=== PATIENT | female | born 1950 | race Caucasian/White ===

== ENCOUNTER 2020-02-25 08:37 | Emergency (ER) | payer MEDICARE, SELFPAY ==
[2020-02-25 08:38] VITALS: BP 162/77; PULSE 107; RESP 18; TEMP 36.5; O2SAT 100; BMI 20.8
--- NOTE | 2020-02-25 08:50 | EKG12_ITS ---
Test Reason : CP Blood Pressure : / mmHG Vent. Rate : 108 BPM Atrial Rate : 108 BPM P-R Int : 170 ms QRS Dur : 074 ms QT Int : 336 ms P-R-T Axes : 068 033 074 degrees QTc Int : 450 ms Sinus tachycardia Otherwise normal ECG Confirmed by SHIKHA CHANDRA, KEM ([id number]), newspaper managing editor [place] [employer] ([id number]) on 02/29/2020 2:33:10 PM Referred By: JEREMIAH Confirmed By:TERRI TRIVEDI MD
--- NOTE | 2020-02-25 08:52 | RAD_ITS ---
STUDY: X-RAY CHEST REASON FOR EXAM: Female, 70 years old. CHEST PAIN RADIATING INTO BACK x2 DAYS -- HX OF HTN TECHNIQUE: Single AP portable view of the chest. COMPARISON: Comparison is made with prior study dated 10/16/2015. FINDINGS: EKG electrodes are seen. Hyperinflation. The lungs are clear. There is no demonstrated pleural abnormality. Normal size heart. Normal mediastinum and lonnie. Normal visualized pulmonary arteries. There is atherosclerotic calcification of the aortic arch with tortuosity. Normal visualized thoracic spine. Normal visualized ribs, clavicles, and shoulders. There is no demonstrated abnormality of the visualized soft tissue structures of the upper abdomen. RAD/Chest 1 View (Portable) IMPRESSION: Hyperinflation. Electronically Signed: Justin Azevedo, at 9:23 EDT , Service support ,
[2020-02-25 08:55] LABS: Absolute Lymphocyte Count 1.38 X10^3/uL (0.83-4.51); Basophil# 0.04 X10^3/uL; Basophil% 0.7 % (0-1); Eosinophils% 1.7 % (0-5); Hematocrit 41.9 % (37-47); Lymphocyte # 1.38 X10^3/ul (4.0); Lymphocyte % 23.5 % (19-41); Mean Corp Hgb Conc 33.4 g/dL (32-36); Mean Corpuscular Hgb 30.6 pg (27.0-32.0); Mean Corpuscular Volume 91.7 fL (81-99); Mean Platelet Vol. 9.3 fl (6.2-12.0); Monocyte# 0.34 X10^3/uL; Monocyte% 5.8 % (0-10); NRBC Flagged by Analyzer 0 % (0-5); Neutrophil # 3.98 X10^3/uL (2.7-7.7); Platelet Count 303 K/mm3 (150-450); RBC Distribution Width CV 12.5 % (11.6-14.6); RBC Distribution Width SD 41.9 fl (35.1-43.9); Red Blood Count 4.57 M/mm3 (4.2-5.4); White Blood Count 5.9 K/mm3 (4.4-11.0)
[2020-02-25 09:07] LABS: International Normalized Ratio 0.9; Prothrombin Time (Protime)PT. 11.7 SECONDS (11.7-14.9)
--- NOTE | 2020-02-25 09:07 | ED.DCSUM_ITS ---
History of Present Illness Chief Complaint: Chest Pain Informant: Patient Onset: Days - 2-3 Timing: Continuous - this AM, had it since woke up about 2 hrs [employer], Intermittent - last 2d, 1-2 min episodes of discomfort Quality: Dull Location: Left Chest - just left of sternum Current Severity: Mild Maximum Severity: Mild Worsened By: Breathing, Coughing Relieved By: Nothing Associated Symptoms: Negative for: Nausea, Vomiting, Diaphoresis, Dyspnea, Cough, Fever, Lightheadedness, Palpitations Narrative: Patient had brief intermittent episodes of discomfort in her chest last couple days, this morning since she woke up it has been constant and radiates straight through to her back. Just left of sternum. No other radiation, no discomfort in her arms, shoulders, neck, jaw. She denies any associated symptoms except for that it seems to be pleuritic. It is not sharp, stabbing. No sense of impending doom. She denies any palpitations, dyspnea. She has had no contact with anyone with COVID-19 that she knows of, she has not been diagnosed with the disease, nor has she had any illness recently to suggest an upper respiratory infection. She denies any recent travel, hospitalization, surgeries. She saw her doctor for routine exam 3 weeks ago and it was unremarkable. She had a routine negative stress test 5 or 6 years ago. She does not have a history of heart problems. Non-smoker. - Past Medical History (1) Hyperlipidemia Status: Chronic (2) HTN (hypertension) Status: Chronic Past Medical History - Allergies and Home Meds Allergies/Adverse Reactions: Allergies Penicillins Allergy (Verified 02/25/20 08:44) Hives Sulfa (Sulfonamide Antibiotics) Allergy (Verified 02/25/20 08:44) Itching Primary Care Physician: Pia Mims MD [Primary Care Provider] - Surgical History: hysterectomy Lives: Spouse/ Significant Other Smoking Status: Former smoker Review of Systems General: Denies: Chills, Fever, Sweats Eyes: Denies: Visual changes - bilaterally, Diplopia ENT: Denies: Rhinorrhea, Sore throat Cardiovascular: Reports: Chest pain. Denies: Palpitations Respiratory: Denies: Dyspnea, Cough, Dyspnea on exertion Gastrointestinal: Denies: Abdominal pain, Nausea, Vomiting, Diarrhea, Melena, Hematochezia Genitourinary: Denies: Dysuria, Hematuria, Frequency Musculoskeletal: Reports: Back pain. Denies: Myalgias, Neck pain, Swelling, Extremity Pain Skin: Denies: Rash, Wounds Neurological: Denies: Headache, Weakness, Numbness Physical Exam Vital Signs/Narrative: Vital Signs Temp Pulse Resp BP Pulse Ox 02/25/20 08:38 97.7 F L 107 H 18 162/77 H 100 Inital Vital Signs reviewed: Yes General: Well nourished, Well developed, No Acute Distress - Well-appearing, conversive, pleasant Head: Normocephalic, Atraumatic Eyes: Perrl, EOMI ENT: Moist mucous membranes, No rhinorrhea Neck: Supple, Nontender, No lymphadenopathy, No JVD Cardiovascular: Regular rate, Regular rhythm, No murmurs, Tachycardia - Mild at times, usually in the 90s, - - 1+ bilateral symmetric dorsalis pedis pulses. 2+ bilateral symmetric radial pulses Respiratory: No distress, CTA bilaterally, Chest nontender Abdomen: Soft, Nontender, Nondistended, Normal bowel sounds. Negative for: Pulsatile mass Back: Nontender, Normal Inspection Extremities: Nontender, No edema. Negative for: Calf Tenderness Skin: Normal color, No rash, No Trauma Neurological: Alert, Oriented x3, Cranial nerves II-XII grossly intact, Normal Strength, Normal Sensation, Normal Gait Psychological: Normal affect, Normal Mood Diagnostic/Tx/Re-eval Impressions Chest X-Ray 02/25/20 08:52 IMPRESSION: Hyperinflation. Electronically Signed: Justin Jolly, at 9:23 EDT , Service support , 02/25/20 08:52 Chest 1 View (Portable) [RAD] Stat Laboratory Results 02/25/20 02/25/20 02/25/20 08:45 08:45 08:45 WBC 5.9 RBC 4.57 Hgb 14.0 Hct 41.9 MCV 91.7 MCH 30.6 MCHC 33.4 RDW Std Deviation 41.9 RDW Coeff of Elli 12.5 Plt Count 303 MPV 9.3 Immature Gran % (Auto) 0.300 Neut % (Auto) 68.0 Lymph % (Auto) 23.5 Grimes % (Auto) 5.8 Eos % (Auto) 1.7 Baso % (Auto) 0.7 Absolute Neuts (auto) 4.0 Absolute Lymphs (auto) 1.38 Nucleated RBC % 0 PT 11.7 INR 0.9 D-Dimer Quant (PE/DVT) Sodium 141 Potassium 3.2 L Chloride 105 Carbon Dioxide 31.0 Anion Gap 5 BUN 14 Creatinine 1.12 H Estim Creat Clear Calc 39.21 Est GFR (MDRD) Af Amer 62 Est GFR (MDRD) Non-Af 51 L BUN/Creatinine Ratio 12.5 Glucose 154 H Calcium 8.8 Troponin I < 0.015 02/25/20 08:45 WBC RBC Hgb Hct MCV MCH MCHC RDW Std Deviation RDW Coeff of Elli Plt Count MPV Immature Gran % (Auto) Neut % (Auto) Lymph % (Auto) Grimes % (Auto) Eos % (Auto) Baso % (Auto) Absolute Neuts (auto) Absolute Lymphs (auto) Nucleated RBC % PT INR D-Dimer Quant (PE/DVT) 0.43 Sodium Potassium Chloride Carbon Dioxide Anion Gap BUN Creatinine Estim Creat Clear Calc Est GFR (MDRD) Af Amer Est GFR (MDRD) Non-Af BUN/Creatinine Ratio Glucose Calcium Troponin I - Rhythm Strip Rhythm Strip: Sinus Tach Rate: 105 Ectopy: PVC(s) - Rare - EKG Initial EKG Interpretation: No Acute Injury Pattern - Normal axis, normal intervals. No AV danielle block., Sinus Tachycardia Prior: Unchanged Treatment: Toradol IV, GI Cocktail JOHN Risk: Age >/= 65 Score: 1 - Medical Decision Making Work-up is negative, along with d-dimer ruling out acute pulmonary embolus in this particular clinical scenario as the patient is low risk and has no signs or symptoms of a DVT. I do not think she needs a delta troponin since she has been having intermittent pain the last several days along with constant pain this morning. The discomfort acts like pleurisy and her vital signs are stable with a pulse ox of 100% on room air at rest. I am comfortable with her being discharged home. While we were waiting for the work-up to return, I tried a GI cocktail, she states it helped maybe a little but she still had the discomfort when she breathes. We talked about NSAID use, I am fine with her using it on occasion but being in her 70s, I would not take it daily if possible. Given appropriate discharge instructions, reasons to return, and advised to follow-up and she is comfortable with that plan. ED Disposition - Plan for ED Patient: Disposition: Home or Assisted Living Diagnosis: Pleurisy Instructions: ED Chest Pain Pleurisy Referrals: Pia Mims MD [Primary Care Provider] - 1 Week if not improving
[2020-02-25 09:17] LABS: Anion Gap 5 (5-15); BUN 14 mg/dL (7-18); BUN/Creat Ratio 12.5 RATIO (10-20); Calcium,Total 8.8 mg/dL (8.5-10.1); Chloride 105 mmol/L (98-107); Creatinine, Serum 1.12 mg/dL (0.55-1.02); EST Glomerular Filtration Rate 51 mL/min (>60); Est Glom Filt Rate - Afr Amer 62 mL/min (>60); Estimated Creatinine Clearance 39.21 ml/min; Glucose 154 mg/dL (74-106); Potassium 3.2 mmol/L (3.5-5.1); Sodium Level 141 mmol/L (136-145)
[2020-02-25 09:29] LABS: D-Dimer Quantitative (DVT/PE) 0.43 FEU/ug/m (0.27-0.49)
[2020-02-25] MEDS: Mag Hydrox/Al Hydrox/Simeth 30 ML UDC PO (09:45)
[2020-02-25 09:47] VITALS: BP 141/96; PULSE 97; RESP 16; O2SAT 100
[2020-02-25 11:10] VITALS: BP 160/74; PULSE 94; RESP 16; O2SAT 99
== END 2020-02-25 11:12 | disposition home or self-care (01) ==
PROVIDERS: Emergency Provider Emergency Medicine; PCP Internal Medicine
DX: R09.1 Pleurisy (principal); I10 Essential (primary) hypertension; E78.5 Hyperlipidemia, unspecified; M54.9 Dorsalgia, unspecified; Z79.899 Other long term (current) drug therapy; Z87.891 Personal history of nicotine dependence
CPT/HCPCS: 71045; 80048; 84484; 85025; 85379; 85610; 93005; 99284; A4216

== ENCOUNTER 2020-07-13 09:05 | Outpatient (RCR) | payer MEDICARE, SELFPAY | END 2020-07-13 23:59 | LOC: IMMUN 09:05 | PROVIDERS: PCP Internal Medicine; Visit Provider Family Medicine | DX: Z23 Encounter for immunization (principal) | CPT/HCPCS: 0011A; 0012A; 91301 ==

== ENCOUNTER → 2024-12-14 | Outpatient (REF) | payer MEDICARE, SELFPAY ==
--- OUTSIDE RECORDS SUMMARY | 2024-12-14 03:42 | XMS RPT_ITS | CCD ---
Author Organization [facility] Care Team Providers Care Brine Well Operator Name Role Phone DR ALYSSA LUGO DO Primary Care Physician [phone] Paulina Ardon MD Primary Care Provider Paulina Ardon MD Primary Care Provider Paulina Ardon MD Primary Care Provider Paulina Ardon MD Primary Care Provider Sanchez CHANNEL ACCOUNT MANAGER.WAFER CUTTER, Sandra Unavailable Caleb CHANNEL ACCOUNT MANAGER.FIELD CROPS HARVEST MACHINE OPERATOR, Christina Unavailable CELIA CHANDRA, DR GAIL Francisco Attending Unavailabl e DR PAULINA ARDON MD Primary Care Unavailable Caleb CHANNEL ACCOUNT MANAGER.FIELD CROPS HARVEST MACHINE OPERATOR, Christina Unavailable Sanchez CHANNEL ACCOUNT MANAGER.WAFER CUTTER, Sandra Unavailable BLADE LYMAN Attending Unavailable TALAMPAS, PAULINA D Primary Care Unavailable BLADE LYMAN Attending Unavailable TALAMPAS, PAULINA D Primary Care Unavailable TALAMPAS, PAULINA D Referring Unavailable TALAMPAS, PAULINA D Primary Care Unavailable TALAMPAS, PAULINA D Attending Unavailable TALAMPAS, PAULINA D Primary Care Unavailable TALAMPAS, PAULINA D Referring Unavailable TALAMPAS, PAULINA D Primary Care Unavailable TALAMPAS, PAULINA D Attending Unavailable TALAMPAS, PAULINA D Primary Care Unavailable TALAMPAS, PAULINA D Referring Unavailable TALAMPAS, PAULINA D Primary Care Unavailable TALAMPAS, PAULINA D Attending Unavailable TALAMPAS, PAULINA D Primary Care Unavailable SANCHEZ, SANDRA Attending Unavailable TALAMPAS, PAULINA D Primary Care Unavailable TALAMPAS, PAULINA D Referring Unavailable TALAMPAS, PAULINA D Primary Care Unavailable YAHAIRA BEAR Attending Unavailable TALAMPAS, PAULINA D Primary Care Unavailable SANDRA SANCHEZ Attending Unavailable PAULINA ARDON Primary Care Unavailable Allergies Allergy Classification Reported Allergen(s) Allergy Type Date of Onset Reaction(s) Facility (1 source) Penicillin; Translations: [penicillins] Drug Allergy Eruption of skin (disorder) [facility] Work Phone: (20 sources) Losartan; Translations: [LOSARTAN] Drug Allergy 08-08-19 22 Intolerance [facility] Work Phone: (7 sources) Penicillins; Translations: [PENICILLINS] Drug Intolerance 03-26-20 05 [facility] Work Phone: (20 sources) Sulfamethoxazole / Trimethoprim; Translations: [SULFAMETHOXAZOLE-T RIMETHOPRIM] Drug Allergy 11-16-19 06 Rash [facility] (20 sources) Penicillins Drug Intolerance 03-26-20 05 [facility] Work Phone: (6 sources) Penicillins Drug Intolerance 03-26-20 05 [facility] Medications Current Medications Medication Drug Class(es) Dates Sig (Normalized) Sig (Original) acetaminophen 325 mg / HYDROcodone bitartrate 5 mg oral tablet (2 sources) Opioid Agonist Start: 09-19-2024 End: 09-26-2024 take 1 tablet by mouth twice daily as needed for pain HYDROcodone-acetam inophen (NORCO) 5-325 mg per tablet Indications: Closed wedge compression fracture of T9 vertebra, sequela Take 1 tablet by mouth two times a day as needed for pain for up to 7 days. 14 tablet 09/19/2024 09/26/2024 Active Start: 08-17-2024 End: 08-24-2024 take 1-2 tablets by mouth every six hours as needed for pain HYDROcodone-acetaminophen (NORCO) 5-325 mg per tablet Indications: Closed wedge compression fracture of T9 vertebra, initial encounter ([facility]) Take 1-2 tablets by mouth every 6 hours as needed for pain for up to 7 days. 50 tablet 08/17/2024 08/24/2024 Active alendronic acid 70 mg oral tablet (11 sources) Bisphosphonate Start: 08-17-2024 take 1 tablet by mouth every week in the morning alendronate (FOSAMAX) 70 mg tablet Indications: Age-related osteoporosis without current pathological fracture Take 1 tablet by mouth one time a week. in the AM with glass of water on empty stomach. Do not take anything else by mouth or lie down for 30 min 12 tablet 3 08/17/2024 Active Start: 09-07-2022 End: 03-01-2023 take 1 tablet by mouth every week in the morning alendronate (FOSAMAX) 70 mg tablet Indications: Age-related osteoporosis without current pathological fracture Take 1 tablet by mouth one time a week. In AM with cup of water on empty stomach. Nothing else by mouth and stay upright for 30 min. 12 tablet 3 09/07/2022 03/01/2023 Discontinued Comment on above: Take 1 tablet by darrius th one time a week. In AM with cup of water on empty stomach. Nothing else by mouth and stay upright for 30 min. amLODIPine 10 mg oral tablet (20 sources) Dihydropyridine Calcium Channel Merlyn Start: 06-10-19 End: 08-18-19 take 1 tablet by mouth once daily amLODIPine (NORVASC) 10 mg tablet Indications: Essential hypertension with goal blood pressure less than 140/90 Take 1 tablet by mouth once daily. 90 tablet 3 08/17/2024 Active Start: 03-16-2021 End: 2023 take 1 tablet by mouth once daily amLODIPine (NORVASC) 10 mg tablet Indications: Essential hypertension with goal blood pressure less than 140/90 Take 1 tablet by mouth once daily. 90 tablet 3 2023 Active Comment on above: Take 1 tablet by darrius th once daily. atorvastatin 10 mg oral tablet (20 sources) HMG-CoA Reductase Inhibitor Start: End: take 1 tablet by mouth once daily atorvastatin (LIPITOR) 10 mg tablet Indications: Hyperlipidemia, unspecified hyperlipidemia type Take 1 tablet by mouth once daily. 90 tablet 3 08/17/2024 Active Start: 2023 take 1 tablet by darrius th once daily atorvastatin (LIPITOR) 10 mg tablet Indications: Hyperlipidemia, unspecified hyperlipidemia type Take 1 tablet by mouth once daily. 90 tablet 3 2023 Active Start: 03-16-2021 End: 2023 take 1 tablet by mouth once daily atorvastatin (LIPITOR) 20 mg tablet Indications: Hyperlipidemia, unspecified hyperlipidemia type Take 1 tablet by mouth once daily. 90 tablet 3 02/06/2022 2023 Discontinued Comment on above: Take 1 tablet by darrius th once daily. cholecalciferol, vitamin D3, (VITAMIN D3 ORAL) (20 sources) cholecalciferol, vitamin D3, (VITAMIN D3 ORAL) Take 1,000 Int'l Units by mouth. Nature Made Active cholecalciferol, vitamin D3, (VITAMIN D3 ORAL) Take 1,000 Int'l Units by mouth. Nature Made 0 Active Comment on above: Take 1,000 Int'l Uni ts by mouth. Nature Made 24 hr metoprolol succinate 25 mg extended release oral tablet (20 sources) beta-Adrenergic Merlyn Start: 06-10-2023 End: 08-17-2024 take 1 tablet by mouth once daily metoprolol succinate ER (TOPROL XL) 25 mg 24 hr tablet Indications: Palpitations , HTN, goal below 140/90 Take 1 tablet by mouth once daily. 90 tablet 3 08/17/2024 Active Start: 08-07-2021 End: 2023 take 1 tablet by mouth once daily metoprolol succinate ER (TOPROL XL) 25 mg 24 hr tablet Indications: Palpitations , HTN, goal below 140/90 Take 1 tablet by mouth once daily. 90 tablet 3 2023 Active Comment on above: Take 1 tablet by darrius th once daily. salmon calcitonin 200 unt/actuat nasal spray (7 sources) Calcitonin Start: 09-19-2024 calcitonin,salmon, (MIACALCIN) 200 unit/actuation nasal spray Indications: Closed wedge compression fracture of T9 vertebra, sequela Use 1 spray in the nose once daily. 11.1 mL 2 09/19/2024 Active Start: 08-17-2024 calcitonin,sung mon, (MIACALCIN) 200 unit/actuation nasal spray Indications: Closed wedge compression fracture of T9 vertebra, initial encounter ([facility]) Use 1 Wisner in the nose once daily. 3.7 mL 08/17/2024 Active Completed/Discontinued Medications Medication Drug Class(es) Dates Sig (Normalized) Sig (Original) amitriptyline hydrochloride 10 mg oral tablet (20 sources) Tricyclic Antidepressant Start: 07-26-2023 End: 02-17-2024 take 0.5 tablet by mouth once daily at bedtime, then take 0.5 tablet by mouth every other day amitriptyline (ELAVIL) 10 mg tablet Indications: Cognitive impairment , Memory difficulties , Adverse effect of anticholinergic , Migraine without aura and without status migrainosus, not intractable Take 0.5 tablets by mouth daily at bedtime for 14 days, THEN 0.5 tablets every other day for 14 days. 11 tablet 07/26/2023 02/17/2024 Discontinued Start: 03-16-2021 End: 2024 take 1 tablet by mouth once daily at bedtime amitriptyline (ELAVIL) 10 mg tablet Indications: Migraine without aura and without status migrainosus, not intractable Take 1 tablet by mouth daily at bedtime. 90 tablet 3 06/10/2023 07/26/2023 Discontinued Comment on above: Take 1 tablet by darrius th daily at bedtime. Take 0.5 tablets by mouth daily at bedtime for 14 days, THEN 0.5 tablets every other day for 14 days. apremilast 30 mg oral tablet (11 sources) Start: 05-18-20 End: 08-01-19 23 take 1 tablet by mouth twice daily apremilast (OTEZLA) 30 mg tablet Take 1 tablet by mouth twice daily. 30 tablet 5 05/18/2021 07/31/2022 Discontinued Comment on above: Take 1 tablet by darrius th twice daily. fluticasone propionate 0.05 mg/actuat metered dose nasal spray (16 sources) Corticosteroid Start: 06-04-19 End: 12-01-19 25 take 1 spray(s) nasal route once daily fluticasone (FLONASE) 50 mcg/actuation nasal spray Indications: Acute non-recurrent maxillary sinusitis SPRAY 1 SPRAY INTO EACH NOSTRIL EVERY DAY 24 mL 1 07/29/2023 11/30/2024 Discontinued Comment on above: Use 1 Wisner in each nostril once daily. SPRAY 1 SPRAY INTO E ACH NOSTRIL EVERY DAY losartan potassium 50 mg oral tablet (1 source) Angiotensin 2 Receptor Merlyn Start: 05-18-20 End: 08-22-19 22 take 1 tablet by mouth once daily losartan (COZAAR) 50 mg tablet Take 1 tablet by mouth once daily. 30 tablet 5 05/18/2021 08/21/2021 Discontinued Comment on above: Take 1 tablet by darrius once daily. perflutren lipid microspheres 1.3 mL in NaCl (PF) 0.9% 10 mL injection (DEFINITY) (15 sources) Start: 08-22-19 End: 11-21-19 perflutren lipid microspheres 1.3 mL in NaCl (PF) 0.9% 10 mL injection (DEFINITY) 125 ml sodium chloride 9 mg/ml prefilled syringe (15 sources) Start: 08-22-19 End: 11-21-19 sodium chloride 0.9 % (flush) 10 mL (BD POSIFLUSH) tiZANidine 4 mg oral tablet (5 sources) Central alpha-2 Adrenergic Agonist Start: 09-20-19 End: 12-01-19 take 2-4 mg by mouth every eight hours as needed tiZANidine (ZANAFLEX) 4 mg tablet Take 0.5-1 tablets by mouth three times a day as needed. 30 tablet 09/19/2024 11/30/2024 Discontinued Start: 08-05-2024 take 2-4 mg by mouth every eight hours as needed tiZANidine (ZANAFLEX) 4 mg tablet Take 0.5-1 tablets by mouth three times a day as needed. 30 tablet 08/05/2024 Active VALERIAN ORAL (10 sources) End: 07-31-2022 VALERIAN ORAL Take by mouth. 0 07/31/2022 Discontinued VALERIAN ORAL Ta ke by mouth. 0 Active Comment on above: Take by mouth. Problems Active Problems Problem Classification Problem Date Documented Date Episodic/Chronic Adjustment disorders (2 sources) Adjustment disorder with anxious mood; Translations: [Adjustment disorder with anxiety] Onset: 5 12-02-2024 Chronic Cardiac dysrhythmias (6 sources) Palpitations; Translations: [Palpitations] Episodic Chronic kidney disease (18 sources) Chronic kidney disease stage 3A ; Translations: [Chronic kidney disease, stage 3a (HCC)] Onset: 9 Resolved: 0 2023 Chronic Congestive heart failure; nonhypertensive (20 sources) Chronic diastolic heart failure; Translations: [Chronic diastolic (congestive) heart failure] Onset: 3 Chronic Delirium, dementia, and amnestic and other cognitive disorders (9 sources) Dementia; Translations: [Unspecified dementia without behavioral disturbance] Onset: 5 12-02-2024 Chronic Disorders of lipid metabolism (20 sources) Hyperlipidemia; Translations: [Hyperlipidemia, unspecified] Onset: 8 07-18-2021 Chronic E Codes: Adverse effects of medical drugs (1 source) Anticholinergic adverse reaction; Translations: [Adverse effect of other parasympatholytics [anticholinergics and antimuscarinics] and spasmolytics, initial encounter] 07-26-2023 Episodic Essential hypertension (20 sources) Hypertensive disorder; Translations: [Essential (primary) hypertension] Onset: 5 07-18-2021 Chronic Headache; including migraine (20 sources) Migraine; Translations: [Migraine without aura] Onset: 5 07-18-2021 Chronic Immunizations and screening for infectious disease (8 sources) Patient encounter status; Translations: [Encounter for immunization] Onset: 5 Episodic Nonspecific chest pain (2 sources) Chest pain; Translations: [Chest pain, unspecified] Episodic Osteoporosis (4 sources) Senile osteoporosis; Translations: [Age-related osteoporosis without current pathological fracture] Onset: Chronic Other circulatory disease (20 sources) Raynaud's disease; Translations: [Raynaud's syndrome without gangrene] Onset: 5 05-10-2005 Chronic Other fractures (1 source) Closed fracture thoracic vertebra, wedge; Translations: [Wedge compression fracture of T9-T10 vertebra, initial encounter for closed fracture] 08-17-2024 Episodic Other fractures (1 source) Wedge compression fracture of T9-T10 vertebra, sequela; Translations: [Closed wedge compression fracture of T9 vertebra, sequela] Onset: 5 Episodic Other hereditary and degenerative nervous system conditions (15 sources) Mild cognitive impairment, so stated; Translations: [Mild cognitive impairment, so stated] Onset: 4 02-26-2024 Chronic Other hereditary and degenerative nervous system conditions (13 sources) Degenerative brain disorder; Translations: [Degenerative disease of nervous system, unspecified] Onset: 4 02-26-2024 Chronic Other hereditary and degenerative nervous system conditions (1 source) Degenerative disease of nervous system, unspecified; Translations: [Neurodegenerative cognitive impairment] Onset: Chronic Other inflammatory condition of skin (1 source) 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 Other nervous system disorders (3 sources) Impaired cognition; Translations: [Other symptoms and signs involving cognitive functions and awareness] 07-26-2023 Episodic Other non-traumatic joint disorders (1 source) Swollen ankle region; Translations: [Effusion, unspecified ankle] 02-17-2024 Episodic Other nutritional; endocrine; and metabolic disorders (1 source) Hypercalcemia; Translations: [Hypercalcemia] Chronic Other nutritional; endocrine; and metabolic disorders (1 source) Weight loss 07-18-2021 Episodic Other nutritional; endocrine; and metabolic disorders (3 sources) Underweight; Translations: [Underweight] Onset: 5 12-02-2024 Episodic Other nutritional; endocrine; and metabolic disorders (1 source) Underweight; Translations: [Underweight (BMI < 18.5)] Onset: 5 Episodic Other nutritional; endocrine; and metabolic disorders (1 source) Body mass index (BMI) 19.9 or less, adult; Translations: [Underweight (BMI < 18.5)] Onset: Episodic Other screening for suspected conditions (not mental disorders or infectious disease) (3 sources) Cardiovascular stress test abnormal; Translations: [Abnormal result of other cardiovascular function study] Episodic Other upper respiratory infections (1 source) Acute maxillary sinusitis; Translations: [Acute maxillary sinusitis, unspecified] 07-26-2023 Episodic Pathological fracture (1 source) Age-related osteoporosis with current pathological fracture, unspecified site, sequela; Translations: [Age-related osteoporosis with current pathological fracture, sequela] Onset: 5 Episodic Residual codes; unclassified (9 sources) Memory impairment; Translations: [Other amnesia] 07-18-2021 Episodic Residual codes; unclassified (5 sources) Postmenopausal state; Translations: [Asymptomatic menopausal state] Episodic Residual codes; unclassified (1 source) Asymptomatic menopausal state; Translations: [Asymptomatic postmenopausal state] Onset: 5 Episodic Unclassified (1 source) Acute left-sided low back pain without sciatica; Translations: [Acute left-sided low back pain without sciatica] Onset: Past or Other Problems Problem Classification Problem Date Documented Da te Episodic/Chronic Fluid and electrolyte disorders (17 sources) Hypokalemia; Translations: [Hypokalemia] Onset: 02-27-2010 Resolved: 04-01-2015 04-01-2015 Episodic Other aftercare (1 source) Other correction (current) drug therapy; Translations: [Encounter for long-term current use of medication] Onset: 02-18-2024 Episodic Other fractures (1 source) Wedge compression fracture of T9-T10 vertebra, initial encounter for closed fracture; Translations: [Closed wedge compression fracture of T9 vertebra, initial encounter ([facility])] Onset: 08-22-2024 Episodic Other gastrointestinal disorders (20 sources) Constipation; Translations: [Constipation, unspecified] Onset: 04-01-2015 04-01-2015 Episodic Other gastrointestinal disorders (17 sources) Pelvic mass; Translations: [Intra-abdominal and pelvic swelling, mass and lump, unspecified site] Onset: 06-01-2009 Resolved: 04-01-2015 04-01-2015 Episodic Spondylosis; intervertebral disc disorders; other back problems (20 sources) Neck pain; Translations: [Cervicalgia] Onset: 09-09-2008 Resolved: 04-01-2015 04-01-2015 Episodic Results Test Name Value Interpretation Reference Range Facility [facility] 12-02-[address] [facility] Office Visit ([facility]E [facility]) BEKAH SUN ([id number]) 1950 F Date Time Provider Department 12/02/24 12:40 PM BLADE LYMANERIHWCarrie During your visit today, we recorded the following information about you: Pulse Blood pressure Weight Height 79/minute 161/72 45.4 kg 1.626 m Blade Lyman DO 12/02/2024 1:48 PM Signed Blade Lyman DO [facility] [address] [place] [address] [address] [place] [address] Visit Date: December 01, 2024 Name: Ms.Kary Nikki Sun Date of : 1950 MRN/E #: [id number] Chief Complaint: Patient presents with: Follow Up: Repeat Cog Assessmt Subjective Ms. Bekah Sun is a 74 year old lady PMHX of migraine, CHF, HLD, HTN, minor neurocognitive disorder here for follow up visit. She is here with her step daughter/Agnes Cunningham. HPI Initial geriatric assessment on 07/26/2023, overall cognitive test performance was in the 1st percentile when compared to individuals of a similar age and gender, suggesting presence of cognitive impairment. GDS and SUGEY suggesting minimal mood disturbance. Given testing results, history, most consistent with minor neurocognitive disorder, patient with preserved ADLs, currently dose not appear to have clinical dementia, however, cannot rule out poor performance due to medication side effects from Amitriptyline given its high anti-cholinergic burden, recommended to trail wean amitriptyline Last OV 02/26/2024, repeat cognitive testing today overall cognitive test performance was in the 12th percentile improved from previous testing, previously at 1st percentile, standardized score 65/200->82/200, patient with improvement in essentially all domains tested except delayed recognition. Recommended patient to avoid anti-cholinergic medications, patient's improved cognition likely related to the decreased anti-cholinergic burden since patient has been office amitriptyline. MRI showed volume loss in hippocampus Hippocampal volumes at the 1st percentile when compared to age matched normal controls by quantitative analysis, which likely contributing to memory loss. Patient remained independent on her ADLs, however, patient dose carry risk developing dementia, recommended to keep close follow up, discussed with patient and family, currently no preventive medications for dementia, Suggested [place] lifestyle principles Patient's step daughter called office on 12/01/2024 requesting letter to state patient unable to make financial decisions, per step daughter, patient's spouse is currently in a facility secondary to vascular dementia, family is planning to move patient to memory care facility Today, patient is here her step daughter, patient has no acute concerns; per step daughter, is currently in hospital due to delirium, unclear etiology, family is planning to move patient and to assisted living. Family is currently helping patient while is hospitalization. Patient appears to be confused today, unable to recall what has happened to her nor location of her Marisa recently involved with patient's care since has been hospitalized, Marisa did notice patient has left over medications at home. Per Marisa, patient and her has not been sharing too much regarding their medical care in the past. amlodipine besylate Adherence From 06/02/2024 to 11/28/2024 Proportion of Days Covered 50% of total days covered (90/180 days) High Confidence Fill data for this medication is likely complete. Other factors may still affect the accuracy of the score. About this Score Dispenses Dispensed Days Supply Quantity Provider Pharmacy AMLODIPINE BESYLATE 10 MG TAB 08/17/2024 90 90 each Sandra Sanchez APRN.WAFER CUTTER e- [id number] ... AMLODIPINE BESYLATE 10 MG TAB 02/29/2024 90 90 each Sandra Sanchez APRN.WAFER CUTTER e- [id number] ... How do dispenses affect the score? Outpatient Orders The patient is taking this medication long-term. Start Date End Date Dispense Refills Pharmacy amLODIPine (NORVASC) 10 mg tablet 08/17/2024 -- 90 tablet 3/3 e- [id number] - [place]... Take 1 tablet by mouth once daily. amLODIPine (NORVASC) 10 mg tablet 02/17/2024 08/17/2024 90 tablet 3/3 e- [id number] - [place]... Take 1 tablet by mouth once daily. amLODIPine (NORVASC) 10 mg tablet 06/10/2023 02/17/2024 90 tablet 3/3 e- [id number] [place]... Take 1 tablet by mouth once daily. How do orders affect the score? Admissions in Period No admissions during adherence period. How do admissions affect the score? atorvastatin calcium Adherence From 06/02/2024 to 11/28/2024 Proportion of Days Covered 50% of total days covered (90/180 days) High Confidence Fill data for this medication is likely complete. Other factors may still affect the accuracy of the (more content not included)... [facility] 12-01-2024 ESTELITAN Telephone ([id number] ) BEKAH SUN ([id number]) 1950 F Date Time Provider Department 12/01/24 BLADE LYMAN [id number] During your visit today, we recorded the following information about you: Marie Prather LPN 12/01/2024 10:21 AM Signed Patient's stepdaughter, Mayra, is requesting a letter stating patient is unable to make financial decisions due to her cognitive impairment. [facility] LiquidPlanner just needs a letter on physician's letterhead. BLAYNE Nichole Fangfei, DO 12/01/2024 10:29 AM Signed Please help to clarify with who is legally next of kin, patient's last visit was on 02/26/2024, patient with cognitive impairment with preserved executive function. During evaluation on 02/26/2024, patient dose not have clinical dementia, patient's was with her during visit on 02/26/2024, has been managing their finances without any issues. Based on evaluation on 02/26/2024, I cannot provide such letter, if family is requesting such letter, patient needs to be re-evaluated, thank you DO Crescencio Robin Adrienne, LPN 12/01/2024 10:37 AM Signed Patient's daughter notified regarding message below. Appointment made for 12/02. [facility] patient's spouse is currently in a facility with sudden onset of vascular dementia. Marie Prather LPN Allergies As of Date: 12/01/2024 Noted Allergy Reaction PENICILLINS 03/26/2005 4 - Hives BACTRIM DS (SULFAMETHOXAZOLE-TRIM*11/15 2 - Rash LOSARTAN 08/07/2021 5 - Intolerance Comments: headache, did not feel well Date Reviewed: 11/30/2024 Reviewed by: Sandra Sanchez APRN.WAFER CUTTER - Fully Assessed Prescriptions as of 12/01/2024 - calcitonin,salmon, (MIACALCIN) 200 unit/actuation nasal spray Use 1 spray in the nose once daily. - alendronate (FOSAMAX) 70 mg tablet Take 1 tablet by mouth one time a week. in the AM with glass of water on empty stomach. Do not take anything else by mouth or lie down for 30 min - amLODIPine (NORVASC) 10 mg tablet Take 1 tablet by mouth once daily. - atorvastatin (LIPITOR) 10 mg tablet Take 1 tablet by mouth once daily. - metoprolol succinate ER (TOPROL XL) 25 mg 24 hr tablet Take 1 tablet by mouth once daily. - cholecalciferol, vitamin D3, (VITAMIN D3 ORAL) Take 1,000 Int'l Units by mouth. Nature Made Problem List As Of Date 12/01/2024 Noted Resolved Primary hypertension [I10] 05/10/2005 Migraine without aura [G43.009] 05/10/2005 RAYNAUD'S SYNDROME [I73.00] 05/10/2005 Hyperlipidemia [E78.5] 03/26/2008 Cervicalgia [M54.2] 09/09/2008 04/01/2015 Pelvic mass [R19.00] 06/01/2009 04/01/2015 Hypokalemia [E87.6] 02/27/2010 04/01/2015 Constipation [K59.00] 04/01/2015 CKD (chronic kidney disease) stage 3, GFR 30-59*06/05/2018 02/03/2020 Chronic diastolic CHF (congestive heart failure*2023 Mild cognitive impairment with memory loss [G31*02/26/2024 Neurodegenerative cognitive impairment (HCC) [G*02/26/2024 Encounter Status:Closed by BLADE LYMAN on 12/01/24 [facility] CNPN Telephone (INTMWS) BEKAH SUN ([id number]) 1950 F Date Time Provider Department 12/01/24 PAULINA ARDON INTMWS During your visit today, we recorded the following information about you: Ciara, Katrina Vigil 12/01/2024 10:25 AM Signed Patient's step daughter Marisa calling in stating they are currently in the process of placing patient in a memory care facility. She is having trouble getting access to patient's finances through [facility]. Marisa is asking if Dr. Ardon would be willing to write a letter stating patient is not able to make financial decisions due to cognitive decline. She states it needs to be on a letter head. Please review and advise Marisa at [phone]. Katrina Urbina December 01, 2024 10:25 AM Autumn Mcginnis 12/01/2024 4:46 PM Signed Daughter called back, stating its urgent. Said father is having decline as well. Cuca Perla MA 12/02/2024 8:23 AM Signed Please see message below requesting letter had appointment 11/30 in office KAITY Yap Lori 12/02/2024 3:22 PM Signed Step daughter called to check the status of this situation as it is urgent Marisa is requesting a call back at [phone] [facility] Please advise Iveth East, AMINATA 12/02/2024 4:44 PM Signed Please see 11/30 appt where pt saw Sandra Sanchez and she documented pt was Alert and oriented x 3 with mild cognitive impairment and documentation that pt's significant other was at the appt. Also, please see phone encounter 12/[address] Lyman where she refused to write the letter for the daughter. Appears Dr. Lyman saw pt today with no and step daughter with her. Pt was confused today. Need for concern-discussed with management and will discuss with Sandra Sanchez. Paulina Ardon MD 12/02/2024 7:18 PM Addendum Noted that patient with increased confusion and need to be admitted to memory care along with her . Reviewed Dr. Lyman's progress note. Also Sandra Nation's note. Patient with impaiired cognition and not have the capacity to make decisions at this time. Letter written so that daughter will be able to access patient's finances so that admission to memory care can go through on Saturday as planned. Iveth East RN 12/02/2024 7:[address] Lyman's office visit note and saw she wrote a letter today. Called to confirm with step daughter Marisa on why she needs a letter from PCP as well. Marisa states that [facility] [employer] legal department requires 2 doctors to document that pt has had a cognitive decline and is unable to make financial decisions at this time. Marisa states that her dad had a sudden onset of dementia 3 weeks ago and is in [facility] Transitional Care Unit. Both pt and her are set up to go to the Memory Care Unit at [facility] in [place] this Saturday so that is the urgency of needing to get to the pt's finances. Marisa also states she brought pt to her appt Saturday with Sandra Sanchez but did not know at that visit that she was going to need these letters. She brought pt in to complete the paperwork [facility] requires for placement at their facility. Discussed all of the above with Dr. Ardon who is going to type up letter. Marisa requests to pick it up tomorrow in medical records. Iveth East RN 12/02/2024 7:37 PM Signed Letter done, printed AND signed by Dr. 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 Marisa aware. Allergies As of Date: 12/01/2024 Noted Allergy Reaction PENICILLINS 03/26/2005 4 - Hives BACTRIM DS (SULFAMETHOXAZOLE-TRIM*11/15 2 - Rash LOSARTAN 08/07/2021 5 - Intolerance Comments: headache, did not feel well Date Reviewed: 11/30/2024 Reviewed by: Sandra Sanchez, PIYUSH.WAFER CUTTER - Fully Assessed Reason for Visit: Letter [264] Prescriptions as of 12/04/2024 - calcitonin,salmon, (MIACALCIN) 200 unit/actuation nasal spray Use 1 spray in the nose once daily. - alendronate (FOSAMAX) 70 mg tablet Take 1 tablet by mouth one time a week. in the AM with glass of water on empty stomach. Do not take anything else by mouth or lie down for 30 min - amLODIPine (NORVASC) 10 mg tablet Take 1 tablet by mouth once daily. - atorvastatin (LIPITOR) 10 mg tablet Take 1 tablet by mouth once daily. - metoprolol succinate ER (TOPROL XL) 25 mg 24 hr tablet Take 1 tablet by mouth once daily. - cholecalciferol, vitamin D3, (VITAMIN D3 ORAL) Take 1,000 Int'l Units by mouth. Nature Made Problem List As Of Date 12/01/2024 Noted Resolved Primary hypertension [I10] 05/10/2005 Migraine without aura [G43.009] 05/10/2005 RAYNAUD'S SYNDROME [I73.00] 05/10/2005 Hyperlipidemia [E78.5] 03/26/2008 Cervicalgia [M54.2] 09/09/2008 04/01/2015 Pelvic mass [R19.00] 06/01/2009 04/01/2015 Hypokalemia [E87.6] 02/27/2010 04/01/2015 Constipation [K59.00] 04/01/2015 CKD (chronic kidney disease) stage 3, GFR 30-59*06/05/2018 02/03/2020 Chronic diastolic CHF ( (more content not included)... Normal [facility] CNOVon 11-30-2024 CNOV Office Visit (INTMWS ) SAWBEKAH PYLE ([id number]) 1950 F Date Time Provider Department 11/30/24 11:40 AM SANDRA SANCHEZ INTMWS During your visit today, we recorded the following information about you: Pulse Respiration Blood pressure Weight 70/minute 16/minute 129/70 45 kg Sandra Sanchez APRN.WAFER CUTTER 11/30/2024 12:43 PM Signed Subjective Patient presents with: Memory Problems Bekah Sun is a 74 year old female. She presents for a physical exam prior to assisted living admission. She notes she is in her usual state of good health. She presents with her significant other that helps with HPI. Notes some difficulty with managing medications, some decrease in memory is noted. She was seen for mild cognitive impairment and geriatrics, last visit was February 26, 2024. Getting assistance with medication management, otherwise feels she is in good health. HTN: Without report ofheadache, chest pain, palpitations, dyspnea, peripheral edema, orthopnea, fatigue, and PND.Last 3 Encounter BP Readings: Date: BP: 11/30/2024 129/70 09/19/2024 138/78 08/17/2024 138/62 Hyperlipidemia. Ms. Sun reports doing well on current therapy. Her most recent lipid panels are: Cholesterol, Total (mg/dL) Date Value 02/18/2024 219 08/08/2022 233 08/25/2020 226 07/21/2019 197 Total Cholesterol, Nonfasting (mg/dL) Date Value 03/16/2021 233 HDL Cholesterol (mg/dL) Date Value 02/18/2024 110 08/08/2022 90 08/25/2020 111 07/21/2019 99 HDL Cholesterol, Nonfasting (mg/dL) Date Value 03/16/2021 118 LDL Cholesterol, Calculated (mg/dL) Date Value 02/18/2024 93 08/08/2022 127 08/25/2020 101 07/21/2019 86 LDL Cholesterol Calculated, Nonfasting (mg/dL) Date Value 03/16/2021 101 Triglyceride (mg/dL) Date Value 02/18/2024 78 08/08/2022 82 08/25/2020 69 07/21/2019 61 Triglycerides, Nonfasting (mg/dL) Date Value 03/16/2021 70 PAST MEDICAL HISTORY Diagnosis Date COMMON MIGRAINE W/O MENTN INTRACT 05/10/2005 Diverticulosis of colon (without mention of hemorrhage) HYPERTENSION NOS 05/10/2005 Kidney stone Psoriasis Raynaud's syndrome 05/10/2005 PAST SURGICAL HISTORY Procedure Laterality Date COLONOSCOPY FLX DX W/COLLJ SPEC WHEN PFRMD 08/15/2009 Colonoscopy COLONOSCOPY FLX DX W/COLLJ SPEC WHEN PFRMD 10/28/2019 Colonoscopy ESOPHAGOGASTRODUODENOSCOPY TRANSORAL DIAGNOSTIC 01/08/2012 inpt f f [facility] EGD PAST SURGICAL HISTORY OF 06/10/2009 Single Port resection of ovarian remanent-LSO TOTAL ABDOMINAL HYSTERECT W/WO RMVL TUBE OVARY HUANG-BSO Social History Tobacco Use Smoking status: Never Smokeless tobacco: Never Substance Use Topics Alcohol use: Yes Comment: rare Drug use: No Allergies: Penicillins Hives Bactrim Ds [Sulfame* Rash Losartan Intolerance Comment:headache, did not feel well Current Outpatient Medications Medication Sig calcitonin,salmon, (MIACALCIN) 200 unit/actuation nasal spray Use 1 spray in the nose once daily. alendronate (FOSAMAX) 70 mg tablet Take 1 tablet by mouth one time a week. in the AM with glass of water on empty stomach. Do not take anything else by mouth or lie down for 30 min amLODIPine (NORVASC) 10 mg tablet Take 1 tablet by mouth once daily. atorvastatin (LIPITOR) 10 mg tablet Take 1 tablet by mouth once daily. metoprolol succinate ER (TOPROL XL) 25 mg 24 hr tablet Take 1 tablet by mouth once daily. cholecalciferol, vitamin D3, (VITAMIN D3 ORAL) Take 1,000 Int'l Units by mouth. Nature Made (Patient not taking: Reported on 11/30/2024) No current facility-administered medications for this visit. Review of Systems Objective BP 129/70 Pulse 70 Resp 16 Wt 45 kg (99 lb 3.3 oz) BMI 17.03 kg/m? Estimated body mass index is 17.03 kg/m? as calculated from the following: Height as of 08/05/24: 162.6 cm (5' 4). Weight as of this encounter: 45 kg (99 lb 3.3 oz). Physical Exam Constitutional: Appearance: Normal appearance. HENT: Head: Normocephalic. Eyes: Conjunctiva/sclera: Conjunctivae normal. Neck: Thyroid: No thyroid mass or thyromegaly. Vascular: Normal carotid pulses. No carotid bruit or JVD. Cardiovascular: Rate and Rhythm: Normal rate and regular rhythm. Pulses: Carotid pulses are 2+ on the right side and 2+ on the left side. Radial pulses are 2+ on the right side and 2+ on the left side. Heart sounds: Normal heart sounds. Pulmonary: Effort: Pulmonary effort is normal. Breath sounds: Normal breath sounds. Abdominal: General: Bowel sounds are normal. Palpations: Abdomen is soft. Musculoskeletal: General: Tenderness (Mild in mid-back) present. Right lower leg: No edema. Left lower leg: No edema. Skin: General: Skin is warm and dry. Neurological: General: No focal deficit present. Mental Status: She is alert and oriented to person, place, and time. Psychiatric: Mood and Affect: Mood norm (more content not included)... [facility] ([id number]) 1950 F Date Time Provider Department 11/26/24 PAULINA ARDON INTMWS During your visit today, we recorded the following information about you: Batsheva De La Torre 11/26/2024 10:54 AM Addendum Patient's daughter, Marisa (1st alt HCPOA after spouse), presented at the supervisor front wanting to make sure patient's advanced directives were on file, which they are. Marisa also states that she has concerns re: both patient and patient's spouse (who is not a patient of this office). Both patient and spouse have had a downward spiral in the last 2 weeks and the daughter is trying to help them get placed in a facility together. Marisa is wanting to discuss patient's diagnoses or obtain documentation to help get the patients placed in the best facility. She is looking for medical evidence to better help facilitate the best placement. Please advise. Anai Do LPN 11/30/2024 3:50 PM Signed Patient seen by Sandra RAMOS today and [facility] assisted living forms were filled out and signed and given to patient in the office today. Allergies As of Date: 11/26/2024 Noted Allergy Reaction PENICILLINS 03/26/2005 4 - Hives BACTRIM DS (SULFAMETHOXAZOLE-TRIM*11/15 2 - Rash LOSARTAN 08/07/2021 5 - Intolerance Comments: headache, did not feel well Date Reviewed: 09/19/2024 Reviewed by: Tigre Gaona MA - Fully Assessed Reason for Visit: Patient Question [1477] Prescriptions as of 11/30/2024 - calcitonin,salmon, (MIACALCIN) 200 unit/actuation nasal spray Use 1 spray in the nose once daily. - alendronate (FOSAMAX) 70 mg tablet Take 1 tablet by mouth one time a week. in the AM with glass of water on empty stomach. Do not take anything else by mouth or lie down for 30 min - amLODIPine (NORVASC) 10 mg tablet Take 1 tablet by mouth once daily. - atorvastatin (LIPITOR) 10 mg tablet Take 1 tablet by mouth once daily. - metoprolol succinate ER (TOPROL XL) 25 mg 24 hr tablet Take 1 tablet by mouth once daily. - cholecalciferol, vitamin D3, (VITAMIN D3 ORAL) Take 1,000 Int'l Units by mouth. Nature Made Problem List As Of Date 11/26/2024 Noted Resolved Primary hypertension [I10] 05/10/2005 Migraine without aura [G43.009] 05/10/2005 RAYNAUD'S SYNDROME [I73.00] 05/10/2005 Hyperlipidemia [E78.5] 03/26/2008 Cervicalgia [M54.2] 09/09/2008 04/01/2015 Pelvic mass [R19.00] 06/01/2009 04/01/2015 Hypokalemia [E87.6] 02/27/2010 04/01/2015 Constipation [K59.00] 04/01/2015 CKD (chronic kidney disease) stage 3, GFR 30-59*06/05/2018 02/03/2020 Chronic diastolic CHF (congestive heart failure*2023 Mild cognitive impairment with memory loss [G31*02/26/2024 Neurodegenerative cognitive impairment (HCC) [G*02/26/2024 Encounter Status:Closed by ANAI SALCEDO on 11/30/24 Normal [facility] BD DXA - AXIAL SKELETONon BD DXA - AXIAL SKELETON * * *Final Report* * * DATE OF EXAM: Sep 25 2024 10:11AM [facility] 0804 - BD DXA - AXIAL SKELETON / PROCEDURE REASON: Asymptomatic postmenopausal state * * * * Physician Interpretation * * * * EXAMINATION: DXA BONE DENSITOMETRY BD DXA - AXIAL SKELETON, BD DXA TRABECLR BONE SCORE (TBS) PATIENT DEMOGRAPHICS: Age: 74 years, Gender: Female SCANNER INFORMATION: DXA Model: [employer] - [place] C [id number] Date Scanned: 09/25/2024 10:11 AM CLINICAL HISTORY: DIAGNOSTIC Asymptomatic postmenopausal state . RISK FACTORS FOR OSTEOPOROSIS AND ASSOCIATED FRACTURES REPORTED BY THIS PATIENT: Please refer to Bone Health Questionnaire in the EMR CURRENT THERAPY: Please refer to Bone Health Questionnaire in the EMR TECHNICAL LIMITATIONS: None RESULTS: Lumbar spine (L1, L2, L3, L4): 0.837 g/cm2, T-score -1.9, Z-score 0.6 Lumbar spine: 2022: 0.869 g/cm2 Statistically significant decrease Right Femoral Neck: 0.431 g/cm2, T-score -3.8, Z-score -1.6 Right Femoral Neck: 2022: 0.478 g/cm2 Statistically significant decrease Right Total Hip: 0.674 g/cm2, T-score -2.2, Z-score -0.3 Right Total Hip: 2022: 0.692 g/cm2 No statistically significant change Left Femoral Neck: 0.495 g/cm2, T-score -3.2, Z-score -1.0 Left Femoral Neck: 2022: 0.535 g/cm2 Statistically significant decrease Left Total Hip: 0.693 g/cm2, T-score -2.0, Z-score -0.2 Left Total Hip: 2022: 0.741 g/cm2 Statistically significant decrease CHANGE IS STATISTICALLY SIGNIFICANT IN THE SPINE OR HIP IF GREATER THAN OR EQUAL TO 0.04 g/cm2 VERTEBRAL FRACTURE ASSESSMENT Not performed. TRABECULAR BONE ASSESSMENT TBS score: 1.393 Bone micro-architecture: Normal (> 1.310) IMPRESSION: THE LOWEST T-SCORE IS -3.8 IN THE RIGHT HIP 1) DIAGNOSIS (based on BMD alone): OSTEOPOROSIS Caution: Medical conditions other than osteoporosis may cause low bone density, such as osteomalacia or renal osteodystrophy. Clinical correlation is necessary. 2) FRACTURE RISK (Based on TBS adjusted FRAX): 10-year absolute fracture risk: - major osteoporotic fracture = 22 % - hip fracture = 12 % - A diagnosis of Osteoporosis, a 10 year probability of hip fracture greater than or equal to 3% or a 10 year probability of any major osteoporosis-related fracture greater than or equal to 20% should be considered for treatment. - DXA scanner generated FRAX calculations may slightly differ from online FRAX calculations due to differences in software versions. - All recommendations and calculations are to be considered as guidelines and should not replace sound clinical judgement - Caution: Fracture risk may be increased independent of BMD in patients with corticosteroid use, age greater than 65 years, or a history of prior fragility fracture. RECOMMENDATIONS: Follow-up in 2 years or as clinically indicated. Patients that are taking corticosteroids, are transplant recipients or have hyperparathyroidism should have annual follow-up. Follow-up scans should always be done on the same machine for accurate comparison. FOR MORE INFORMATION ABOUT DIAGNOSIS AND TREATMENT: [facility] Center for Osteoporosis and Metabolic Bone Disease:? www.ccf.org/arthritis/osteo National Osteoporosis Foundation:? www.nof.org International Society of Clinical Densitometry www.iscd.org 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 Gate: LILIANA Transcribe Date/Time: Sep 29 2024 9:24A Dictated by : ALEJANDRO SINGLETARY MD This examination was interpreted and the report reviewed and electronically signed by: ALEJANDRO SINGLETARY MD on Sep 29 2024 9:27AM EST [id number] -3.8 Normal [facility] BD DXA TRABECLR BONE SCORE ( TBS)on 09-25-2024 BD DXA TRABECLR BONE SCORE (TBS) * * *Final Report* * * DATE OF EXAM: Sep 25 2024 10:11AM [facility] 0801 - BD DXA TRABECLR BONE SCORE (TBS) / PROCEDURE REASON: Asymptomatic postmenopausal state * * * * Physician Interpretation * * * * EXAMINATION: DXA BONE DENSITOMETRY BD DXA - AXIAL SKELETON, BD DXA TRABECLR BONE SCORE (TBS) PATIENT DEMOGRAPHICS: Age: 74 years, Gender: Female SCANNER INFORMATION: DXA Model: [employer] - [employer] C [id number] Date Scanned: 09/25/2024 10:11 AM CLINICAL HISTORY: DIAGNOSTIC Asymptomatic postmenopausal state . RISK FACTORS FOR OSTEOPOROSIS AND ASSOCIATED FRACTURES REPORTED BY THIS PATIENT: Please refer to Bone Health Questionnaire in the EMR CURRENT THERAPY: Please refer to Bone Health Questionnaire in the EMR TECHNICAL LIMITATIONS: None RESULTS: Lumbar spine (L1, L2, L3, L4): 0.837 g/cm2, T-score -1.9, Z-score 0.6 Lumbar spine: 2022: 0.869 g/cm2 Statistically significant decrease Right Femoral Neck: 0.431 g/cm2, T-score -3.8, Z-score -1.6 Right Femoral Neck: 2022: 0.478 g/cm2 Statistically significant decrease Right Total Hip: 0.674 g/cm2, T-score -2.2, Z-score -0.3 Right Total Hip: 2022: 0.692 g/cm2 No statistically significant change Left Femoral Neck: 0.495 g/cm2, T-score -3.2, Z-score -1.0 Left Femoral Neck: 2022: 0.535 g/cm2 Statistically significant decrease Left Total Hip: 0.693 g/cm2, T-score -2.0, Z-score -0.2 Left Total Hip: 2022: 0.741 g/cm2 Statistically significant decrease CHANGE IS STATISTICALLY SIGNIFICANT IN THE SPINE OR HIP IF GREATER THAN OR EQUAL TO 0.04 g/cm2 VERTEBRAL FRACTURE ASSESSMENT Not performed. TRABECULAR BONE ASSESSMENT TBS score: 1.393 Bone micro-architecture: Normal (> 1.310) IMPRESSION: THE LOWEST T-SCORE IS -3.8 IN THE RIGHT HIP 1) DIAGNOSIS (based on BMD alone): OSTEOPOROSIS Caution: Medical conditions other than osteoporosis may cause low bone density, such as osteomalacia or renal osteodystrophy. Clinical correlation is necessary. 2) FRACTURE RISK (Based on TBS adjusted FRAX): 10-year absolute fracture risk: - major osteoporotic fracture = 22 % - hip fracture = 12 % - A diagnosis of Osteoporosis, a 10 year probability of hip fracture greater than or equal to 3% or a 10 year probability of any major osteoporosis-related fracture greater than or equal to 20% should be considered for treatment. - DXA scanner generated FRAX calculations may slightly differ from online FRAX calculations due to differences in software versions. - All recommendations and calculations are to be considered as guidelines and should not replace sound clinical judgement - Caution: Fracture risk may be increased independent of BMD in patients with corticosteroid use, age greater than 65 years, or a history of prior fragility fracture. RECOMMENDATIONS: Follow-up in 2 years or as clinically indicated. Patients that are taking corticosteroids, are transplant recipients or have hyperparathyroidism should have annual follow-up. Follow-up scans should always be done on the same machine for accurate comparison. FOR MORE INFORMATION ABOUT DIAGNOSIS AND TREATMENT: [facility] Center for Osteoporosis and Metabolic Bone Disease:? www.ccf.org/arthritis/osteo National Osteoporosis Foundation:? www.nof.org International Society of Clinical Densitometry www.iscd.org 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 Gate: LILIANA Transcribe Date/Time: Sep 29 2024 9:24A Dictated by : ALEJANDRO SINGLETARY MD This examination was interpreted and the report reviewed and electronically signed by: ALEJANDRO SINGLETARY MD on Sep 29 2024 9:27AM EST [id number] -3.8 Normal [facility] CNOVon 09-19-2024 CNOV Office Visit (INTMWS ) BEKAH SUN ([id number]) 1950 F Date Time Provider Department 09/19/24 9:40 AM PAULINA ARDON INTMWS During your visit today, we recorded the following information about you: Pulse Respiration Blood pressure Weight 81/minute 16/minute 138/78 46.2 kg Paulina Ardon MD 10/12/2024 1:59 AM Addendum This note was created using Zyrrariter. Subjective Bekah Sun is a 74 year old female. Patient presents with: Follow Up For: Continued back pain Bekah is a 74-year-old female with a history of compression fractures, presenting with recurrent back pain. Bekah reports recurrent back pain secondary to compression fractures, with episodes occurring every 3-4 days. The pain is described as severe and intermittent, previously being persistent and daily. Bekah has been using hydrocodone for pain management, taking one pill per episode, which provides relief. She denies needing more than one pill per day. She has also been using tizanidine for muscle spasms, which she reports as somewhat effective. Bekah has been using a nasal spray, which she believes may have helped reduce the frequency of pain episodes. She has also been taking Fosamax (alendronate) but ran out of the medication recently. Bekah reports that certain activities, such as bending under the bed, exacerbate the pain. She denies any current pain at the time of the visit. She has a family history of hypertension, inherited from her father. PAST MEDICAL HISTORY Diagnosis Date COMMON MIGRAINE W/O MENTN INTRACT 05/10/2005 Diverticulosis of colon (without mention of hemorrhage) HYPERTENSION NOS 05/10/2005 Kidney stone Psoriasis Raynaud's syndrome 05/10/2005 Current Outpatient Medications Medication Sig alendronate (FOSAMAX) 70 mg tablet Take 1 tablet by mouth one time a week. in the AM with glass of water on empty stomach. Do not take anything else by mouth or lie down for 30 min amLODIPine (NORVASC) 10 mg tablet Take 1 tablet by mouth once daily. atorvastatin (LIPITOR) 10 mg tablet Take 1 tablet by mouth once daily. metoprolol succinate ER (TOPROL XL) 25 mg 24 hr tablet Take 1 tablet by mouth once daily. fluticasone (FLONASE) 50 mcg/actuation nasal spray SPRAY 1 SPRAY INTO EACH NOSTRIL EVERY DAY cholecalciferol, vitamin D3, (VITAMIN D3 ORAL) Take 1,000 Int'l Units by mouth. Nature Made calcitonin,salmon, (MIACALCIN) 200 unit/actuation nasal spray Use 1 spray in the nose once daily. HYDROcodone-acetaminophen (NORCO) 5-325 mg per tablet Take 1 tablet by mouth two times a day as needed for pain for up to 7 days. tiZANidine (ZANAFLEX) 4 mg tablet Take 0.5-1 tablets by mouth three times a day as needed. No current facility-administered medications for this visit. Review of Systems Objective BP 138/78 Pulse 81 Resp 16 Wt 46.2 kg (101 lb 13.6 oz) BMI 17.48 kg/m? Last 5 Encounter Wt Readings: Date: Wt: 09/19/2024 46.2 kg (101 lb 13.6 oz) 08/17/2024 46.9 kg (103 lb 6.3 oz) 08/05/2024 48.8 kg (107 lb 9.4 oz) 02/26/2024 47.6 kg (105 lb) 02/17/2024 46.5 kg (102 lb 8.2 oz) No waist measurement recorded Estimated body mass index is 17.48 kg/m? as calculated from the following: Height as of 08/05/24: 162.6 cm (5' 4). Weight as of this encounter: 46.2 kg (101 lb 13.6 oz). Last 5 Encounter BP Readings: Date: BP: 09/19/2024 152/77 08/17/2024 138/62 08/05/2024 132/78 02/26/2024 159/80 02/17/2024 150/70 09/19/24 0952 09/19/24 1041 BP: 152/77 138/78 Pulse: 81 Resp: 16 Weight: 46.2 kg (101 lb 13.6 oz) Physical Exam Constitutional: Appearance: Normal appearance. HENT: Head: Normocephalic. Eyes: Conjunctiva/sclera: Conjunctivae normal. Cardiovascular: Rate and Rhythm: Normal rate and regular rhythm. Heart sounds: Normal heart sounds. Pulmonary: Effort: Pulmonary effort is normal. Breath sounds: Normal breath sounds. Musculoskeletal: General: Tenderness (Mild in mid-back) present. Right lower leg: No edema. Left lower leg: No edema. Skin: General: Skin is warm and dry. Neurological: General: No focal deficit present. Mental Status: She is alert and oriented to person, place, and time. Psychiatric: Mood and Affect: Mood normal. Behavior: Behavior normal. Thought Content: Thought content normal. Judgment: Judgment normal. Assessment and Plan # Primary hypertension (I10) - Blood pressure readings stable, with recent measurement at 138/78 mmHg. - Continue current management. # Age-related osteoporosis with current pathological fracture, sequela (M80.00XS) # Closed wedge compression fracture of T9 vertebra, sequela (S22.070S) - Pain episodes less frequent, occurring every 3-4 days; previously daily. - Refilled hydrocodone, prescribed 1-2 tablets twice daily as needed for severe pain, 14 tablets total. - Refilled tizanidine, prescribed 1 table (more content not included)... Normal [facility] 25(OH)D3 Marilu-Linette 2024 25-hydroxyvitamin D3 [Mass/Vol] 56.0 ng/mL Normal 31.0-80.0 [facility] Comment on above: Order Comment: Speci men Type: BLOOD SPECIMENOrdering Facility: [facility] Address: [address] [id number] Result Comment: Clas sification of 25 OH Vitamin D status: Deficiency/Insufficiency: < or = 30 ng/ml. Sufficiency/Optimal Levels: 31-80 ng/mL Toxicity: > 100 ng/mL. Test performed by chemiluminescent immunoassay. Performed By: #### 1 989-3 ####[facility] LABCLIA [id number] [address] [address] [place] Basic metabolic 2000 panelon 08-22-2024 Anion gap [Moles/Vol] 13 mmol/L Normal 8-15 [facility] Comment on above: Order Comment: Speci men Type: BLOOD SPECIMENOrdering Facility: [facility] Address: [address] [place] [address] Performed By: #### 3 024-7, 30394-4, 2730-8, 6-3 ####[facility] LABCLIA [id number] [place] [id number] [place] Calcium [Mass/Vol] 9.5 mg/dL Normal 8.5-10.2 [facility] Comment on above: Order Comment: Speci men Type: BLOOD SPECIMENOrdering Facility: [facility] Address: [address] [place] [address] Performed By: #### 3 024-7, 48601-8, 2730-8, 6-3 ####[facility] LABCLIA [id number] [place] [id number] [place] Chloride [Moles/Vol] 94 mmol/L Low 98-107 [facility] Comment on above: Order Comment: Speci men Type: BLOOD SPECIMENOrdering Facility: [facility] Address: [address] [place], [place] [address] Performed By: #### 3 024-7, 63051-0, 2730-8, 3016-3 ####[facility] LABCLIA [id number] [address] [place] [address] [place] CO2 [Moles/Vol] 29 mmol/L Normal 22-30 [facility] Comment on above: Order Comment: Speci men Type: BLOOD SPECIMENOrdering Facility: [facility] Address: [address] [place] [address] Performed By: #### 3 024-7, 88205-9, 2730-8, 3015-3 ####[facility] LABCLIA [id number] [place] [id number] [place] Creatinine [Mass/Vol] 0.96 mg/dL Normal 0.58-0.96 [facility] Comment on above: Order Comment: Speci men Type: BLOOD SPECIMENOrdering Facility: [facility] Address: [address] [place] [address] Performed By: #### 3 024-7, 30578-8, 8, 3 ####[facility] LABCLIA [id number] [place] [address] [place] Creatinine and Glomerular filtration rate.predicted panel (S/P/Bld) 61 mL/min/1.73m??? Normal >=60 [facility] Comment on above: Order Comment: Rolando men Type: BLOOD SPECIMENOrdering Facility: [facility] Address: [address] [place] [address] Result Comment: Sabiha mated Glomerular Filtration Rate (eGFR) is calculated using the 2020 CKD-EPI creatinine equation. This equation utilizes serum creatinine, sex, and age as parameters. The creatinine assay has traceable calibration to isotope dilution-mass spectrometry. Refer to KDIGO guidelines for clinical interpretation. In patients with unstable renal function, e.g. those with acute kidney injury, the eGFR may not accurately reflect actual GFR. Performed By: #### 3 024-7, 10820-5, 2730-8, 3 ####[facility] LABCLIA [id number] [address] [address] [place] Glucose [Mass/Vol] 146 mg/dL High 74-99 [facility] Comment on above: Order Comment: Speci men Type: BLOOD SPECIMENOrdering Facility: [facility] Address: [address] [id number] Result Comment: The [place] [employer] (ADA) provides guidance for cutoff values for fasting glucose and random glucose. The ADA defines fasting as no caloric intake for at least 8 hours. Fasting plasma glucose results between 100 to 125 mg/dL indicate increased risk for diabetes (prediabetes). Fasting plasma glucose results greater than or equal to 126 mg/dL meet the criteria for diagnosis of diabetes. In the absence of unequivocal hyperglycemia, results should be confirmed by repeat testing. In a patient with classic symptoms of hyperglycemia or hyperglycemic crisis, random plasma glucose results greater than or equal to 200 mg/dL meet the criteria for diagnosis of diabetes. Reference: Standards of Medical Care in Diabetes 2016, [place] [employer]. Diabetes Care. 2016.39(Suppl 1). Performed By: #### 3 024-7, 12646-2, 2730-8, 6-3 ####[facility] LABCLIA [id number] [place] [address] [place] Potassium [Moles/Vol] 4.0 mmol/L Normal 3.7-5.1 [facility] Comment on above: Order Comment: Speci men Type: BLOOD SPECIMENOrdering Facility: [facility] Address: [address] [place] [address] Performed By: #### 3 024-7, 64654-0, 2730-8, 6-3 ####[facility] LABCLIA [id number] [place] [id number] [place] Sodium [Moles/Vol] 136 mmol/L Normal 136-144 [facility] Comment on above: Order Comment: Speci men Type: BLOOD SPECIMENOrdering Facility: [facility] Address: [address] [place], [place] [id number] Performed By: #### 3 024-7, 44429-4, 2730-8, 6-3 ####[facility] LABCLIA [id number] [address] [address] [place] Urea nitrogen [Mass/Vol] 9 mg/dL Normal 7-21 [facility] Comment on above: Order Comment: Speci men Type: BLOOD SPECIMENOrdering Facility: [facility] Address: [address] [place] [address] Performed By: #### 3 024-7, 20568-3, 2730-12, 3 ####[facility] LABCLIA [id number] [place] [address] [place] PTH-Intact SerPl-ncon - Parathyrin.intact [Mass/Vol] 37 pg/mL Normal 15-65 [facility] Comment on above: Order Comment: Speci men Type: BLOOD SPECIMENOrdering Facility: [facility] Address: [address] [place] [address] Performed By: #### 3 024-7, 24763-0, 2730-12, 3 ####[facility] LABCLIA [id number] [place] [address] [place] T4 Free SerPl-mCncon 025 Free T4 [Mass/Vol] 1.6 ng/dL Normal 0.9-1.7 [facility] Comment on above: Order Comment: Speci men Type: BLOOD SPECIMENOrdering Facility: [facility] Address: [address] [place] [address] Performed By: #### 3 024-7, 07178-4, 2730-12, 3 ####[facility] LABCLIA [id number] [place] [address] [place] TSH SerPl-aCncon 08-22-2024 TSH Qn 1.930 m[IU]/L Normal 0.270-4.200 [facility] Comment on above: Order Comment: Speci men Type: BLOOD SPECIMENOrdering Facility: [facility] Address: [address] [place] [address] Performed By: #### 3 024-7, 17982-8, 2730-12, 3015-3 ####[facility] LABCLIA [id number] RONALDShawanda COX [id number] [place] [address] [place] CNOVon 08-17-2024 CNOV Office Visit (INTMWS ) BEKAH SUN ([id number]) 1950 F Date Time Provider Department 08/17/24 11:00 AM PAULINA ARDON INTMWS During your visit today, we recorded the following information about you: Pulse Respiration Blood pressure Weight 77/minute 16/minute 138/62 46.9 kg Paulina Ardon MD 08/17/2024 1:03 PM Addendum Subjective ?Quick Links Last Note in Specialty Snapshot Edit RFV/CC Patient ID: Bekah is a 74 year old female who presents for No chief complaint on file.. Bekah is a 74-year-old female with a history of osteoporosis, presenting for follow-up after a recent T9 compression fracture.Bekah was recently seen in the emergency department on the due to severe back pain that caused dizziness. A CT scan revealed a T9 compression fracture. She reports that the pain has been severe enough to prevent her from sleeping on her back, necessitating sleep in a lounge chair. The pain is localized to the lower rib cage area in the back and does not radiate to the front. She has tried ibuprofen and lidocaine patches without significant relief. She was prescribed a muscle relaxant, which has not been effective in managing the pain. She denies dyspnea.Bekah has a history of osteoporosis with a T-score of -3.3. She was previously considered for Fosamax in 2022 but does not recall taking it. She is currently taking a multivitamin and vitamin D3. She has a history of tolerating Vicodin and Percocet well, which were prescribed in 2009 for pain management following a laparoscopic ovary removal and a severe UTI. She denies any issues with constipation or dizziness from these medications. ?Quick Review Review Full History Edit History Full Problem List Meds - tiZANidine (ZANAFLEX) 4 mg tablet metoprolol succinate ER (TOPROL XL) 25 mg 24 hr tablet atorvastatin (LIPITOR) 10 mg tablet amLODIPine (NORVASC) 10 mg tablet fluticasone (FLONASE) 50 mcg/actuation nasal spray cholecalciferol, vitamin D3, (VITAMIN D3 ORAL) --- PMH - COMMON MIGRAINE W/O MENTN INTRACT Diverticulosis of colon (without mention of hemorrhage) HYPERTENSION NOS Kidney stone Psoriasis Raynaud's syndrome : Objective ?Quick Links Add Vitals Labs Imaging Results Review ?? Avoid pulling in long tables of results. Comment on relevant results to support your medical decision making. BP 138/62 (BP Site: Left Arm, BP Position: Sitting) Pulse 77 Resp 16 Wt 46.9 kg (103 lb 6.3 oz) SpO2 100% BMI 17.75 kg/m? 08/17/24 1055 08/17/24 1222 BP: 162/75 138/62 BP Site: Left Arm BP Position: Sitting Pulse: 77 Resp: 16 SpO2: 100% Weight: 46.9 kg (103 lb 6.3 oz) Physical Exam Constitutional: Appearance: Normal appearance. HENT: Head: Normocephalic. Eyes: Conjunctiva/sclera: Conjunctivae normal. Cardiovascular: Rate and Rhythm: Normal rate and regular rhythm. Heart sounds: Normal heart sounds. Pulmonary: Effort: Pulmonary effort is normal. Breath sounds: Normal breath sounds. Musculoskeletal: Arms: Skin: General: Skin is warm and dry. Neurological: General: No focal deficit present. Mental Status: She is alert and oriented to person, place, and time. Psychiatric: Mood and Affect: Mood normal. Behavior: Behavior normal. Thought Content: Thought content normal. Judgment: Judgment normal. Assessment AND Plan Closed wedge compression fracture of T9 vertebra, initial encounter ([facility]) Orders: HYDROcodone-acetaminophen (NORCO) 5-325 mg per tablet; Take 1-2 tablets by mouth every 6 hours as needed for pain for up to 7 days. calcitonin,salmon, (MIACALCIN) 200 unit/actuation nasal spray; Use 1 Wisner in the nose once daily. BASIC METABOLIC PANEL; Future VITAMIN D 25 HYDROXY; Future PTH INTACT; Future THYROID STIMULATING HORMONE; Future T4 FREE/FREE THYROXINE; Future # Closed wedge compression fracture of T9 vertebra, initial encounter ([facility]) (S22.780Q) - Recent CT scan confirmed a T9 compression fracture. - Severe pain managed with Vicodin 1-2 tablets every 6 hours as needed; prescription for 50 tablets provided. - Initiated Miacalcin nasal spray, one spray in alternating nostrils every other day for analgesic effect. - Educated patient on the nature of compression fractures and potential nerve impingement causing severe pain. - Discussed potential referral to pain management for consideration of kyphoplasty if pain persists beyond 6 weeks. - Advised to avoid heavy lifting and sudden movements to prevent further injury. - Follow-up in 1 week to assess pain control and discuss further management if necessary. # Age-related osteoporosis without current pathological fracture (M81.0) - Previous T-score of -3.3 indicating severe osteoporosis. - Restarted Fosamax 70 mg orally once weekly; instructed to take on an empty stomach with a full glass of water and remain upright fo (more content not included)... Normal [facility] .Auto Diffon 08-11-2024 Basophil, Absolute 0.1 10 3/mcL Normal 0.0-0.2 [facility] Comment on above: Performed By: #### M DW, GFR, ANEU, CBC, ADIFF, CMP #### [address] [address] Basophils/100 WBC (Bld) 0.8 % Normal 0.0-2.5 [facility] Comment on above: Performed By: #### M DW, GFR, ANEU, CBC, ADIFF, CMP #### [address] [address] Eosinophil, Absolute 0.1 10 3/mcL Normal 0.0-0.7 [facility] Comment on above: Performed By: #### M DW, GFR, ANEU, CBC, ADIFF, CMP #### [address] [address] Eosinophils/100 WBC (Bld) 0.8 % Normal 0.0-7.0 [facility] Comment on above: Performed By: #### M DW, GFR, ANEU, CBC, ADIFF, CMP #### [address] [address] Lymphocyte, Absolute 1.2 10 3/mcL Normal 0.9-4.3 [facility] Comment on above: Performed By: #### M DW, GFR, ANEU, CBC, ADIFF, CMP #### [address] [address] Lymphocytes/100 WBC (Bld) 15.5 % Low 20.0-40.0 [facility] Comment on above: Performed By: #### M DW, GFR, ANEU, CBC, ADIFF, CMP #### [address] [address] Monocyte, Absolute 0.6 10 3/mcL Normal 0.1-1.4 [facility] Comment on above: Performed By: #### M DW, GFR, ANEU, CBC, ADIFF, CMP #### [address] [address] Monocytes/100 WBC (Bld) 7.9 % Normal 2.0-13.0 [facility] Comment on above: Performed By: #### M DW, GFR, ANEU, CBC, ADIFF, CMP #### [address] [address] Neutrophils/100 WBC (Bld) 75.0 % Normal 50.0-75.0 [facility] Comment on above: Performed By: #### M DW, GFR, ANEU, CBC, ADIFF, CMP #### [address] [address] .GFRon 08-11-2024 Estimated Glomerular Filtration Rate 33 ml/min/1.73sqm Normal [facility] Comment on above: Result Comment: Stages of Chronic Kidney Disease (CKD) Stage Description eGFR(ml/min/1.73 sq.m.) CKD 1 Normal kidney function or >=90 normal kindney function with possible kidney damage (ex. Proteinuria) CKD 2 Kidney damage with mild loss 60-89 of kidney function CKD 3a Mild to moderate loss of kidney 45-59 function CKD 3b Moderate to severe loss of 30-44 of kindey function CKD 4 Severe loss of kidney function 15-29 CKD 5 Kidney failure <15 Note: (go live 2024) the eGFR calculation was updated to the 2020 CKD-EPI creatinine equation without a race factor to calculate the eGFR results. Performed By: #### M DW, GFR, ANEU, CBC, ADIFF, CMP #### [place] [address] .MDWon 08-11-2024 Monocyte Distribution Width 16.94 Normal 0.00-20.00 [facility] Comment on above: Result Comment: For ED adult patients suspected of sepsis, MDW<=20.0 does not rule out sepsis or risk of sepsis Performed By: #### M DW, GFR, ANEU, CBC, ADIFF, CMP #### [place] [address] .NEUABSon 08-11-2024 Neutrophil, Absolute 5.8 10 3/mcL Normal 2.3-8.1 [facility] Comment on above: Performed By: #### M DW, GFR, ANEU, CBC, ADIFF, CMP #### [place] [address] CBCon 08-11-2024 Erythrocyte distribution width (RBC) [Ratio] 13.2 % Normal 11.5-15.5 [facility] Comment on above: Performed By: #### M DW, GFR, ANEU, CBC, ADIFF, CMP #### [address] [place] [address] Hematocrit (Bld) [Volume fraction] 37.6 % Normal 34.0-46.0 [facility] Comment on above: Performed By: #### M DW, GFR, ANEU, CBC, ADIFF, CMP #### [place] [address] Hgb 13.3 G/dL Normal 12.0-16.0 [facility] Comment on above: Performed By: #### M DW, GFR, ANEU, CBC, ADIFF, CMP #### [place] [address] MCH (RBC) [Entitic mass] 31.1 pg Normal 27.0-33.0 [facility] Comment on above: Performed By: #### M DW, GFR, ANEU, CBC, ADIFF, CMP #### [address] [address] MCHC 35.5 G/dL Normal 32.0-36.0 [facility] Comment on above: Performed By: #### M DW, GFR, ANEU, CBC, ADIFF, CMP #### [address] [address] MCV (RBC) [Entitic vol] 87.7 fL Normal 80.0-99.0 [facility] Comment on above: Performed By: #### M DW, GFR, ANEU, CBC, ADIFF, CMP #### [place] [id number] Platelet 360 10 3/mcL Normal 150-450 [facility] Comment on above: Performed By: #### M DW, GFR, ANEU, CBC, ADIFF, CMP #### [place] [address] Platelet mean volume (Bld) [Entitic vol] 7.1 fL Normal 6.6-10.5 [facility] Comment on above: Performed By: #### M DW, GFR, ANEU, CBC, ADIFF, CMP #### [address] [address] RBC 4.28 10 6/mcL Normal 4.10-5.30 [facility] Comment on above: Performed By: #### M DW, GFR, ANEU, CBC, ADIFF, CMP #### [address] [address] WBC 7.7 10 3/mcL Normal 4.5-10.8 [facility] Comment on above: Performed By: #### M DW, GFR, ANEU, CBC, ADIFF, CMP #### [place] [id number] CMPon 08-11-2024 Albumin Level 3.5 G/dL Normal 3.4-4.8 [facility] Comment on above: Performed By: #### M DW, GFR, ANEU, CBC, ADIFF, CMP #### [place] [address] Albumin/Globulin [Mass ratio] 1.0 {ratio} Low 1.1-2.5 [facility] Comment on above: Performed By: #### M DW, GFR, ANEU, CBC, ADIFF, CMP #### [place] [address] ALP [Catalytic activity/Vol] 88 U/L Normal 40-135 [facility] Comment on above: Performed By: #### M DW, GFR, ANEU, CBC, ADIFF, CMP #### [place] [address] ALT [Catalytic activity/Vol] 26 U/L Normal 14-59 [facility] Comment on above: Performed By: #### M DW, GFR, ANEU, CBC, ADIFF, CMP #### [place] [address] AST [Catalytic activity/Vol] 19 U/L Normal 10-40 [facility] Comment on above: Performed By: #### M DW, GFR, ANEU, CBC, ADIFF, CMP #### [place] [address] Bili Total 0.5 mg/dL Normal 0.2-1.0 [facility] Comment on above: Result Comment: Use of this assay is not recommended for patients undergoing treatment with eltrombopag due to the potential for falsely elevated results. Performed By: #### M DW, GFR, ANEU, CBC, ADIFF, CMP #### [place] [address] BUN/Creatinine Ratio 14 ratio Normal 7-27 [facility] Comment on above: Performed By: #### M DW, GFR, ANEU, CBC, ADIFF, CMP #### [place] [address] Calcium [Mass/Vol] 9.0 mg/dL Normal 8.4-10.2 [facility] Comment on above: Performed By: #### M DW, GFR, ANEU, CBC, ADIFF, CMP #### [address] [address] Chloride [Moles/Vol] 93 mmol/L Low 98-107 [facility] Comment on above: Performed By: #### M DW, GFR, ANEU, CBC, ADIFF, CMP #### [address] [address] CO2 [Moles/Vol] 26 mmol/L Normal 23-31 [facility] Comment on above: Performed By: #### M DW, GFR, ANEU, CBC, ADIFF, CMP #### [place] [address] Creatinine [Mass/Vol] 1.60 mg/dL High 0.55-1.02 [facility] Comment on above: Result Comment: Test ing performed on Rubikloud Dimension EXL analyzer using a modified kinetic Neetu technique. Performed By: #### M DW, GFR, ANEU, CBC, ADIFF, CMP #### [place] [address] Electrolyte Balance 13.0 mEq/L Normal 4.0-15.0 [facility] Comment on above: Performed By: #### M DW, GFR, ANEU, CBC, ADIFF, CMP #### [place] [address] Globulin 3.5 G/dL Normal 1.5-3.8 [facility] Comment on above: Performed By: #### M DW, GFR, ANEU, CBC, ADIFF, CMP #### [place] [address] Glucose [Mass/Vol] 104 mg/dL Normal 83-110 [facility] Comment on above: Performed By: #### M DW, GFR, ANEU, CBC, ADIFF, CMP #### [place] [address] Potassium [Moles/Vol] 3.4 mmol/L Low 3.5-5.1 [facility] Comment on above: Performed By: #### M DW, GFR, ANEU, CBC, ADIFF, CMP #### [place] [address] [place], [place] [address] Sodium [Moles/Vol] 132 mmol/L Low 136-145 [facility] Comment on above: Performed By: #### M DW, GFR, ANEU, CBC, ADIFF, CMP #### [address] [place] [address] [place], [place] [address] Total Protein 7.0 G/dL Normal 6.4-8.2 [facility] Comment on above: Performed By: #### M DW, GFR, ANEU, CBC, ADIFF, CMP #### [place] [address] [place], [place] [address] Urea nitrogen [Mass/Vol] 22 mg/dL High 12-11 [facility] Comment on above: Performed By: #### M DW, GFR, ANEU, CBC, ADIFF, CMP #### [place] [address] [place], [place] [address] CT ABDOMEN/PELVIS W/O CONTRA STon 08-11-2024 CT ABDOMEN/PELVIS W/O CONTRAST ORIGINAL EXAMINATION: CT OF THE ABDOMEN AND PELVIS WITHOUT CONTRAST 08/11/2024 3:36 pm TECHNIQUE: CT of the abdomen and pelvis was performed without the administration of intravenous contrast. Multiplanar reformatted images are provided for review. Automated exposure control, iterative reconstruction, and/or weight based adjustment of the mA/kV was utilized to reduce the radiation dose to as low as reasonably achievable. COMPARISON: None. HISTORY: ORDERING SYSTEM PROVIDED HISTORY: Reason for Exam: Left flank pain FINDINGS: Lower Chest: Normal heart size. No focal consolidation or pleural effusion. Organs: The liver contains a couple of small simple benign cyst. And biliary tract appears normal. The spleen appears normal. The pancreas appears normal. The adrenal glands appear normal. Nonobstructive right renal stone in the interpolar region measuring 2 mm. No left-sided stones observed. No urinary tract dilatation. Phleboliths. GI/Bowel: Moderate stool burden especially in the left colon. There is diverticulosis without diverticulitis. There is no evidence of obstruction. The appendix is normal. Pelvis: The patient is status post hysterectomy. Otherwise the pelvic organs appear normal. Peritoneum/Retroperitoneum: There is no intraperitoneal free air or ascites. Atherosclerosis of the aorta and major branches without aneurysm is noted. No lymphadenopathy is identified. Bones/Soft Tissues: Mild age-indeterminate compression deformity of T12 vertebral body degenerative changes are noted in the spine. There are a few calcifications in the left breast tissue. Correlate with mammogram if available. IMPRESSION: 1. Nonobstructive right renal stone measuring 2 mm. 2. Diverticulosis without evidence of diverticulitis. 3. Mild age-indeterminate compression deformity of T12 vertebral body. 4. Moderate stool burden especially in the left colon. 5. There are a few calcifications in the left breast tissue. Correlate with mammogram if available. Interpreted by: Hawk Watson Preliminary Report By: Hawk Watson Electronically signed By Hawk Watson Dictated Date: 08/11/2024 4:22:18 PM Prelim Date: 08/11/2024 4:35:56 PM Sign Date: 08/11/2024 4:35:56 PM Ordering Provider: DALE MINOR [facility] UAon 08-11-2024 Color (U) Yellow Normal [facility] Comment on above: Performed By: #### U A #### [place] [address] Glucose (U) [Mass/Vol] Negative Normal Negative [facility] Comment on above: Performed By: #### U A #### [place] [address] Ketones Ql (U) Negative Normal Negative [facility] Comment on above: Performed By: #### U A #### [address] [address] UA Appear Clear Normal Clear [facility] Comment on above: Performed By: #### U A #### [address] [address] UA Blood Trace Abnormal Negative [facility] Comment on above: Performed By: #### U A #### [address] [address] UA Leuk Est Negative Normal Negative [facility] Comment on above: Performed By: #### U A #### [address] [address] UA Nitrite Negative Normal Negative [facility] Comment on above: Performed By: #### U A #### [address] [address] UA pH 5.5 Normal 5.0 - 8.0 [facility] Comment on above: Performed By: #### U A #### [address] [address] UA Protein Negative Normal Negative [facility] [facility] Comment on above: Performed By: #### U A #### [place] [address] UA Spec Grav 1.010 Abnormal 1.015-1.025 [facility] Comment on above: Performed By: #### U A #### [place] [address] UA Specimen Type Clean Catch Normal [facility] Comment on above: Performed By: #### U A #### [place] [address] UA Urobilinogen 0.2 E.U./dL Normal 0.2-1.0 [facility] Comment on above: Performed By: #### U A #### [place] [address] Urobilinogen (U) [Mass/Vol] Negative Normal Negative [facility] Comment on above: Performed By: #### U A #### [address] [address] CNOVon 08-05-2024 CNOV Office Visit (INTMWS ) BEKAH SUN ([id number]) 1950 F Date Time Provider Department 08/05/24 2:40 PM PAULINA ARDON INTMWS During your visit today, we recorded the following information about you: Temperature Pulse Respiration Blood pressure 97.2 degrees 74/minute 12/minute 132/78 Weight Height 48.8 kg 1.626 m Paulina Ardon MD 08/05/2024 3:41 PM Signed This note was created using Zyrrariter. Subjective Bekah Sun is a 74 year old female. Patient presents with: Same Day Appointment: lower back pain SUBJECTIVE: Bekah Sun is a 74 year old year old lady here today for same day follow up appointment for review of medical conditions. Bekah Sun is a 74-year-old female presenting with acute onset of lower back pain. Bekah reports a 1-week history of lower back pain, rated as 9/10 at its worst, primarily occurring at night while in bed. The pain is localized to the lower back, predominantly on the left side, and does not radiate down the legs. The pain is intermittent, with episodes lasting for a day or two before subsiding and then recurring. The most recent episode occurred either last night or the night before. The pain is exacerbated when attempting to get out of bed and is relieved when upright and walking. Bekah sleeps on her back but often shifts to her side during the night. She has been taking 2-3 tablets of 200 mg ibuprofen as needed for pain relief, which she tolerates well. She has also tried using a Salonpas patch without significant relief. She denies any recent trauma, heavy lifting, or prolonged activities that could have triggered the pain. She has not undergone any physical therapy or used muscle relaxants recently. She denies any numbness, tingling, or weakness in the lower extremities, as well as any bowel or bladder dysfunction. PAST MEDICAL HISTORY Diagnosis Date COMMON MIGRAINE W/O MENTN INTRACT 05/10/2005 Diverticulosis of colon (without mention of hemorrhage) HYPERTENSION NOS 05/10/2005 Kidney stone Psoriasis Raynaud's syndrome 05/10/2005 Current Outpatient Medications Medication Sig metoprolol succinate ER (TOPROL XL) 25 mg 24 hr tablet Take 1 tablet by mouth once daily. atorvastatin (LIPITOR) 10 mg tablet Take 1 tablet by mouth once daily. amLODIPine (NORVASC) 10 mg tablet Take 1 tablet by mouth once daily. fluticasone (FLONASE) 50 mcg/actuation nasal spray SPRAY 1 SPRAY INTO EACH NOSTRIL EVERY DAY cholecalciferol, vitamin D3, (VITAMIN D3 ORAL) Take 1,000 Int'l Units by mouth. Nature Made No current facility-administered medications for this visit. Review of Systems Objective BP 138/64 (BP Site: Right Arm, BP Position: Sitting, BP Cuff Size: Regular Adult) Pulse 74 Temp 36.2 ?C (97.2 ?F) (Temporal) Resp 12 Ht 162.6 cm (5' 4) Wt 48.8 kg (107 lb 9.4 oz) SpO2 98% BMI 18.47 kg/m? Last 5 Encounter Wt Readings: Date: Wt: 08/05/2024 48.8 kg (107 lb 9.4 oz) 02/26/2024 47.6 kg (105 lb) 02/17/2024 46.5 kg (102 lb 8.2 oz) 01/20/2024 46.5 kg (102 lb 9.6 oz) 08/12/2023 49.4 kg (108 lb 12.8 oz) No waist measurement recorded Estimated body mass index is 18.47 kg/m? as calculated from the following: Height as of this encounter: 162.6 cm (5' 4). Weight as of this encounter: 48.8 kg (107 lb 9.4 oz). Last 5 Encounter BP Readings: Date: BP: 08/05/2024 138/64 02/26/2024 159/80 02/17/2024 150/70 01/20/2024 138/60 08/12/2023 138/78 08/05/24 1436 08/05/24 1532 BP: 138/64 132/78 BP Site: Right Arm BP Position: Sitting BP Cuff Size: Regular Adult Pulse: 74 Resp: 12 Temp: 36.2 ?C (97.2 ?F) TempSrc: Temporal SpO2: 98% Weight: 48.8 kg (107 lb 9.4 oz) Height: 162.6 cm (5' 4) Physical Exam Musculoskeletal: Thoracic back: No swelling, spasms or tenderness. Lumbar back: No spasms, tenderness or bony tenderness. Normal range of motion. Negative right straight leg raise test and negative left straight leg raise test. Assessment and Plan # Acute left-sided low back pain without sciatica (M54.50) # Muscle spasm of back (M62.830) - Pain localized to the lower back, predominantly on the left side, with episodes occurring primarily at night while in bed. No radiation of pain down the legs. - Physical examination reveals no tenderness, swelling, or spasm in the upper or lower spine. - Ordered lumbar spine X-ray to evaluate for disc issues or arthritis. - Advised use of ibuprofen 200 mg, 2-3 pills per dose, up to a maximum of 4 pills at a time and 12 pills per day. Recommended taking a dose before bedtime for the next 2-3 nights to prevent nocturnal pain episodes. - Prescribed tizanidine 2-4 mg, up to three times daily as needed for muscle spasms. Dispensed 30 tablets. - Educated on the use of heat and cold therapy to manage muscle tightness and inflammation. - Advised on ergonomic sleeping positio (more content not included)... Normal [facility] XR LUMBAR 3V AP/LAT/L5-S1on 08-05-2024 XR LUMBAR 3V AP/LAT/L5-S1 * * *Final Report* * * DATE OF EXAM: Aug 05 2024 4:05PM WOX [id number] - XR LUMBAR 3V AP/LAT/L5-S1 / PROCEDURE REASON: Acute left-sided low back pain without sciatica * * * * Physician Interpretation * * * * EXAMINATION / TECHNIQUE: XR LUMBAR 3V AP/LAT/L5-S1 HISTORY: back pain on left lower lumbar for a short time no inj Acute left-sided low back pain without sciatica COMPARISON: None RESULT: Counting reference: Lumbosacral junction. For the purposes of this report, L4-5 is considered the level of the iliac crest and assume there are 5 lumbar-type vertebrae. Anatomic variant: None. There is rightward curvature of the lumbar spine. Lumbar vertebral body heights and sagittal alignment are maintained. There is a mild T12 superior endplate compression fracture, age-indeterminate. Multilevel degenerative disc disease is severe at L4-L5. Mild lower lumbar facet hypertrophy. IMPRESSION: Age-indeterminate T12 superior endplate compression fracture. Lumbar degenerative changes as described. 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 Gate: PSCSuzie Transcribe Date/Time: Aug 09 2024 7:02P Dictated by : ANABEL SHANNON MD This examination was interpreted and the report reviewed and electronically signed by: ANABEL SHANNON MD on Aug 09 2024 7:03PM EST [id number] Normal [facility] CNOVon 02-26-2024 CNOV Office Visit (AGGERI HWW) BEKAH SUN ([id number]) 1950 F Date Time Provider Department 02/26/24 3:00 PM BLADE LYMAN AGGERIHWW During your visit today, we recorded the following information about you: Pulse Blood pressure Weight Height 80/minute 159/80 47.6 kg 1.626 m Blade Lyman DO 02/26/2024 3:56 PM Signed Blade Lyman DO [facility] [address] [place] [address]. [place] [address] Visit Date: February 27, 2024 Name: Ms.Kary Nikki Sun Date of : 1950 MRN/E #: [id number] Chief Complaint: Patient presents with: Follow Up: Repeat testing Subjective Ms. Bekah Sun is a 73 year old lady PMHX of migraine, CHF, HLD, HTN, mild cognitive impairment, here for follow up visit. She is here with her . HPI Initial geriatric assessment on 07/26/2023, overall cognitive test performance was in the 1st percentile when compared to individuals of a similar age and gender, suggesting likely presence of cognitive impairment. GDS and SUGEY suggesting minimal mood disturbance. Given testing results, history, most suspicious for mild cognitive impairment, patient with preserved ADLs, currently dose not appear to have clinical dementia, however, cannot rule out poor performance due to medication side effects from Amitriptyline given its high anti-cholinergic burden Today, patient has no acute concerns, stated no memory nor functional decline, still very active with social activities[place] Patient has been off amitriptyline, denies any issues since off the medication Functional Evaluation: B-ADLs: (I=independent,A=assistance, D=dependent) ?Bathing: I, Dressing: I, Toileting: I, Transferring:I, Continence: I, Feeding: I, (Leal Index): 6 I-ADLs: Ability to use phone: I, Shopping: I, Cooking: I, Housekeeping: I, Laundry: I, Transportation:I, Medications: I, Handle Finances: I, stated mostly doing it. (Girma scale): 8 07/26/2023 Functional Evaluation: B-ADLs: (I=independent,A=assistance, D=dependent) ?Bathing: I, Dressing: I, Toileting: I, Transferring:I, Continence: I, Feeding: I, (Leal Index): 6 I-ADLs: Ability to use phone: I, Shopping: I, Cooking: I, Housekeeping: I, Laundry: I, Transportation:I, can arrange, Medications: I, Handle Finances: I. Stated is doing most of the finances, but patient stated she can still do it (Girma scale): 8 Mood Evaluation and Screening GDS: Geriatric Depression Scale GDS Total Score GDS Score Assessment 02/26/2024 0 07/26/2023 2 0-5 points is normal Normal Mild Moderate Severe 0-4 5-8 9-11 12+ SUGEY-7: 07/26/2023 02/26/2024 SUGEY - 7 SCORES Score 3 2 (0-4) minimal anxiety, (5-9) mild anxiety, (10-14) moderate anxiety, (15-21) severe anxiety Cognitive Test evaluation: Cognitive Testing Evaluation Introduction: Bekah Sun 1950 Female This 74 year old Female was administered a battery of neurocognitive testing on 02/26/2024. Tests Administered: Trails A, Trails B, Digit Symbol Substitution, Stroop, Immediate Recognition, Delayed Recognition The combined test administration time was 10 minutes 07/26/2023 The combined test administration time was 10 minutes Test Results: Cognitive testing was provided via a battery of cognitive assessments. The pattern of test scores indicate that results are valid. A Clinical Report with further description of scores and results is also available. Overall: Patient tested in the 12th* percentile (standard score of 82*). 07/26/2023 Overall: Patient tested in the 1st* percentile (standard score of 65*). Trails A: Patient tested in the 39th percentile (scaled standard score of 96). 07/26/2023 Trails A: Patient tested in the 13th percentile (scaled standard score of 83). Trails B: Patient tested in the --* percentile (scaled standard score of null, 11 out of 24 tasks are completed.) 07/26/2023 Trails B: Patient tested in the --* percentile (scaled standard score of null, 9 out of 24 tasks are completed). Digit Symbol Substitution: Patient tested in the 85th percentile (scaled standard score of 116). 07/26/2023 Digit Symbol Substitution: Patient tested in the 15th percentile (scaled standard score of 84). Stroop: Patient tested in the 75th percentile (scaled standard score of 110). 07/26/2023 Stroop: Patient tested in the 37th percentile (scaled standard score of 95). Immediate Recognition: Patient tested in the 1st percentile (scaled standard score of 66). 07/26/2023 Immediate Recognition: Patient tested in the 1st percentile (scaled standard score of 22). Delayed Recognition: Patient tested in the 1st percentile (scaled standard score of 37). 07/26/2023 Delayed Recognition: Patient tested in the 1st percentile (scaled standard score of 49). * These assessments were not (more content not included)... [facility] MAXIMILIANO Tele[facility] (AGGERIHWW ) BEKAH SUN ([id number]) 1950 F Date Time Provider Department 02/26/24 BLADE LYMAN AGGERIHWW During your visit today, we recorded the following information about you: NagyRadhaBenito 02/26/2024 3:51 PM Signed Confirmation number: [id number] Allergies As of Date: 02/26/2024 Noted Allergy Reaction PENICILLINS 03/26/2005 4 - Hives BACTRIM DS (SULFAMETHOXAZOLE-TRIM*11/15 2 - Rash LOSARTAN 08/07/2021 5 - Intolerance Comments: headache, did not feel well Date Reviewed: 02/26/2024 Reviewed by: Criss Blackmon MA - Fully Assessed Reason for Visit: Internal Referrals/resources [908] Cmt: Speech therapy Prescriptions as of 02/26/2024 - metoprolol succinate ER (TOPROL XL) 25 mg 24 hr tablet Take 1 tablet by mouth once daily. - atorvastatin (LIPITOR) 10 mg tablet Take 1 tablet by mouth once daily. - amLODIPine (NORVASC) 10 mg tablet Take 1 tablet by mouth once daily. - fluticasone (FLONASE) 50 mcg/actuation nasal spray SPRAY 1 SPRAY INTO EACH NOSTRIL EVERY DAY - cholecalciferol, vitamin D3, (VITAMIN D3 ORAL) Take 1,000 Int'l Units by mouth. 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 CBC panel Auto (Bld)on 02-17 Erythrocyte distribution width (RBC) [Ratio] 12.7 % Normal 11.5-15.0 [facility] Comment on above: Order Comment: Speci men Type: BLOOD SPECIMENOrdering Facility: [facility] Address: [address] [place] [address] [place] [id number] Performed By: #### 5 8410-2 ####[facility] LABIA [id number] [place] [address] [place] Hematocrit (Bld) [Volume fraction] 41.8 % Normal 36.0-46.0 [facility] Comment on above: Order Comment: Speci men Type: BLOOD SPECIMENOrdering Facility: [facility] Address: [address] [place] [address] Performed By: #### 5 8410-2 ####[facility] LABIA [id number] [place] [address] [place] Hemoglobin (Bld) [Mass/Vol] 13.8 g/dL Normal 11.5-15.5 [facility] Comment on above: Order Comment: Speci men Type: BLOOD SPECIMENOrdering Facility: [facility] Address: [address] [place] [address] Performed By: #### 5 8410-2 ####[facility] LABIA [id number] [place] [address] [place] MCH (RBC) [Entitic mass] 30.9 pg Normal 26.0-34.0 [facility] Comment on above: Order Comment: Speci men Type: BLOOD SPECIMENOrdering Facility: [facility] Address: [address] [place] [address] Performed By: #### 5 8410-2 ####[facility] LABIA [id number] [place] [address] [place] MCHC (RBC) [Mass/Vol] 33.0 g/dL Normal 30.5-36.0 [facility] Comment on above: Order Comment: Speci men Type: BLOOD SPECIMENOrdering Facility: [facility] Address: [address] [place] [address] Performed By: #### 5 8410-2 ####[facility] [id number] [place] [address] [place] MCV (RBC) [Entitic vol] 93.7 fL Normal 80.0-100.0 [facility] Comment on above: Order Comment: Speci men Type: BLOOD SPECIMENOrdering Facility: [facility] Address: [address] [place] [address] Performed By: #### 5 8410-2 ####[facility] LABCLIA [id number] [place] [address] [place] Nucleated RBC (Bld) [#/Vol] 10*3/uL Normal <0.01 [facility] Comment on above: Order Comment: Speci men Type: BLOOD SPECIMENOrdering Facility: [facility] Address: [address] [place] [address] Performed By: #### 5 8410-2 ####[facility] LABCLIA [id number] [place] [address] [place] Platelet mean volume (Bld) [Entitic vol] 11.2 fL Normal 9.0-12.7 [facility] Comment on above: Order Comment: Speci men Type: BLOOD SPECIMENOrdering Facility: [facility] Address: [address] [place] [address] Performed By: #### 5 8410-2 ####[facility] LABCLIA [id number] [place] [address] [place] Platelets (Bld) [#/Vol] 343 10*3/uL Normal 150-400 [facility] Comment on above: Order Comment: Speci men Type: BLOOD SPECIMENOrdering Facility: [facility] Address: [address] [place] [address] Performed By: #### 5 8410-2 ####[facility] LABCLIA [id number] [place] [address] [place] RBC (Bld) [#/Vol] 4.46 10*6/uL Normal 3.90-5.20 [facility] Comment on above: Order Comment: Speci men Type: BLOOD SPECIMENOrdering Facility: [facility] Address: [address] [place] [address] Performed By: #### 5 8410-2 ####[facility] LABCLIA [id number] [place] [address] [place] WBC (Bld) [#/Vol] 6.86 10*3/uL Normal 3.70-11.00 [facility] Comment on above: Order Comment: Speci men Type: BLOOD SPECIMENOrdering Facility: [facility] Address: [address] [place] [address] Performed By: #### 5 8410-2 ####[facility] LABIA [id number] [place] [address] [place] Comprehensive metabolic 2000 panelon 02-18-2024 Albumin [Mass/Vol] 4.3 g/dL Normal 3.9-4.9 [facility] Comment on above: Order Comment: Speci men Type: BLOOD SPECIMENOrdering Facility: [facility] Address: [address] [place] [address] Performed By: #### 2 4323-8, 44443-9 ####[facility] LABIA [id number] [place] [address] [place] ALP [Catalytic activity/Vol] 74 U/L Normal 34-123 [facility] Comment on above: Order Comment: Speci men Type: BLOOD SPECIMENOrdering Facility: [facility] Address: [address] [place] [address] Performed By: #### 2 4323-8, 08216-3 ####[facility] LABIA [id number] [place] [address] [place] ALT [Catalytic activity/Vol] 15 U/L Normal 7-38 [facility] Comment on above: Order Comment: Speci men Type: BLOOD SPECIMENOrdering Facility: [facility] Address: [address] [place] [address] Performed By: #### 2 4323-8, 02401-7 ####[facility] LABCLIA [id number] [place] [address] [place] Anion gap [Moles/Vol] 12 mmol/L Normal 8-15 [facility] Comment on above: Order Comment: Speci men Type: BLOOD SPECIMENOrdering Facility: [facility] Address: [address] [place] [address] Performed By: #### 2 4323-8, 40099-4 ####[facility] LABCLIA [id number] [place] [address] [place] AST [Catalytic activity/Vol] 29 U/L Normal 13-35 [facility] Comment on above: Order Comment: Speci men Type: BLOOD SPECIMENOrdering Facility: [facility] Address: [address] [place] [address] Performed By: #### 2 4323-8, 33197-4 ####[facility] LABCLIA [id number] [place] [address] [place] Bilirubin [Mass/Vol] 0.6 mg/dL Normal 0.2-1.3 [facility] Comment on above: Order Comment: Speci men Type: BLOOD SPECIMENOrdering Facility: [facility] Address: [address] [place] [address] Performed By: #### 2 4323-8, 51271-9 ####[facility] LABCLIA [id number] [place] [address] [place] Calcium [Mass/Vol] 9.1 mg/dL Normal 8.5-10.2 [facility] Comment on above: Order Comment: Speci men Type: BLOOD SPECIMENOrdering Facility: [facility] Address: [address] [place] [address] Performed By: #### 2 4323-8, 07061-4 ####[facility] LABCLIA [id number] [place] [address] [place] Chloride [Moles/Vol] 101 mmol/L Normal 98-107 [facility] Comment on above: Order Comment: Speci men Type: BLOOD SPECIMENOrdering Facility: [facility] Address: [address] [place] [address] Performed By: #### 2 4323-8, 45609-0 ####[facility] LABCLIA [id number] [place] [address] [place] CO2 [Moles/Vol] 28 mmol/L Normal 22-30 [facility] Comment on above: Order Comment: Speci men Type: BLOOD SPECIMENOrdering Facility: [facility] Address: [address] [place] [address] Performed By: #### 2 4323-8, 51596-3 ####[facility]IA [id number] [place] [address] [place] Creatinine [Mass/Vol] 1.03 mg/dL High 0.58-0.96 [facility] Comment on above: Order Comment: Speci men Type: BLOOD SPECIMENOrdering Facility: [facility] Address: [address] [place] [address] Performed By: #### 2 4323-8, 50471-1 ####[facility] LABIA [id number] [place] [address] [place] Creatinine and Glomerular filtration rate.predicted panel (S/P/Bld) 56 mL/min/1.73m??? Low >=60 [facility] Comment on above: Order Comment: Speci men Type: BLOOD SPECIMENOrdering Facility: [facility] Address: [address] [place] [address] Result Comment: Sabiha mated Glomerular Filtration Rate (eGFR) is calculated using the 2020 CKD-EPI creatinine equation. This equation utilizes serum creatinine, sex, and age as parameters. The creatinine assay has traceable calibration to isotope dilution-mass spectrometry. Refer to KDIGO guidelines for clinical interpretation. In patients with unstable renal function, e.g. those with acute kidney injury, the eGFR may not accurately reflect actual GFR. Performed By: #### 2 4323-8, 96731-0 ####[facility] LABCLIA [id number] [place] [address] [place] Glucose [Mass/Vol] 118 mg/dL High 74-99 [facility] Comment on above: Order Comment: Speci men Type: BLOOD SPECIMENOrdering Facility: [facility] Address: [address] [place] [address] Result Comment: The [place] [employer] (ADA) provides guidance for cutoff values for fasting glucose and random glucose. The ADA defines fasting as no caloric intake for at least 8 hours. Fasting plasma glucose results between 100 to 125 mg/dL indicate increased risk for diabetes (prediabetes). Fasting plasma glucose results greater than or equal to 126 mg/dL meet the criteria for diagnosis of diabetes. In the absence of unequivocal hyperglycemia, results should be confirmed by repeat testing. In a patient with classic symptoms of hyperglycemia or hyperglycemic crisis, random plasma glucose results greater than or equal to 200 mg/dL meet the criteria for diagnosis of diabetes. Reference: Standards of Medical Care in Diabetes 2016, [place] [employer]. Diabetes Care. 2016.39(Suppl 1). Performed By: #### 2 4323-8, 16800-7 ####[facility] LABIA [id number] [place] [address] [place] Potassium [Moles/Vol] 3.7 mmol/L Normal 3.7-5.1 [facility] Comment on above: Order Comment: Speci men Type: BLOOD SPECIMENOrdering Facility: [facility] Address: [address] [place] [address] Performed By: #### 2 4323-8, 73197-6 ####[facility] LABIA [id number] [place] [address] [place] Protein [Mass/Vol] 7.0 g/dL Normal 6.3-8.0 [facility] Comment on above: Order Comment: Speci men Type: BLOOD SPECIMENOrdering Facility: [facility] Address: [address] [place] [address] Performed By: #### 2 4323-8, 83142-9 ####[facility] LABCLIA [id number] [place] [address] [place] Sodium [Moles/Vol] 141 mmol/L Normal 136-144 [facility] Comment on above: Order Comment: Speci men Type: BLOOD SPECIMENOrdering Facility: [facility] Address: [address] [place] [address] Performed By: #### 2 4323-8, 60105-1 ####[facility] LABCLIA [id number] [place] [address] [place] Urea nitrogen [Mass/Vol] 12 mg/dL Normal 7-21 [facility] Comment on above: Order Comment: Speci men Type: BLOOD SPECIMENOrdering Facility: [facility] Address: [address] [place] [address] Performed By: #### 2 4323-8, 50731-2 ####[facility] LABIA [id number] [place] [address] [place] Lipid 1996 panelon 4 Cholesterol [Mass/Vol] 219 mg/dL High <200 [facility] Comment on above: Order Comment: Speci men Type: BLOOD SPECIMENOrdering Facility: [facility] Address: [address] [place] [address] Result Comment: <200 mg/dL, Desirable 200-239 mg/dL, Borderline high >239 mg/dL, High Performed By: #### 2 4323-8, 48267-8 ####[facility] LABIA [id number] [place] [address] [place] Cholesterol in HDL [Mass/Vol] 110 mg/dL Normal >39 [facility] Comment on above: Order Comment: Speci men Type: BLOOD SPECIMENOrdering Facility: [facility] Address: [address] [place] [address] Result Comment: 40-5 9 mg/dL, Acceptable >59 mg/dL, High: Negative risk factor for coronary heart disease <40 mg/dL, Low: Positive risk factor for coronary heart disease Performed By: #### 2 4323-8, 86769-1 ####[facility] LABCLIA [id number] [address] [place] Cholesterol in LDL [Mass/Vol] 93 mg/dL Normal <100 [facility] Comment on above: Order Comment: Speci men Type: BLOOD SPECIMENOrdering Facility: [facility] Address: [address] [place] [address] Result Comment: <100 mg/dL, Optimal 100-129 mg/dL, Near optimal/above optimal 130-159 mg/dL, Borderline high 160-189 mg/dL, High >189 mg/dL, Very high Secondary prevention optimal LDL Cholesterol levels are recommended to be < 70 mg/dL Performed By: #### 2 4323-8, 89348-6 ####[facility] LABCLIA [id number] [address] [place] [facility] Cholesterol in LDL/Cholesterol in HDL [Mass ratio] 0.85 {ratio} Normal <2.54 [facility] Comment on above: Order Comment: Speci men Type: BLOOD SPECIMENOrdering Facility: [facility] Address: [address] [place] [address] Result Comment: Refe rence: 1. National Cholesterol Education Program ATP III Guideline At-A-Glance Quick Desk Reference: National Heart, Lung, and Blood [place]. National Institutes of Health. 2001: NIH Publication No. 01-3305. 2. An International Atherosclerosis Society position paper: global recommendations for the management of dyslipidemia: executive summary, Atherosclerosis. 2014: 232(2):410-413. Performed By: #### 2 4323-8, 02841-8 ####[facility] LABCLIA [id number] [address] [place] Cholesterol in VLDL [Mass/Vol] 16 mg/dL Normal <30 [facility] Comment on above: Order Comment: Speci men Type: BLOOD SPECIMENOrdering Facility: [facility] Address: [address] [place] [address] Performed By: #### 2 4323-8, 59318-8 ####[facility] LABCLIA [id number] [place] [address] [place] Cholesterol non HDL [Mass/Vol] 109 mg/dL Normal <130 [facility] Comment on above: Order Comment: Speci men Type: BLOOD SPECIMENOrdering Facility: [facility] Address: [address] [place] [address] Result Comment: <130 mg/dL, Optimal 130-159 mg/dL, Near optimal/above optimal 160-189 mg/dL, Borderline high 190-219 mg/dL, High >219 mg/dL, Very high Secondary prevention optimal non HDL Cholesterol levels are recommended to be <100 mg/dL Performed By: #### 2 4323-8, 28306-2 ####[facility] LABCLIA [id number] [place] [address] [place] Cholesterol.total/C holesterol in HDL [Mass ratio] 1.99 {ratio} Normal <5.10 [facility] Comment on above: Order Comment: Speci men Type: BLOOD SPECIMENOrdering Facility: [facility] Address: [address] [place] [address] Performed By: #### 2 4323-8, 21627-3 ####[facility] LABCLIA [id number] [place] [address] [place] FASTING TIME 15 hrs Normal [facility] Comment on above: Order Comment: Speci men Type: BLOOD SPECIMENOrdering Facility: [facility] Address: [address] [place] [address] Performed By: #### 2 4323-8, 75625-4 ####[facility] LABCLIA [id number] [place] [address] [place] Triglyceride [Mass/Vol] 78 mg/dL Normal <150 [facility] Comment on above: Order Comment: Speci men Type: BLOOD SPECIMENOrdering Facility: [facility] Address: [address] [place] [place] [id number] Result Comment: <150 mg/dL, Normal 150-199 mg/dL, Borderline high 200-499 mg/dL, High >499 mg/dL, Very high Performed By: #### 2 4323-8, 32930-2 ####[facility] LABCLIA [id number] [address] [id number] [id number] [facility] CNOVon 02-17-2024 CNOV Office Visit (INTMWS ) CHRISTOPHERBEKAH ([id number]) 1950 F Date Time Provider Department 02/17/24 11:00 AM SANDRA SANCHEZ INTMWS During your visit today, we recorded the following information about you: Pulse Respiration Blood pressure Weight 84/minute 16/minute 150/70 46.5 kg Sandra Sanchez APRN.WAFER CUTTER 02/17/2024 11:30 AM Signed SUBJECTIVE: Depression Screening Never done Anxiety Screening Never done BP Controlled (<130/80) due on 03/16/2022 [facility] Bekah Nikki Sun is a 74 year old female. PMH is significant for ACTIVE PROBLEM LIST Primary Hypertension Migraine Without Aura Raynaud's Syndrome Hyperlipidemia Constipation Chronic Diastolic Chf (Congestive Heart Failure) (Hcc) Presents for routine follow-up visit today. She was seen by cardiology January 20, 2024 for chronic diastolic heart failure hypertension and hyperlipidemia. By Dr. Bear. Noted good control. She was seen in geriatrics program. Tapered down off of amitriptyline. Recommended lab work to include B12 and thyroid function tests. Endorsed routine exercise Mediterranean diet increase socialization sense of purpose and cognitive stimulation. She underwent MRI brain October 01, 2023 showed no acute intracranial process or intracranial mass. Mild generalized volume loss. Hippocampal volume at 1st percentile when compared to age-matched normal controls by quantitative analysis. Mild white matter disease which is nonspecific but likely reflective of chronic microvascular ischemia. No evidence of parenchymal microhemorrhages by MRI Presents with her . She has noted decreased memory, increased since seen last year. 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 Now notes short-term memory difficulties. Able to complete ADLs and IADLs. Discussed at last visit, deferred further evaluation / appts. at this time. HTN: Thought may have missed a dose of medication at her last visit, returns today for recheck of blood pressure. Without report of headache, chest pain, palpitations, dyspnea, peripheral edema, orthopnea, fatigue, PND. Last 14 Encounter BP Readings: Date: BP: 02/17/2024 150/70 01/20/2024 138/60 08/12/2023 138/78 07/26/2023 144/78 06/04/2023 140/80 05/13/2023 169/76 03/01/2023 130/69[bp average[ 2023 155/70[average bp[ 09/07/2022 124/68 07/31/2022 124/72 12/14/2021 138/75[average[ 12/11/2021 140/78 08/21/2021 190/72[average[ 08/07/2021 163/68[average[ Hyperlipidemia. Ms. Sun reports doing well on current therapy. Her most recent lipid panels are: Cholesterol, Total (mg/dL) Date Value 08/08/2022 233 08/25/2020 226 07/21/2019 197 Total Cholesterol, Nonfasting (mg/dL) Date Value 03/16/2021 233 HDL Cholesterol (mg/dL) Date Value 08/08/2022 90 08/25/2020 111 07/21/2019 99 HDL Cholesterol, Nonfasting (mg/dL) Date Value 03/16/2021 118 LDL Cholesterol (mg/dL) Date Value 08/08/2022 127 08/25/2020 101 07/21/2019 86 LDL Cholesterol, Nonfasting (mg/dL) Date Value 03/16/2021 101 Triglyceride (mg/dL) Date Value 08/08/2022 82 08/25/2020 69 07/21/2019 61 Triglycerides, Nonfasting (mg/dL) Date Value 03/16/2021 70 Review of Systems Constitutional: Negative. Respiratory: Negative. Cardiovascular: Negative. Endocrine: Negative. Objective BP 150/70 Pulse 84 Resp 16 Wt 46.5 kg (102 lb 8.2 oz) BMI 17.60 kg/m? Physical Exam Vitals and nursing note reviewed. Constitutional: Appearance: Normal appearance. HENT: Head: Normocephalic and atraumatic. Eyes: Conjunctiva/sclera: Conjunctivae normal. Neck: Thyroid: No thyroid mass, thyromegaly or thyroid tenderness. Vascular: Normal carotid pulses. No carotid bruit or JVD. Cardiovascular: Rate and Rhythm: Normal rate and regular rhythm. Pulses: Normal pulses. Heart sounds: Normal heart sounds. Pulmonary: Effort: Pulmonary effort is normal. Breath sounds: Normal breath sounds. Abdominal: General: Bowel sounds are normal. Palpations: Abdomen is soft. Musculoskeletal: Right lower leg: Edema (scant pedal) present. Left lower leg: Edema (scant pedal) present. Skin: General: Skin is warm and dry. Neurological: General: No focal deficit present. Mental Status: She is alert and oriented to person, place, and time. ALLERGIES Allergen Reactions Penicillins Hives Bactrim Ds [Sulfame* Rash Losartan Intolerance headache, did not feel well MEDICATIONS fluticasone (FLONASE) 50 mcg/actuation nasal spray SPRAY 1 SPRAY INTO EACH NOSTRIL EVERY DAY atorvastatin (LIPITOR) 10 mg tablet Take 1 tablet by mouth once daily. amLODIPine (NORVASC) 10 mg tablet Take 1 tablet by mouth once daily. metoprolol succinate ER (TOPROL XL) 25 mg 24 hr tablet Take 1 tablet by mouth once daily. cholecalciferol, vitamin D3, (VITAMIN D3 ORAL) Take 1,000 Int'l Units by mouth. Nature Made amitriptyline (more content not included)... Normal [facility] CNOVon 01-20-2024 CNOV Office Visit (CAWSTR ) BEKAH SUN ([id number]) 1950 F Date Time Provider Department 01/20/24 11:40 AM YAHAIRA BEAR During your visit today, we recorded the following information about you: Pulse Blood pressure Weight 89/minute 138/60 46.5 kg Yahaira Bear MD 01/20/2024 12:10 PM Signed [facility] Cardiology ([facility]) [address] [facility] [facility] [id number] OUTPATIENT VISIT DATE 01/20/2024 PRIMARY CARE PHYSICIAN: Paulina Ardon [address] [place] [address] HISTORY OF PRESENT ILLNESS: Ms. Sun is a 73 year old man with a history of hypertension dyslipidemia who presents for routine follow-up. Patient continues to do well from a functional standpoint. She has been checking her blood pressure at home but has not been keeping a record of her results. She has not had symptoms concerning for congestive heart failure including PND, orthopnea, or lower extremity edema. She has not had symptoms of palpitations, lightheadedness, dizziness, or syncope. PAST MEDICAL HISTORY 05/10/2005: COMMON MIGRAINE W/O MENTN INTRACT No date: Diverticulosis of colon (without mention of hemorrhage) 05/10/2005: HYPERTENSION NOS No date: Kidney stone No date: Psoriasis 05/10/2005: Raynaud's syndrome PAST SURGICAL HISTORY 08/15/2009: COLONOSCOPY FLX DX W/COLLJ SPEC WHEN PFRMD Comment: Colonoscopy 10/28/2019: COLONOSCOPY FLX DX W/COLLJ SPEC WHEN PFRMD Comment: Colonoscopy 01/08/2012 inpt wch: ESOPHAGOGASTRODUODENOSCOPY TRANSORAL DIAGNOSTIC Comment: EGD 06/10/2009: PAST SURGICAL HISTORY OF Comment: Single Port resection of ovarian remanent-LSO No date: TOTAL ABDOMINAL HYSTERECT W/WO RMVL TUBE OVARY Comment: UHANG-BSO SOCIAL HISTORY Social History Tobacco Use Smoking status: Never Smokeless tobacco: Never Substance Use Topics Alcohol use: Yes Comment: rare Drug use: No FAMILY HISTORY Problem Relation Age of Onset Hypertension Father Stroke Father Arthritis Mother Cancer Paternal Aunt unknown site ALLERGIES: ALLERGIES Allergen Reactions Penicillins Hives Bactrim Ds [Sulfame* Rash Losartan Intolerance headache, did not feel well MEDICATIONS: fluticasone (FLONASE) 50 mcg/actuation nasal spray SPRAY 1 SPRAY INTO EACH NOSTRIL EVERY DAY atorvastatin (LIPITOR) 10 mg tablet Take 1 tablet by mouth once daily. amLODIPine (NORVASC) 10 mg tablet Take 1 tablet by mouth once daily. metoprolol succinate ER (TOPROL XL) 25 mg 24 hr tablet Take 1 tablet by mouth once daily. cholecalciferol, vitamin D3, (VITAMIN D3 ORAL) Take 1,000 Int'l Units by mouth. Nature Made amitriptyline (ELAVIL) 10 mg tablet Take 0.5 tablets by mouth daily at bedtime for 14 days, THEN 0.5 tablets every other day for 14 days. REVIEW OF SYSTEMS: Review of Systems Constitutional: Negative for chills, fever, malaise/fatigue and weight loss. HENT: Negative for hearing loss and sore throat. Eyes: Negative for blurred vision and double vision. Respiratory: Negative. Cardiovascular: Negative. Genitourinary: Negative for dysuria, frequency, hematuria and urgency. Musculoskeletal: Negative. Skin: Negative. Neurological: Negative for dizziness, seizures, loss of consciousness, weakness and headaches. Endo/Heme/Allergies: Negative for environmental allergies. Does not bruise/bleed easily. Psychiatric/Behavioral: Negative for depression. PHYSICAL EXAMINATION: BP 138/60 Pulse 89 Wt 102 lb 9.6 oz (46.5kg) SpO2 96% General: Pleasant lady sitting appears comfortable no apparent distress. Alert and oriented x 3 HEENT: Carotid upstrokes are brisk without bruits no JVD appreciated. Pulmonary: Lungs are clear no rales, wheezes, rhonchi Cardiovascular: Normal S1, S2 with regular rate and rhythm. No murmurs, rubs, or gallops Extremities: Warm, well-perfused, no lower extremity edema. 2+ distal pulses CARDIOVASCULAR MEDICINE TESTING: Stress Echocardiogram 10/16/2021 - The exercise stress echo was negative for ischemia at 98 % of MPHR (4.8 METS). No regional wall motion abnormality seen at heart rate achieved. - The left ventricle is normal in size. There is mild upper septal asymmetric left ventricular hypertrophy. Left ventricular systolic function is normal. EF = 66 ? 5% (2D biplane) Grade I left ventricular diastolic dysfunction. - The right ventricle is normal in size. Right ventricular systolic function is normal. - The patient has not had a prior CC echocardiographic exam for comparison. Stress ECG Conclusion: Conclusion: Normal with exception due to low heart rate recovery and abnormal Diaz treadmill score Zio Monitor 12/11-12/25/2021: Patient had a min HR of 34 bpm, max HR of 150 bpm, and avg HR of 74 bpm. Predominant underlying rhythm was S (more content not included)... Normal [facility] CBC W Auto Differential pane l (Bld)on 2023 Basophils (Bld) [#/Vol] 0.07 10*3/uL <0.11 k/uL [facility] Basophils/100 WBC (Bld) 1.0 % [facility] Differential cell count method Nom (Bld) Auto [facility] Eosinophils (Bld) [#/Vol] 0.06 10*3/uL <0.46 k/uL [facility] Eosinophils/100 WBC (Bld) 0.9 % [facility] Erythrocyte distribution width (RBC) [Ratio] 12.5 % 11.5 - 15.0 % [facility] Hematocrit (Bld) [Volume fraction] 40.1 % 36.0 - 46.0 % [facility] Hemoglobin (Bld) [Mass/Vol] 13.3 g/dL 11.5 - 15.5 g/dL [facility] Immature granulocytes (Bld) [#/Vol] <0.10 k/uL [facility] Immature granulocytes/100 WBC (Bld) 0.3 % [facility] Lymphocytes (Bld) [#/Vol] 1.53 10*3/uL 1.00 - 4.00 k/uL [facility] Lymphocytes/100 WBC (Bld) 22.9 % [facility] MCH (RBC) [Entitic mass] 31.2 pg 26.0 - 34.0 pg [facility] MCHC (RBC) [Mass/Vol] 33.2 g/dL 30.5 - 36.0 g/dL [facility] MCV (RBC) [Entitic vol] 94.1 fL 80.0 - 100.0 fL [facility] Monocytes (Bld) [#/Vol] 0.54 10*3/uL <0.87 k/uL [facility] Monocytes/100 WBC (Bld) 8.1 % [facility] Neutrophils (Bld) [#/Vol] 4.47 10*3/uL 1.45 - 7.50 k/uL [facility] Neutrophils/100 WBC (Bld) 66.8 % [facility] Nucleated RBC (Bld) [#/Vol] <0.01 k/uL [facility] Nucleated RBC/100 WBC (Bld) [Ratio] 0.0 /100 WBC [facility] Platelet mean volume (Bld) [Entitic vol] 10.3 fL 9.0 - 12.7 fL [facility] Platelets (Bld) [#/Vol] 346 10*3/uL 150 - 400 k/uL [facility] RBC (Bld) [#/Vol] 4.26 10*6/uL 3.90 - 5.2 0 m/uL [facility] WBC (Bld) [#/Vol] 6.69 10*3/uL 3.70 - 11.00 k/uL [facility] No Panel Informationon 08-17 LOWEST T-SCORE -3.3 [facility] VITAMIN B6/PYRIDOXINon 08-11 Pyridoxine [Mass/Vol] 94.3 nmol/L 20.0 - 125.0 nmol/L [facility] Comprehensive metabolic 2000 panelon 08-09-2022 Albumin [Mass/Vol] 4.5 g/dL 3.9 - 4.9 g/dL [facility] ALP [Catalytic activity/Vol] 81 U/L 34 - 123 U/L [facility] ALT [Catalytic activity/Vol] 17 U/L 7 - 38 U/L [facility] Anion gap [Moles/Vol] 10 mmol/L 9 - 18 mmol/L [facility] AST [Catalytic activity/Vol] 28 U/L 13 - 35 U/L [facility] Bilirubin [Mass/Vol] 0.6 mg/dL 0.2 - 1.3 mg/dL [facility] Calcium [Mass/Vol] 9.8 mg/dL 8.5 - 10. 2 mg/dL [facility] Chloride [Moles/Vol] 99 mmol/L 97 - 105 mmol/L [facility] CO2 [Moles/Vol] 29 mmol/L 22 - 30 mmol/L [facility] Creatinine [Mass/Vol] 1.11 mg/dL High 0.58 - 0.96 mg/dL [facility] Estimated Glomerular Filtration Rate 52 mL/min/1.73m Low >=60 mL/min/1.73 m [facility] Glucose [Mass/Vol] 95 mg/dL 74 - 99 mg/dL [facility] Potassium [Moles/Vol] 4.6 mmol/L 3.7 - 5.1 mmol/L [facility] Protein [Mass/Vol] 6.8 g/dL 6.3 - 8.0 g/dL [facility] Sodium [Moles/Vol] 138 mmol/L 136 - 144 mmol/L [facility] Urea nitrogen [Mass/Vol] 15 mg/dL 7 - 21 mg/dL [facility] FOLATE SERUMon 08-09-2022 Folate [Mass/Vol] >4.7 ng/mL [facility] Lipid 1996 panelon 3 Cholesterol [Mass/Vol] 233 mg/dL High <200 mg/dL [facility] Cholesterol in HDL [Mass/Vol] 90 mg/dL >39 mg/dL [facility] Cholesterol in LDL [Mass/Vol] 127 mg/dL High <100 mg/dL [facility] Cholesterol in LDL/Cholesterol in HDL [Mass ratio] 1.41 {ratio} <2.54 [facility] Cholesterol in VLDL [Mass/Vol] 16 mg/dL <30 mg/dL [facility] Cholesterol non HDL [Mass/Vol] 143 mg/dL High <130 mg/dL [facility] Cholesterol.total/C holesterol in HDL [Mass ratio] 2.59 {ratio} <5.10 [facility] Fasting Time 15 hrs [facility] Triglyceride [Mass/Vol] 82 mg/dL <150 mg/dL [facility] T3 FREE Don 08-09-2022 Free T3 [Mass/Vol] 3.0 pg/mL 2.3 - 4.1 pg/mL [facility] T4 FREE/FREE THYROXon 2022 Free T4 [Mass/Vol] 1.3 ng/dL 0.9 - 1.7 ng/dL [facility] TSH Don 08-09-2022 TSH Qn 2.990 m[IU]/L 0.270 - 4.200 mIU/L [facility] VITAMIN B12 BLOODon 08-10-19 23 Cobalamin (Vitamin B12) [Mass/Vol] 455 pg/mL 232 - 1,245 pg/mL [facility] CBC panel Auto (Bld)on 08-08 Erythrocyte distribution width (RBC) [Ratio] 12.4 % 11.5 - 15.0 % [facility] Hematocrit (Bld) [Volume fraction] 41.1 % 36.0 - 46.0 % [facility] Hemoglobin (Bld) [Mass/Vol] 13.6 g/dL 11.5 - 15.5 g/dL [facility] MCH (RBC) [Entitic mass] 31.3 pg 26.0 - 34.0 pg [facility] MCHC (RBC) [Mass/Vol] 33.1 g/dL 30.5 - 36.0 g/dL [facility] MCV (RBC) [Entitic vol] 94.7 fL 80.0 - 100.0 fL [facility] Nucleated RBC (Bld) [#/Vol] <0.01 k/uL [facility] Platelet mean volume (Bld) [Entitic vol] 10.4 fL 9.0 - 12.7 fL [facility] Platelets (Bld) [#/Vol] 323 10*3/uL 150 - 400 k/uL [facility] RBC (Bld) [#/Vol] 4.34 10*6/uL 3.90 - 5.2 0 m/uL [facility] WBC (Bld) [#/Vol] 5.20 10*3/uL 3.70 - 11.00 k/uL [facility] VITAMIN D 25 HYDROXYon 08-08 25-hydroxyvitamin D3 [Mass/Vol] 60.3 ng/mL 31.0 - 80.0 ng/mL [facility] LORI SCREENINGon 07-16-2022 [facility] .Auto Diffon 07-20-2021 Basophil, Absolute 0.10 10 3/mcL Normal 0.00-0.19 [facility] ([place]) Comment on above: Performed By: #### C BC, ADIFF, ANEU, CMP, LIPID, GFR #### Sathya [address] [address] Basophils/100 WBC (Bld) 0.9 % Normal 0.0-2.5 [facility] ([place]) Comment on above: Performed By: #### C BC, ADIFF, ANEU, CMP, LIPID, GFR #### [address] [address] Eosinophil, Absolute 0.10 10 3/mcL Normal 0.00-0.40 [facility] ([place]) Comment on above: Performed By: #### C BC, ADIFF, ANEU, CMP, LIPID, GFR #### [address] [address] Eosinophils/100 WBC (Bld) 2.2 % Normal 0.0-7.0 [facility] ([place]) Comment on above: Performed By: #### C BC, ADIFF, ANEU, CMP, LIPID, GFR #### [address] [address] Lymphocyte, Absolute 1.80 10 3/mcL Normal 0.77-3.85 [facility] ([place]) Comment on above: Performed By: #### C BC, ADIFF, ANEU, CMP, LIPID, GFR #### [address] [address] Lymphocytes/100 WBC (Bld) 29.9 % Normal 10.0-50.0 [facility] ([place]) Comment on above: Performed By: #### C BC, ADIFF, ANEU, CMP, LIPID, GFR #### [address] [address] Monocyte, Absolute 0.50 10 3/mcL Normal 0.15-1.00 [facility] ([place]) Comment on above: Performed By: #### C BC, ADIFF, ANEU, CMP, LIPID, GFR #### [address] [address] Monocytes/100 WBC (Bld) 8.3 % Normal 1.7-13.0 [facility] ([place]) Comment on above: Performed By: #### C BC, ADIFF, ANEU, CMP, LIPID, GFR #### [address] [address] Neutrophils/100 WBC (Bld) 58.7 % Normal 37.0-80.0 [facility] ([place]) Comment on above: Performed By: #### C BC, ADIFF, ANEU, CMP, LIPID, GFR #### [address] [address] .GFRon 07-20-2021 GFR Non- 51 ml/min/1.73sqm Normal [facility] ([place]) Comment on above: Result Comment: GFR Population mean for , Non- Americans Ages 20-29 = 116 mL/min/1.73 sq.m. Ages 30-39 = 107 mL/min/1.73 sq.m. Ages 40-49 = 99 mL/min/1.73 sq.m. Ages 50-59 = 93 mL/min/1.73 sq.m. Ages 60-69 = 85 mL/min/1.73 sq.m. Ages 70+ = 75 mL/min/1.73 sq.m. Chronic Kidney Disease: Less than 60 mL/min/1.73 square meters End Stage Renal Disease: Less than 15 mL/min/1.73 square meters Performed By: #### C BC, ADIFF, ANEU, CMP, LIPID, GFR #### [address] [address] GFR 62 ml/min/1.73sqm Normal [facility] ([place]) Comment on above: Result Comment: GFR Population mean for , Non- Americans Ages 20-29 = 116 mL/min/1.73 sq.m. Ages 30-39 = 107 mL/min/1.73 sq.m. Ages 40-49 = 99 mL/min/1.73 sq.m. Ages 50-59 = 93 mL/min/1.73 sq.m. Ages 60-69 = 85 mL/min/1.73 sq.m. Ages 70+ = 75 mL/min/1.73 sq.m. Chronic Kidney Disease: Less than 60 mL/min/1.73 square meters End Stage Renal Disease: Less than 15 mL/min/1.73 square meters Performed By: #### C BC, ADIFF, ANEU, CMP, LIPID, GFR #### [place] [address] [place], [place] [address] .NEUABSon 07-20-2021 Neutrophil, Absolute 3.40 10 3/mcL Normal 2.85-6.16 [facility] ([place]) Comment on above: Performed By: #### C BC, ADIFF, ANEU, CMP, LIPID, GFR #### [place] [id number] CBCon 07-20-2021 Erythrocyte distribution width (RBC) [Ratio] 13.1 % Normal 11.5-14.5 [facility] ([place]) Comment on above: Performed By: #### C BC, ADIFF, ANEU, CMP, LIPID, GFR #### [place] [address] Hematocrit (Bld) [Volume fraction] 40.5 % Normal 37.0-47.0 [facility] ([place]) Comment on above: Performed By: #### C BC, ADIFF, ANEU, CMP, LIPID, GFR #### [place] [id number] Hgb 13.7 G/dL Normal 12.0-16.0 [facility] ([place]) Comment on above: Performed By: #### C BC, ADIFF, ANEU, CMP, LIPID, GFR #### [place] [id number] MCH (RBC) [Entitic mass] 31.1 pg Normal 27.0-31.2 [facility] ([place]) Comment on above: Performed By: #### C BC, ADIFF, ANEU, CMP, LIPID, GFR #### [place] [address] MCHC 33.9 G/dL Normal 33.0-37.0 [facility] ([place]) Comment on above: Performed By: #### C BC, ADIFF, ANEU, CMP, LIPID, GFR #### [place] [address] MCV (RBC) [Entitic vol] 91.6 fL Normal 80.0-94.0 [facility] ([place]) Comment on above: Performed By: #### C BC, ADIFF, ANEU, CMP, LIPID, GFR #### [place] [id number] Platelet 314 10 3/mcL Normal 130-400 [facility] ([place]) Comment on above: Performed By: #### C BC, ADIFF, ANEU, CMP, LIPID, GFR #### [address] [address] Platelet mean volume (Bld) [Entitic vol] 8.1 fL Normal 7.4-10.4 [facility] ([place]) Comment on above: Performed By: #### C BC, ADIFF, ANEU, CMP, LIPID, GFR #### [address] [address] RBC 4.42 10 6/mcL Normal 4.20-5.40 [facility] ([place]) Comment on above: Performed By: #### C BC, ADIFF, ANEU, CMP, LIPID, GFR #### [address] [address] WBC 5.90 10 3/mcL Normal 4.60-10.80 [facility] ([place]) Comment on above: Performed By: #### C BC, ADIFF, ANEU, CMP, LIPID, GFR #### [address] [address] CMPon 07-20-2021 Albumin Level 4.0 G/dL Normal 3.4-4.8 [facility] ([place]) Comment on above: Performed By: #### C BC, ADIFF, ANEU, CMP, LIPID, GFR #### [address] [address] Albumin/Globulin [Mass ratio] 1.2 {ratio} Normal 1.1-2.5 [facility] ([place]) Comment on above: Performed By: #### C BC, ADIFF, ANEU, CMP, LIPID, GFR #### [address] [address] ALP [Catalytic activity/Vol] 85 U/L Normal 40-135 [facility] ([place]) Comment on above: Performed By: #### C BC, ADIFF, ANEU, CMP, LIPID, GFR #### [address] [address] ALT [Catalytic activity/Vol] 25 U/L Normal 14-59 [facility] ([place]) Comment on above: Performed By: #### C BC, ADIFF, ANEU, CMP, LIPID, GFR #### [address] [address] AST [Catalytic activity/Vol] 22 U/L Normal 10-40 [facility] ([place]) Comment on above: Performed By: #### C BC, ADIFF, ANEU, CMP, LIPID, GFR #### [address] [address] Bili Total 0.6 mg/dL Normal 0.2-1.0 [facility] ([place]) Comment on above: Result Comment: Use of this assay is not recommended for patients undergoing treatment with eltrombopag due to the potential for falsely elevated results. Performed By: #### C BC, ADIFF, ANEU, CMP, LIPID, GFR #### [address] [address] BUN/Creatinine Ratio 14 ratio Normal 7-27 [facility]) Comment on above: Performed By: #### C BC, ADIFF, ANEU, CMP, LIPID, GFR #### [address] [address] Calcium [Mass/Vol] 8.8 mg/dL Normal 8.4-10.2 [facility]) Comment on above: Performed By: #### C BC, ADIFF, ANEU, CMP, LIPID, GFR #### [address] [address] Chloride [Moles/Vol] 102 mmol/L Normal 98-107 [facility] ([place]) Comment on above: Performed By: #### C BC, ADIFF, ANEU, CMP, LIPID, GFR #### [address] [address] CO2 [Moles/Vol] 31 mmol/L Normal 23-31 [facility] ([place]) Comment on above: Performed By: #### C BC, ADIFF, ANEU, CMP, LIPID, GFR #### [address] [address] Creatinine [Mass/Vol] 1.05 mg/dL High 0.55-1.02 [facility] ([place]) Comment on above: Performed By: #### C BC, ADIFF, ANEU, CMP, LIPID, GFR #### [address] [address] Electrolyte Balance 10.0 mEq/L Normal 4.0-15.0 [facility] ([place]) Comment on above: Performed By: #### C BC, ADIFF, ANEU, CMP, LIPID, GFR #### [address] [address] Globulin 3.2 G/dL Normal [facility] ([place]) Comment on above: Performed By: #### C BC, ADIFF, ANEU, CMP, LIPID, GFR #### [address] [address] Glucose [Mass/Vol] 102 mg/dL Normal 83-110 [facility] ([place]) Comment on above: Performed By: #### C BC, ADIFF, ANEU, CMP, LIPID, GFR #### [address] [address] Potassium [Moles/Vol] 3.9 mmol/L Normal 3.5-5.1 [facility] ([place]) Comment on above: Performed By: #### C BC, ADIFF, ANEU, CMP, LIPID, GFR #### [address] [address] Sodium [Moles/Vol] 143 mmol/L Normal 136-145 [facility] ([place]) Comment on above: Performed By: #### C BC, ADIFF, ANEU, CMP, LIPID, GFR #### [address] [address] Total Protein 7.2 G/dL Normal 6.4-8.2 [facility] ([place]) Comment on above: Performed By: #### C BC, ADIFF, ANEU, CMP, LIPID, GFR #### [address] [address] Urea nitrogen [Mass/Vol] 15 mg/dL Normal 7-18 [facility] ([place]) Comment on above: Performed By: #### C BC, ADIFF, ANEU, CMP, LIPID, GFR #### [place] [address] [place] [address] LABORATORYOrdered By: Arthur Fulton on 07-20-2021 Albumin BCP dye [Mass/Vol] 4.0 G/dL Invalid Interpretation Code 3.4 - 4.8 G/dL AO ADM SS Albumin/Globulin [Mass ratio] 1.2 {ratio} Invalid Interpretation Code 1.1 - 2.5 ratio AO ADM SS ALP [Catalytic activity/Vol] 85 U/L Invalid Interpretation Code 40 - 135 U/L AO ADM SS ALT With P-5'-P [Catalytic activity/Vol] 25 U/L Invalid Interpretation Code 14 - 59 U/L AO ADM SS AST With P-5'-P [Catalytic activity/Vol] 22 U/L Invalid Interpretation Code 10 - 40 U/L AO ADM SS Bilirubin [Mass/Vol] 0.6 mg/dL Invalid Interpretation Code 0.2 - 1.0 mg/dL AO ADM SS Calcium [Mass/Vol] 8.8 mg/dL Invalid Interpretation Code 8.4 - 10.2 mg/dL AO ADM SS Chloride [Moles/Vol] 102 mmol/L Invalid Interpretation Code 98 - 107 mmol/L AO ADM SS Cholesterol [Mass/Vol] 218 mg/dL Invalid Interpretation Code 0 - 200 mg/dL AO ADM SS Cholesterol in HDL [Mass/Vol] 119 mg/dL Invalid Interpretation Code 40 - 60 mg/dL AO ADM SS Cholesterol in LDL [Mass/Vol] 86 mg/dL Invalid Interpretation Code 0 - 130 mg/dL AO ADM SS CO2 [Moles/Vol] 31 mmol/L Invalid Interpretation Code 23 - 31 mmol/L AO ADM SS Creatinine [Mass/Vol] 1.05 mg/dL Invalid Interpretation Code 0.55 - 1.02 mg/dL AO ADM SS Electrolyte Balance 10.0 mEq/L Invalid Interpretation Code 4.0 - 15.0 mEq/L AO ADM SS Globulin 3.2 G/dL Invalid Interpretation Code AO ADM SS Glucose [Mass/Vol] 102 mg/dL Invalid Interpretation Code 83 - 110 mg/dL AO ADM SS Potassium [Moles/Vol] 3.9 mmol/L Invalid Interpretation Code 3.5 - 5.1 mmol/L AO ADM SS Protein [Mass/Vol] 7.2 G/dL Invalid Interpretation Code 6.4 - 8.2 G/dL AO ADM SS Sodium [Moles/Vol] 143 mmol/L Invalid Interpretation Code 136 - 145 mmol/L AO ADM SS Triglyceride [Mass/Vol] 65 mg/dL Invalid Interpretation Code 0 - 150 mg/dL AO ADM SS Urea nitrogen [Mass/Vol] 15 mg/dL Invalid Interpretation Code 7 - 18 mg/dL AO ADM SS Urea nitrogen/Creatinine [Mass ratio] 14 ratio Invalid Interpretation Code 7 - 27 ratio AO ADM SS LABORATORYOrdered By: Karla Domingo on 07-20-2021 Basophil, Absolute 0.10 103/mcL Invalid Interpretation Code 0.00 - 0.19 10^3/mcL AO Auto Heme SS Basophils/100 WBC (Bld) 0.9 % Invalid Interpretation Code 0.0 - 2.5 % AO Auto Heme SS Eosinophil, Absolute 0.10 103/mcL Invalid Interpretation Code 0.00 - 0.40 10^3/mcL AO Auto Heme SS Eosinophils/100 WBC (Bld) 2.2 % Invalid Interpretation Code 0.0 - 7.0 % AO Auto Heme SS Erythrocyte distribution width (RBC) [Ratio] 13.1 % Invalid Interpretation Code 11.5 - 14.5 % AO Auto Heme SS Hematocrit (Bld) [Volume fraction] 40.5 % Invalid Interpretation Code 37.0 - 47.0 % AO Auto Heme SS Hemoglobin (Bld) [Mass/Vol] 13.7 G/dL Invalid Interpretation Code 12.0 - 16.0 G/dL AO Auto Heme SS Lymphocyte, Absolute 1.80 103/mcL Invalid Interpretation Code 0.77 - 3.85 10^3/mcL AO Auto Heme SS Lymphocytes/100 WBC (Bld) 29.9 % Invalid Interpretation Code 10.0 - 50.0 % AO Auto Heme SS MCH (RBC) [Entitic mass] 31.1 pg Invalid Interpretation Code 27.0 - 31.2 pg AO Auto Heme SS MCHC (RBC) [Mass/Vol] 33.9 G/dL Invalid Interpretation Code 33.0 - 37.0 G/dL AO Auto Heme SS MCV (RBC) [Entitic vol] 91.6 fL Invalid Interpretation Code 80.0 - 94.0 fL AO Auto Heme SS Monocyte, Absolute 0.50 103/mcL Invalid Interpretation Code 0.15 - 1.00 10^3/mcL AO Auto Heme SS Monocytes/100 WBC (Bld) 8.3 % Invalid Interpretation Code 1.7 - 13.0 % AO Auto Heme SS Neutrophil, Absolute 3.40 103/mcL Invalid Interpretation Code 2.85 - 6.16 10^3/mcL AO Auto Heme SS Neutrophils/100 WBC (Bld) 58.7 % Invalid Interpretation Code 37.0 - 80.0 % AO Auto Heme SS Platelet mean volume (Bld) [Entitic vol] 8.1 fL Invalid Interpretation Code 7.4 - 10.4 fL AO Auto Heme SS Platelets (Bld) [#/Vol] 314 103/mcL Invalid Interpretation Code 130 - 400 10^3/mcL AO Auto Heme SS RBC (Bld) [#/Vol] 4.42 106/mcL Invalid Interpretation Code 4.20 - 5.40 10^6/mcL AO Auto Heme SS WBC (Bld) [#/Vol] 5.90 103/mcL Invalid Interpretation Code 4.60 - 10.80 10^3/mcL AO Auto Heme SS LABORATORYOrdered By: SYSTEM SYSTEM on 07-20-2021 GFR 62 ml/min/1.73sqm Invalid Interpretation Code AO Chemistry S GFR Non- 51 ml/min/1.73sqm Invalid Interpretation Code AO Chemistry S LIPIDon 07-20-2021 Cholesterol [Mass/Vol] 218 mg/dL High 0-200 [facility] ([place]) Comment on above: Result Comment: Chol esterol Reference Interval: Less than 200 Desirable 200-239 Borderline high risk 240 and above High risk Performed By: #### C BC, ADIFF, ANEU, CMP, LIPID, GFR #### [place] [address] [place], [place] [address] Cholesterol in HDL [Mass/Vol] 119 mg/dL High 40-60 [facility] ([place]) Comment on above: Performed By: #### C BC, ADIFF, ANEU, CMP, LIPID, GFR #### [place] [address] [place], [place] [address] Cholesterol in LDL [Mass/Vol] 86 mg/dL Normal 0-130 [facility] ([place]) Comment on above: Performed By: #### C BC, ADIFF, ANEU, CMP, LIPID, GFR #### [place] [address] [place], [place] [address] Triglyceride [Mass/Vol] 65 mg/dL Normal 0-150 [facility] ([place]) Comment on above: Result Comment: Trig lyceride Reference Interval: Less than 150 Normal 150-199 Borderline high risk 200-499 High risk 500 or higher Very high risk Performed By: #### C BC, ADIFF, ANEU, CMP, LIPID, GFR #### [place] [address] [place], [place] [address] Vital Signs Date Time Vital Sign Value Performing Clinician Facility 12-02-2024 13:29-0400 Diastolic blood pressure 72 mm[Hg] FaneduFireei Bianka DO Work Phone: [facility] 12-02-2024 13:29-0400 Systolic blood pressure 161 mm[Hg] Fangfei Bianka DO Work Phone: [facility] 12-02-2024 12:44-0400 Heart rate 79 /min [employer] DO Work Phone: [facility] 12-02-2024 12:43-0400 Body height 162.6 cm Fangfei Bianka DO Work Phone: [facility] 12-02-2024 12:43-0400 Body mass index (BMI) [Ratio] 17.16 kg/m2 Fangfei Bianka DO Work Phone: [facility] 12-02-2024 12:43-0400 Body weight 45.36 kg Fanedu[employer]ei Bianka DO Work Phone: [facility] 12-02-2024 12:43-0400 SaO2% (BldA) [Mass fraction] 97 % [employer] DO Work Phone: [facility] Comment on above: room air 11-30-2024 11:45-0400 Diastolic blood pressure 70 mm[Hg] Sandra Sanchez CHANNEL ACCOUNT MANAGER.WAFER CUTTER Work Phone: [facility] 11-30-2024 11:45-0400 Heart rate 70 /min Sandra Sanchez CHANNEL ACCOUNT MANAGER.WAFER CUTTER Work Phone: [facility] 11-30-2024 11:45-0400 Systolic blood pressure 129 mm[Hg] Sandra Sanchez CHANNEL ACCOUNT MANAGER.WAFER CUTTER Work Phone: [facility] 11-30-2024 11:44-0400 Body mass index (BMI) [Ratio] 17.03 kg/m2 Sandra Nations CHANNEL ACCOUNT MANAGER.WAFER CUTTER Work Phone: [facility] 11-30-2024 11:44-0400 Body weight 45 kg Sandra Sanchez CHANNEL ACCOUNT MANAGER.WAFER CUTTER Work Phone: [facility] 11-30-2024 11:44-0400 Respiratory rate 16 /min Sandra Sanchez CHANNEL ACCOUNT MANAGER.WAFER CUTTER Work Phone: [facility] 08-17-2024 12:22-0400 Diastolic blood pressure 62 mm[Hg] Paulina Ardon MD Work Phone: [facility] 08-17-2024 12:22-0400 Systolic blood pressure 138 mm[Hg] Paulina Ardon MD Work Phone: [facility] 08-17-2024 10:55-0400 Body mass index (BMI) [Ratio] 17.75 kg/m2 Paulina Ardon MD Work Phone: [facility] 08-17-2024 10:55-0400 Body weight 46.9 kg Paulina Ardon MD Work Phone: [facility] 08-17-2024 10:55-0400 Heart rate 77 /min Paulina Ardon MD Work Phone: [facility] 08-17-2024 10:55-0400 Respiratory rate 16 /min Paulina Ardon MD Work Phone: [facility] 08-17-2024 10:55-0400 SaO2% (BldA) [Mass fraction] 100 % Paulina Ardon MD Work Phone: [facility] 08-05-2024 15:32-0400 Diastolic blood pressure 78 mm[Hg] Paulina Ardon MD Work Phone: [facility] 08-05-2024 15:32-0400 Systolic blood pressure 132 mm[Hg] Paulina Ardon MD Work Phone: [facility] 08-05-2024 14:36-0400 Body height 162.6 cm Paulina Ardon MD Work Phone: [facility] 08-05-2024 14:36-0400 Body mass index (BMI) [Ratio] 18.47 kg/m2 Paulina Ardon MD Work Phone: [facility] 08-05-2024 14:36-0400 Body temperature 97.2 [degF] Paulina Ardon MD Work Phone: [facility] 08-05-2024 14:36-0400 Body weight 48.8 kg Paulina Ardon MD Work Phone: [facility] 08-05-2024 14:36-0400 Heart rate 74 /min Paulina Ardon MD Work Phone: [facility] 08-05-2024 14:36-0400 Respiratory rate 12 /min Paulina Ardon MD Work Phone: [facility] 08-05-2024 14:36-0400 SaO2% (BldA) [Mass fraction] 98 % Paulina Ardon MD Work Phone: [facility] 02-26-2024 15:18-0400 Body height 162.6 cm Fangfei Bianka DO Work Phone: [facility] 02-26-2024 15:18-0400 Body mass index (BMI) [Ratio] 18.02 kg/m2 Fangfei Bianka DO Work Phone: [facility] 02-26-2024 15:18-0400 Body weight 47.63 kg Fangfei Bianka DO Work Phone: [facility] 02-26-2024 15:18-0400 Diastolic blood pressure 80 mm[Hg] Fangfei Bianka DO Work Phone: [facility] 02-26-2024 15:18-0400 Heart rate 80 /min Fangfei Bianka DO Work Phone: [facility] 02-26-2024 15:18-0400 SaO2% (BldA) [Mass fraction] 98 % Blade Lyman DO Work Phone: [facility] 02-26-2024 15:18-0400 Systolic blood pressure 159 mm[Hg] Blade Lyman DO Work Phone: [facility] 02-17-2024 10:35-0400 Diastolic blood pressure 70 mm[Hg] Sandra Sanchez CHANNEL ACCOUNT MANAGER.WAFER CUTTER Work Phone: [facility] 02-17-2024 10:35-0400 Heart rate 84 /min Sandra Sanchez CHANNEL ACCOUNT MANAGER.WAFER CUTTER Work Phone: [facility] 02-17-2024 10:35-0400 Systolic blood pressure 150 mm[Hg] Sandra Sanchez CHANNEL ACCOUNT MANAGER.WAFER CUTTER Work Phone: [facility] 02-17-2024 10:33-0400 Body mass index (BMI) [Ratio] 17.6 kg/m2 Sandra Sanchez CHANNEL ACCOUNT MANAGER.WAFER CUTTER Work Phone: [facility] 02-17-2024 10:33-0400 Body weight 46.5 kg Sandra Sanchez CHANNEL ACCOUNT MANAGER.WAFER CUTTER Work Phone: [facility] 02-17-2024 10:33-0400 Respiratory rate 16 /min Sandra Sanchez CHANNEL ACCOUNT MANAGER.WAFER CUTTER Work Phone: [facility] 01-20-2024 11:45-0400 Diastolic blood pressure 60 mm[Hg] Yahaira Bear MD Work Phone: [facility] 01-20-2024 11:45-0400 Systolic blood pressure 138 mm[Hg] Yahaira Bear MD Work Phone: [facility] 01-20-2024 11:33-0400 Body mass index (BMI) [Ratio] 17.61 kg/m2 Yahaira Bear MD Work Phone: [facility] 01-20-2024 11:33-0400 Body weight 46.54 kg Yahaira Bear MD Work Phone: [facility] 01-20-2024 11:33-0400 Heart rate 89 /min Yahaira Bear MD Work Phone: [facility] 01-20-2024 11:33-0400 SaO2% (BldA) [Mass fraction] 96 % Yahaira Bear MD Work Phone: [facility] 08-12-2023 11:09-0400 Diastolic blood pressure 78 mm[Hg] Paulina Ardon MD Work Phone: [facility] 08-12-2023 11:09-0400 Systolic blood pressure 138 mm[Hg] Paulina Ardon MD Work Phone: [facility] 08-12-2023 10:28-0400 Body height 162.6 cm Paulina Ardon MD Work Phone: [facility] 08-12-2023 10:28-0400 Body mass index (BMI) [Ratio] 18.68 kg/m2 Paulina Ardon MD Work Phone: [facility] 08-12-2023 10:28-0400 Body weight 49.35 kg Paulina Ardon MD Work Phone: [facility] 08-12-2023 10:28-0400 Heart rate 84 /min Paulina Ardon MD Work Phone: [facility] 08-12-2023 10:28-0400 Respiratory rate 16 /min Paulina Ardon MD Work Phone: [facility] 07-26-2023 12:53-0500 Body height 158.8 cm Fangfei Bianka DO Work Phone: [facility] 07-26-2023 12:53-0500 Body weight 48.99 kg Fangfei Bianka DO Work Phone: [facility] 07-26-2023 12:53-0500 Diastolic blood pressure 78 mm[Hg] Fangfei Bianka DO Work Phone: [facility] 07-26-2023 12:53-0500 Heart rate 86 /min Fangfei Bianka DO Work Phone: [facility] 07-26-2023 12:53-0500 SaO2% (BldA) [Mass fraction] 100 % Blade Lyman DO Work Phone: [facility] 07-26-2023 12:53-0500 Systolic blood pressure 144 mm[Hg] Blade Lyman DO Work Phone: [facility] 03-01-2023 11:07-0400 Diastolic blood pressure 69 mm[Hg] Sandra Sanchez CHANNEL ACCOUNT MANAGER.WAFER CUTTER Work Phone: [facility] 03-01-2023 11:07-0400 Heart rate 66 /min Sandra Sanchez CHANNEL ACCOUNT MANAGER.WAFER CUTTER Work Phone: [facility] 03-01-2023 11:07-0400 Systolic blood pressure 130 mm[Hg] Sandra Sanchez CHANNEL ACCOUNT MANAGER.WAFER CUTTER Work Phone: [facility] 03-01-2023 11:06-0400 Body weight 52.16 kg Sandra Sanchez CHANNEL ACCOUNT MANAGER.WAFER CUTTER Work Phone: [facility] 03-01-2023 11:06-0400 Respiratory rate 16 /min Sandra Sanchez CHANNEL ACCOUNT MANAGER.WAFER CUTTER Work Phone: [facility] 2023 14:06-0400 Diastolic blood pressure 70 mm[Hg] Sandra Sanchez CHANNEL ACCOUNT MANAGER.WAFER CUTTER Work Phone: [facility] 2023 14:06-0400 Heart rate 87 /min Sandra Sanchez CHANNEL ACCOUNT MANAGER.WAFER CUTTER Work Phone: [facility] 2023 14:06-0400 Systolic blood pressure 155 mm[Hg] Sandra Sanchez CHANNEL ACCOUNT MANAGER.WAFER CUTTER Work Phone: [facility] 2023 14:04-0400 Body weight 53.07 kg Sandra Sanchez CHANNEL ACCOUNT MANAGER.WAFER CUTTER Work Phone: [facility] 2023 14:04-0400 Respiratory rate 16 /min Sandra Sanchez CHANNEL ACCOUNT MANAGER.WAFER CUTTER Work Phone: [facility] 09-07-2022 13:36-0400 Body temperature 98.2 [degF] Paulina Talampas MD Work Phone: [facility] 09-07-2022 13:36-0400 Body weight 53.52 kg Paulina Ardon MD Work Phone: [facility] 09-07-2022 13:36-0400 Diastolic blood pressure 68 mm[Hg] Paulina Ardon MD Work Phone: [facility] 09-07-2022 13:36-0400 Heart rate 84 /min Paulina Ardon MD Work Phone: [facility] 09-07-2022 13:36-0400 Respiratory rate 18 /min Paulina Ardon MD Work Phone: [facility] 09-07-2022 13:36-0400 SaO2% (BldA) [Mass fraction] 98 % Paulina Ardon MD Work Phone: [facility] 09-07-2022 13:36-0400 Systolic blood pressure 124 mm[Hg] Paulina Ardon MD Work Phone: [facility] 07-31-2022 16:20-0500 Diastolic blood pressure 72 mm[Hg] Paulina Ardon MD Work Phone: [facility] 07-31-2022 16:20-0500 Systolic blood pressure 124 mm[Hg] Paluina Ardon MD Work Phone: [facility] 07-31-2022 15:50-0500 Body temperature 97.3 [degF] Paulina Ardon MD Work Phone: [facility] 07-31-2022 15:50-0500 Body weight 52.3 kg Paulina Ardon MD Work Phone: [facility] 07-31-2022 15:50-0500 Heart rate 88 /min Paulina Ardon MD Work Phone: [facility] 07-31-2022 15:50-0500 Respiratory rate 18 /min Paulina Ardon MD Work Phone: [facility] 07-31-2022 15:50-0500 SaO2% (BldA) [Mass fraction] 99 % Paulina Ardon MD Work Phone: [facility] 12-14-2021 10:59-0400 Diastolic blood pressure 75 mm[Hg] Sandra Sanchez CHANNEL ACCOUNT MANAGER.WAFER CUTTER Work Phone: [facility] 12-14-2021 10:59-0400 Heart rate 72 /min Sandra Sanchez CHANNEL ACCOUNT MANAGER.WAFER CUTTER Work Phone: [facility] 12-14-2021 10:59-0400 Systolic blood pressure 138 mm[Hg] Sandra Sanchez CHANNEL ACCOUNT MANAGER.WAFER CUTTER Work Phone: [facility] 12-14-2021 10:58-0400 Body weight 51.26 kg Sandra Sanchez CHANNEL ACCOUNT MANAGER.WAFER CUTTER Work Phone: [facility] 12-11-2021 09:48-0400 Body weight 51.98 kg Selam Ayleen CHANNEL ACCOUNT MANAGER.FIELD CROPS HARVEST MACHINE OPERATOR Work Phone: [facility] 12-11-2021 09:48-0400 Diastolic blood pressure 78 mm[Hg] Selam Ayleen CHANNEL ACCOUNT MANAGER.FIELD CROPS HARVEST MACHINE OPERATOR Work Phone: [facility] 12-11-2021 09:48-0400 Heart rate 75 /min Selam Ayleen CHANNEL ACCOUNT MANAGER.FIELD CROPS HARVEST MACHINE OPERATOR Work Phone: [facility] 12-11-2021 09:48-0400 SaO2% (BldA) [Mass fraction] 98 % Selam Ayleen CHANNEL ACCOUNT MANAGER.FIELD CROPS HARVEST MACHINE OPERATOR Work Phone: [facility] 12-11-2021 09:48-0400 Systolic blood pressure 140 mm[Hg] Selam Ayleen CHANNEL ACCOUNT MANAGER.FIELD CROPS HARVEST MACHINE OPERATOR Work Phone: [facility] 08-21-2021 15:14-0400 Diastolic blood pressure 72 mm[Hg] Sandra Sancehz CHANNEL ACCOUNT MANAGER.WAFER CUTTER Work Phone: [facility] 08-21-2021 15:14-0400 Systolic blood pressure 190 mm[Hg] Sandra Sanchez CHANNEL ACCOUNT MANAGER.WAFER CUTTER Work Phone: [facility] 08-21-2021 15:02-0400 Body weight 51.26 kg Sandra Sanchez CHANNEL ACCOUNT MANAGER.WAFER CUTTER Work Phone: [facility] 08-21-2021 15:02-0400 Heart rate 60 /min Sandra Sanchez CHANNEL ACCOUNT MANAGER.WAFER CUTTER Work Phone: [facility] 08-21-2021 15:02-0400 Respiratory rate 16 /min Sandra Sanchez CHANNEL ACCOUNT MANAGER.WAFER CUTTER Work Phone: [facility] Encounters Encounter Date Encounter Type Care Provider Facility Start: 12-02-2024 End: 12-02-2024 Office outpatient visit 40 minutes Blade Lyman DO Work Phone: [facility] Comment on above: 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, psychotic disturbance, mood disturbance, or anxiety (HCC) (Primary Dx); Primary degenerative dementia of Alzheimer type (HCC); Acute cognitive decline; Underweight (BMI < 18.5); Adjustment disorder with anxious mood; Primary hypertension Start: 12-02-2024 End: 12-02-2024 ambulatory BLADE LYMAN Facility:[facility] Start: 12-01-2024 End: 12-02-2024 Telephone encounter Blade Lyman DO Work Phone: [facility] ([place]) Comment on above: Letter Start: 11-30-2024 End: 11-30-2024 Office outpatient visit 25 minutes Sandra Sanchez CHANNEL ACCOUNT MANAGER.WAFER CUTTER Work Phone: [facility] [place] Comment on above: Mild cognitive impai rment with memory loss (Primary Dx); Neurodegenerative cognitive impairment; Primary hypertension; Mixed hyperlipidemia; Chronic diastolic CHF (congestive heart failure) (HCC); Screening-pulmonary TB Start: 11-30-2024 End: 11-30-2024 ambulatory SANDRA SANCHEZ Facility:[facility] Start: 11-26-2024 End: 11-30-2024 Telephone encounter Paulina Ardon MD Work Phone: Internal [facility] [place] Comment on above: Patient Question Start: 09-25-2024 ambulatory PAULINA ARDON Facilit y:[facility] Start: 09-25-2024 End: 09-25-2024 Subsequent hospital visit by physician Bone Density [facility] Work Phone: Radiology Comment on above: Asymptomatic postmen opausal state [Z78.0] Start: 09-19-2024 End: 09-19-2024 ambulatory PAULINA D TALAMPAS Facility:[facility] Start: 08-22-2024 End: 08-22-2024 ambulatory PAULINA D TALAMPAS Facility:[facility] Start: 08-17-2024 End: 08-17-2024 ambulatory PAULINA D TALAMPAS Facility:[facility] Start: 08-17-2024 End: 08-17-2024 Office outpatient visit 25 minutes Paulina Ardon MD Work Phone: [facility] [place] Comment on above: Closed wedge anu audelia fracture of T9 vertebra, initial encounter ([facility]) (Primary Dx); Age-related osteoporosis without current pathological fracture; Asymptomatic postmenopausal state; Memory difficulties; Essential hypertension with goal blood pressure less than 140/90; Hyperlipidemia, unspecified hyperlipidemia type; Palpitations; HTN, goal below 140/90 Start: 08-11-2024 End: 08-11-2024 Emergency department patient visit DR GAIL YANG MD Facility:[facility] Start: 08-05-2024 End: 08-05-2024 ambulatory PAULINA D TALAMPAS Facility:[facility] Start: 08-05-2024 End: 08-05-2024 Subsequent hospital visit by physician Xr [facility] [place] Work Phone: Radiology Comment on above: Acute left-sided low back pain without sciatica [M54.50] Start: 08-05-2024 End: 08-05-2024 Office outpatient visit 15 minutes Paulina Ardon MD Work Phone: Internal Medicine [place] Comment on above: Acute left-sided low back pain without sciatica (Primary Dx); Essential (primary) hypertension; Muscle spasm of back Start: 08-05-2024 End: 08-05-2024 ambulatory PAULINA D TALAMPAS Facility:[facility] Start: 02-26-2024 End: 02-26-2024 ambulatory BLADE LYMAN Facility:[facility] Start: 02-26-2024 End: 02-26-2024 Office outpatient visit 25 minutes Blade Lyman DO Work Phone: [facility] Comment on above: Mild cognitive impai rment with memory loss (Primary Dx); Neurodegenerative cognitive impairment (HCC); Primary hypertension Start: 02-26-2024 End: 02-26-2024 Telephone encounter Blade Lyman DO Work Phone: [facility] Comment on above: Internal Referrals/r esources (Speech therapy ) Start: 02-18-2024 End: 02-18-2024 ambulatory PAULINA ARDON Facility:[facility] Start: 02-17-2024 End: 02-17-2024 ambulatory SANDRA SANCHEZ Facility:[facility] Start: 02-17-2024 End: 02-17-2024 Office outpatient visit 25 minutes Sandra Sanchez CHANNEL ACCOUNT MANAGER.WAFER CUTTER Work Phone: Internal Medicine [place] Comment on above: Essential hypertensi on with goal blood pressure less than 140/90 (Primary Dx); HTN, goal below 140/90; Memory difficulties; Hyperlipidemia, unspecified hyperlipidemia type; Chronic diastolic CHF (congestive heart failure) (HCC); Screening for depression; Encounter for screening examination for other mental health and behavioral disorders; Palpitations; Ankle swelling, unspecified laterality Start: 01-20-2024 End: 01-20-2024 ambulatory YAHAIRA BEAR Facility:[facility] Start: 01-20-2024 End: 01-20-2024 Patient encounter procedure Yahaira Bear MD Work Phone: Cardiology Comment on above: Chronic diastolic CH F (congestive heart failure) (HCC) (Primary Dx); Mixed hyperlipidemia; Primary hypertension Start: 10-16-2023 Telephone encounter Paulina rocha MD Work Phone: [facility] Comment on above: Results Start: 10-02-2023 Telephone encounter Paulina rocha MD Work Phone: [facility]) Comment on above: Results Start: 10-01-2023 End: 10-01-2023 Subsequent hospital visit by physician Mri 2 [facility] (I-Stat/Lg Bore/1.5t) RADIO [facility] Comment on above: Cognitive impairment [R41.89] Start: 08-12-2023 End: 09-23-2023 Office outpatient visit 25 minutes aPulina Ardon MD Work Phone: Internal Medicine [place] Comment on above: Hyperlipidemia, unsp ecified hyperlipidemia type (Primary Dx); HTN, goal below 140/90; Encounter for long-term current use of medication Start: 07-26-2023 Refill Christina EVANSFIELD CROPS HARVEST MACHINE OPERATOR Work Phone: Internal Medicine [place] Comment on above: Med Change Request Start: 07-26-2023 End: 07-26-2023 Office outpatient new 60 minutes Kierstenyanique Bianka ALBERT Work Phone: [facility] Comment on above: Cognitive impairment (Primary Dx); Memory difficulties; Adverse effect of anticholinergic; Migraine without aura and without status migrainosus, not intractable Start: 05-03-2023 Telephone encounter Paulina rocha MD Work Phone: Internal Medicine [place] Comment on above: Consult Start: 03-01-2023 End: 03-01-2023 Office outpatient visit 15 minutes Sandra Sanchez APRN.WAFER CUTTER Work Phone: Internal Medicine [place] Comment on above: Essential hypertensi on with goal blood pressure less than 140/90 (Primary Dx) Start: 2023 End: 2023 Office outpatient visit 25 minutes Snadra Sanchez APRN.WAFER CUTTER Work Phone: Internal Medicine [place] Comment on above: Chronic diastolic CH F (congestive heart failure) (HCC) (Primary Dx); Chronic kidney disease, stage 3a (HCC); Need for influenza vaccination; Hyperlipidemia, unspecified hyperlipidemia type; Memory difficulties; Migraine without aura and without status migrainosus, not intractable; Essential hypertension with goal blood pressure less than 140/90; Age-related osteoporosis without current pathological fracture; Palpitations; HTN, goal below 140/90 Start: 09-08-2022 Telephone encounter Paulina rocha MD Work Phone: Internal Medicine [place] Comment on above: Patient Update Start: 09-07-2022 End: 09-07-2022 Office outpatient visit 15 minutes Paulina Ardon MD Work Phone: Internal Medicine [place] Comment on above: Age-related osteopor osis without current pathological fracture (Primary Dx) Start: 09-06-2022 Telephone encounter Selam Abbasi APRN.FIELD CROPS HARVEST MACHINE OPERATOR Work Phone: Cardiology Comment on above: Appointment Results Start: 08-13-2022 End: 08-13-2022 Subsequent hospital visit by physician Bone Density [facility] Work Phone: Radiology Comment on above: Asymptomatic postmen opausal status [Z78.0] Start: 07-31-2022 End: 07-31-2022 Office outpatient visit 25 minutes Paulina Ardon MD Work Phone: Internal Medicine [place] Comment on above: Essential hypertensi on with goal blood pressure less than 140/90 (Primary Dx); Hyperlipidemia, unspecified hyperlipidemia type; Asymptomatic postmenopausal status; Hypercalcemia; Memory deficit; Encounter for long-term current use of medication Start: 07-16-2022 End: 07-16-2022 Subsequent hospital visit by physician Screen Mammo [facility] M[facility] Comment on above: Encounter for screen ing mammogram for breast cancer [Z12.31] Start: 07-16-2022 Documentation procedure Mammog kavita Coordinator [facility] Start: 07-16-2022 Letter encounter Mammography Coordinator [facility] Department Start: 07-11-2022 ambulatory Paulina briceno MD Work Phone: Internal Medicine [facility] [place] Start: 02-05-2022 Refill Sandra EVANSWAFER CUTTER Work Phone: Internal Medicine [place] Comment on above: Refill Request Start: 12-28-2021 Telephone encounter Selam Abbasi APRN.FIELD CROPS HARVEST MACHINE OPERATOR Work Phone: Cardiology Comment on above: Results Start: 12-14-2021 End: 12-14-2021 Patient encounter procedure Sandra Sanchez APRN.WAFER CUTTER Work Phone: Internal Medicine [place] Comment on above: HTN, goal below 140/ 90 (Primary Dx); Encounter for immunization; Palpitations; Memory problem Start: 12-11-2021 End: 12-11-2021 Patient encounter procedure Selam Abbasi FIELD CROPS HARVEST MACHINE OPERATOR Work Phone: Cardiology Comment on above: Chronic diastolic CH F (congestive heart failure) (HCC) (Primary Dx); Palpitations; HTN, goal below 140/90; Chest pain, unspecified type; Essential hypertension with goal blood pressure less than 140/90; Abnormal stress test Start: 10-20-2021 Telephone encounter Sandra melchor CHANNEL ACCOUNT MANAGER.WAFER CUTTER Work Phone: Internal Medicine [place] Comment on above: Results (stress test ) Start: 08-21-2021 End: 08-21-2021 Patient encounter procedure Sandra Sanchez APRN.WAFER CUTTER Work Phone: Internal Medicine [place] Comment on above: Palpitations (Primar y Dx); HTN, goal below 140/90; Chest pain, unspecified type; Essential hypertension with goal blood pressure less than 140/90 Start: 07-20-2021 End: 07-20-[address] ALYSSA LUGO DO [facility] Procedures Date Procedure Procedure Detail Performing Clinician Start: 02-26-2024 Adult depression scr eening assessment Paulina Ardon MD Work Phone: Start: 02-17-2024 Adult depression scr eening assessment Sandra Sanchez APRN.WAFER CUTTER Work Phone: Start: 2023 INFLUENZA VACCINE, P RSV FREE, AGE 65+ YR, HIGH DOSE, QUADRIVALENT (FLUZONE HIGH-DOSE) Sandra Sanchez APRN.WAFER CUTTER Work Phone: Start: 08-13-2022 Dxa bone density javier dy 1/> sites axial skel Paulina Ardon MD Work Phone: Start: 08-08-2022 Lipid 1996 panel - S radha or Plasma Sandra Sanchez APRN.WAFER CUTTER Work Phone: Start: 07-16-2022 End: 07-16-2022 Mammography Bulk Order Provider Start: 06-05-2021 Mammography Sandra melchor CHANNEL ACCOUNT MANAGER.WAFER CUTTER Work Phone: Start: 03-16-2021 Adult depression scr eening assessment Sandra Sanchez CHANNEL ACCOUNT MANAGER.WAFER CUTTER Work Phone: Start: 10-28-2019 Colonoscopy Sandra melchor CHANNEL ACCOUNT MANAGER.WAFER CUTTER Work Phone: Start: 05-27-1981 H/O: hysterectomy DR LUIS LUGO DO Plan of Treatment Date Care Activity Detail Author Start: 08-25-2031 Urine microalbumin profile [facility] Start: 10-27-2029 Colonoscopy COLONOSCOPY [facility] Start: 10-27-2029 COLORECTAL CANCER SCREENING COLORECTAL CANCER SCREENING [facility] Start: 10-27-2029 Screening for malign ant neoplasm of colon [facility] Start: 08-23-2027 Diabetes Screening [facility] Start: 08-09-2027 Lipid 1996 panel - S radha or Plasma Lipid Screening [facility] Start: 08-09-2027 Lipid panel Lipid Screening [facility] Start: 08-09-2027 LIPID SCREEN LIPID SCREEN [facility] Start: 02-17-2027 Diabetes Screening [facility] Start: 09-25-2026 Screening for osteoporosis Bone Density Screening [facility] Start: 03-16-2026 LIPID SCREEN LIPID SCREEN [facility] Start: 2026 Diabetes Screening [facility] Start: 12-02-2025 Annual PCP Team Bread Room Hand kelvin Disease Visit Annual PCP Team Chronic Disease Visit [facility] Start: 09-19-2025 Annual PCP Team Bread Room Hand kelvin Disease Visit Annual PCP Team Chronic Disease Visit [facility] Start: 08-27-2025 End: 08-27-2025 Patient encounter procedure 08/27/2025 10:40 AM EDT Office Visit Internal Medicine [place] [address] [place] [id number] Paulina Ardon MD [address] [place] [id number] 6 Month F/U Internal Medicine [place] Comment on above: 6 Month F/U Start: 08-17-2025 Annual PCP Team Bread Room Hand kelvin Disease Visit Annual PCP Team Chronic Disease Visit [facility] Start: 08-08-2025 DIABETES SCREEN DIABETES SCREEN [facility] Start: 08-05-2025 Annual PCP Team Bread Room Hand kelvin Disease Visit Annual PCP Team Chronic Disease Visit [facility] Start: 02-26-2025 End: 02-26-2025 Patient encounter procedure 02/26/2025 10:40 AM EDT Office Visit Internal Medicine [place] [address] [place] [address] Paulina Ardon MD [address] [place] [address] 6 Month F/U Internal Medicine [place] Comment on above: 6 Month F/U Start: 02-25-2025 Annual PCP Team Bread Room Hand kelvin Disease Visit Annual PCP Team Chronic Disease Visit [facility] Start: 02-25-2025 Anxiety Screening Anxiety Screening [facility] Start: 02-25-2025 Depression Screening Depression Scre ening [facility] Start: 02-16-2025 Anxiety Screening Anxiety Screening [facility] Start: 02-16-2025 Depression Screening Depression Scre ing [facility] Start: 02-01-2025 End: 02-01-2025 Patient encounter procedure Cardiology Comment on above: 1 year follow up Start: 01-25-2025 Influenza vaccination Influenza Vacc ine (#1) [facility] Start: 12-02-2024 End: 12-02-2024 Patient encounter procedure 12/02/2024 12:40 PM EDT Office Visit [facility] [address] [place], [place] [phone] Blade Lyman DO [address] [place] [address] Repeat cog assessment [facility] Comment on above: Repeat cog assessmen t Start: 11-30-2024 End: 03-01-2025 BLOOD TB SCREEN BLOOD TB SCREEN Lab Routine Screening-pulmonary TB Expected: 11/30/2024, Expires: 03/01/2025 [facility] Work Phone: Comment on above: Expected: 11/30/2024 , Expires: 03/01/2025 Start: 09-25-2024 End: 09-25-2024 Patient encounter procedure 09/25/2024 10:05 AM EDT Appointment Radiology [address] [place] [id number] Asymptomatic postmenopausal state [Z78.0] Radiology Comment on above: Asymptomatic postmen opausal state [Z78.0] Start: 08-17-2024 End: 11-16-2024 25-hydroxyvitamin D3 [Mass/volume] in Serum or Plasma VITAMIN D 25 HYDROXY Lab Routine Closed wedge compression fracture of T9 vertebra, initial encounter (HCC) Age-related osteoporosis without current pathological fracture Expected: 08/17/2024, Expires: 11/16/2024 [facility] Comment on above: Expected: 08/17/2024 , Expires: 11/16/2024 Start: 08-17-2024 End: 11-16-2024 Basic metabolic 2000 panel - Serum or Plasma BASIC METABOLIC PANEL Lab Routine Closed wedge compression fracture of T9 vertebra, initial encounter (HCC) Age-related osteoporosis without current pathological fracture Expected: 08/17/2024, Expires: 11/16/2024 [facility] Comment on above: Expected: 08/17/2024 , Expires: 11/16/2024 Start: 08-17-2024 End: 11-16-2024 Parathyrin.intact [Mass/volume] in Serum or Plasma PTH INTACT Lab Routine Closed wedge compression fracture of T9 vertebra, initial encounter (HCC) Age-related osteoporosis without current pathological fracture Expected: 08/17/2024, Expires: 11/16/2024 [facility] Comment on above: Expected: 08/17/2024 , Expires: 11/16/2024 Start: 08-17-2024 End: 11-16-2024 Thyrotropin [Units/volume] in Serum or Plasma THYROID STIMULATING HORMONE Lab Routine Closed wedge compression fracture of T9 vertebra, initial encounter (HCC) Age-related osteoporosis without current pathological fracture Expected: 08/17/2024, Expires: 11/16/2024 [facility] Comment on above: Expected: 08/17/2024 , Expires: 11/16/2024 Start: 08-17-2024 End: 11-16-2024 Thyroxine (T4) free [Mass/volume] in Serum or Plasma T4 FREE/FREE THYROXINE Lab Routine Closed wedge compression fracture of T9 vertebra, initial encounter ([facility]) Age-related osteoporosis without current pathological fracture Expected: 08/17/2024, Expires: 11/16/2024 [facility] Comment on above: Expected: 08/17/2024 , Expires: 11/16/2024 Start: 08-17-2024 End: 08-17-2024 Patient encounter procedure 08/17/2024 11:00 AM EDT Office Visit Internal Medicine [place] [address] [place] [address] Paulina Ardon MD [address] [place], [place] [phone] 6 mo follow up Internal Medicine [place] Comment on above: 6 mo follow up Start: 08-13-2024 Screening for osteoporosis Bone Density Screening [facility] Start: 08-11-2024 Annual PCP Team Bread Room Hand kelvin Disease Visit Annual PCP Team Chronic Disease Visit [facility] Start: 08-07-2024 DIABETES SCREEN DIABETES SCREEN [facility] Start: 07-29-2024 Covid-19 Vaccine () Covid-19 Vaccine () [facility] Start: 07-25-2024 Annual PCP Team Bread Room Hand kelvin Disease Visit Annual PCP Team Chronic Disease Visit [facility] Start: 05-27-2024 Advance Directive Discussion Advance Directive Discussion [facility] Start: 05-27-2024 Medicare Advantage Annual Wellness Visit Medicare Advantage Annual Wellness Visit [facility] Start: 05-26-2024 Behavioral Health Screening Behavioral Health Screening [facility] Comment on above: Postponed from 05/27 (Declined at this time) Start: 02-26-2024 End: 02-26-2024 Patient encounter procedure 02/26/2024 3:00 PM EDT Office Visit [facility] [address] [facility] [address] [place], [place] [address] Blade Lyman DO [address] [facility] [address] [place], [place] [address] $25 / Return in about 6 months (around 01/26/2024) for Repeat cognitive testing, maricel pt running late and ETA 2:35 [facility] Comment on above: $25 / Return in abou t 6 months (around 01/26/2024) for Repeat cognitive testing, maricel pt running late and ETA 2:35 Start: 02-17-2024 End: 02-17-2024 Patient encounter procedure 02/17/2024 11:00 AM EDT Office Visit Internal Medicine [place] [address] [place] [address] Sandra Sanchez, CHANNEL ACCOUNT MANAGER.WAFER CUTTER [address] [place] [address] 6 mo follow up Internal Medicine [place] Comment on above: 6 mo follow up Start: 02-12-2024 End: 05-13-2024 CBC panel - Blood by Automated count CBC Lab Routine HTN, goal below 140/90 Encounter for long-term current use of medication Expected: 02/12/2024 (Approximate), Expires: 05/13/2024 [facility] Comment on above: Expected: 02/12/2024 (Approximate), Expires: 05/13/2024 Start: 02-12-2024 End: 05-13-2024 Comprehensive metabolic 2000 panel - Serum or Plasma COMP METABOLIC PANEL Lab Routine HTN, goal below 140/90 Encounter for long-term current use of medication Expected: 02/12/2024 (Approximate), Expires: 05/13/2024 [facility] Work Phone: Comment on above: Expected: 02/12/2024 (Approximate), Expires: 05/13/2024 Start: 02-12-2024 End: 05-13-2024 Lipid 1996 panel - Serum or Plasma LIPID PANEL BASIC Lab Routine Hyperlipidemia, unspecified hyperlipidemia type HTN, goal below 140/90 Encounter for long-term current use of medication Expected: 02/12/2024 (Approximate), Expires: 05/13/2024 [facility] Comment on above: Expected: 02/12/2024 (Approximate), Expires: 05/13/2024 Start: 01-29-2024 End: 01-29-2024 Patient encounter procedure 01/29/2024 2:20 PM EDT Office Visit [facility] [address] [place], [place] [phone] Blade Lyman DO [address] [place] [address] Return in about 6 months (around 01/26/2024) for Repeat cognitive testing, maricel. [facility] Comment on above: Return in about 6 mo nths (around 01/26/2024) for Repeat cognitive testing, maricel. Start: 01-26-2024 Influenza vaccination Influenza Vacc ine (#1) [facility] Start: 01-20-2024 End: 01-20-2024 Patient encounter procedure 01/20/2024 11:40 AM EDT Office Visit Cardiology [address] [place] [id number] Yahaira Bear MD [address] [place] [address] 8 month follow up Cardiology Comment on above: 8 month follow up Start: 10-01-2023 End: 10-01-2023 Patient encounter procedure 10/01/2023 10:20 AM EDT Appointment [facility] [address] [place] [address] Cognitive impairment [R41.89] [facility] Comment on above: Cognitive impairment [R41.89] Start: 09-08-2023 ANNUAL PCP TEAM ARRANGING FUNERAL DIRECTOR KELVIN DISEASE VISIT ANNUAL PCP TEAM CHRONIC DISEASE VISIT [facility] Start: 09-08-2023 BP CONTROLLED (<130/80) BP CONTROLLE D (<130/80) [facility] Start: 08-01-2023 ANNUAL PCP TEAM ARRANGING FUNERAL DIRECTOR KELVIN DISEASE VISIT ANNUAL PCP TEAM CHRONIC DISEASE VISIT [facility] Start: 08-01-2023 BP CONTROLLED (<130/80) BP CONTROLLE D (<130/80) [facility] Start: 07-26-2023 End: 10-25-2023 Cobalamin (Vitamin B12) [Mass/volume] in Serum or Plasma VITAMIN B12 BLOOD Lab Routine Cognitive impairment Memory difficulties Expected: 07/26/2023, Expires: 10/25/2023 [facility] Work Phone: Comment on above: Expected: 07/26/2023 , Expires: 10/25/2023 Start: 07-26-2023 End: 10-25-2023 Folate [Mass/volume] in Serum or Plasma FOLATE SERUM Lab Routine Cognitive impairment Memory difficulties Expected: 07/26/2023, Expires: 10/25/2023 [facility] Work Phone: Comment on above: Expected: 07/26/2023 , Expires: 10/25/2023 Start: 07-16-2023 Mammography MAMMOGRAM [facility] Start: 06-23-2023 Covid-19 Vaccine () Covid-19 Vaccine () [facility] Start: 05-27-2023 Advance Directive Discussion Advance Directive Discussion [facility] Start: 05-27-2023 Depression Assessment Depression Ass essment [facility] Start: 2023 End: 04-02-2023 Comprehensive metabolic 2000 panel - Serum or Plasma [facility] Work Phone: Comment on above: Expected: 2023 , Expires: 04/02/2023 Start: 2023 End: 04-02-2023 Thyrotropin [Units/volume] in Serum or Plasma [facility] Work Phone: Comment on above: Expected: 2023 , Expires: 04/02/2023 Start: 08-21-2022 ANNUAL PCP TEAM ARRANGING FUNERAL DIRECTOR KELVIN DISEASE VISIT ANNUAL PCP TEAM CHRONIC DISEASE VISIT [facility] Start: 06-07-2022 COVID-19 VACCINE (5 - Booster for Moderna series) COVID-19 VACCINE (5 - Booster for Moderna series) [facility] Start: 06-05-2022 Mammography MAMMOGRAM [facility] Start: 05-28-2022 Urine microalbumin profile DTAP,TDAP,TD (2 - Td or Tdap) [facility] Comment on above: Postponed from 09/19 (Insurance Coverage) Start: 05-27-2022 ADVANCE DIRECTIVE DISCUSSION ADVANCE DIRECTIVE DISCUSSION [facility] Start: 05-27-2022 DEPRESSION ASSESSMENT DEPRESSION ASS ESSMENT [facility] Start: 05-18-2022 ANNUAL PCP TEAM ARRANGING FUNERAL DIRECTOR KELVIN DISEASE VISIT ANNUAL PCP TEAM CHRONIC DISEASE VISIT [facility] Start: 03-16-2022 Adult depression screening assessment DEPRESSION SCREENING [facility] Start: 03-16-2022 BP CONTROLLED (<130/80) BP CONTROLLE D (<130/80) [facility] Start: 01-25-2022 Influenza vaccination INFLUENZA (#1) [facility] Start: 12-24-2021 COVID-19 VACCINE (5 - Booster for Moderna series) COVID-19 VACCINE (5 - Booster for Moderna series) [facility] Start: 09-19-2021 Urine microalbumin profile DTAP,TDAP,TD (2 - Td or Tdap) [facility] Start: 06-17-2021 COVID-19 VACCINE (4 - Booster for Moderna series) COVID-19 VACCINE (4 - Booster for Moderna series) [facility] Start: 05-27-2021 ADVANCE DIRECTIVE DISCUSSION ADVANCE DIRECTIVE DISCUSSION [facility] Start: 02-16-2019 PNEUMOCOCCAL: 65+ (3 - PPSV23 or PCV20) PNEUMOCOCCAL: 65+ (3 - PPSV23 or PCV20) [facility] Start: 01-30-1993 COLOGUARD (FIT-DNA) COLOGUARD (FIT-D NA) [facility] Start: 01-30-[address] COLONOGRAPHY [facility] Start: 01-30-1993 FECAL OCCULT BLOOD FECAL OCCULT BLOO D [facility] Start: 01-30-1993 Screening for malign ant neoplasm of colon [facility] Start: 01-30-1993 SIGMOIDOSCOPY SIGMOIDOSCOPY [facility] Start: 01-30-1966 Anxiety Screening Anxiety Screening [facility] Start: 01-30-1966 Depression Screening Depression Scre ening [facility] End: 09-16-2025 BD DXA TRABECULAR BONE SCORE (TBS) BD DXA TRABECULAR BONE SCORE (TBS) Radiology Routine Asymptomatic postmenopausal state 1 Occurrences starting 08/17/2024 until 09/16/2025 [facility] Comment on above: 1 Occurrences starti ng 08/17/2024 until 09/16/2025 BD DXA TRABECULAR ELLA NE SCORE (TBS) BD DXA TRABECULAR BONE SCORE (TBS) Radiology Routine Asymptomatic postmenopausal state 09/25/2024 10:11 AM EDT [facility] End: 09-16-2025 DXA Skeletal system.axial Views for bone density DXA-AXIAL SKELETON Radiology Routine Asymptomatic postmenopausal state 1 Occurrences starting 08/17/2024 until 09/16/2025 [facility] Work Phone: Comment on above: 1 Occurrences starti ng 08/17/2024 until 09/16/2025 DXA Skeletal system.axial Views for bone density DXA-AXIAL SKELETON Radiology Routine Asymptomatic postmenopausal state 09/25/2024 10:11 AM EDT [facility] Work Phone: End: 08-10-2023 LORI SCREENING LORI SCREENING Radiology Routine Encounter for screening mammogram for breast cancer 1 Occurrences starting 07/11/2022 until 08/10/2023 [facility] Work Phone: Comment on above: 1 Occurrences starti ng 07/11/2022 until 08/10/2023 End: 08-24-2024 MR Brain WO contrast MRI BRAIN WO IVCON Radiology Routine Cognitive impairment Memory difficulties 1 Occurrences starting 07/26/2023 until 08/24/2024 [facility] Work Phone: Comment on above: 1 Occurrences starti ng 07/26/2023 until 08/24/2024 MR Brain WO contrast MRI BRAIN W O IVCON Radiology Routine Cognitive impairment Memory difficulties 10/01/2023 11:33 AM EDT [facility] Work Phone: End: 08-24-2024 MR Unspecified body region 3D post processing MRI 3D POST PROCESSING Radiology Routine Cognitive impairment Memory difficulties 1 Occurrences starting 07/26/2023 until 08/24/2024 [facility] Work Phone: Comment on above: 1 Occurrences starti ng 07/26/2023 until 08/24/2024 MR Unspecified body region 3D post processing MRI 3D POST PROCESSING Radiology Routine Cognitive impairment Memory difficulties 10/01/2023 11:33 AM [facility] OUTSIDE VENDOR CARDI AC OUTPATIENT EXTENDED RHYTHM RECORDING (WITHOUT TELEMETRY) OUTSIDE VENDOR CARDIAC OUTPATIENT EXTENDED RHYTHM RECORDING (WITHOUT TELEMETRY) Holter Routine Palpitations Ordered: 12/11/2021 [facility] Work Phone: Comment on above: Ordered: 12/11/2021 SARS-CoV-2 (COVID-19 ) RNA [Presence] in Respiratory specimen by ANTHONY with probe detection SELF CHECK COVID Microbiology Routine Palpitations HTN, goal below 140/90 Chest pain, unspecified type Essential hypertension with goal blood pressure less than 140/90 Ordered: 08/21/2021 [facility] Work Phone: Comment on above: Ordered: 08/21/2021 End: 08-21-2022 STRESS ECHO TREADMILL STRESS ECHO TREADMILL Cardiology Routine Palpitations HTN, goal below 140/90 Chest pain, unspecified type Essential hypertension with goal blood pressure less than 140/90 1 Occurrences starting 08/21/2021 until 08/21/2022 [facility] Work Phone: Comment on above: 1 Occurrences starti ng 08/21/2021 until 08/21/2022 End: 09-04-2025 XR Lumbar spine 3 Views XR LUMBAR GENERAL 3V AP/LAT/L5-S1 Radiology Routine Acute left-sided low back pain without sciatica 1 Occurrences starting 08/05/2024 until 09/04/2025 [facility] Work Phone: Comment on above: 1 Occurrences starti ng 08/05/2024 until 09/04/2025 XR Lumbar spine 3 Views XR LUMBA R GENERAL 3V AP/LAT/L5-S1 Radiology Routine Acute left-sided low back pain without sciatica 08/05/2024 4:05 PM EDT [facility] Immunizations Immunization Date Immunization Notes Care Provider Fa erich 01-30-2024 influenza, high dose seasonal, preservative-free Sandra Sanchez APRN.WAFER CUTTER Work Phone: [facility] 01-30-2024 influenza virus vacc ine, unspecified formulation Sandra Sanchez APRN.WAFER CUTTER Work Phone: [facility] 03-22-2023 pneumococcal conjuga te (PCV20) vaccine, 20 valent (PREVNAR 20) Sandra Sanchez CHANNEL ACCOUNT MANAGER.WAFER CUTTER Work Phone: [facility] 02-21-2023 COVID-19 vaccine, ag e 12+ yr, season (MODERNA) Sandra Sanchez CHANNEL ACCOUNT MANAGER.WAFER CUTTER Work Phone: [facility] 02-21-2023 influenza (aIIV4) vaccine, age 65+ yr, quadrivalent, PF (FLUAD QUAD) Sandra Sanchez CHANNEL ACCOUNT MANAGER.WAFER CUTTER Work Phone: [facility] 02-21-2023 influenza virus vacc ine, unspecified formulation Yahaira Bear MD Work Phone: [facility] 02-20-2023 respiratory syncytia l virus (RSV) vaccine, bivalent (ABRYSVO) Sandramadi Sanchez CHANNEL ACCOUNT MANAGER.WAFER CUTTER Work Phone: [facility] 2023 influenza (HD-IIV4) vaccine, age 65+ yr, high dose, quadrivalent, PF (FLUZONE HIGH-DOSE) Sandra Sanchez CHANNEL ACCOUNT MANAGER.WAFER CUTTER Work Phone: [facility] Work Phone: 02-05-2022 COVID-19 vaccine, ag e 12+ yr, bivalent booster (Meddik) Sandra Sanchez CHANNEL ACCOUNT MANAGER.WAFER CUTTER Work Phone: [facility] Work Phone: 01-24-2022 influenza (HD-IIV4) vaccine, age 65+ yr, high dose, quadrivalent, PF (FLUZONE HIGH-DOSE) Paulina Ardon MD Work Phone: [facility] 01-24-2022 influenza, high dose seasonal, preservative-free Sandramadi Sanchez CHANNEL ACCOUNT MANAGER.WAFER CUTTER Work Phone: [facility] Work Phone: 08-24-2021 COVID-19 vaccine, booster dose (MODERNA) Sandra Sanchez CHANNEL ACCOUNT MANAGER.WAFER CUTTER Work Phone: [facility] Work Phone: 08-24-2021 tetanus toxoid, redu ellen diphtheria toxoid, and acellular pertussis vaccine, adsorbed Paulina Ardon MD Work Phone: [facility] 03-17-2021 SARS-CoV-2 (COVID-19 ) mRNA-[address] ALYSSA LUGO DO [facility] 03-01-2021 influenza (aIIV4) vaccine, age 65+ yr, quadrivalent, PF (FLUAD QUAD) Paulina Ardon MD Work Phone: [facility] 03-01-2021 influenza nasal, unspecified formulation Sandramadi Sanchez CHANNEL ACCOUNT MANAGER.WAFER CUTTER Work Phone: [facility] 03-01-2021 influenza virus vacc ine, unspecified formulation DR ALYSSA LUGO DO [facility] 03-01-2021 influenza, high dose seasonal, preservative-free Sandramadi Sanchez CHANNEL ACCOUNT MANAGER.WAFER CUTTER Work Phone: [facility] Work Phone: 08-10-2020 SARS-CoV-2 (COVID-19 ) mRNA-[address] ALYSSA LUGO DO [facility] 07-13-2020 SARS-CoV-2 (COVID-19 ) mRNA-[address] ALYSSA LUGO DO [facility] Comment on above: Result Comment: 2021: [id number] 05-16-[address] ALYSSA LUGO DO [facility] 03-17-[address] ALYSSA LUGO DO [facility] 02-03-2020 influenza virus vacc ine, unspecified formulation DR ALYSSA LUGO DO [facility] 02-03-2020 influenza, high-dose , quadrivalent vaccine (FLUZONE HIGH DOSE QUADRIVALENT) Sandra Sanchez CHANNEL ACCOUNT MANAGER.WAFER CUTTER Work Phone: [facility] 03-04-2019 influenza nasal, unspecified formulation Paulina Ardon MD Work Phone: [facility] 03-04-2019 influenza virus vacc ine, unspecified formulation DR ALYSSA LUGO DO [facility] 03-04-2019 influenza, high dose seasonal, preservative-free Sandra Sanchez CHANNEL ACCOUNT MANAGER.WAFER CUTTER Work Phone: [facility] Work Phone: 02-04-2018 influenza nasal, unspecified formulation Paulina Ardon MD Work Phone: [facility] 02-04-2018 influenza virus vacc ine, unspecified formulation DR ALYSSA LUGO DO [facility] 02-04-2018 influenza, high dose seasonal, preservative-free Sandra Sanchez CHANNEL ACCOUNT MANAGER.WAFER CUTTER Work Phone: [facility] Work Phone: 03-13-2017 influenza nasal, unspecified formulation Paulina Ardon MD Work Phone: [facility] 03-13-2017 influenza virus vacc ine, unspecified formulation DR ALYSSA LUGO DO [facility] 03-13-2017 influenza, high dose seasonal, preservative-free Sandra Sanchez CHANNEL ACCOUNT MANAGER.WAFER CUTTER Work Phone: [facility] 02-14-2016 influenza nasal, unspecified formulation Paulina Ardon MD Work Phone: [facility] 02-14-2016 influenza virus vacc ine, unspecified formulation DR ALYSSA LUGO DO [facility] 02-14-2016 influenza, high dose seasonal, preservative-free Sandra Sanchez CHANNEL ACCOUNT MANAGER.WAFER CUTTER Work Phone: [facility] 10-05-2015 pneumococcal conjuga te vaccine, [address] ALYSSA LUGO DO [facility] 02-28-2015 influenza nasal, unspecified formulation Paulina Ardon MD Work Phone: [facility] 02-28-2015 influenza virus vacc ine, unspecified formulation DR ALYSSA LUGO DO [facility] 02-28-2015 influenza, high dose seasonal, preservative-free Sandra Sanchez CHANNEL ACCOUNT MANAGER.WAFER CUTTER Work Phone: [facility] 02-16-2014 influenza nasal, unspecified formulation Paulina Ardon MD Work Phone: [facility] 02-16-2014 influenza virus vacc ine, unspecified formulation DR ALYSSA LUGO DO [facility] 02-16-2014 influenza, injectabl e, quadrivalent, preservative free Sandra Sanchez CHANNEL ACCOUNT MANAGER.WAFER CUTTER Work Phone: [facility] 02-16-2014 pneumococcal polysaccharide vaccine, [address] ALYSSA LUGO DO [facility] 09-20-2011 tetanus toxoid, redu ellen diphtheria toxoid, and acellular pertussis vaccine, adsorbed Sandra Sanchez CHANNEL ACCOUNT MANAGER.WAFER CUTTER Work Phone: [facility] 03-23-2011 influenza virus vacc ine, unspecified formulation Sandra Sanchez CHANNEL ACCOUNT MANAGER.WAFER CUTTER Work Phone: [facility] Payers Date Payer Category Payer Medicare AETNA MEDICARE A ETNA MEDICARE PPO [id number] 2021-Present [phone] [address] [place] [address] O [id number] 2021 Medicare AETNA MEDICARE A ETNA MEDICARE PPO [id number] 2021-Present [phone] [address] [place] [address] PPO [id number] 2021 Medicare (Managed Care) AETNA [place] D[place]ARE [id number] 2021 Private Health Insurance [id number] 1950 Unknown [id number] Social History Date Type Detail Facility Start: 07-18-2021 Ex-smoker (finding) [facility]igned At [facility] Start: 05-13-2017 End: 07-31-2022 Tobacco smoking status NHIS Never smoked tobacco [facility] Work Phone: Start: 08-07-2021 End: 11-30-2024 Alcohol intake Current drinker of alcohol (finding) [facility] Start: 08-24-2020 History SDOH Alcohol Frequency 4 [facility] Start: 08-24-2020 End: 05-18-2021 History SDOH Alcohol Std Drinks 1 [facility] Start: 08-24-2020 History SDOH Social Connections Phone 3 [facility] Start: 08-24-2020 History SDOH Physical Activity MPS 5 [facility] Start: 08-24-2020 End: 05-18-2021 History SDOH Transport Med 2 [facility] Start: 1950 Sex Assigned At Female [facility] Start: 08-11-2021 End: 12-14-2021 Exposure to SARS-CoV-2 (event) Not sure [facility] Work Phone: Start: 05-13-2017 End: 07-31-2022 Tobacco use and exposure Smokeless tobacco non-user [facility] Start: 08-24-2020 End: 02-17-2024 History of Social function [facility] Start: 08-24-2020 End: 02-17-2024 Social connection and isolation panel [facility] Do you belong to any clubs or organizations such as amish groups, unions, fraternal or athletic groups, or school groups? Yes [facility] Are you now , , , , never or living with a partner? [facility] How often to you hav e a drink containing alcohol? 2-3 time sa week [facility] How many standard dr inks containing alcohol do you have on a typical day? 1 or 2 [facility] How often do you hav e 6 or more drinks on 1 occasion? Never [facility] How hard is it for y ou to pay for the very basics like food, housing, medical care, and heating Not hard at all [facility] Do you feel stress - tense, restless, nervous, or anxious, or unable to sleep at night because your mind is troubled all the time - these days [OSQ] To some extent [facility] (I/We) worried whemirella er (my/our) food would run out before (I/we) got money to buy more. Never true [facility] In the past 12 month s, was there a time when you were not able to pay the mortgage or rent on time? No [facility] Start: 05-15-2019 Gender identity Identifies as female gender (finding) [facility] Start: 02-04-2020 Sexual orientation Heterosexual (finding) [facility] Functional Status Date Assessment Result Facility 09-29-2014 Are you deaf, or do you have serious difficulty hearing No 09/29/2014 10:02 AM EDT Margie Lambert LPN No [facility] 09-29-2014 Are you blind, or do you have serious difficulty seeing, even when wearing glasses No 09/29/2014 10:02 AM EDT Margie Lambert LPN No [facility] 09-29-2014 Do you have serious difficulty walking or climbing stairs No 09/29/2014 10:02 AM Margie Reece LPN No [facility] 09-29-2014 Do you have difficul ty dressing or bathing No 09/29/2014 10:02 AM Margie Reece LPN No [facility] 09-29-2014 Because of a physica l, mental, or emotional condition, do you have difficulty doing errands alone such as visiting a physician's office or shopping No 09/29/2014 10:02 AM Margie Reece LPN No [facility] Mental Status Date Assessment Result Facility 09-29-2014 Because of a physica l, mental, or emotional condition, do you have serious difficulty concentrating, remembering, or making decisions No 09/29/2014 10:02 AM Margie Reece LPN No [facility] Clinical Notes 06-05-2018 to 12-02-2024 Telephone Encounter - Iveth East RN - 12/02/2024 7:36 PM EDTTelephone Encounter - Iveth East RN - 12/02/2024 7:36 PM EDTTelephone Encounter - Iveth East RN - 12/02/2024 7:15 PM EDT Note Date & Type Note Facility 12-02-2024 Telephone encounter Note Letter done, printed & signed by Dr. 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 Marisa aware. [facility] 12-02-2024 Miscellaneous Notes Letter done, printed & signed by Dr. 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 Marisa aware. Referenced Dr. Lyman's office visit note and saw she wrote a letter today. Called to confirm with step daughter Marisa on why she needs a letter from PCP as well. Marisa states that [facility] [employer] legal department requires 2 doctors to document that pt has had a cognitive decline and is unable to make financial decisions at this time. Marisa states that her dad had a sudden onset of dementia 3 weeks ago and is in [facility] Transitional Care Unit. Both pt and her are set up to go to the Memory Care Unit at [facility] in [place] this Saturday so that is the urgency of needing to get to the pt's finances. Marisa also states she brought pt to her appt Saturday with Sandra Sanchez but did not know at that visit that she was going to need these letters. She brought pt in to complete the paperwork [facility] requires for placement at their facility. Discussed all of the above with Dr. Ardon who is going to type up letter. Marisa requests to pick it up tomorrow in medical records. Noted that patient with increased confusion and need to be admitted to memory care along with her . Reviewed Dr. Lyman's progress note. Also Sandra Nation's note. Patient with impaiired cognition and not have the capacity to make decisions at this time. Letter written so that daughter will be able to access patient's finances so that admission to memory care can go through on Saturday as planned. Please see 11/30 appt where pt saw Sandra Sanchez and she documented pt was Alert and oriented x 3 with mild cognitive impairment and documentation that pt's significant other was at the appt. Also, please see phone encounter 12/[address] Lyman where she refused to write the letter for the daughter. Appears Dr. Lyman saw pt today with no and step daughter with her. Pt was confused today. Need for concern-discussed with management and will discuss with Sandra Sanchez. Step daughter called to check the status of this situation as it is urgent Marisa is requesting a call back at [phone] carlos a Please advise Please see message below requesting letter had appointment 11/30 in office Cuca Perla MA Daughter called back, stating its urgent. Said father is having decline as well. Patient's step daughter Marisa calling in stating they are currently in the process of placing patient in a memory care facility. She is having trouble getting access to patient's finances through [facility]. Marisa is asking if Dr. Ardon would be willing to write a letter stating patient is not able to make financial decisions due to cognitive decline. She states it needs to be on a letter head. Please review and advise Marisa at [phone]. Katrina Urbina December 01, 2024 10:25 AM documented in this encounter [facility] 12-02-2024 Telephone encounter Note Referenced Dr. Lyman's office visit note and saw she wrote a letter today. Called to confirm with step anna Parikhha on why she needs a letter from PCP as well. Marisa states that [facility] bank's legal department requires 2 doctors to document that pt has had a cognitive decline and is unable to make financial decisions at this time. Marisa states that her dad had a sudden onset of dementia 3 weeks ago and is in [facility] Transitional Care Unit. Both pt and her are set up to go to the Memory Care Unit at [facility] in [place] this Saturday so that is the urgency of needing to get to the pt's finances. Marisa also states she brought pt to her appt Saturday with Sandra Sanchez but did not know at that visit that she was going to need these letters. She brought pt in to complete the paperwork [facility] requires for placement at their facility. Discussed all of the above with Dr. Ardon who is going to type up letter. Marisa requests to pick it up tomorrow in medical records. [facility] 12-02-2024 Telephone encounter Note Noted that patient with increased confusion and need to be admitted to memory care along with her . Reviewed Dr. Lyman's progress note. Also Sandra Nation's note. Patient with impaiired cognition and not have the capacity to make decisions at this time. Letter written so that daughter will be able to access patient's finances so that admission to memory care can go through on Saturday as planned. [facility] 12-02-2024 Telephone encounter Note Please see 11/30 appt where pt saw Sandra Nations and she documented pt was Alert and oriented x 3 with mild cognitive impairment and documentation that pt's significant other was at the appt. Also, please see phone encounter 12/[address] Lyman where she refused to write the letter for the daughter. Appears Dr. Lyman saw pt today with no and step daughter with her. Pt was confused today. Need for concern-discussed with management and will discuss with Sandra Sanchez. T [facility] 12-02-2024 Telephone encounter Note Step daughter called to check the status of this situation as it is urgent Marisa is requesting a call back at [phone] carlos a Please advise [facility] Work Phone: 12-02-2024 Instructions Blade Lyman DO - 12/02/2024 1:22 PM EDT Images from the original note were not included. Tips to help with your memory and cognition 1. COGNITIVE STIMULATION Keep your brain active by doing mentally stimulating activities for 30 minutes twice a day. Here are few suggested activities: - crossword puzzles - jigsaw puzzles - [employer] games - word finding - problem solving activities - learn a new hobby or take a class 2. SOCIAL INTERACTION Talk to a friend, family member or neighbor at least once a day. Engage in community activities. Consider joining your local senior citizen center. 3. PHYSICAL ACTIVITY Make sure you move your body every day. You may vary your exercises to help keep your brain sharp. Always check with your health care provider before starting a new exercise program. Try to walk at least 30 minutes 5 times per week. You may also consider trying [employer] or Yoga to help with balance and strength training 4. DIET/NUTRITION Follow a Mediterranean diet, including fruits, vegetables, lean meats, fish. Drink atleast six (8 ounce) cups of water daily to avoid dehydration Reduce your intake of fat and cholesterol rich food. Avoid alcohol The MIND diet (Mediterranean-DASH Intervention for Neurodegenerative Delay) has been associated with a reduced incidence of cognitive impairment and Alzheimer disease Types of Dementia What is dementia? When loss of mental functions--such as thinking, memory, and reasoning--are severe enough to interfere with a person's independent daily functioning, they are said to be at the stage of dementia. Dementia is not a disease itself, but rather the total impact of symptoms that might accompany certain diseases or conditions on daily function. Symptoms also might include changes in personality, mood, and behavior. Dementia develops when the parts of the brain that are involved with learning, memory, decision-making, and language are affected by any of various infections or diseases. The most common cause of dementia is Alzheimer's disease, but there are numerous other known causes. Most of these causes are very rare. Dementia is irreversible when caused by degenerative disease or trauma, but might be reversible in some cases when caused by drugs, alcohol, hormone or vitamin imbalances, or depression. Therefore, it is very important to evaluate dementia symptoms comprehensively, so as not to miss potentially treatable conditions. The frequency of treatable causes of dementia is believed to be about 20 percent. What are some of the other causes of dementia? There are many causes of dementia, including neurological disorders such as Alzheimer's disease, blood flow-related (vascular) disorders such as multi-infarct cognitive impairment, inherited disorders such as Jason's disease, and infections such as HIV. The most common causes of dementia include: Degenerative neurological diseases, such as Alzheimer's, frontotemporal lobar degeneration, dementia with Lewy bodies, Parkinson's, and Jason's diseases Vascular disorders, such as multi-infarct dementia, which is caused by multiple strokes in the brain Infections that affect the central nervous system, such as HIV dementia complex and Creutzfeldt-Soto disease Chronic drug use Depression Certain types of hydrocephalus, an accumulation of fluid within the brain that can result from developmental abnormalities, infections, injury, or brain tumors Alzheimer's disease accounts for 50 percent to 70 percent of all dementia. However, many patients with Alzheimer's disease also have evidence of co-existing cerebrovascular disease, usually consisting of multiple small areas of ischemic changes (often called mini-strokes) on MRI and on post-mortem examination of the brain. Thus, many of these patients can be considered to have a mixed dementia. Frontotemporal lobar degenerations, of which several types are known, account for a substantial number of dementias, especially among those in their 50s and 60s. Dementia with Lewy bodies has also been diagnosed with increasing frequency in recent years. These patients have clinical signs of parkinsonism as well as dementia; its relationship to the dementia of Parkinson's disease is still incompletely understood. How common is dementia? Although dementia has always been common, it has become even more common among the elderly in recent history. It is not clear if this increased frequency of dementia reflects a greater awareness of the symptoms or if people simply are living longer and thus are more likely to develop dementia in their older age. Dementia caused by neurological degenerative disease, especially Alzheimer's disease, is increasing in frequency more than most other types of dementia. Some researchers suspect that as many as half of all people over 85 years old develop Alzheimer's disease. Dementia associated with AIDS, which appeared to be increasing in frequency in the is now much less commonly seen, since the development of highly effect anti-retroviral therapy. Who gets dementia? Dementia is considered a late-life disease because it tends to develop mostly in elderly people. About 5 percent to 8 percent of all people over the age of 65 have some form of dementia, and this number doubles every five years above that age. It is estimated that as many as half of people 85 or older suffer from dementia. What are the types of dementia? It is convenient to classify most dementias as either of Alzheimer type or non-Alzheimer type. The former are characterized predominantly by memory loss, accompanied by impairment in other cognitive functions or domain, such as language function (aphasia), skilled motor functions (apraxia), or perception, visual or other (agnosias). Non-Alzheimer dementias include the frontotemporal lobar degenerations, which generally are of two main types. One primarily affects speech, as in the primary progressive aphasia syndromes. The other is characterized primarily by changes in behavior, including apathy, disinhibition, personality change and what is called executive function (e.g., planning ahead and organizational ability). In both of these types, memory loss is relatively mild, if present, until later in the course of the disease. Other forms of dementia, including vascular disorders (multiple strokes), dementia with Lewy bodies, Parkinson's dementia, and normal pressure hydrocephalus would be grouped among the non-Alzheimer disorders. Is dementia treatable? One should differentiate the terms treatable and reversible or curable. All or almost all forms of dementia are treatable, in that medication and supportive measures are available to help with management of the demented patient. However, most types of dementia remain incurable or irreversible and only modest benefits from treatment are realized. Some disorders which may be successfully treated with return to a normal or pre-morbid state might include: Impairment from toxic side effects of medications or drugs Tumors that can be removed Subdural hematoma, an accumulation of blood beneath the outer covering of the brain that results from a broken blood vessel, usually as a result of a head injury (which can be minor and even unrecognized) Normal pressure hydrocephalus Metabolic disorders, such as a vitamin B12 deficiency Hypothyroidism, a condition that results from low levels of thyroid secretion Hypoglycemia, a condition that results from low blood sugar, assuming absence of extensive cell injury Dementias that are largely irreversible, but may still be at least partially responsive to medications currently available for memory loss or modification of behavior include: Alzheimer's disease Multi-infarct (vascular) dementia Dementias associated with Parkinson's disease and similar disorders AIDS dementia complex Creutzfeldt-Soto disease (CJD), a quickly progressing and fatal disease that is characterized by dementia and myoclonus -- muscle twitching and spasm What medications are available? Cholinesterase inhibitors (e.g., donepezil, rivastigmine, and galantamine) along with memantine, a medication that acts on another neurotransmitter system have all been shown to have some benefit in improving memory function in some patients. None of these drugs appear to stop the progression of the underlying disease however. References National [place] of Neurological Disorders & Stroke. NINDS Dementia Information Page Accessed 02/01/2014. [facility] [place]. National Center on Caregiving. Is this Dementia and What Does it Mean? Accessed 02/01/2014. National [place] on Aging. Forgetfulness: Knowing When to Ask for Help Accessed 02/01/2014. Copyright 3082-1842 [facility]. All rights reserved This information is provided by the [facility] and is not intended to replace the medical advice of your doctor or health care provider. Please consult your health care provider for advice about a specific medical condition. For additional health information, please contact the Center for Consumer Health Information at the [facility] or toll-free extension [phone]. If you prefer, you may visit [email or web address] or [email or web address]. This document was last reviewed on: 2014 index#2247 Hypertension (High Blood Pressure) What is high blood pressure? Blood pressure is the measurement of the pressure or force of blood pushing against blood vessel belle. In hypertension (high blood pressure), the pressure against the blood vessel belle is consistently too high. High blood pressure is often called the silent killer because you may not be aware that anything is wrong, but the damage is occurring within your body. The only way to know if you have high blood pressure is to have your blood pressure taken. It is best to know your numbers and make the changes that can help prevent or limit damage. Understanding BP readings Your blood pressure reading has two numbers. The first is the systolic, which measures the pressure on the blood vessel belle when your heart beats. The second number is the diastolic, which measures the pressure on your blood vessels between beats when the heart is at rest. What is a normal blood pressure reading? Blood Pressure Category Systolic mm Hg (upper number) Diastolic mm Hg (lower number) Normal less than 120 and less than 80 Prehypertension 120 - 139 or 80 - 89 High Blood Pressure (Hypertension) Stage 1 140 - 159 or 90 - 99 High Blood Pressure (Hypertension) Stage 2 160 or higher or 100 or higher Hypertensive Crisis (Emergency care needed) Higher than 180 or Higher than 110 mmHg = millimeters of mercury - the unit of measure for blood pressure What can happen if high blood pressure is not treated? Stroke Enlarged heart Heart failure Peripheral vascular disease Heart attack Kidney disease/failure Who is more likely to have high blood pressure? People with family members who have high blood pressure, cardiovascular disease, or diabetes -Americans Women who are Women who take control pills People over 35 People who are overweight People who are not active People who drink a lot of alcohol People who eat too many fatty foods or foods with too much salt People who smoke What should I do if I have high blood pressure? If you have been diagnosed with high blood pressure, you should discuss your target blood pressure with your healthcare provider. Check your own blood pressure at home as recommended. Eat healthy foods that are low in salt and fat. Achieve and maintain your ideal body weight. Limit alcohol to no more than two drinks each day. One drink is defined as 1 oz. of alcohol, 5 oz. of wine, or 12 oz. of beer. Be more physically active. Quit smoking. Work on controlling anger and managing stress. Take high blood pressure medicine if your healthcare provider prescribes it, and follow the healthcare provider's directions carefully. Have regular blood pressure checks by your healthcare provider. What should I include in my diet to control high blood pressure? Eat foods that are lower in fat, salt, and calories, such as skim or 1% milk, fresh vegetables and fruits, and whole grain, rice, and pasta. (Ask your doctor or healthcare provider for a more detailed list of salt-free foods to eat.) Use flavorings, spices, and herbs to make foods tasty without using salt. Avoid or cut down on butter and margarine, regular salad dressings, fatty meats, whole milk dairy products, fried foods, processed foods or fast foods, and salted snacks. Ask your healthcare provider if you should increase potassium in your diet or if you need to take a potassium supplement. Discuss the Dietary Approaches to Stop Hypertension (DASH) diet with your healthcare provider. How can I be more active? Check first with your healthcare provider before increasing your physical activity. Ask your provider what type and amount of exercise is right for you. Choose aerobic activities such as walking, biking, or swimming. Start slowly and increase activity gradually. Aim for a regular routine of activity five times a week for 30 to 45 minutes each session. Activity can be done in 10-minute sessions to add up to the 30-45 minutes total. What should I know about blood pressure medicine? There are many different medicines to treat high blood pressure, and you might need to take medicine from now on. If your healthcare provider tells you to take high blood pressure medicine, be sure to follow the exact directions. Also, ask what side effects can happen with your medicine, and talk to your healthcare provider about any problems or side effects you might have with your medicine. Lastly, do not stop taking the medicine on your own. References National Heart, Lung, and Blood [place]. Description of High Blood Pressure Accessed 10/29/2016. Food and Drug Administration. High Blood Pressure (Hypertension) Accessed 10/29/2016. Centers for Disease Control and Prevention. High blood pressure Accessed 10/29/2016. JNC 8 Guidelines for the Management of Hypertension in Adults. Am Fam Physician. 2013Feb 24;90(7):503-504. aafp.org Accessed 10/29/2016. Copyright 2819-7806 [facility]. All rights reserved This information is provided by the [facility] and is not intended to replace the medical advice of your doctor or health care provider. Please consult your health care provider for advice about a specific medical condition. For additional health information, please contact the Center for Consumer Health Information at the [facility] or toll-free extension [phone]. If you prefer, you may visit [email or web address] or [email or web address]. This document was last reviewed on: 2016 index#4314 documented in this encounter [facility] 12-02-2024 History of Present illness Narrative Images from the original note were not included. Blade Lyman DO [facility] [address] [place] [address] Rd. [address] [place] [id number] Visit Date: December 01, 2024 Name: Ms.Kary Nikki Sun Date of : 1950 MRN/E #: [id number] Chief Complaint: Patient presents with: Follow Up: Repeat Cog Assessmt Subjective Ms. Bekah Sun is a 74 year old lady PMHX of migraine, CHF, HLD, HTN, minor neurocognitive disorder here for follow up visit. She is here with her step daughter/Agnes Cunningham. HPI Initial geriatric assessment on 07/26/2023, overall cognitive test performance was in the 1st percentile when compared to individuals of a similar age and gender, suggesting presence of cognitive impairment. GDS and SUGEY suggesting minimal mood disturbance. Given testing results, history, most consistent with minor neurocognitive disorder, patient with preserved ADLs, currently dose not appear to have clinical dementia, however, cannot rule out poor performance due to medication side effects from Amitriptyline given its high anti-cholinergic burden, recommended to trail wean amitriptyline Last OV 02/26/2024, repeat cognitive testing today overall cognitive test performance was in the 12th percentile improved from previous testing, previously at 1st percentile, standardized score 65/200->82/200, patient with improvement in essentially all domains tested except delayed recognition. Recommended patient to avoid anti-cholinergic medications, patient's improved cognition likely related to the decreased anti-cholinergic burden since patient has been office amitriptyline. MRI showed volume loss in hippocampus Hippocampal volumes at the 1st percentile when compared to age matched normal controls by quantitative analysis, which likely contributing to memory loss. Patient remained independent on her ADLs, however, patient dose carry risk developing dementia, recommended to keep close follow up, discussed with patient and family, currently no preventive medications for dementia, Suggested [place] lifestyle principles Patient's step daughter called office on 12/01/2024 requesting letter to state patient unable to make financial decisions, per step daughter, patient's spouse is currently in a facility secondary to vascular dementia, family is planning to move patient to memory care facility Today, patient is here her step daughter, patient has no acute concerns; per step daughter, is currently in hospital due to delirium, unclear etiology, family is planning to move patient and to assisted living. Family is currently helping patient while is hospitalization. Patient appears to be confused today, unable to recall what has happened to her nor location of her Marisa recently involved with patient's care since has been hospitalized, Marisa did notice patient has left over medications at home. Per Marisa, patient and her has not been sharing too much regarding their medical care in the past. amlodipine besylate Adherence From 06/02/2024 to 11/28/2024 Proportion of Days Covered 50% of total days covered (90/180 days) High Confidence Fill data for this medication is likely complete. Other factors may still affect the accuracy of the score. About this Score Dispenses Dispensed Days Supply Quantity Provider Pharmacy AMLODIPINE BESYLATE 10 MG TAB 08/17/2024 90 90 each Sandra Sanchez APRN.[facility] e- [id number] ... AMLODIPINE BESYLATE 10 MG TAB 02/29/2024 90 90 each Sandra Sanchez APRN.[facility] e- [id number] ... How do dispenses affect the score? Outpatient Orders The patient is taking this medication long-term. Start Date End Date Dispense Refills Pharmacy amLODIPine (NORVASC) 10 mg tablet 08/17/2024 -- 90 tablet 3/ e- [id number] - [facility]... Take 1 tablet by mouth once daily. amLODIPine (NORVASC) 10 mg tablet 02/17/2024 08/17/2024 90 tablet 3/3 e- [id number] - [facility]... Take 1 tablet by mouth once daily. amLODIPine (NORVASC) 10 mg tablet 06/10/2023 02/17/2024 90 tablet 3/3 e- [id number] - [facility]... Take 1 tablet by mouth once daily. How do orders affect the score? Admissions in Period No admissions during adherence period. How do admissions affect the score? atorvastatin calcium Adherence From 06/02/2024 to 11/28/2024 Proportion of Days Covered 50% of total days covered (90/180 days) High Confidence Fill data for this medication is likely complete. Other factors may still affect the accuracy of the score. About this Score Dispenses Dispensed Days Supply Quantity Provider Pharmacy ATORVASTATIN 10 MG TABLET 08/17/2024 90 90 each Sandra Sanchez APRN.[facility] C[employer]TER e- [facility]/pharmacy #[id number] ... ATORVASTATIN 10 MG TABLET 02/29/2024 90 90 each Sandra Sanchez APRN.[facility] e- [facility]/pharmacy #[id number] ... How do dispenses affect the score? Outpatient Orders The patient is taking this medication long-term. Start Date End Date Dispense Refills Pharmacy atorvastatin (LIPITOR) 10 mg tablet 08/17/2024 -- 90 tablet 3/3 e- [id number]... Take 1 tablet by mouth once daily. atorvastatin (LIPITOR) 10 mg tablet 02/17/2024 08/17/2024 90 tablet 3/3 e- [facility]/pharmacy #[id number] - O... Take 1 tablet by mouth once daily. atorvastatin (LIPITOR) 10 mg tablet 06/10/2023 02/17/2024 90 tablet 3/3 e- [id number]... Take 1 tablet by mouth once daily. How do orders affect the score? Admissions in Period No admissions during adherence period. How do admissions affect the score? metoprolol succinate Adherence From 06/02/2024 to 11/28/2024 Proportion of Days Covered 50% of total days covered (90/180 days) High Confidence Fill data for this medication is likely complete. Other factors may still affect the accuracy of the score. About this Score Dispenses Dispensed Days Supply Quantity Provider Pharmacy METOPROLOL SUCC ER 25 MG TAB 08/17/2024 90 90 each Sandra Sanchez, CHANNEL ACCOUNT MANAGER.[employer]TER e- [facility]/pharmacy #[id number] ... METOPROLOL SUCC ER 25 MG TAB 02/29/2024 90 90 each Sandra Sanchez, CHANNEL ACCOUNT MANAGER.[facility] e- [facility]/pharmacy #[id number] ... How do dispenses affect the score? Outpatient Orders The patient is taking this medication long-term. Start Date End Date Dispense Refills Pharmacy metoprolol succinate ER (TOPROL XL) 25 mg 24 hr tablet 08/17/2024 -- 90 tablet 07/27 e- [facility]/pharmacy #[id number] - O... Take 1 tablet by mouth once daily. metoprolol succinate ER (TOPROL XL) 25 mg 24 hr tablet 02/17/2024 08/17/2024 90 tablet 07/27 e- [id number]... Take 1 tablet by mouth once daily. metoprolol succinate ER (TOPROL XL) 25 mg 24 hr tablet 06/10/2023 02/17/2024 90 tablet 07/27 [id number] - O... Take 1 tablet by mouth once daily. How do orders affect the score? Admissions in Period No admissions during adherence period. How do admissions affect the score? Functional Evaluation: B-ADLs: (I=independent,A=assistance,D=dependen t) ?Bathing: I, Dressing: I, Toileting: I, Transferring:I, Continence: I, Feeding: I, (Leal Index): 6 I-ADLs: Ability to use phone: A, Shopping: A, Cooking: A, Housekeeping: I, Laundry: I, Transportation:D, Medications: A, Handle Finances: A. (Notus scale): 2 02/26/2024 Functional Evaluation: B-ADLs: (I=independent,A=assistance,D=dependen t) ?Bathing: I, Dressing: I, Toileting: I, Transferring:I, Continence: I, Feeding: I, (Leal Index): 6 I-ADLs: Ability to use phone: I, Shopping: I, Cooking: I, Housekeeping: I, Laundry: I, Transportation:I, Medications: I, Handle Finances: I, stated mostly doing it. (Girma scale): 8 Mood Evaluation and Screening GDS: Geriatric Depression Scale GDS Total Score GDS Score Assessment 12/02/2024 1 0-5 points is normal 02/26/2024 0 07/26/2023 2 0-5 points is normal Normal Mild Moderate Severe 0-4 5-8 9-11 12+ SUGEY-7: 07/26/2023 02/26/2024 12/02/2024 SUGEY - 7 SCORES Score 3 2 13 (0-4) minimal anxiety, (5-9) mild anxiety, (10-14) moderate anxiety, (15-21) severe anxiety Cognitive Test evaluation: Cognitive Testing Evaluation Introduction: Bekah Sun 1950 Female This 74 year old Female was administered a battery of neurocognitive testing on 12/02/2024. Tests Administered: Trails A, Trails B, Digit Symbol Substitution, Stroop, Immediate Recognition, Delayed Recognition The combined test administration time was 13 minutes 02/26/2024 The combined test administration time was 10 minutes 07/26/2023 The combined test administration time was 10 minutes Test Results: Cognitive testing was provided via a battery of cognitive assessments. The pattern of test scores indicate that results are valid. A Clinical Report with further description of scores and results is also available. Overall: Patient tested in the 1st* percentile (standard score of 50*). 02/26/2024 Overall: Patient tested in the 12th* percentile (standard score of 82*). 07/26/2023 Overall: Patient tested in the 1st* percentile (standard score of 65*). Trails A: Patient tested in the 1st percentile (scaled standard score of 40). 02/26/2024 Trails A: Patient tested in the 39th percentile (scaled standard score of 96). 07/26/2023 Trails A: Patient tested in the 13th percentile (scaled standard score of 83). Trails B: Patient tested in the --* percentile (scaled standard score of null, 11 out of 24 tasks are completed ). 02/26/2024 Trails B: Patient tested in the --* percentile (scaled standard score of null, 11 out of 24 tasks are completed.) 07/26/2023 Trails B: Patient tested in the --* percentile (scaled standard score of null, 9 out of 24 tasks are completed). Digit Symbol Substitution: Patient tested in the 1st percentile (scaled standard score of -87). 02/26/2024 Digit Symbol Substitution: Patient tested in the 85th percentile (scaled standard score of 116). 07/26/2023 Digit Symbol Substitution: Patient tested in the 15th percentile (scaled standard score of 84). Stroop: Patient tested in the 17th percentile (scaled standard score of 86). 02/26/2024 Stroop: Patient tested in the 75th percentile (scaled standard score of 110). 07/26/2023 Stroop: Patient tested in the 37th percentile (scaled standard score of 95). Immediate Recognition: Patient tested in the 1st percentile (scaled standard score of 27). 02/26/2024 Immediate Recognition: Patient tested in the 1st percentile (scaled standard score of 66). 07/26/2023 Immediate Recognition: Patient tested in the 1st percentile (scaled standard score of 22). Delayed Recognition: Patient tested in the 1st percentile (scaled standard score of 60). 02/26/2024 Delayed Recognition: Patient tested in the 1st percentile (scaled standard score of 37). 07/26/2023 Delayed Recognition: Patient tested in the 1st percentile (scaled standard score of 49). * These assessments were not scored because they were potentially invalid, or the patient failed to complete in the allotted time. Interpretation of Test Scores: Examination of individual component tests shows: Attention - Trails A: likely impairment Mental Flexibility - Trails B: possible impairment Executive Function - Digit Symbol Substitution: likely impairment Executive Function - Stroop: unlikely impairment Memory - Immediate Recognition: likely impairment Memory - Delayed Recognition: likely impairment The patient s overall cognitive test performance was in the 1st percentile when compared to individuals of a similar age and gender, suggesting presence of cognitive impairment. Review of Systems Unable to perform ROS: Dementia ALLERGIES Allergen Reactions Penicillins Hives Bactrim Ds [Sulfame* Rash Losartan Intolerance headache, did not feel well PAST MEDICAL HISTORY Diagnosis Date COMMON MIGRAINE W/O MENTN INTRACT 05/10/2005 Diverticulosis of colon (without mention of hemorrhage) HYPERTENSION NOS 05/10/2005 Kidney stone Psoriasis Raynaud's syndrome 05/10/2005 PAST SURGICAL HISTORY Procedure Laterality Date COLONOSCOPY FLX DX W/COLLJ SPEC WHEN PFRMD 08/15/2009 Colonoscopy COLONOSCOPY FLX DX W/COLLJ SPEC WHEN PFRMD 10/28/2019 Colonoscopy ESOPHAGOGASTRODUODENOSCOPY TRANSORAL DIAGNOSTIC 01/08/2012 inpt f f [facility] EGD PAST SURGICAL HISTORY OF 06/10/2009 Single Port resection of ovarian remanent-LSO TOTAL ABDOMINAL HYSTERECT W/WO RMVL TUBE OVARY HUANG-BSO Social History Tobacco Use Smoking status: Never Smokeless tobacco: Never Substance Use Topics Alcohol use: Yes Comment: rare Drug use: No FAMILY HISTORY Problem Relation Age of Onset Hypertension Father Stroke Father Arthritis Mother Cancer Paternal Aunt unknown site Current Outpatient Medications Medication Sig alendronate (FOSAMAX) 70 mg tablet Take 1 tablet by mouth one time a week. in the AM with glass of water on empty stomach. Do not take anything else by mouth or lie down for 30 min amLODIPine (NORVASC) 10 mg tablet Take 1 tablet by mouth once daily. atorvastatin (LIPITOR) 10 mg tablet Take 1 tablet by mouth once daily. metoprolol succinate ER (TOPROL XL) 25 mg 24 hr tablet Take 1 tablet by mouth once daily. cholecalciferol, vitamin D3, (VITAMIN D3 ORAL) Take 1,000 Int'l Units by mouth. Nature Made calcitonin,salmon, (MIACALCIN) 200 unit/actuation nasal spray Use 1 spray in the nose once daily. No current facility-administered medications for this visit. I have confirmed and edited as necessary, the chief complaint, medications, past medical, family and social histories. Objective BP 161/72 Pulse 79 Ht 5' 4.016 (1.63m) Wt 100 lb (45.4kg) SpO2 97[room air]% BMI 17.16 kg/(m^2). Physical Exam Vitals and nursing note reviewed. Constitutional: General: She is not in acute distress. Appearance: Normal appearance. She is not ill-appearing, toxic-appearing or diaphoretic. HENT: Head: Normocephalic and atraumatic. Eyes: General: No scleral icterus. Cardiovascular: Rate and Rhythm: Normal rate. Pulmonary: Effort: Pulmonary effort is normal. Musculoskeletal: General: No swelling or deformity. Cervical back: Neck supple. Skin: General: Skin is warm and dry. Neurological: General: No focal deficit present. Mental Status: She is alert. Mental status is at baseline. Comments: A&O to self, disoriented to place, date, month, year Psychiatric: Cognition and Memory: Cognition is impaired. Memory is impaired. She exhibits impaired recent memory and impaired remote memory. Labs and Imaging: reviewed recent Plan ASSESSMENT/PLAN: 1. 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 Primary degenerative dementia of Alzheimer type (HCC) - ICD9: 331.0, 294.10, ICD10: G30.9, F02.80 3. Acute cognitive decline - ICD9: 799.52, ICD10: R41.89 4. Underweight (BMI < 18.5) - ICD9: 783.22, V85.0, ICD10: R63.6, Z68.1 5. Adjustment disorder with anxious mood - ICD9: 309.24, ICD10: F43.22 - Repeat cognitive testing showed significant decline, Overall: Patient tested in the 1st* percentile (standard score of 50*), previously standard score of 82. Patient with decline in all tested domains, especially in executive function - Patient appears to be more disoriented, today, A&O X 1-2, disoriented to time - Patient now developed multiple impairments in her iADLs, unfortunately, patient likely has developed clinical dementia, most likely dementia of Alzheimer type; however, cannot r/o the significant decline secondary to adjustment disorder with anxious mood - Dispense history concerns for medication non adherence, given the noted decline, cannot r/o vascular causes, reasonable to obtain Brain MRI, family would like to hold off at this time - Discussed in length with patient and family, dementia is a progressive disease, currently, no curative treatment available, patient is underweight, not ideal candidate for ChlI such as donepezil, could potentially use Memantine as off lable (only indicated for moderate to severe stage of Alzheimer dementia) to slow down disease progression, family would like to think about it - Suggested Blue Zones lifestyle principles: I) Routine exercise: 150 minuets per week II) Mediterranean/MIND diet III) Increased socialization IV) Sense of purpose/Ikigai V) Cognition stimulation: Reading, crossword puzzles, word jumbles, S[place]o, Lumosity Decisional capacity is the ability to make an informed, rational decision. Determination of capacity is limited to specific questions, and may vary over time. A global assessment of the ability to make decisions is termed competence and can only be rendered by a finish specialist via formal legal proceedings. That is, competence is a legal concept, while capacity is a medical determination rendered by a physician. Any physician can assess a patient's capacity, who must first know the specific decision being assessed. In order to be deemed to retain decisional capacity, the patient must demonstrate all four of the following criteria: 1. Ability to render a choice/decision 2. Factual understanding of the issues 3. Appreciation of likely consequences 4. Rational manipulation of information On my evaluation, she was not able to demonstrate each of the four required criteria. Specifically, she could make a decision, could not demonstrate an understanding of relevant issues, could not demonstrate an appreciation of likely consequences of that choice, could not rationally manipulate the information provided. As such, decisional capacity was not presently retained. Please note that capacity is time and decision specific. Would recommend to continue to assess her capacity for this question over time. In the event her medical condition changes and she regains capacity, she will be able to choose her medical treatment accordingly. 6. Primary hypertension - ICD9: 401.9, ICD10: I10 - Uncontrolled in office today - Continue current medications - Recommend home blood pressure monitoring, to bring results to next visit - Encouraged sodium restriction, DASH or Mediterranean diet - Recommend regular aerobic exercise - Instructed patient/family to call PCP's office if BP remain elevated Return in about 3 months (around 03/04/2025) for mood follow up. Total time in direct patient contact = 56 min. Greater than 50% of the time was spent in counseling and/or coordination of care. Blade Lyman DO Discussed the above with the patient using shared decision making. The patient is in agreement with the diagnostic and treatment plans. This note was partially generated using Muzy voice recognition system, and there may be some incorrect words, spellings, and punctuation that were not noted in checking the note before saving. documented in this encounter [facility] 12-02-2024 Note HNO ID: [id number] Author: BLADE LYMAN DO Service: ? Author Type: Physician Type: Progress Notes Filed: 12/02/2024 13:48 Note Text: Blade Lyman DO [facility] [address] [place] [address] Visit Date: December 01, 2024 Name: Ms.Kary Nikki Sun Date of : 1950 MRN/E #: [id number] Chief Complaint: Patient presents with: Follow Up: Repeat Cog Assessmt Subjective Ms. Bekah Sun is a 74 year old lady PMHX of migraine, CHF, HLD, HTN, minor neurocognitive disorder here for follow up visit. She is here with her step daughter/Agnes Cunningham. HPI Initial geriatric assessment on 07/26/2023, overall cognitive test performance was in the 1st percentile when compared to individuals of a similar age and gender, suggesting presence of cognitive impairment. GDS and SUGEY suggesting minimal mood disturbance. Given testing results, history, most consistent with minor neurocognitive disorder, patient with preserved ADLs, currently dose not appear to have clinical dementia, however, cannot rule out poor performance due to medication side effects from Amitriptyline given its high anti-cholinergic burden, recommended to trail wean amitriptyline Last OV 02/26/2024, repeat cognitive testing today overall cognitive test performance was in the 12th percentile improved from previous testing, previously at 1st percentile, standardized score 65/200->82/200, patient with improvement in essentially all domains tested except delayed recognition. Recommended patient to avoid anti-cholinergic medications, patient's improved cognition likely related to the decreased anti-cholinergic burden since patient has been office amitriptyline. MRI showed volume loss in hippocampus Hippocampal volumes at the 1st percentile when compared to age matched normal controls by quantitative analysis, which likely contributing to memory loss. Patient remained independent on her ADLs, however, patient dose carry risk developing dementia, recommended to keep close follow up, discussed with patient and family, currently no preventive medications for dementia, Suggested Blue Zones lifestyle principles Patient's step daughter called office on 12/01/2024 requesting letter to state patient unable to make financial decisions, per step daughter, patient's spouse is currently in a facility secondary to vascular dementia, family is planning to move patient to memory care facility Today, patient is here her step daughter, patient has no acute concerns; per step daughter, is currently in hospital due to delirium, unclear etiology, family is planning to move patient and to assisted living. Family is currently helping patient while is hospitalization. Patient appears to be confused today, unable to recall what has happened to her nor location of her Marisa recently involved with patient's care since has been hospitalized, Marisa did notice patient has left over medications at home. Per Marisa, patient and her has not been sharing too much regarding their medical care in the past. amlodipine besylate Adherence From 06/02/2024 to 11/28/2024 Proportion of Days Covered 50% of total days covered (90/180 days) High Confidence Fill data for this medication is likely complete. Other factors may still affect the accuracy of the score. About this Score Dispenses Dispensed Days Supply Quantity Provider Pharmacy AMLODIPINE BESYLATE 10 MG TAB 08/17/2024 90 90 each Sandra Sanchez APRN.WAFER CUTTER e- [id number] ... AMLODIPINE BESYLATE 10 MG TAB 02/29/2024 90 90 each Sandra Sanchez APRN.WAFER CUTTER e- [id number] ... How do dispenses affect the score? Outpatient Orders The patient is taking this medication long-term. Start Date End Date Dispense Refills Pharmacy amLODIPine (NORVASC) 10 mg tablet 08/17/2024 -- 90 tablet 3/3 e- [id number] - O... Take 1 tablet by mouth once daily. amLODIPine (NORVASC) 10 mg tablet 02/17/2024 08/17/2024 90 tablet 3/3 e- [id number] - [facility]... Take 1 tablet by mouth once daily. amLODIPine (NORVASC) 10 mg tablet 06/10/2023 02/17/2024 90 tablet 3/3 e- [id number] - [facility]... Take 1 tablet by mouth once daily. How do orders affect the score? Admissions in Period No admissions during adherence period. How do admissions affect the score? atorvastatin calcium Adherence From 06/02/2024 to 11/28/2024 Proportion of Days Covered 50% of total days covered (90/180 days) High Confidence Fill data for this medication is likely complete. Other factors may still affect the accuracy of the score. About this Score Dispenses Dispensed Days Supply Quantity Provider Pharmacy ATORVASTATIN 10 MG TABLET 08/17/2024 90 90 each Sandra Sanchez APRN.WAFER CUTTER e- [id number] ... ATORVASTATIN 10 MG TABLET 02/29/2024 90 90 each Sandra Sanchez APRN.CN (more content not included)... [facility] 12-02-2024 Telephone encounter Note Please see message below requesting letter had appointment 11/30 in office Cuca Perla MA [facility] 12-01-2024 Telephone encounter Note Daughter called back, stating its urgent. Said father is having decline as well. [facility] 12-01-2024 Telephone encounter Note Patient's daughter notified regarding message below. Appointment made for 12/02. [facility] patient's spouse is currently in a facility with sudden onset of vascular dementia. Marie Prather LPN [facility] 12-01-2024 Miscellaneous Notes Patient's daughter notified regarding message below. Appointment made for 12/02. [facility] patient's spouse is currently in a facility with sudden onset of vascular dementia. Marie Prather LPN Please help to clarify with who is legally next of kin, patient's last visit was on 02/26/2024, patient with cognitive impairment with preserved executive function. During evaluation on 02/26/2024, patient dose not have clinical dementia, patient's was with her during visit on 02/26/2024, has been managing their finances without any issues. Based on evaluation on 02/26/2024, I cannot provide such letter, if family is requesting such letter, patient needs to be re-evaluated, thank you Blade Lyman DO Patient's stepdaughter, Mayra, is requesting a letter stating patient is unable to make financial decisions due to her cognitive impairment. States [facility] just needs a letter on physician's letterhead. Marie Prather LPN documented in this encounter [facility] 12-01-2024 Telephone encounter Note Please help to clarify with who is legally next of kin, patient's last visit was on 02/26/2024, patient with cognitive impairment with preserved executive function. During evaluation on 02/26/2024, patient dose not have clinical dementia, patient's was with her during visit on 02/26/2024, has been managing their finances without any issues. Based on evaluation on 02/26/2024, I cannot provide such letter, if family is requesting such letter, patient needs to be re-evaluated, thank you Blade Lyman DO [facility] 12-01-2024 Telephone encounter Note Patient's step daughter Marisa calling in stating they are currently in the process of placing patient in a memory care facility. She is having trouble getting access to patient's finances through [facility]. Marisa is asking if Dr. Ardon would be willing to write a letter stating patient is not able to make financial decisions due to cognitive decline. She states it needs to be on a letter head. Please review and advise Marisa at [phone]. Katrina Urbina December 01, 2024 10:25 AM [facility] 12-01-2024 Telephone encounter Note Patient's stepdaughter, Mayra, is requesting a letter stating patient is unable to make financial decisions due to her cognitive impairment. States [employer] just needs a letter on physician's letterhead. Marie Prather LPN [facility] 11-30-2024 Telephone encounter Note Patient seen by Sandra RAMOS today and [facility] assisted living forms were filled out and signed and given to patient in the office today. [facility] 11-30-2024 Miscellaneous Notes Patient seen by Sandra RAMOS today and [facility] assisted living forms were filled out and signed and given to patient in the office today. Patient's daughter, Marisa (1st alt HCPOA after spouse), presented at the supervisor front wanting to make sure patient's advanced directives were on file, which they are. Marisa also states that she has concerns re: both patient and patient's spouse (who is not a patient of this office). Both patient and spouse have had a downward spiral in the last 2 weeks and the daughter is trying to help them get placed in a facility together. Marisa is wanting to discuss patient's diagnoses or obtain documentation to help get the patients placed in the best facility. She is looking for medical evidence to better help facilitate the best placement. Please advise. Batsheva De La Torre documented in this encounter [facility] 11-30-2024 Note HNO ID: [id number] Author: SANDRA SANCHEZ APRN.WAFER CUTTER Service: ? Author Type: Nurse Specialist Type: Progress Notes Filed: 11/30/2024 12:43 Note Text: Subjective Patient presents with: Memory Problems Bekah Sun is a 74 year old female. She presents for a physical exam prior to assisted living admission. She notes she is in her usual state of good health. She presents with her significant other that helps with HPI. Notes some difficulty with managing medications, some decrease in memory is noted. She was seen for mild cognitive impairment and geriatrics, last visit was February 26, 2024. Getting assistance with medication management, otherwise feels she is in good health. HTN: Without report ofheadache, chest pain, palpitations, dyspnea, peripheral edema, orthopnea, fatigue, and PND.Last 3 Encounter BP Readings: Date: BP: 11/30/2024 129/70 09/19/2024 138/78 08/17/2024 138/62 Hyperlipidemia. Ms. Sun reports doing well on current therapy. Her most recent lipid panels are: Cholesterol, Total (mg/dL) Date Value 02/18/2024 219 08/08/2022 233 08/25/2020 226 07/21/2019 197 Total Cholesterol, Nonfasting (mg/dL) Date Value 03/16/2021 233 HDL Cholesterol (mg/dL) Date Value 02/18/2024 110 08/08/2022 90 08/25/2020 111 07/21/2019 99 HDL Cholesterol, Nonfasting (mg/dL) Date Value 03/16/2021 118 LDL Cholesterol, Calculated (mg/dL) Date Value 02/18/2024 93 08/08/2022 127 08/25/2020 101 07/21/2019 86 LDL Cholesterol Calculated, Nonfasting (mg/dL) Date Value 03/16/2021 101 Triglyceride (mg/dL) Date Value 02/18/2024 78 08/08/2022 82 08/25/2020 69 07/21/2019 61 Triglycerides, Nonfasting (mg/dL) Date Value 03/16/2021 70 PAST MEDICAL HISTORY Diagnosis Date COMMON MIGRAINE W/O MENTN INTRACT 05/10/2005 Diverticulosis of colon (without mention of hemorrhage) HYPERTENSION NOS 05/10/2005 Kidney stone Psoriasis Raynaud's syndrome 05/10/2005 PAST SURGICAL HISTORY Procedure Laterality Date COLONOSCOPY FLX DX W/COLLJ SPEC WHEN PFRMD 08/15/2009 Colonoscopy COLONOSCOPY FLX DX W/COLLJ SPEC WHEN PFRMD 10/28/2019 Colonoscopy ESOPHAGOGASTRODUODENOSCOPY TRANSORAL DIAGNOSTIC 01/08/2012 inpt f f [facility] EGD PAST SURGICAL HISTORY OF 06/10/2009 Single Port resection of ovarian remanent-LSO TOTAL ABDOMINAL HYSTERECT W/WO RMVL TUBE OVARY HUANG-BSO Social History Tobacco Use Smoking status: Never Smokeless tobacco: Never Substance Use Topics Alcohol use: Yes Comment: rare Drug use: No Allergies: Penicillins Hives Bactrim Ds [Sulfame* Rash Losartan Intolerance Comment:headache, did not feel well Current Outpatient Medications Medication Sig calcitonin,salmon, (MIACALCIN) 200 unit/actuation nasal spray Use 1 spray in the nose once daily. alendronate (FOSAMAX) 70 mg tablet Take 1 tablet by mouth one time a week. in the AM with glass of water on empty stomach. Do not take anything else by mouth or lie down for 30 min amLODIPine (NORVASC) 10 mg tablet Take 1 tablet by mouth once daily. atorvastatin (LIPITOR) 10 mg tablet Take 1 tablet by mouth once daily. metoprolol succinate ER (TOPROL XL) 25 mg 24 hr tablet Take 1 tablet by mouth once daily. cholecalciferol, vitamin D3, (VITAMIN D3 ORAL) Take 1,000 Int'l Units by mouth. Nature Made (Patient not taking: Reported on 11/30/2024) No current facility-administered medications for this visit. Review of Systems Objective BP 129/70 Pulse 70 Resp 16 Wt 45 kg (99 lb 3.3 oz) BMI 17.03 kg/m? Estimated body mass index is 17.03 kg/m? as calculated from the following: Height as of 08/05/24: 162.6 cm (5' 4). Weight as of this encounter: 45 kg (99 lb 3.3 oz). Physical Exam Constitutional: Appearance: Normal appearance. HENT: Head: Normocephalic. Eyes: Conjunctiva/sclera: Conjunctivae normal. Neck: Thyroid: No thyroid mass or thyromegaly. Vascular: Normal carotid pulses. No carotid bruit or JVD. Cardiovascular: Rate and Rhythm: Normal rate and regular rhythm. Pulses: Carotid pulses are 2+ on the right side and 2+ on the left side. Radial pulses are 2+ on the right side and 2+ on the left side. Heart sounds: Normal heart sounds. Pulmonary: Effort: Pulmonary effort is normal. Breath sounds: Normal breath sounds. Abdominal: General: Bowel sounds are normal. Palpations: Abdomen is soft. Musculoskeletal: General: Tenderness (Mild in mid-back) present. Right lower leg: No edema. Left lower leg: No edema. Skin: General: Skin is warm and dry. Neurological: General: No focal deficit present. Mental Status: She is alert and oriented to person, place, and time. Psychiatric: Mood and Affect: Mood normal. Behavior: Behavior normal. Thought Content: Thought content normal. Judgment: Judgment normal. ASSESSMENT/PLAN: 1. Mild cognitive impairment with memory loss - ICD9: 331.83, ICD10: G31.84 (primary diagnosis) 2. Neurodegenerative cognitive i (more content not included)... [facility] 11-30-2024 History of Present illness Narrative Subjective Patient presents with: Memory Problems Bekah Sun is a 74 year old female. She presents for a physical exam prior to assisted living admission. She notes she is in her usual state of good health. She presents with her significant other that helps with HPI. Notes some difficulty with managing medications, some decrease in memory is noted. She was seen for mild cognitive impairment and geriatrics, last visit was February 26, 2024. Getting assistance with medication management, otherwise feels she is in good health. HTN: Without report ofheadache, chest pain, palpitations, dyspnea, peripheral edema, orthopnea, fatigue, and PND.Last 3 Encounter BP Readings: Date: BP: 11/30/2024 129/70 09/19/2024 138/78 08/17/2024 138/62 Hyperlipidemia. Ms. Sun reports doing well on current therapy. Her most recent lipid panels are: Cholesterol, Total (mg/dL) Date Value 02/18/2024 219 08/08/2022 233 08/25/2020 226 07/21/2019 197 Total Cholesterol, Nonfasting (mg/dL) Date Value 03/16/2021 233 HDL Cholesterol (mg/dL) Date Value 02/18/2024 110 08/08/2022 90 08/25/2020 111 07/21/2019 99 HDL Cholesterol, Nonfasting (mg/dL) Date Value 03/16/2021 118 LDL Cholesterol, Calculated (mg/dL) Date Value 02/18/2024 93 08/08/2022 127 08/25/2020 101 07/21/2019 86 LDL Cholesterol Calculated, Nonfasting (mg/dL) Date Value 03/16/2021 101 Triglyceride (mg/dL) Date Value 02/18/2024 78 08/08/2022 82 08/25/2020 69 07/21/2019 61 Triglycerides, Nonfasting (mg/dL) Date Value 03/16/2021 70 PAST MEDICAL HISTORY Diagnosis Date COMMON MIGRAINE W/O MENTN INTRACT 05/10/2005 Diverticulosis of colon (without mention of hemorrhage) HYPERTENSION NOS 05/10/2005 Kidney stone Psoriasis Raynaud's syndrome 05/10/2005 PAST SURGICAL HISTORY Procedure Laterality Date COLONOSCOPY FLX DX W/COLLJ SPEC WHEN PFRMD 08/15/2009 Colonoscopy COLONOSCOPY FLX DX W/COLLJ SPEC WHEN PFRMD 10/28/2019 Colonoscopy ESOPHAGOGASTRODUODENOSCOPY TRANSORAL DIAGNOSTIC 01/08/2012 inpt f f [facility] EGD PAST SURGICAL HISTORY OF 06/10/2009 Single Port resection of ovarian remanent-LSO TOTAL ABDOMINAL HYSTERECT W/WO RMVL TUBE OVARY HUANG-BSO Social History Tobacco Use Smoking status: Never Smokeless tobacco: Never Substance Use Topics Alcohol use: Yes Comment: rare Drug use: No Allergies: Penicillins Hives Bactrim Ds [Sulfame* Rash Losartan Intolerance Comment:headache, did not feel well Current Outpatient Medications Medication Sig calcitonin,salmon, (MIACALCIN) 200 unit/actuation nasal spray Use 1 spray in the nose once daily. alendronate (FOSAMAX) 70 mg tablet Take 1 tablet by mouth one time a week. in the AM with glass of water on empty stomach. Do not take anything else by mouth or lie down for 30 min amLODIPine (NORVASC) 10 mg tablet Take 1 tablet by mouth once daily. atorvastatin (LIPITOR) 10 mg tablet Take 1 tablet by mouth once daily. metoprolol succinate ER (TOPROL XL) 25 mg 24 hr tablet Take 1 tablet by mouth once daily. cholecalciferol, vitamin D3, (VITAMIN D3 ORAL) Take 1,000 Int'l Units by mouth. Nature Made (Patient not taking: Reported on 11/30/2024) No current facility-administered medications for this visit. Review of Systems Objective BP 129/70 Pulse 70 Resp 16 Wt 45 kg (99 lb 3.3 oz) BMI 17.03 kg/m Estimated body mass index is 17.03 kg/m as calculated from the following: Height as of 08/05/24: 162.6 cm (5' 4). Weight as of this encounter: 45 kg (99 lb 3.3 oz). Physical Exam Constitutional: Appearance: Normal appearance. HENT: Head: Normocephalic. Eyes: Conjunctiva/sclera: Conjunctivae normal. Neck: Thyroid: No thyroid mass or thyromegaly. Vascular: Normal carotid pulses. No carotid bruit or JVD. Cardiovascular: Rate and Rhythm: Normal rate and regular rhythm. Pulses: Carotid pulses are 2+ on the right side and 2+ on the left side. Radial pulses are 2+ on the right side and 2+ on the left side. Heart sounds: Normal heart sounds. Pulmonary: Effort: Pulmonary effort is normal. Breath sounds: Normal breath sounds. Abdominal: General: Bowel sounds are normal. Palpations: Abdomen is soft. Musculoskeletal: General: Tenderness (Mild in mid-back) present. Right lower leg: No edema. Left lower leg: No edema. Skin: General: Skin is warm and dry. Neurological: General: No focal deficit present. Mental Status: She is alert and oriented to person, place, and time. Psychiatric: Mood and Affect: Mood normal. Behavior: Behavior normal. Thought Content: Thought content normal. Judgment: Judgment normal. ASSESSMENT/PLAN: 1. Mild cognitive impairment with memory loss - ICD9: 331.83, ICD10: G31.84 (primary diagnosis) 2. Neurodegenerative cognitive impairment - ICD9: 331.9, ICD10: G31.9 Note some difficulty with medication management, has been followed by gerontology. 3. Primary hypertension - ICD9: 401.9, ICD10: I10 controlled - Continue current medications - Encouraged sodium restriction, DASH or Mediterranean diet - Recommend regular aerobic exercise 4. Mixed hyperlipidemia - ICD9: 272.2, ICD10: E78.2 - Controlled - Counseled on healthy diet and regular exercise 5. Chronic diastolic CHF (congestive heart failure) (HCC) - ICD9: 428.32, 428.0, ICD10: I50.32 Stable on current treatment, continue unchanged 6. Screening-pulmonary TB - ICD9: V74.1, ICD10: Z11.1 - BLOOD TB SCREEN Sandra Sanchez APRN.CNS Medical Decision Making: Problems: Moderate: 2+ stable chronic illnesses Data: Unique test result(s) reviewed: 3+ Medical Decision Making Level: 4 - Moderate documented in this encounter [facility] 11-26-2024 Telephone encounter Note Patient's daughter, Marisa (1st alt HCPOA after spouse), presented at the supervisor front wanting to make sure patient's advanced directives were on file, which they are. Marisa also states that she has concerns re: both patient and patient's spouse (who is not a patient of this office). Both patient and spouse have had a downward spiral in the last 2 weeks and the daughter is trying to help them get placed in a facility together. Marisa is wanting to discuss patient's diagnoses or obtain documentation to help get the patients placed in the best facility. She is looking for medical evidence to better help facilitate the best placement. Please advise. Batsheva De La Torre [facility] 09-25-2024 History of Present illness Narrative Radiology Service Progress Note PATIENT NAME: Bekah Sun DATE OF SERVICE: September 25, 2024 TIME: 9:47 AM PATIENT IDENTITY VERIFICATION COMPLETED USING TWO (2) IDENTIFIERS: Name and Date of confirmed by patient verbally. FALL SCREENING: Has the patient had 2 falls in the last year or 1 fall with injury or currently using an Ambulatory Assistive Device (Walker, Cane, Wheelchair, Crutches, etc.)? No PATIENT GENDER DATA: Assigned female at . status: : No status: NO. PATIENT RELEVANT IMPLANT DATA REVIEWED: Not Applicable PATIENT PRESENTS WITH AN IMPLANTABLE OR ATTACHED RD LAB TECHNICIAN: No RADIOLOGY DEPARTMENT: Bone Density PERIPHERAL IV DATA: Not applicable SIGNED BY: RT Shandra(R) September 25, 2024 9:47 AM documented in this encounter [facility] 09-25-2024 Note HNO ID: [id number] Author: GABRIELLE NUGENT RT(R) Service: ? Author Type: Technologist Type: Progress Notes Filed: 09/25/2024 09:55 Note Text: Radiology Service Progress Note PATIENT NAME: Bekah Sun DATE OF SERVICE: September 25, 2024 TIME: 9:47 AM PATIENT IDENTITY VERIFICATION COMPLETED USING TWO (2) IDENTIFIERS: Name and Date of confirmed by patient verbally. FALL SCREENING: Has the patient had 2 falls in the last year or 1 fall with injury or currently using an Ambulatory Assistive Device (Walker, Cane, Wheelchair, Crutches, etc.)? No PATIENT GENDER DATA: Assigned female at . status: : No status: NO. PATIENT RELEVANT IMPLANT DATA REVIEWED: Not Applicable PATIENT PRESENTS WITH AN IMPLANTABLE OR ATTACHED RD LAB TECHNICIAN: No RADIOLOGY DEPARTMENT: Bone Density PERIPHERAL IV DATA: Not applicable SIGNED BY: RT Shandra(Nolan) September 25, 2024 9:47 AM [facility] 09-19-2024 Note HNO ID: [id number] Author: PAULINA ARDON MD Service: ? Author Type: Physician Type: Progress Notes Filed: 10/12/2024 01:59 Note Text: This note was created using Zyrrariter. Subjective Bekah Sun is a 74 year old female. Patient presents with: Follow Up For: Continued back pain Bekah is a 74-year-old female with a history of compression fractures, presenting with recurrent back pain. Bekah reports recurrent back pain secondary to compression fractures, with episodes occurring every 3-4 days. The pain is described as severe and intermittent, previously being persistent and daily. Bekah has been using hydrocodone for pain management, taking one pill per episode, which provides relief. She denies needing more than one pill per day. She has also been using tizanidine for muscle spasms, which she reports as somewhat effective. Bekah has been using a nasal spray, which she believes may have helped reduce the frequency of pain episodes. She has also been taking Fosamax (alendronate) but ran out of the medication recently. Bekah reports that certain activities, such as bending under the bed, exacerbate the pain. She denies any current pain at the time of the visit. She has a family history of hypertension, inherited from her father. PAST MEDICAL HISTORY Diagnosis Date COMMON MIGRAINE W/O MENTN INTRACT 05/10/2005 Diverticulosis of colon (without mention of hemorrhage) HYPERTENSION NOS 05/10/2005 Kidney stone Psoriasis Raynaud's syndrome 05/10/2005 Current Outpatient Medications Medication Sig alendronate (FOSAMAX) 70 mg tablet Take 1 tablet by mouth one time a week. in the AM with glass of water on empty stomach. Do not take anything else by mouth or lie down for 30 min amLODIPine (NORVASC) 10 mg tablet Take 1 tablet by mouth once daily. atorvastatin (LIPITOR) 10 mg tablet Take 1 tablet by mouth once daily. metoprolol succinate ER (TOPROL XL) 25 mg 24 hr tablet Take 1 tablet by mouth once daily. fluticasone (FLONASE) 50 mcg/actuation nasal spray SPRAY 1 SPRAY INTO EACH NOSTRIL EVERY DAY cholecalciferol, vitamin D3, (VITAMIN D3 ORAL) Take 1,000 Int'l Units by mouth. Nature Made calcitonin,salmon, (MIACALCIN) 200 unit/actuation nasal spray Use 1 spray in the nose once daily. HYDROcodone-acetaminophen (NORCO) 5-325 mg per tablet Take 1 tablet by mouth two times a day as needed for pain for up to 7 days. tiZANidine (ZANAFLEX) 4 mg tablet Take 0.5-1 tablets by mouth three times a day as needed. No current facility-administered medications for this visit. Review of Systems Objective BP 138/78 Pulse 81 Resp 16 Wt 46.2 kg (101 lb 13.6 oz) BMI 17.48 kg/m? Last 5 Encounter Wt Readings: Date: Wt: 09/19/2024 46.2 kg (101 lb 13.6 oz) 08/17/2024 46.9 kg (103 lb 6.3 oz) 08/05/2024 48.8 kg (107 lb 9.4 oz) 02/26/2024 47.6 kg (105 lb) 02/17/2024 46.5 kg (102 lb 8.2 oz) No waist measurement recorded Estimated body mass index is 17.48 kg/m? as calculated from the following: Height as of 08/05/24: 162.6 cm (5' 4). Weight as of this encounter: 46.2 kg (101 lb 13.6 oz). Last 5 Encounter BP Readings: Date: BP: 09/19/2024 152/77 08/17/2024 138/62 08/05/2024 132/78 02/26/2024 159/80 02/17/2024 150/70 09/19/24 0952 09/19/24 1041 BP: 152/77 138/78 Pulse: 81 Resp: 16 Weight: 46.2 kg (101 lb 13.6 oz) Physical Exam Constitutional: Appearance: Normal appearance. HENT: Head: Normocephalic. Eyes: Conjunctiva/sclera: Conjunctivae normal. Cardiovascular: Rate and Rhythm: Normal rate and regular rhythm. Heart sounds: Normal heart sounds. Pulmonary: Effort: Pulmonary effort is normal. Breath sounds: Normal breath sounds. Musculoskeletal: General: Tenderness (Mild in mid-back) present. Right lower leg: No edema. Left lower leg: No edema. Skin: General: Skin is warm and dry. Neurological: General: No focal deficit present. Mental Status: She is alert and oriented to person, place, and time. Psychiatric: Mood and Affect: Mood normal. Behavior: Behavior normal. Thought Content: Thought content normal. Judgment: Judgment normal. Assessment and Plan # Primary hypertension (I10) - Blood pressure readings stable, with recent measurement at 138/78 mmHg. - Continue current management. # Age-related osteoporosis with current pathological fracture, sequela (M80.00XS) # Closed wedge compression fracture of T9 vertebra, sequela (S22.070S) - Pain episodes less frequent, occurring every 3-4 days; previously daily. - Refilled hydrocodone, prescribed 1-2 tablets twice daily as needed for severe pain, 14 tablets total. - Refilled tizanidine, prescribed 1 tablet three times daily as needed for muscle spasms, 30 tablets total. - Refilled Miacalcin nasal spray with 5 refills. - Refilled alendronate (Fosamax) 70 mg weekly, 3-month supply. - Advised continuation of calcium supplementation, 6289-9172 mg daily. - Educated on (more content not included)... [facility] 08-17-2024 Note Addended by: PAULINA RUBIO on: 08/17/2024 01:03 PM Modules accepted: Orders [facility] 08-17-2024 Miscellaneous Notes Addended by: PAULINA ARDON on: 08/17/2024 01:03 PM Modules accepted: Orders Addended by: TIGRE GAONA on: 08/17/2024 12:30 PM Modules accepted: Orders documented in this encounter [facility] 08-17-2024 Note Addended by: TIGRE SAENZ on: 08/17/2024 12:30 PM Modules accepted: Orders [facility] 08-17-2024 Instructions Paulina Ardon MD - 08/17/2024 12:14 PM EDT - Take Vicodin (hydrocodone/acetaminophen) as prescribed: 1-2 tablets every 6 hours as needed for pain. Prescription sent to [facility] in [place]. - Use Miacalcin nasal spray as prescribed: alternate nostrils every other day. Prescription sent to [facility] in [place]. - Restart Fosamax (alendronate) as prescribed: take on an empty stomach once a week, with no food or drink for 30 minutes afterward. Prescription sent to [facility] in [place]. - Ensure adequate calcium and vitamin D intake through diet or supplements. - Avoid heavy lifting, bending, or any activities that may put pressure on your spine to prevent further compression fractures. - Consider seeing medical records secretary for osteoporosis management and further evaluation. Will try Fosamax for now. - Schedule and complete a repeat bone density test once pain is better controlled. - Monitor pain levels and report any changes or concerns. - Follow up with lab tests to check metabolic panel, vitamin D level, parathyroid, and thyroid function. BONE MINERAL DENSITY PATIENT INSTRUCTIONS === Bone mineral density testing measures the amount of calcium in certain parts of your bones. This information determines how strong your bones are. The test is used to detect osteoporosis, a disease in which the bone's mineral content and density are low, increasing a person's risk of fractures. The lumbar spine (lower back) and the hip are the skeletal sites usually examined. For the test, remember that: 1. You cannot take this test if you are . 2. Eat a normal diet on the day of the test. 3. Take your medications as you normally would. 4. DO NOT take calcium supplements (such as Tums) for 24 hours before the test. 5. On the day of the test, leave valuables (jewelry or credit cards) at home. 6. The test should be performed prior to oral, rectal or IV contrast studies, or at least 7 days after any of these studies. For the test, you may be asked to wear a hospital gown. You will lie on your back, on a padded table, in a comfortable position. Generally, you can resume your usual activities immediately. documented in this encounter [facility] 08-17-2024 Note HNO ID: [id number] Author: PAULINA ARDON MD Service: ? Author Type: Physician Type: Progress Notes Filed: 08/17/2024 13:03 Note Text: Subjective ?Quick Links Last Note in Specialty Snapshot Edit RFV/CC Patient ID: Bekah is a 74 year old female who presents for No chief complaint on file.. Bekah is a 74-year-old female with a history of osteoporosis, presenting for follow-up after a recent T9 compression fracture.Bekah was recently seen in the emergency department on the due to severe back pain that caused dizziness. A CT scan revealed a T9 compression fracture. She reports that the pain has been severe enough to prevent her from sleeping on her back, necessitating sleep in a lounge chair. The pain is localized to the lower rib cage area in the back and does not radiate to the front. She has tried ibuprofen and lidocaine patches without significant relief. She was prescribed a muscle relaxant, which has not been effective in managing the pain. She denies dyspnea.Bekah has a history of osteoporosis with a T-score of -3.3. She was previously considered for Fosamax in 2022 but does not recall taking it. She is currently taking a multivitamin and vitamin D3. She has a history of tolerating Vicodin and Percocet well, which were prescribed in 2009 for pain management following a laparoscopic ovary removal and a severe UTI. She denies any issues with constipation or dizziness from these medications. ?Quick Review Review Full History Edit History Full Problem List Meds - tiZANidine (ZANAFLEX) 4 mg tablet metoprolol succinate ER (TOPROL XL) 25 mg 24 hr tablet atorvastatin (LIPITOR) 10 mg tablet amLODIPine (NORVASC) 10 mg tablet fluticasone (FLONASE) 50 mcg/actuation nasal spray cholecalciferol, vitamin D3, (VITAMIN D3 ORAL) --- PMH - COMMON MIGRAINE W/O MENTN INTRACT Diverticulosis of colon (without mention of hemorrhage) HYPERTENSION NOS Kidney stone Psoriasis Raynaud's syndrome : Objective ?Quick Links Add Vitals Labs Imaging Results Review ?? Avoid pulling in long tables of results. Comment on relevant results to support your medical decision making. BP 138/62 (BP Site: Left Arm, BP Position: Sitting) Pulse 77 Resp 16 Wt 46.9 kg (103 lb 6.3 oz) SpO2 100% BMI 17.75 kg/m? 08/17/24 1055 08/17/24 1222 BP: 162/75 138/62 BP Site: Left Arm BP Position: Sitting Pulse: 77 Resp: 16 SpO2: 100% Weight: 46.9 kg (103 lb 6.3 oz) Physical Exam Constitutional: Appearance: Normal appearance. HENT: Head: Normocephalic. Eyes: Conjunctiva/sclera: Conjunctivae normal. Cardiovascular: Rate and Rhythm: Normal rate and regular rhythm. Heart sounds: Normal heart sounds. Pulmonary: Effort: Pulmonary effort is normal. Breath sounds: Normal breath sounds. Musculoskeletal: Arms: Skin: General: Skin is warm and dry. Neurological: General: No focal deficit present. Mental Status: She is alert and oriented to person, place, and time. Psychiatric: Mood and Affect: Mood normal. Behavior: Behavior normal. Thought Content: Thought content normal. Judgment: Judgment normal. Assessment AND Plan Closed wedge compression fracture of T9 vertebra, initial encounter ([facility]) Orders: HYDROcodone-acetaminophen (NORCO) 5-325 mg per tablet; Take 1-2 tablets by mouth every 6 hours as needed for pain for up to 7 days. calcitonin,salmon, (MIACALCIN) 200 unit/actuation nasal spray; Use 1 Wisner in the nose once daily. BASIC METABOLIC PANEL; Future VITAMIN D 25 HYDROXY; Future PTH INTACT; Future THYROID STIMULATING HORMONE; Future T4 FREE/FREE THYROXINE; Future # Closed wedge compression fracture of T9 vertebra, initial encounter ([facility]) (S22.380A) - Recent CT scan confirmed a T9 compression fracture. - Severe pain managed with Vicodin 1-2 tablets every 6 hours as needed; prescription for 50 tablets provided. - Initiated Miacalcin nasal spray, one spray in alternating nostrils every other day for analgesic effect. - Educated patient on the nature of compression fractures and potential nerve impingement causing severe pain. - Discussed potential referral to pain management for consideration of kyphoplasty if pain persists beyond 6 weeks. - Advised to avoid heavy lifting and sudden movements to prevent further injury. - Follow-up in 1 week to assess pain control and discuss further management if necessary. # Age-related osteoporosis without current pathological fracture (M81.0) - Previous T-score of -3.3 indicating severe osteoporosis. - Restarted Fosamax 70 mg orally once weekly; instructed to take on an empty stomach with a full glass of water and remain upright for at least 30 minutes post-administration. - Ordered repeat bone density scan to assess current bone health status. - Ensured adequate calcium and vitamin D intake; ordered labs to check current vitamin D levels. - Discussed potential referral to endocrinology for (more content not included)... [facility] 08-17-2024 History of Present illness Narrative Images from the original note were not included. Subjective ?Quick Links Last Note in Specialty Snapshot Edit RFV/CC Patient ID: Bekah is a 74 year old female who presents for No chief complaint on file.. Bekah is a 74-year-old female with a history of osteoporosis, presenting for follow-up after a recent T9 compression fracture.Bekah was recently seen in the emergency department on the due to severe back pain that caused dizziness. A CT scan revealed a T9 compression fracture. She reports that the pain has been severe enough to prevent her from sleeping on her back, necessitating sleep in a lounge chair. The pain is localized to the lower rib cage area in the back and does not radiate to the front. She has tried ibuprofen and lidocaine patches without significant relief. She was prescribed a muscle relaxant, which has not been effective in managing the pain. She denies dyspnea.Bekah has a history of osteoporosis with a T-score of -3.3. She was previously considered for Fosamax in 2022 but does not recall taking it. She is currently taking a multivitamin and vitamin D3. She has a history of tolerating Vicodin and Percocet well, which were prescribed in 2009 for pain management following a laparoscopic ovary removal and a severe UTI. She denies any issues with constipation or dizziness from these medications. ?Quick Review Review Full History Edit History Full Problem List Meds - tiZANidine (ZANAFLEX) 4 mg tablet metoprolol succinate ER (TOPROL XL) 25 mg 24 hr tablet atorvastatin (LIPITOR) 10 mg tablet amLODIPine (NORVASC) 10 mg tablet fluticasone (FLONASE) 50 mcg/actuation nasal spray cholecalciferol, vitamin D3, (VITAMIN D3 ORAL) --- PMH - COMMON MIGRAINE W/O MENTN INTRACT Diverticulosis of colon (without mention of hemorrhage) HYPERTENSION NOS Kidney stone Psoriasis Raynaud's syndrome : Objective ?Quick Links Add Vitals Labs Imaging Results Review ?? Avoid pulling in long tables of results. Comment on relevant results to support your medical decision making. BP 138/62 (BP Site: Left Arm, BP Position: Sitting) Pulse 77 Resp 16 Wt 46.9 kg (103 lb 6.3 oz) SpO2 100% BMI 17.75 kg/m 08/17/24 1055 08/17/24 1222 BP: 162/75 138/62 BP Site: Left Arm BP Position: Sitting Pulse: 77 Resp: 16 SpO2: 100% Weight: 46.9 kg (103 lb 6.3 oz) Physical Exam Constitutional: Appearance: Normal appearance. HENT: Head: Normocephalic. Eyes: Conjunctiva/sclera: Conjunctivae normal. Cardiovascular: Rate and Rhythm: Normal rate and regular rhythm. Heart sounds: Normal heart sounds. Pulmonary: Effort: Pulmonary effort is normal. Breath sounds: Normal breath sounds. Musculoskeletal: Arms: Skin: General: Skin is warm and dry. Neurological: General: No focal deficit present. Mental Status: She is alert and oriented to person, place, and time. Psychiatric: Mood and Affect: Mood normal. Behavior: Behavior normal. Thought Content: Thought content normal. Judgment: Judgment normal. Assessment & Plan Closed wedge compression fracture of T9 vertebra, initial encounter ([facility]) Orders: HYDROcodone-acetaminophen (NORCO) 5-325 mg per tablet; Take 1-2 tablets by mouth every 6 hours as needed for pain for up to 7 days. calcitonin,salmon, (MIACALCIN) 200 unit/actuation nasal spray; Use 1 Wisner in the nose once daily. BASIC METABOLIC PANEL; Future VITAMIN D 25 HYDROXY; Future PTH INTACT; Future THYROID STIMULATING HORMONE; Future T4 FREE/FREE THYROXINE; Future # Closed wedge compression fracture of T9 vertebra, initial encounter ([facility]) (S22.260A) - Recent CT scan confirmed a T9 compression fracture. - Severe pain managed with Vicodin 1-2 tablets every 6 hours as needed; prescription for 50 tablets provided. - Initiated Miacalcin nasal spray, one spray in alternating nostrils every other day for analgesic effect. - Educated patient on the nature of compression fractures and potential nerve impingement causing severe pain. - Discussed potential referral to pain management for consideration of kyphoplasty if pain persists beyond 6 weeks. - Advised to avoid heavy lifting and sudden movements to prevent further injury. - Follow-up in 1 week to assess pain control and discuss further management if necessary. # Age-related osteoporosis without current pathological fracture (M81.0) - Previous T-score of -3.3 indicating severe osteoporosis. - Restarted Fosamax 70 mg orally once weekly; instructed to take on an empty stomach with a full glass of water and remain upright for at least 30 minutes post-administration. - Ordered repeat bone density scan to assess current bone health status. - Ensured adequate calcium and vitamin D intake; ordered labs to check current vitamin D levels. - Discussed potential referral to endocrinology for further management if necessary. # Asymptomatic postmenopausal state (Z78.0) - Condition remains stable. # Memory difficulties (R41.3) - Noted during the visit; no immediate intervention required. Note that was not sure why she did not follow through with taking Fosamax. She has memory issues and suspect that is main reason did not stay on med. Not sure if filled the RX to take care a year. She is fine with resuming medication and agrees. Will update bone density after pain improves so can tolerate the test. Offered referral to endocrinology but declined today. Focus was pain control per their preference. Labs at their convenience.. I spent a total of 38 minutes on the date of the service which included preparing to see the patient, [id number] patient care, completing clinical documentation, obtaining and/or reviewing separately obtained history, performing a medically appropriate examination, counseling and educating the patient/family/caregiver, ordering medications, tests, or procedures, independently interpreting results (not separately reported), and communicating results to the patient/family/caregiver. Paulina Ardon MD documented in this encounter [facility] 08-05-2024 History of Present illness Narrative Radiology Service Progress Note PATIENT NAME: Bekah Sun DATE OF SERVICE: August 05, 2024 TIME: 3:48 PM PATIENT IDENTITY VERIFICATION COMPLETED USING TWO (2) IDENTIFIERS: Name and Date of confirmed by patient verbally. FALL SCREENING: Has the patient had 2 falls in the last year or 1 fall with injury or currently using an Ambulatory Assistive Device (Walker, Cane, Wheelchair, Crutches, etc.)? No PATIENT GENDER DATA: Assigned female at . status: : No status: NO. PATIENT RELEVANT IMPLANT DATA REVIEWED: Not Applicable PATIENT PRESENTS WITH AN IMPLANTABLE OR ATTACHED RD LAB TECHNICIAN: No RADIOLOGY DEPARTMENT: General X-ray: Exam(s) Completed: Spine X-Ray(s): Lumbar AP / LAT / L5-S1 PERIPHERAL IV DATA: Not applicable SIGNED BY: RT Fang(R) August 05, 2024 3:48 PM documented in this encounter [facility] 08-05-2024 Note HNO ID: [id number] Author: BRAI DOUGLAS RT(R) Service: Radiology Author Type: Technologist Type: Progress Notes Filed: 08/05/2024 16:05 Note Text: Radiology Service Progress Note PATIENT NAME: Bekah Sun DATE OF SERVICE: August 05, 2024 TIME: 3:48 PM PATIENT IDENTITY VERIFICATION COMPLETED USING TWO (2) IDENTIFIERS: Name and Date of confirmed by patient verbally. FALL SCREENING: Has the patient had 2 falls in the last year or 1 fall with injury or currently using an Ambulatory Assistive Device (Walker, Cane, Wheelchair, Crutches, etc.)? No PATIENT GENDER DATA: Assigned female at . status: : No status: NO. PATIENT RELEVANT IMPLANT DATA REVIEWED: Not Applicable PATIENT PRESENTS WITH AN IMPLANTABLE OR ATTACHED RD LAB TECHNICIAN: No RADIOLOGY DEPARTMENT: General X-ray: Exam(s) Completed: Spine X-Ray(s): Lumbar AP / LAT / L5-S1 PERIPHERAL IV DATA: Not applicable SIGNED BY: RT Fang(R) August 05, 2024 3:48 PM [facility] 08-05-2024 Instructions Paulina Ardon MD - 08/05/2024 3:39 PM EDT - Take ibuprofen 200 mg, 2-3 pills (400-600 mg) up to 3 times daily as needed for pain and inflammation. Do not exceed 12 pills (2400 mg) in a day. - Take a dose of ibuprofen before bedtime for the next 2-3 nights to prevent nighttime pain. - Use heat or cold packs on your lower back to help with muscle tightness and inflammation. Alternate between hot and cold as needed. - Adjust your sleeping position by placing a pillow under your knees when lying on your back to support your spine. - Consider using a lower pillow for your head to maintain a natural curvature of your spine. - Perform gentle stretching exercises before getting out of bed, such as pulling your knees up to your chest to stretch your back muscles. - Avoid prolonged activities that require stabilizing your back, such as lifting heavy objects or rearranging books for extended periods. - Tizanidine 2-4 mg prescribed as needed, up to 3 times daily, for muscle spasms. Start with 2 mg (half a tablet) and increase to 4 mg if needed. Be cautious of drowsiness. - Complete lumbar spine X-ray as scheduled. - Monitor for any red flag symptoms such as numbness in the saddle area, bladder or bowel control issues, or inability to move or feel your legs. If these occur, seek emergency medical attention immediately. documented in this encounter [facility] 08-05-2024 Note HNO ID: [id number] Author: PAULINA ARDON MD Service: ? Author Type: Physician Type: Progress Notes Filed: 08/05/2024 15:41 Note Text: This note was created using [employer]. Subjective Bekah Sun is a 74 year old female. Patient presents with: Same Day Appointment: lower back pain SUBJECTIVE: Bekah Sun is a 74 year old year old lady here today for same day follow up appointment for review of medical conditions. Bekah Sun is a 74-year-old female presenting with acute onset of lower back pain. Bekah reports a 1-week history of lower back pain, rated as 9/10 at its worst, primarily occurring at night while in bed. The pain is localized to the lower back, predominantly on the left side, and does not radiate down the legs. The pain is intermittent, with episodes lasting for a day or two before subsiding and then recurring. The most recent episode occurred either last night or the night before. The pain is exacerbated when attempting to get out of bed and is relieved when upright and walking. Bekah sleeps on her back but often shifts to her side during the night. She has been taking 2-3 tablets of 200 mg ibuprofen as needed for pain relief, which she tolerates well. She has also tried using a Salonpas patch without significant relief. She denies any recent trauma, heavy lifting, or prolonged activities that could have triggered the pain. She has notundergone any physical therapy or used muscle relaxants recently. She denies any numbness, tingling, or weakness in the lower extremities, as well as any bowel or bladder dysfunction. PAST MEDICAL HISTORY Diagnosis Date COMMON MIGRAINE W/O MENTN INTRACT 05/10/2005 Diverticulosis of colon (without mention of hemorrhage) HYPERTENSION NOS 05/10/2005 Kidney stone Psoriasis Raynaud's syndrome 05/10/2005 Current Outpatient Medications Medication Sig metoprolol succinate ER (TOPROL XL) 25 mg 24 hr tablet Take 1 tablet by mouth once daily. atorvastatin (LIPITOR) 10 mg tablet Take 1 tablet by mouth once daily. amLODIPine (NORVASC) 10 mg tablet Take 1 tablet by mouth once daily. fluticasone (FLONASE) 50 mcg/actuation nasal spray SPRAY 1 SPRAY INTO EACH NOSTRIL EVERY DAY cholecalciferol, vitamin D3, (VITAMIN D3 ORAL) Take 1,000 Int'l Units by mouth. Nature Made No current facility-administered medications for this visit. Review of Systems Objective BP 138/64 (BP Site: Right Arm, BP Position: Sitting, BP Cuff Size: Regular Adult) Pulse 74 Temp 36.2 ?C (97.2 ?F) (Temporal) Resp 12 Ht 162.6 cm (5' 4) Wt 48.8 kg (107 lb 9.4 oz) SpO2 98% BMI 18.47 kg/m? Last 5 Encounter Wt Readings: Date: Wt: 08/05/2024 48.8 kg (107 lb 9.4 oz) 02/26/2024 47.6 kg (105 lb) 02/17/2024 46.5 kg (102 lb 8.2 oz) 01/20/2024 46.5 kg (102 lb 9.6 oz) 08/12/2023 49.4 kg (108 lb 12.8 oz) No waist measurement recorded Estimated body mass index is 18.47 kg/m? as calculated from the following: Height as of this encounter: 162.6 cm (5' 4). Weight as of this encounter: 48.8 kg (107 lb 9.4 oz). Last 5 Encounter BP Readings: Date: BP: 08/05/2024 138/64 02/26/2024 159/80 02/17/2024 150/70 01/20/2024 138/60 08/12/2023 138/78 08/05/24 1436 08/05/24 1532 BP: 138/64 132/78 BP Site: Right Arm BP Position: Sitting BP Cuff Size: Regular Adult Pulse: 74 Resp: 12 Temp: 36.2 ?C (97.2 ?F) TempSrc: Temporal SpO2: 98% Weight: 48.8 kg (107 lb 9.4 oz) Height: 162.6 cm (5' 4) Physical Exam Musculoskeletal: Thoracic back: No swelling, spasms or tenderness. Lumbar back: No spasms, tenderness or bony tenderness. Normal range of motion. Negative right straight leg raise test and negative left straight leg raise test. Assessment and Plan # Acute left-sided low back pain without sciatica (M54.50) # Muscle spasm of back (M62.830) - Pain localized to the lower back, predominantly on the left side, with episodes occurring primarily at night while in bed. No radiation of pain down the legs. - Physical examination reveals no tenderness, swelling, or spasm in the upper or lower spine. - Ordered lumbar spine X-ray to evaluate for disc issues or arthritis. - Advised use of ibuprofen 200 mg, 2-3 pills per dose, up to a maximum of 4 pills at a time and 12 pills per day. Recommended taking a dose before bedtime for the next 2-3 nights to prevent nocturnal pain episodes. - Prescribed tizanidine 2-4 mg, up to three times daily as needed for muscle spasms. Dispensed 30 tablets. - Educated on the use of heat and cold therapy to manage muscle tightness and inflammation. - Advised on ergonomic sleeping positions, including using a pillow under the knees when lying on the back and adjusting head pillow height to maintain normal spinal curvature. - Discussed potential for physical therapy if symptoms persist. # Essential (primary) hypertension (I10) - Blood pressure readings today: 132/78 mmHg. - Continue curre (more content not included)... [facility] 08-05-2024 History of Present illness Narrative This note was created using [employer]. Subjective Bekah Sun is a 74 year old female. Patient presents with: Same Day Appointment: lower back pain SUBJECTIVE: Bekah Sun is a 74 year old year old lady here today for same day follow up appointment for review of medical conditions. Bekah Sun is a 74-year-old female presenting with acute onset of lower back pain. Bekah reports a 1-week history of lower back pain, rated as 9/10 at its worst, primarily occurring at night while in bed. The pain is localized to the lower back, predominantly on the left side, and does not radiate down the legs. The pain is intermittent, with episodes lasting for a day or two before subsiding and then recurring. The most recent episode occurred either last night or the night before. The pain is exacerbated when attempting to get out of bed and is relieved when upright and walking. Bekah sleeps on her back but often shifts to her side during the night. She has been taking 2-3 tablets of 200 mg ibuprofen as needed for pain relief, which she tolerates well. She has also tried using a Salonpas patch without significant relief. She denies any recent trauma, heavy lifting, or prolonged activities that could have triggered the pain. She has not undergone any physical therapy or used muscle relaxants recently. She denies any numbness, tingling, or weakness in the lower extremities, as well as any bowel or bladder dysfunction. PAST MEDICAL HISTORY Diagnosis Date COMMON MIGRAINE W/O MENTN INTRACT 05/10/2005 Diverticulosis of colon (without mention of hemorrhage) HYPERTENSION NOS 05/10/2005 Kidney stone Psoriasis Raynaud's syndrome 05/10/2005 Current Outpatient Medications Medication Sig metoprolol succinate ER (TOPROL XL) 25 mg 24 hr tablet Take 1 tablet by mouth once daily. atorvastatin (LIPITOR) 10 mg tablet Take 1 tablet by mouth once daily. amLODIPine (NORVASC) 10 mg tablet Take 1 tablet by mouth once daily. fluticasone (FLONASE) 50 mcg/actuation nasal spray SPRAY 1 SPRAY INTO EACH NOSTRIL EVERY DAY cholecalciferol, vitamin D3, (VITAMIN D3 ORAL) Take 1,000 Int'l Units by mouth. Nature Made No current facility-administered medications for this visit. Review of Systems Objective BP 138/64 (BP Site: Right Arm, BP Position: Sitting, BP Cuff Size: Regular Adult) Pulse 74 Temp 36.2 C (97.2 F) (Temporal) Resp 12 Ht 162.6 cm (5' 4) Wt 48.8 kg (107 lb 9.4 oz) SpO2 98% BMI 18.47 kg/m Last 5 Encounter Wt Readings: Date: Wt: 08/05/2024 48.8 kg (107 lb 9.4 oz) 02/26/2024 47.6 kg (105 lb) 02/17/2024 46.5 kg (102 lb 8.2 oz) 01/20/2024 46.5 kg (102 lb 9.6 oz) 08/12/2023 49.4 kg (108 lb 12.8 oz) No waist measurement recorded Estimated body mass index is 18.47 kg/m as calculated from the following: Height as of this encounter: 162.6 cm (5' 4). Weight as of this encounter: 48.8 kg (107 lb 9.4 oz). Last 5 Encounter BP Readings: Date: BP: 08/05/2024 138/64 02/26/2024 159/80 02/17/2024 150/70 01/20/2024 138/60 08/12/2023 138/78 08/05/24 1436 08/05/24 1532 BP: 138/64 132/78 BP Site: Right Arm BP Position: Sitting BP Cuff Size: Regular Adult Pulse: 74 Resp: 12 Temp: 36.2 C (97.2 F) TempSrc: Temporal SpO2: 98% Weight: 48.8 kg (107 lb 9.4 oz) Height: 162.6 cm (5' 4) Physical Exam Musculoskeletal: Thoracic back: No swelling, spasms or tenderness. Lumbar back: No spasms, tenderness or bony tenderness. Normal range of motion. Negative right straight leg raise test and negative left straight leg raise test. Assessment and Plan # Acute left-sided low back pain without sciatica (M54.50) # Muscle spasm of back (M62.830) - Pain localized to the lower back, predominantly on the left side, with episodes occurring primarily at night while in bed. No radiation of pain down the legs. - Physical examination reveals no tenderness, swelling, or spasm in the upper or lower spine. - Ordered lumbar spine X-ray to evaluate for disc issues or arthritis. - Advised use of ibuprofen 200 mg, 2-3 pills per dose, up to a maximum of 4 pills at a time and 12 pills per day. Recommended taking a dose before bedtime for the next 2-3 nights to prevent nocturnal pain episodes. - Prescribed tizanidine 2-4 mg, up to three times daily as needed for muscle spasms. Dispensed 30 tablets. - Educated on the use of heat and cold therapy to manage muscle tightness and inflammation. - Advised on ergonomic sleeping positions, including using a pillow under the knees when lying on the back and adjusting head pillow height to maintain normal spinal curvature. - Discussed potential for physical therapy if symptoms persist. # Essential (primary) hypertension (I10) - Blood pressure readings today: 132/78 mmHg. - Continue current antihypertensive regimen. - Monitor blood pressure regularly. Paulina Ardon MD documented in this encounter [facility] 02-26-2024 Telephone encounter Note Confirmation number: [id number] [facility] 02-26-2024 Miscellaneous Notes Confirmation number: [id number] documented in this encounter [facility] 02-26-2024 Instructions Blade Lyman DO - 02/26/2024 3:24 PM EDT Images from the original note were not included. Tips to help with your memory and cognition 1. COGNITIVE STIMULATION Keep your brain active by doing mentally stimulating activities for 30 minutes twice a day. Here are few suggested activities: - crossword puzzles - jigsaw puzzles - Enigmediau games - word finding - problem solving activities - learn a new hobby or take a class 2. SOCIAL INTERACTION Talk to a friend, family member or neighbor at least once a day. Engage in community activities. Consider joining your local senior citizen center. 3. PHYSICAL ACTIVITY Make sure you move your body every day. You may vary your exercises to help keep your brain sharp. Always check with your health care provider before starting a new exercise program. Try to walk at least 30 minutes 5 times per week. You may also consider trying [employer] or Yoga to help with balance and strength training 4. DIET/NUTRITION Follow a Mediterranean diet, including fruits, vegetables, lean meats, fish. Drink atleast six (8 ounce) cups of water daily to avoid dehydration Reduce your intake of fat and cholesterol rich food. Avoid alcohol The MIND diet (Mediterranean-DASH Intervention for Neurodegenerative Delay) has been associated with a reduced incidence of cognitive impairment and Alzheimer disease When Memory is Normal and When it is [id number] Memory and aging Memory is defined as the power or process of reproducing or recalling what has been learned and retained (Irvin-Foster Dictionary). Our ability to remember and to recall our past is what links us to our families, our friends and our community. As we age, subtle changes in memory occur, sometimes unnoticed, but at other times disturbing to ourselves or others. Most normal changes in memory and cognition (defined as the act or process of knowing including both awareness and judgment) are of little importance, as they do not interfere with our daily activities or our quality of life. But when memory loss prevents us from performing daily tasks and our accustomed roles in life it becomes a health concern that needs further evaluation by healthcare professionals. What is normal aging and memory? As we age, slight changes occur in our cognition that affect memory. Simple forgetfulness (the missing keys) and delay or slowing in recalling names, dates, and events can be part of the normal process of aging. Memory has various forms, though, that might be affected differently by aging (see table). Preserved memory functions Declining memory functions Remote memory (ability to remember events from years ago) Procedural memory (performing tasks) Semantic recall (general knowledge) Learning new information Recalling new information (takes longer to learn something new and to recall it) What other changes occur with normal aging and cognition? Language (words, their pronunciation, and the ways we combine them to be used and understood) is modestly affected by aging. Language comprehension (understanding the rules of language) is preserved, as are vocabulary (semantic memory) and syntax (the way in which words are put together). Some modest decline is seen with spontaneous word finding (tip of the tongue) and verbal fluency (takes longer to get the words out). While verbal intelligence (vocabulary) remains unchanged with aging, the speed of information processing gradually slows (such as problem-solving skills). Executive functions (planning, abstracting) remain normal for everyday tasks, but are slowed when faced with novel tasks or divided attention (multi-tasking). A slowing of the speed of cognitive processing and reaction time (hitting the buzzer) occur with aging. When is memory not so normal? Amnesia (memory loss) is not a part of the normal aging process. While it may take longer to learn new information (for example, names of people) or to recall learned information (for example, names of friends in photos), with a little time and extra effort memory occurs. Some people are more forgetful, but this might be because of health conditions (for example, depression, heart disease, thyroid disease and vitamin deficiencies) or medication effects. Memory loss is abnormal in people with mild cognitive impairment or dementia (a loss of intellectual functions severe enough to interfere with everyday social or occupational functioning). Mild cognitive impairment Important memory impairments occur without loss of independent functioning. Forgetfulness and struggling to perform self-care tasks (for example, taking medications, paying bills) but still able to do so without the direct help of another person. Dementia: Memory, language, and cognition are so impaired that self-care tasks can no longer be performed without assistance from another person. [id number] memory Condition Symptoms Mild cognitive impairment Aging Pre-Alzheimer s Silent strokes (infarcts) Head injury Forgetfulness or amnesia for recent events Need to write reminders to do things or else will forget Struggles but is able to perform daily chores and tasks Sometimes needs a reminder or prompt to remember Dementia Alzheimer s Vascular (stroke) Others: Pick s, hydrocephalus, drugs/alcohol, etc. Unable to perform complex daily tasks (for example, paying bills, taking medications, shopping, driving) Loss of insight or awareness of memory loss Poor judgment Behavioral symptoms (for example, irritability worrying, anger, agitation, suspiciousness) Can normal memory be preserved in aging? Research has shown the following: More education helps preserve cognitive reserve and delays the onset of dementia. A healthy diet--one high in antioxidants and olive oil--lowers the risk of dementia. Cognitive training (memory training, reasoning training, [id number]-[id number] training) improves cognition. Playing board games (chess, checkers, cards, learning a second language) and musical instrument delays the onset of dementia. Engaging in social activities slows cognitive decline. Reducing cardiovascular risks (for example, treating hypertension) delays the onset of dementia. References: [place] [employer]. Memory and Aging Accessed 10/11/2015. National [place] on Aging. Understanding Memory Loss Accessed 10/11/2015. National Institutes of Health. NIH: News In Health: Things Forgotten: Simple Lapse or Serious Problem? Accessed 10/11/2015. Copyright 7141-1170 [facility]. All rights reserved This information is provided by the [facility] and is not intended to replace the medical advice of your doctor or health care provider. Please consult your health care provider for advice about a specific medical condition. For additional health information, please contact the Center for Consumer Health Information at the [facility] or toll-free extension [phone]. If you prefer, you may visit [email or web address] or [email or web address]. This document was last reviewed on: 2015 index#[id number] Hypertension (High Blood Pressure) What is high blood pressure? Blood pressure is the measurement of the pressure or force of blood pushing against blood vessel belle. In hypertension (high blood pressure), the pressure against the blood vessel belle is consistently too high. High blood pressure is often called the silent killer because you may not be aware that anything is wrong, but the damage is occurring within your body. The only way to know if you have high blood pressure is to have your blood pressure taken. It is best to know your numbers and make the changes that can help prevent or limit damage. Understanding BP readings Your blood pressure reading has two numbers. The first is the systolic, which measures the pressure on the blood vessel belle when your heart beats. The second number is the diastolic, which measures the pressure on your blood vessels between beats when the heart is at rest. What is a normal blood pressure reading? Blood Pressure Category Systolic mm Hg (upper number) Diastolic mm Hg (lower number) Normal less than 120 and less than 80 Prehypertension 120 - 139 or 80 - 89 High Blood Pressure (Hypertension) Stage 1 140 - 159 or 90 - 99 High Blood Pressure (Hypertension) Stage 2 160 or higher or 100 or higher Hypertensive Crisis (Emergency care needed) Higher than 180 or Higher than 110 mmHg = millimeters of mercury - the unit of measure for blood pressure What can happen if high blood pressure is not treated? Stroke Enlarged heart Heart failure Peripheral vascular disease Heart attack Kidney disease/failure Who is more likely to have high blood pressure? People with family members who have high blood pressure, cardiovascular disease, or diabetes -Americans Women who are Women who take control pills People over 35 People who are overweight People who are not active People who drink a lot of alcohol People who eat too many fatty foods or foods with too much salt People who smoke What should I do if I have high blood pressure? If you have been diagnosed with high blood pressure, you should discuss your target blood pressure with your healthcare provider. Check your own blood pressure at home as recommended. Eat healthy foods that are low in salt and fat. Achieve and maintain your ideal body weight. Limit alcohol to no more than two drinks each day. One drink is defined as 1 oz. of alcohol, 5 oz. of wine, or 12 oz. of beer. Be more physically active. Quit smoking. Work on controlling anger and managing stress. Take high blood pressure medicine if your healthcare provider prescribes it, and follow the healthcare provider's directions carefully. Have regular blood pressure checks by your healthcare provider. What should I include in my diet to control high blood pressure? Eat foods that are lower in fat, salt, and calories, such as skim or 1% milk, fresh vegetables and fruits, and whole grain, rice, and pasta. (Ask your doctor or healthcare provider for a more detailed list of salt-free foods to eat.) Use flavorings, spices, and herbs to make foods tasty without using salt. Avoid or cut down on butter and margarine, regular salad dressings, fatty meats, whole milk dairy products, fried foods, processed foods or fast foods, and salted snacks. Ask your healthcare provider if you should increase potassium in your diet or if you need to take a potassium supplement. Discuss the Dietary Approaches to Stop Hypertension (DASH) diet with your healthcare provider. How can I be more active? Check first with your healthcare provider before increasing your physical activity. Ask your provider what type and amount of exercise is right for you. Choose aerobic activities such as walking, biking, or swimming. Start slowly and increase activity gradually. Aim for a regular routine of activity five times a week for 30 to 45 minutes each session. Activity can be done in 10-minute sessions to add up to the 30-45 minutes total. What should I know about blood pressure medicine? There are many different medicines to treat high blood pressure, and you might need to take medicine from now on. If your healthcare provider tells you to take high blood pressure medicine, be sure to follow the exact directions. Also, ask what side effects can happen with your medicine, and talk to your healthcare provider about any problems or side effects you might have with your medicine. Lastly, do not stop taking the medicine on your own. References National Heart, Lung, and Blood [place]. Description of High Blood Pressure Accessed 10/29/2016. Food and Drug Administration. High Blood Pressure (Hypertension) Accessed 10/29/2016. Centers for Disease Control and Prevention. High blood pressure Accessed 10/29/2016. JNC 8 Guidelines for the Management of Hypertension in Adults. Am Fam Physician. 2013Feb 24;90(7):503-504. aafp.org Accessed 10/29/2016. Copyright 9272-2574 [facility]. All rights reserved This information is provided by the [facility] and is not intended to replace the medical advice of your doctor or health care provider. Please consult your health care provider for advice about a specific medical condition. For additional health information, please contact the Center for Consumer Health Information at the [facility] or toll-free extension [phone]. If you prefer, you may visit [email or web address] or [email or web address]. This document was last reviewed on: 2016 index#431 documented in this encounter [facility] 02-26-2024 History of Present illness Narrative Images from the original note were not included. Blade Lyman DO [facility] [address] [place] [address] [address] [place] [address] Visit Date: February 27, 2024 Name: Ms.Kary Nikki Sun Date of : 1950 MRN/E #: [id number] Chief Complaint: Patient presents with: Follow Up: Repeat testing Subjective Ms. Bekah Sun is a 73 year old lady PMHX of migraine, CHF, HLD, HTN, mild cognitive impairment, here for follow up visit. She is here with her . HPI Initial geriatric assessment on 07/26/2023, overall cognitive test performance was in the 1st percentile when compared to individuals of a similar age and gender, suggesting likely presence of cognitive impairment. GDS and SUGEY suggesting minimal mood disturbance. Given testing results, history, most suspicious for mild cognitive impairment, patient with preserved ADLs, currently dose not appear to have clinical dementia, however, cannot rule out poor performance due to medication side effects from Amitriptyline given its high anti-cholinergic burden Today, patient has no acute concerns, stated no memory nor functional decline, still very active with social activities. [place] Patient has been off amitriptyline, denies any issues since off the medication Functional Evaluation: B-ADLs: (I=independent,A=assistance,D=dependen t) ?Bathing: I, Dressing: I, Toileting: I, Transferring:I, Continence: I, Feeding: I, (Leal Index): 6 I-ADLs: Ability to use phone: I, Shopping: I, Cooking: I, Housekeeping: I, Laundry: I, Transportation:I, Medications: I, Handle Finances: I, stated mostly doing it. (Girma scale): 8 07/26/2023 Functional Evaluation: B-ADLs: (I=independent,A=assistance,D=dependen t) ?Bathing: I, Dressing: I, Toileting: I, Transferring:I, Continence: I, Feeding: I, (Leal Index): 6 I-ADLs: Ability to use phone: I, Shopping: I, Cooking: I, Housekeeping: I, Laundry: I, Transportation:I, can arrange, Medications: I, Handle Finances: I. Stated is doing most of the finances, but patient stated she can still do it (Girma scale): 8 Mood Evaluation and Screening GDS: Geriatric Depression Scale GDS Total Score GDS Score Assessment 02/26/2024 0 07/26/2023 2 0-5 points is normal Normal Mild Moderate Severe 0-4 5-8 9-11 12+ SUGEY-7: 07/26/2023 02/26/2024 SUGEY - 7 SCORES Score 3 2 (0-4) minimal anxiety, (5-9) mild anxiety, (10-14) moderate anxiety, (15-21) severe anxiety Cognitive Test evaluation: Cognitive Testing Evaluation Introduction: Bekah Sun 1950 Female This 74 year old Female was administered a battery of neurocognitive testing on 02/26/2024. Tests Administered: Trails A, Trails B, Digit Symbol Substitution, Stroop, Immediate Recognition, Delayed Recognition The combined test administration time was 10 minutes 07/26/2023 The combined test administration time was 10 minutes Test Results: Cognitive testing was provided via a battery of cognitive assessments. The pattern of test scores indicate that results are valid. A Clinical Report with further description of scores and results is also available. Overall: Patient tested in the 12th* percentile (standard score of 82*). 07/26/2023 Overall: Patient tested in the 1st* percentile (standard score of 65*). Trails A: Patient tested in the 39th percentile (scaled standard score of 96). 07/26/2023 Trails A: Patient tested in the 13th percentile (scaled standard score of 83). Trails B: Patient tested in the --* percentile (scaled standard score of null, 11 out of 24 tasks are completed.) 07/26/2023 Trails B: Patient tested in the --* percentile (scaled standard score of null, 9 out of 24 tasks are completed). Digit Symbol Substitution: Patient tested in the 85th percentile (scaled standard score of 116). 07/26/2023 Digit Symbol Substitution: Patient tested in the 15th percentile (scaled standard score of 84). Stroop: Patient tested in the 75th percentile (scaled standard score of 110). 07/26/2023 Stroop: Patient tested in the 37th percentile (scaled standard score of 95). Immediate Recognition: Patient tested in the 1st percentile (scaled standard score of 66). 07/26/2023 Immediate Recognition: Patient tested in the 1st percentile (scaled standard score of 22). Delayed Recognition: Patient tested in the 1st percentile (scaled standard score of 37). 07/26/2023 Delayed Recognition: Patient tested in the 1st percentile (scaled standard score of 49). * These assessments were not scored because they were potentially invalid, or the patient failed to complete in the allotted time. Interpretation of Test Scores: Examination of individual component tests shows: Attention - Trails A: unlikely impairment Mental Flexibility - Trails B: possible impairment Executive Function - Digit Symbol Substitution: unlikely impairment Executive Function - Stroop: unlikely impairment Memory - Immediate Recognition: likely impairment Memory - Delayed Recognition: likely impairment The patient s overall cognitive test performance was in the 12th percentile when compared to individuals of a similar age and gender, suggesting likely presence of cognitive impairment. 07/26/2023 The patient s overall cognitive test performance was in the 1st percentile when compared to individuals of a similar age and gender, suggesting likely presence of cognitive impairment. Review of Systems Constitutional: Negative for activity change, appetite change, chills, fatigue, fever and unexpected weight change. HENT: Negative for facial swelling, hearing loss, sinus pressure, sinus pain, sore throat, tinnitus, trouble swallowing and voice change. Eyes: Negative for pain, discharge, itching and visual disturbance. Respiratory: Negative for cough, chest tightness, shortness of breath, wheezing and stridor. Cardiovascular: Negative for chest pain, palpitations and leg swelling. Gastrointestinal: Negative for abdominal pain, anal bleeding, blood in stool, constipation, diarrhea, nausea and vomiting. Endocrine: Negative for polyuria. Genitourinary: Negative for difficulty urinating, dysuria, flank pain, frequency, hematuria and urgency. Musculoskeletal: Negative for back pain, gait problem and joint swelling. Skin: Negative for color change and rash. Neurological: Negative for dizziness, tremors, syncope, speech difficulty, weakness, light-headedness, numbness and headaches. Psychiatric/Behavioral: Negative for agitation, behavioral problems, confusion, decreased concentration, hallucinations, self-injury, sleep disturbance and suicidal ideas. The patient is not nervous/anxious. ALLERGIES Allergen Reactions Penicillins Hives Bactrim Ds [Sulfame* Rash Losartan Intolerance headache, did not feel well PAST MEDICAL HISTORY Diagnosis Date COMMON MIGRAINE W/O MENTN INTRACT 05/10/2005 Diverticulosis of colon (without mention of hemorrhage) HYPERTENSION NOS 05/10/2005 Kidney stone Psoriasis Raynaud's syndrome 05/10/2005 PAST SURGICAL HISTORY Procedure Laterality Date COLONOSCOPY FLX DX W/COLLJ SPEC WHEN PFRMD 08/15/2009 Colonoscopy COLONOSCOPY FLX DX W/COLLJ SPEC WHEN PFRMD 10/28/2019 Colonoscopy ESOPHAGOGASTRODUODENOSCOPY TRANSORAL DIAGNOSTIC 01/08/2012 inpt f f [facility] EGD PAST SURGICAL HISTORY OF 06/10/2009 Single Port resection of ovarian remanent-LSO TOTAL ABDOMINAL HYSTERECT W/WO RMVL TUBE OVARY HUANG-BSO Social History Tobacco Use Smoking status: Never Smokeless tobacco: Never Substance Use Topics Alcohol use: Yes Comment: rare Drug use: No FAMILY HISTORY Problem Relation Age of Onset Hypertension Father Stroke Father Arthritis Mother Cancer Paternal Aunt unknown site Current Outpatient Medications Medication Sig metoprolol succinate ER (TOPROL XL) 25 mg 24 hr tablet Take 1 tablet by mouth once daily. atorvastatin (LIPITOR) 10 mg tablet Take 1 tablet by mouth once daily. amLODIPine (NORVASC) 10 mg tablet Take 1 tablet by mouth once daily. fluticasone (FLONASE) 50 mcg/actuation nasal spray SPRAY 1 SPRAY INTO EACH NOSTRIL EVERY DAY cholecalciferol, vitamin D3, (VITAMIN D3 ORAL) Take 1,000 Int'l Units by mouth. Nature Made No current facility-administered medications for this visit. I have confirmed and edited as necessary, the chief complaint, medications, past medical, family and social histories. Objective BP 159/80 Pulse 80 Ht 5' 4 (1.63m) Wt 105 lb (47.6kg) SpO2 98% BMI 18.01 kg/(m^2). Physical Exam Vitals and nursing note reviewed. Constitutional: General: She is not in acute distress. Appearance: Normal appearance. She is not ill-appearing, toxic-appearing or diaphoretic. HENT: Head: Normocephalic and atraumatic. Eyes: General: No scleral icterus. Cardiovascular: Rate and Rhythm: Normal rate. Pulmonary: Effort: Pulmonary effort is normal. Musculoskeletal: General: No swelling or deformity. Cervical back: Neck supple. Skin: General: Skin is warm and dry. Neurological: General: No focal deficit present. Mental Status: She is alert. Labs and Imaging: reviewed recent MRI brain 10/01/2023 * * *Final Report* * * DATE OF EXAM: Oct 01 2023 11:33AM AKM [id number] - MRI BRAIN WO IVCON / PROCEDURE REASON: multiple diagnoses * * * * Physician Interpretation * * * * EXAMINATION: MRI BRAIN WO IVCON, MRI 3D POST PROCESSING HISTORY: Cognitive impairment and memory loss. Evaluate for structural cause. TECHNIQUE: Axial fast FLAIR, T2, diffusion and susceptibility weighted imaging without contrast, using the ADNI dementia protocol and 3-D post-processing using the NeuroQuant software at an independent workstation with concurrent physician supervision and images were created, reviewed and archived. MQ: [id number] COMPARISON: None RESULT: QUALITATIVE: Acute Intracranial Process: None. Age related white matter changes ([facility]) rating: White matter lesions: 1 Basal ganglia lesions: 0 Prior intracranial hemorrhage: Parenchymal microhemorrhages: 0 Parenchymal macrohemorrhages: None Subarachnoid: None Qualitative brain and hippocampal volume: There is mild cortical volume loss in view of the mild enlargement of the cortical sulci. There is mild central white matter volume loss in view of the mild enlargement of the ventricular system. There is moderate hippocampal volume loss relative to the parenchymal volume loss elsewhere based on visual inspection Ventricles: Commensurate with volume loss. Brain Parenchymal Signal and Morphology: The brain parenchyma is otherwise within normal limits of signal and morphology. There is no evidence of an intracranial mass or extraaxial fluid collection. QUANTITATIVE: Exam Quality: Good for volumetric analysis. Segmentation: Negligible mismapping by visual inspection. Quantitative Data: Total Hippocampal Volume: Percentile for Similar Age: 1th Asymmetry Index: -17.7 Superior Lateral Vent Volume: Percentile for Similar Age: 95th Asymmetry Index: 7.75 Inferior Lateral Vent Volume: Percentile for similar age: 99th Asymmetry Index: -0.25 Total Brain Volume Percentile for Similar Age: 4th Concordance between qualitative and quantitative hippocampal volume assessment: Concordant. Change in brain volumes: No previous volumetric study for comparison Mean hippocampal volume loss among normal elderly: 0.7% per year, (-0.3 to 1.7; Gm 2008; also Gurmeet 2010). Plan ASSESSMENT/PLAN: 1. Mild cognitive impairment with memory loss - ICD9: 331.83, ICD10: G31.84 (primary diagnosis) 2. Neurodegenerative cognitive impairment (HCC) - ICD9: 331.9, ICD10: G31.9 - repeat cognitive testing today overall cognitive test performance was in the 12th percentile when compared to individuals of a similar age and gender, suggesting likely presence of cognitive impairment, improved from previous testing, previously at 1st percentile, standardized score 65/200->82/200, patient with improvement in essentially all domains tested except delayed recognition - Recommended patient to avoid anti-cholinergic medications, patient's improved cognition likely related to the decreased anti-cholinergic burden since patient has been office amitriptyline - MRI showed volume loss in hippocampus Hippocampal volumes at the 1st percentile when compared to age matched normal controls by quantitative analysis, which likely contributing to memory loss - Patient with preserved ADLs, currently dose not have clinical dementia, however, patient dose carry risk developing dementia, will continue monitor - Discussed with patient and family, currently no preventive medications for dementia, Suggested [place] lifestyle principles: I) Routine exercise: 150 minuets per week II) Mediterranean/MIND diet III) Increased socialization IV) Sense of purpose/Ikigai V) Cognition stimulation: Reading, crossword puzzles, word jumbles, [place], Lumosity - CONSULT TO SPEECH THERAPY for cognitive therapy 3. Primary hypertension - ICD9: 401.9, ICD10: I10 - BP in office elevated, per patient and family Home blood pressure readings controlled - Continue current medications - Recommend home blood pressure monitoring, to bring results to next visit - Encouraged sodium restriction, DASH or Mediterranean diet - Recommend regular aerobic exercise - recommended to follow up with PCP for continued management Blade Lyman DO Return in about 1 year (around 02/25/2025) for Repeat cognitive testing. Total time in direct patient contact = 33 min. Greater than 50% of the time was spent in counseling and/or coordination of care. Blade Lyman DO Discussed the above with the patient using shared decision making. The patient is in agreement with the diagnostic and treatment plans. This note was partially generated using Muzy voice recognition system, and there may be some incorrect words, spellings, and punctuation that were not noted in checking the note before saving. documented in this encounter [facility] 02-26-2024 Note HNO ID: [id number] Author: BLADE LYMAN DO Service: ? Author Type: Physician Type: Progress Notes Filed: 02/26/2024 15:56 Note Text: Blade Lyman DO [facility] [address] [place] [address] Visit Date: February 27, 2024 Name: Ms.Kary Nikki Sun Date of : 1950 MRN/E #: [id number] Chief Complaint: Patient presents with: Follow Up: Repeat testing Subjective Ms. Bekah Sun is a 73 year old lady PMHX of migraine, CHF, HLD, HTN, mild cognitive impairment, here for follow up visit. She is here with her . HPI Initial geriatric assessment on 07/26/2023, overall cognitive test performance was in the 1st percentile when compared to individuals of a similar age and gender, suggesting likely presence of cognitive impairment. GDS and SUGEY suggesting minimal mood disturbance. Given testing results, history, most suspicious for mild cognitive impairment, patient with preserved ADLs, currently dose not appear to have clinical dementia, however, cannot rule out poor performance due to medication side effects from Amitriptyline given its high anti-cholinergic burden Today, patient has no acute concerns, stated no memory nor functional decline, still very active with social activities[place] Patient has been off amitriptyline, denies any issues since off the medication Functional Evaluation: B-ADLs: (I=independent,A=assistance,D=dependen t) ?Bathing: I, Dressing: I, Toileting: I, Transferring:I, Continence: I, Feeding: I, (Leal Index): 6 I-ADLs: Ability to use phone: I, Shopping: I, Cooking: I, Housekeeping: I, Laundry: I, Transportation:I, Medications: I, Handle Finances: I, stated mostly doing it. (Notus scale): 8 07/26/2023 Functional Evaluation: B-ADLs: (I=independent,A=assistance,D=dependen t) ?Bathing: I, Dressing: I, Toileting: I, Transferring:I, Continence: I, Feeding: I, (Leal Index): 6 I-ADLs: Ability to use phone: I, Shopping: I, Cooking: I, Housekeeping: I, Laundry: I, Transportation:I, can arrange, Medications: I, Handle Finances: I. Stated is doing most of the finances, but patient stated she can still do it (Girma scale): 8 Mood Evaluation and Screening GDS: Geriatric Depression Scale GDS Total Score GDS Score Assessment 02/26/2024 0 07/26/2023 2 0-5 points is normal Normal Mild Moderate Severe 0-4 5-8 9-11 12+ SUGEY-7: 07/26/2023 02/26/2024 SUGEY - 7 SCORES Score 3 2 (0-4) minimal anxiety, (5-9) mild anxiety, (10-14) moderate anxiety, (15-21) severe anxiety Cognitive Test evaluation: Cognitive Testing Evaluation Introduction: Bekah Sun 1950 Female This 74 year old Female was administered a battery of neurocognitive testing on 02/26/2024. Tests Administered: Trails A, Trails B, Digit Symbol Substitution, Stroop, Immediate Recognition, Delayed Recognition The combined test administration time was 10 minutes 07/26/2023 The combined test administration time was 10 minutes Test Results: Cognitive testing was provided via a battery of cognitive assessments. The pattern of test scores indicate that results are valid. A Clinical Report with further description of scores and results is also available. Overall: Patient tested in the 12th* percentile (standard score of 82*). 07/26/2023 Overall: Patient tested in the 1st* percentile (standard score of 65*). Trails A: Patient tested in the 39th percentile (scaled standard score of 96). 07/26/2023 Trails A: Patient tested in the 13th percentile (scaled standard score of 83). Trails B: Patient tested in the --* percentile (scaled standard score of null, 11 out of 24 tasks are completed.) 07/26/2023 Trails B: Patient tested in the --* percentile (scaled standard score of null, 9 out of 24 tasks are completed). Digit Symbol Substitution: Patient tested in the 85th percentile (scaled standard score of 116). 07/26/2023 Digit Symbol Substitution: Patient tested in the 15th percentile (scaled standard score of 84). Stroop: Patient tested in the 75th percentile (scaled standard score of 110). 07/26/2023 Stroop: Patient tested in the 37th percentile (scaled standard score of 95). Immediate Recognition: Patient tested in the 1st percentile (scaled standard score of 66). 07/26/2023 Immediate Recognition: Patient tested in the 1st percentile (scaled standard score of 22). Delayed Recognition: Patient tested in the 1st percentile (scaled standard score of 37). 07/26/2023 Delayed Recognition: Patient tested in the 1st percentile (scaled standard score of 49). * These assessments were not scored because they were potentially invalid, or the patient failed to complete in the allotted time. Interpretation of Test Scores: Examination of individual component tests shows: Attention - Trails A: unlikely impairment Mental Flexibility - Trails B: (more content not included)... [facility] 02-17-2024 Instructions Sandra Sanchez APRN.CNS - 02/17/2024 11:18 AM EDT For leg swelling: Wear mild compression socks or stockings when sitting or standing for prolonged periods of time. These are available over the counter at most pharmacies, [employer], online. Elevate your feet when seated Avoid excess of salty foods documented in this encounter [facility] 02-17-2024 Note HNO ID: [id number] Author: SANDRA SANCHEZ APRN.CNS Service: ? Author Type: Nurse Specialist Type: Progress Notes Filed: 02/17/2024 11:30 Note Text: SUBJECTIVE: Depression Screening Never done Anxiety Screening Never done BP Controlled (<130/80) due on 03/16/2022 NORMA Sun is a 74 year old female. PMH is significant for ACTIVE PROBLEM LIST Primary Hypertension Migraine Without Aura Raynaud's Syndrome Hyperlipidemia Constipation Chronic Diastolic Chf (Congestive Heart Failure) (Hcc) Presents for routine follow-up visit today. She was seen by cardiology January 20, 2024 for chronic diastolic heart failure hypertension and hyperlipidemia. By Dr. Bear. Noted good control. She was seen in geriatrics program. Tapered down off of amitriptyline. Recommended lab work to include B12 and thyroid function tests. Endorsed routine exercise Mediterranean diet increase socialization sense of purpose and cognitive stimulation. She underwent MRI brain October 01, 2023 showed no acute intracranial process or intracranial mass. Mild generalized volume loss. Hippocampal volume at 1st percentile when compared to age-matched normal controls by quantitative analysis. Mild white matter disease which is nonspecific but likely reflective of chronic microvascular ischemia. No evidence of parenchymal microhemorrhages by MRI Presents with her . She has noted decreased memory, increased since seen last year. 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 Now notes short-term memory difficulties. Able to complete ADLs and IADLs. Discussed at last visit, deferred further evaluation / appts. at this time. HTN: Thought may have missed a dose of medication at her last visit, returns today for recheck of blood pressure. Without report of headache, chest pain, palpitations, dyspnea, peripheral edema, orthopnea, fatigue, PND. Last 14 Encounter BP Readings: Date: BP: 02/17/2024 150/70 01/20/2024 138/60 08/12/2023 138/78 07/26/2023 144/78 06/04/2023 140/80 05/13/2023 169/76 03/01/2023 130/69[bp average[ 2023 155/70[average bp[ 09/07/2022 124/68 07/31/2022 124/72 12/14/2021 138/75[average[ 12/11/2021 140/78 08/21/2021 190/72[average[ 08/07/2021 163/68[average[ Hyperlipidemia. Ms. Sun reports doing well on current therapy. Her most recent lipid panels are: Cholesterol, Total (mg/dL) Date Value 08/08/2022 233 08/25/2020 226 07/21/2019 197 Total Cholesterol, Nonfasting (mg/dL) Date Value 03/16/2021 233 HDL Cholesterol (mg/dL) Date Value 08/08/2022 90 08/25/2020 111 07/21/2019 99 HDL Cholesterol, Nonfasting (mg/dL) Date Value 03/16/2021 118 LDL Cholesterol (mg/dL) Date Value 08/08/2022 127 08/25/2020 101 07/21/2019 86 LDL Cholesterol, Nonfasting (mg/dL) Date Value 03/16/2021 101 Triglyceride (mg/dL) Date Value 08/08/2022 82 08/25/2020 69 07/21/2019 61 Triglycerides, Nonfasting (mg/dL) Date Value 03/16/2021 70 Review of Systems Constitutional: Negative. Respiratory: Negative. Cardiovascular: Negative. Endocrine: Negative. Objective BP 150/70 Pulse 84 Resp 16 Wt 46.5 kg (102 lb 8.2 oz) BMI 17.60 kg/m? Physical Exam Vitals and nursing note reviewed. Constitutional: Appearance: Normal appearance. HENT: Head: Normocephalic and atraumatic. Eyes: Conjunctiva/sclera: Conjunctivae normal. Neck: Thyroid: No thyroid mass, thyromegaly or thyroid tenderness. Vascular: Normal carotid pulses. No carotid bruit or JVD. Cardiovascular: Rate and Rhythm: Normal rate and regular rhythm. Pulses: Normal pulses. Heart sounds: Normal heart sounds. Pulmonary: Effort: Pulmonary effort is normal. Breath sounds: Normal breath sounds. Abdominal: General: Bowel sounds are normal. Palpations: Abdomen is soft. Musculoskeletal: Right lower leg: Edema (scant pedal) present. Left lower leg: Edema (scant pedal) present. Skin: General: Skin is warm and dry. Neurological: General: No focal deficit present. Mental Status: She is alert and oriented to person, place, and time. ALLERGIES Allergen Reactions Penicillins Hives Bactrim Ds [Sulfame* Rash Losartan Intolerance headache, did not feel well MEDICATIONS fluticasone (FLONASE) 50 mcg/actuation nasal spray SPRAY 1 SPRAY INTO EACH NOSTRIL EVERY DAY atorvastatin (LIPITOR) 10 mg tablet Take 1 tablet by mouth once daily. amLODIPine (NORVASC) 10 mg tablet Take 1 tablet by mouth once daily. metoprolol succinate ER (TOPROL XL) 25 mg 24 hr tablet Take 1 tablet by mouth once daily. cholecalciferol, vitamin D3, (VITAMIN D3 ORAL) Take 1,000 Int'l Units by mouth. Nature Made amitriptyline (ELAVIL) 10 mg tablet Take 0.5 tablets by mouth daily at bedtime for 14 days, THEN 0.5 tablets every other day for 14 days. PAST MEDICAL HISTORY Diagnosis Date COMMON MIGRAINE W/O MENTN INTRACT 05/10/2005 Diverticulosis of colon (without mention of hem (more content not included)... [facility] 02-17-2024 History of Present illness Narrative SUBJECTIVE: Depression Screening Never done Anxiety Screening Never done BP Controlled (<130/80) due on 03/16/2022 NORMA Sun is a 74 year old female. PMH is significant for ACTIVE PROBLEM LIST Primary Hypertension Migraine Without Aura Raynaud's Syndrome Hyperlipidemia Constipation Chronic Diastolic Chf (Congestive Heart Failure) (Hcc) Presents for routine follow-up visit today. She was seen by cardiology January 20, 2024 for chronic diastolic heart failure hypertension and hyperlipidemia. By Dr. Bear. Noted good control. She was seen in geriatrics program. Tapered down off of amitriptyline. Recommended lab work to include B12 and thyroid function tests. Endorsed routine exercise Mediterranean diet increase socialization sense of purpose and cognitive stimulation. She underwent MRI brain October 01, 2023 showed no acute intracranial process or intracranial mass. Mild generalized volume loss. Hippocampal volume at 1st percentile when compared to age-matched normal controls by quantitative analysis. Mild white matter disease which is nonspecific but likely reflective of chronic microvascular ischemia. No evidence of parenchymal microhemorrhages by MRI Presents with her . She has noted decreased memory, increased since seen last year. 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 Now notes short-term memory difficulties. Able to complete ADLs and IADLs. Discussed at last visit, deferred further evaluation / appts. at this time. HTN: Thought may have missed a dose of medication at her last visit, returns today for recheck of blood pressure. Without report of headache, chest pain, palpitations, dyspnea, peripheral edema, orthopnea, fatigue, PND. Last 14 Encounter BP Readings: Date: BP: 02/17/2024 150/70 01/20/2024 138/60 08/12/2023 138/78 07/26/2023 144/78 06/04/2023 140/80 05/13/2023 169/76 03/01/2023 130/69[bp average[ 2023 155/70[average bp[ 09/07/2022 124/68 07/31/2022 124/72 12/14/2021 138/75[average[ 12/11/2021 140/78 08/21/2021 190/72[average[ 08/07/2021 163/68[average[ Hyperlipidemia. Ms. Sun reports doing well on current therapy. Her most recent lipid panels are: Cholesterol, Total (mg/dL) Date Value 08/08/2022 233 08/25/2020 226 07/21/2019 197 Total Cholesterol, Nonfasting (mg/dL) Date Value 03/16/2021 233 HDL Cholesterol (mg/dL) Date Value 08/08/2022 90 08/25/2020 111 07/21/2019 99 HDL Cholesterol, Nonfasting (mg/dL) Date Value 03/16/2021 118 LDL Cholesterol (mg/dL) Date Value 08/08/2022 127 08/25/2020 101 07/21/2019 86 LDL Cholesterol, Nonfasting (mg/dL) Date Value 03/16/2021 101 Triglyceride (mg/dL) Date Value 08/08/2022 82 08/25/2020 69 07/21/2019 61 Triglycerides, Nonfasting (mg/dL) Date Value 03/16/2021 70 Review of Systems Constitutional: Negative. Respiratory: Negative. Cardiovascular: Negative. Endocrine: Negative. Objective BP 150/70 Pulse 84 Resp 16 Wt 46.5 kg (102 lb 8.2 oz) BMI 17.60 kg/m Physical Exam Vitals and nursing note reviewed. Constitutional: Appearance: Normal appearance. HENT: Head: Normocephalic and atraumatic. Eyes: Conjunctiva/sclera: Conjunctivae normal. Neck: Thyroid: No thyroid mass, thyromegaly or thyroid tenderness. Vascular: Normal carotid pulses. No carotid bruit or JVD. Cardiovascular: Rate and Rhythm: Normal rate and regular rhythm. Pulses: Normal pulses. Heart sounds: Normal heart sounds. Pulmonary: Effort: Pulmonary effort is normal. Breath sounds: Normal breath sounds. Abdominal: General: Bowel sounds are normal. Palpations: Abdomen is soft. Musculoskeletal: Right lower leg: Edema (scant pedal) present. Left lower leg: Edema (scant pedal) present. Skin: General: Skin is warm and dry. Neurological: General: No focal deficit present. Mental Status: She is alert and oriented to person, place, and time. ALLERGIES Allergen Reactions Penicillins Hives Bactrim Ds [Sulfame* Rash Losartan Intolerance headache, did not feel well MEDICATIONS fluticasone (FLONASE) 50 mcg/actuation nasal spray SPRAY 1 SPRAY INTO EACH NOSTRIL EVERY DAY atorvastatin (LIPITOR) 10 mg tablet Take 1 tablet by mouth once daily. amLODIPine (NORVASC) 10 mg tablet Take 1 tablet by mouth once daily. metoprolol succinate ER (TOPROL XL) 25 mg 24 hr tablet Take 1 tablet by mouth once daily. cholecalciferol, vitamin D3, (VITAMIN D3 ORAL) Take 1,000 Int'l Units by mouth. Nature Made amitriptyline (ELAVIL) 10 mg tablet Take 0.5 tablets by mouth daily at bedtime for 14 days, THEN 0.5 tablets every other day for 14 days. PAST MEDICAL HISTORY Diagnosis Date COMMON MIGRAINE W/O MENTN INTRACT 05/10/2005 Diverticulosis of colon (without mention of hemorrhage) HYPERTENSION NOS 05/10/2005 Kidney stone Psoriasis Raynaud's syndrome 05/10/2005 Social History Tobacco Use Smoking status: Never Smokeless tobacco: Never Substance Use Topics Alcohol use: Yes Comment: rare Drug use: No Latest Ref Rng 05/17/2023 07/29/2023 WBC 3.70 - 11.00 k/uL 6.44 RBC 3.90 - 5.20 m/uL 4.39 Hemoglobin 11.5 - 15.5 g/dL 13.5 Hematocrit 36.0 - 46.0 % 40.3 MCV 80.0 - 100.0 fL 91.8 MCH 26.0 - 34.0 pg 30.8 MCHC 30.5 - 36.0 g/dL 33.5 RDW-CV 11.5 - 15.0 % 12.2 Platelet Count 150 - 400 k/uL 304 MPV 9.0 - 12.7 fL 10.8 Neut% % 75.3 Abs Neut (ANC) 1.45 - 7.50 k/uL 4.85 Lymph% % 17.4 Abs Lymph 1.00 - 4.00 k/uL 1.12 [place]% % 5.7 Abs [place] <0.87 k/uL 0.37 Eosin% % 0.5 Abs Eosin <0.46 k/uL 0.03 Baso% % 0.9 Abs Baso <0.11 k/uL 0.06 Immature Gran % % 0.2 IMMATURE GRANS (ABS) <0.10 k/uL <0.03 NRBC /100 WBC 0.0 Absolute nRBC <0.01 k/uL <0.01 DTYPE Auto Albumin 3.9 - 4.9 g/dL 4.5 Bilirubin, Total 0.2 - 1.3 mg/dL 0.4 Bilirubin, Direct <0.2 mg/dL <0.2 Alkaline Phosphatase 34 - 123 U/L 68 AST 13 - 35 U/L 28 ALT 7 - 38 U/L 14 Protein, Total 6.3 - 8.0 g/dL 7.2 TB Nil <=8.00 IU/mL 0.01 TB1 Ag minus Nil <0.35 IU/mL 0.00 TB2 Ag minus Nil <0.35 IU/mL 0.00 TB Result Negative Mitogen minus Nil >=0.50 IU/mL 1.85 TB Interpretation Infection with M. tuberculosis complex is unlikely. If latent tuberculosis infection is highly suspected, a negative result does not rule out the infection. Specimens from immunocompromised patients and those <5 years of age may show false negative results. In case of a contact investigation, please repeat 8-12 weeks after a known exposure. HIV 12 Combo (Ag/Ab) Nonreactive Nonreactive HIV 1/2 Ab -- HIV Interpretation -- Hep B Surface Ab, Qual Negative Hep B Surf Ab Quant mIU/mL <8.00 Hep B Core Ab, Total Negative Negative Hep B Surface Ag Negative Negative Hep C Antibody IA Negative Negative Vitamin B12 232 - 1,245 pg/mL 292 Folate >4.7 ng/mL >20.0 ASSESSMENT/PLAN: 1. Essential hypertension with goal blood pressure less than 140/90 - ICD9: 401.9, ICD10: I10 (primary diagnosis) suboptimal control in office today, has been controlled. Continue with current treatment unchanged for now. Check blood pressures for the next week or 2 and let us know if trending greater than 140/90. Can increase treatment if needed. - Recommend home blood pressure monitoring - Encouraged sodium restriction, DASH or Mediterranean diet - Recommend regular aerobic exercise - AMLODIPINE 10 MG TABLET 2. HTN, goal below 140/90 - ICD9: 401.9, ICD10: I10 has been seen today in geriatrics. - METOPROLOL SUCCINATE ER 25 MG TABLET,EXTENDED RELEASE 24 HR 3. Memory difficulties - ICD9: 780.93, ICD10: R41.3 Amitriptyline discontinued. Has been following all the recommendations. Not certain noticing any changes currently. 4. Hyperlipidemia, unspecified hyperlipidemia type - ICD9: 272.4, ICD10: E78.5 Recommend a plant based diet such as Mediterranean diet with plenty of vegetables, fruits,whole grains, fish, chicken, turkey or plant proteins and routine exercise such as walking Continue with statin unchanged. - ATORVASTATIN 10 MG TABLET 5. Chronic diastolic CHF (congestive heart failure) (HCC) - ICD9: 428.32, 428.0, ICD10: I50.32 Currently stable, following with cardiology 6. Screening for depression - ICD9: V79.0, ICD10: Z13.31 - DEPRESSION SCREENING 7. Encounter for screening examination for other mental health and behavioral disorders - ICD9: V79.8, ICD10: Z13.39 - ANXIETY SCREENING 8. Palpitations - ICD9: 785.1, ICD10: R00.2 - METOPROLOL SUCCINATE ER 25 MG TABLET,EXTENDED RELEASE 24 HR 9. Ankle swelling, unspecified laterality - ICD9: 719.07, ICD10: M25.473 Scant pedal edema noted on exam today, notes this is present during the day and resolves overnight. Suspect some component of venous stasis. For now recommend Wear mild compression socks or stockings when sitting or standing for prolonged periods of time. These are available over the counter at most pharmacies, [facility], online. Elevate your feet when seated Avoid excess of salty foods labs today 6 mo follow up visit MD Sandra Vargas APRN.[employer]TER Medical Decision Making: Problems: Moderate: 2+ stable chronic illnesses Data: Unique test result(s) reviewed: 3+ Risk: Moderate: Drug management Medical Decision Making Level: 4 - Moderate documented in this encounter [facility] 01-20-2024 History of Present illness Narrative Images from the original note were not included. [facility] SECTION OF REGIONAL CARDIOLOGY Cardiology ([facility]) [address] [id number] OUTPATIENT VISIT DATE 01/20/2024 PRIMARY CARE PHYSICIAN: Paulina Ardon [address] [place] [address] HISTORY OF PRESENT ILLNESS: Ms. Sun is a 73 year old man with a history of hypertension dyslipidemia who presents for routine follow-up. Patient continues to do well from a functional standpoint. She has been checking her blood pressure at home but has not been keeping a record of her results. She has not had symptoms concerning for congestive heart failure including PND, orthopnea, or lower extremity edema. She has not had symptoms of palpitations, lightheadedness, dizziness, or syncope. PAST MEDICAL HISTORY 05/10/2005: COMMON MIGRAINE W/O MENTN INTRACT No date: Diverticulosis of colon (without mention of hemorrhage) 05/10/2005: HYPERTENSION NOS No date: Kidney stone No date: Psoriasis 05/10/2005: Raynaud's syndrome PAST SURGICAL HISTORY 08/15/2009: COLONOSCOPY FLX DX W/COLLJ SPEC WHEN PFRMD Comment: Colonoscopy 10/28/2019: COLONOSCOPY FLX DX W/COLLJ SPEC WHEN PFRMD Comment: Colonoscopy 01/08/2012 inpt wc: ESOPHAGOGASTRODUODENOSCOPY TRANSORAL DIAGNOSTIC Comment: EGD 06/10/2009: PAST SURGICAL HISTORY OF Comment: Single Port resection of ovarian remanent-LSO No date: TOTAL ABDOMINAL HYSTERECT W/WO RMVL TUBE OVARY Comment: HUANG-BSO SOCIAL HISTORY Social History Tobacco Use Smoking status: Never Smokeless tobacco: Never Substance Use Topics Alcohol use: Yes Comment: rare Drug use: No FAMILY HISTORY Problem Relation Age of Onset Hypertension Father Stroke Father Arthritis Mother Cancer Paternal Aunt unknown site ALLERGIES: ALLERGIES Allergen Reactions Penicillins Hives Bactrim Ds [Sulfame* Rash Losartan Intolerance headache, did not feel well MEDICATIONS: fluticasone (FLONASE) 50 mcg/actuation nasal spray SPRAY 1 SPRAY INTO EACH NOSTRIL EVERY DAY atorvastatin (LIPITOR) 10 mg tablet Take 1 tablet by mouth once daily. amLODIPine (NORVASC) 10 mg tablet Take 1 tablet by mouth once daily. metoprolol succinate ER (TOPROL XL) 25 mg 24 hr tablet Take 1 tablet by mouth once daily. cholecalciferol, vitamin D3, (VITAMIN D3 ORAL) Take 1,000 Int'l Units by mouth. Nature Made amitriptyline (ELAVIL) 10 mg tablet Take 0.5 tablets by mouth daily at bedtime for 14 days, THEN 0.5 tablets every other day for 14 days. REVIEW OF SYSTEMS: Review of Systems Constitutional: Negative for chills, fever, malaise/fatigue and weight loss. HENT: Negative for hearing loss and sore throat. Eyes: Negative for blurred vision and double vision. Respiratory: Negative. Cardiovascular: Negative. Genitourinary: Negative for dysuria, frequency, hematuria and urgency. Musculoskeletal: Negative. Skin: Negative. Neurological: Negative for dizziness, seizures, loss of consciousness, weakness and headaches. Endo/Heme/Allergies: Negative for environmental allergies. Does not bruise/bleed easily. Psychiatric/Behavioral: Negative for depression. PHYSICAL EXAMINATION: BP 138/60 Pulse 89 Wt 102 lb 9.6 oz (46.5kg) SpO2 96% General: Pleasant lady sitting appears comfortable no apparent distress. Alert and oriented x 3 HEENT: Carotid upstrokes are brisk without bruits no JVD appreciated. Pulmonary: Lungs are clear no rales, wheezes, rhonchi Cardiovascular: Normal S1, S2 with regular rate and rhythm. No murmurs, rubs, or gallops Extremities: Warm, well-perfused, no lower extremity edema. 2+ distal pulses CARDIOVASCULAR MEDICINE TESTING: Stress Echocardiogram 10/16/2021 - The exercise stress echo was negative for ischemia at 98 % of MPHR (4.8 METS). No regional wall motion abnormality seen at heart rate achieved. - The left ventricle is normal in size. There is mild upper septal asymmetric left ventricular hypertrophy. Left ventricular systolic function is normal. EF = 66 5% (2D biplane) Grade I left ventricular diastolic dysfunction. - The right ventricle is normal in size. Right ventricular systolic function is normal. - The patient has not had a prior CC echocardiographic exam for comparison. Stress ECG Conclusion: Conclusion: Normal with exception due to low heart rate recovery and abnormal Diaz treadmill score Zio Monitor 12/11-12/25/2021: Patient had a min HR of 34 bpm, max HR of 150 bpm, and avg HR of 74 bpm. Predominant underlying rhythm was Sinus Rhythm. 23 Supraventricular Tachycardia runs occurred, the run with the fastest interval lasting 7 beats with a max rate of 150 bpm, the longest lasting 11.7 secs with an avg rate of 107 bpm. Isolated SVEs were rare (<1.0%), SVE Couplets were rare (<1.0%), and SVE Triplets were rare (<1.0%). Isolated VEs were rare (<1.0%, 5448), VE Couplets were rare (<1.0%, 14), and VE Triplets were rare (<1.0%, 3). I have personally reviewed the Electrocardiogram, Laboratory Testing, Stress Test: Echocardiogram, and Holter. IMPRESSION: Ms. Sun is a 73 year old woman with a history of hypertension dyslipidemia who presents for follow-up PLAN AND RECOMMENDATIONS: 1. Chronic diastolic CHF (congestive heart failure) (HCC) - ICD9: 428.32, 428.0, ICD10: I50.32 (primary diagnosis) Adequate controlled on low-sodium diet 2. Mixed hyperlipidemia - ICD9: 272.2, ICD10: E78.2 Maintained on Lipitor 10 mg daily. Repeat fasting blood work is pending 3. Primary hypertension - ICD9: 401.9, ICD10: I10 Well-controlled on current regimen Yahaira Bear MD documented in this encounter [facility] 01-20-2024 Note HNO ID: [id number] Author: YAHAIRA BEAR MD Service: ? Author Type: Physician Type: Progress Notes Filed: 01/20/2024 12:10 Note Text: [facility] SECTION OF REGIONAL CARDIOLOGY Cardiology ([facility]) [address] [id number] OUTPATIENT VISIT DATE 01/20/2024 PRIMARY CARE PHYSICIAN: Paulina Ardon [address] [place] [address] HISTORY OF PRESENT ILLNESS: Ms. Sun is a 73 year old man with a history of hypertension dyslipidemia who presents for routine follow-up. Patient continues to do well from a functional standpoint. She has been checking her blood pressure at home but has not been keeping a record of her results. She has not had symptoms concerning for congestive heart failure including PND, orthopnea, or lower extremity edema. She has not had symptoms of palpitations, lightheadedness, dizziness, or syncope. PAST MEDICAL HISTORY 05/10/2005: COMMON MIGRAINE W/O MENTN INTRACT No date: Diverticulosis of colon (without mention of hemorrhage) 05/10/2005: HYPERTENSION NOS No date: Kidney stone No date: Psoriasis 05/10/2005: Raynaud's syndrome PAST SURGICAL HISTORY 08/15/2009: COLONOSCOPY FLX DX W/COLLJ SPEC WHEN PFRMD Comment: Colonoscopy 10/28/2019: COLONOSCOPY FLX DX W/COLLJ SPEC WHEN PFRMD Comment: Colonoscopy 01/08/2012 inpt wc: ESOPHAGOGASTRODUODENOSCOPY TRANSORAL DIAGNOSTIC Comment: EGD 06/10/2009: PAST SURGICAL HISTORY OF Comment: Single Port resection of ovarian remanent-LSO No date: TOTAL ABDOMINAL HYSTERECT W/WO RMVL TUBE OVARY Comment: HUANG-BSO SOCIAL HISTORY Social History Tobacco Use Smoking status: Never Smokeless tobacco: Never Substance Use Topics Alcohol use: Yes Comment: rare Drug use: No FAMILY HISTORY Problem Relation Age of Onset Hypertension Father Stroke Father Arthritis Mother Cancer Paternal Aunt unknown site ALLERGIES: ALLERGIES Allergen Reactions Penicillins Hives Bactrim Ds [Sulfame* Rash Losartan Intolerance headache, did not feel well MEDICATIONS: fluticasone (FLONASE) 50 mcg/actuation nasal spray SPRAY 1 SPRAY INTO EACH NOSTRIL EVERY DAY atorvastatin (LIPITOR) 10 mg tablet Take 1 tablet by mouth once daily. amLODIPine (NORVASC) 10 mg tablet Take 1 tablet by mouth once daily. metoprolol succinate ER (TOPROL XL) 25 mg 24 hr tablet Take 1 tablet by mouth once daily. cholecalciferol, vitamin D3, (VITAMIN D3 ORAL) Take 1,000 Int'l Units by mouth. Nature Made amitriptyline (ELAVIL) 10 mg tablet Take 0.5 tablets by mouth daily at bedtime for 14 days, THEN 0.5 tablets every other day for 14 days. REVIEW OF SYSTEMS: Review of Systems Constitutional: Negative for chills, fever, malaise/fatigue and weight loss. HENT: Negative for hearing loss and sore throat. Eyes: Negative for blurred vision and double vision. Respiratory: Negative. Cardiovascular: Negative. Genitourinary: Negative for dysuria, frequency, hematuria and urgency. Musculoskeletal: Negative. Skin: Negative. Neurological: Negative for dizziness, seizures, loss of consciousness, weakness and headaches. Endo/Heme/Allergies: Negative for environmental allergies. Does not bruise/bleed easily. Psychiatric/Behavioral: Negative for depression. PHYSICAL EXAMINATION: BP 138/60 Pulse 89 Wt 102 lb 9.6 oz (46.5kg) SpO2 96% General: Pleasant lady sitting appears comfortable no apparent distress. Alert and oriented x 3 HEENT: Carotid upstrokes are brisk without bruits no JVD appreciated. Pulmonary: Lungs are clear no rales, wheezes, rhonchi Cardiovascular: Normal S1, S2 with regular rate and rhythm. No murmurs, rubs, or gallops Extremities: Warm, well-perfused, no lower extremity edema. 2+ distal pulses CARDIOVASCULAR MEDICINE TESTING: Stress Echocardiogram 10/16/2021 - The exercise stress echo was negative for ischemia at 98 % of MPHR (4.8 METS). No regional wall motion abnormality seen at heart rate achieved. - The left ventricle is normal in size. There is mild upper septal asymmetric left ventricular hypertrophy. Left ventricular systolic function is normal. EF = 66 ? 5% (2D biplane) Grade I left ventricular diastolic dysfunction. - The right ventricle is normal in size. Right ventricular systolic function is normal. - The patient has not had a prior CC echocardiographic exam for comparison. Stress ECG Conclusion: Conclusion: Normal with exception due to low heart rate recovery and abnormal Diaz treadmill score Zio Monitor 12/11-12/25/2021: Patient had a min HR of 34 bpm, max HR of 150 bpm, and avg HR of 74 bpm. Predominant underlying rhythm was Sinus Rhythm. 23 Supraventricular Tachycardia runs occurred, the run with the fastest interval lasting 7 beats with a max rate of 150 bpm, the longest lasting 11.7 secs with an avg rate of 107 bpm. Isolated SVEs were rare (<1.0%), SVE Couplets were ra (more content not included)... 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 Ofe Sears LPN October 16, 2023 9:35 AM documented in this encounter [facility] 10-02-2023 Telephone encounter Note LM for patient to call office regarding message below. Marie Prather LPN [facility] 10-02-2023 Miscellaneous Notes LM for patient to call office regarding message below. 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, - Suggested [place] lifestyle principles: I) Routine exercise: 150 minuets per week II) Mediterranean/MIND diet III) Increased socialization IV) Sense of purpose/Ikigai V) Cognition stimulation: Reading, crossword puzzles, word jumbles, Soduko, Lumosity Please encourage family to call office if patient start to experiencing any functional decline, thank you Blade Lyman DO documented in this encounter [facility] 10-02-2023 Telephone encounter Note ----- Message from Blade Lyman DO sent at 10/02/2023 2:44 PM EDT ----- Please help to inform patient and family her MRI did not show any stroke, there is mild generalized volume loss, however, there is significant volume loss at the memory center (hippocampus), her hippocampal volumes is at the 1st percentile, 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, - Suggested [place] lifestyle principles: I) Routine exercise: 150 minuets per week II) Mediterranean/MIND diet III) Increased socialization IV) Sense of purpose/Ikigai V) Cognition stimulation: Reading, crossword puzzles, word jumbles, Soduko, Lumosity Please encourage family to call office if patient start to experiencing any functional decline, thank you Blade Lyman DO [facility] 10-01-2023 History of Present illness Narrative Radiology Service Progress Note PATIENT NAME: Bekah Sun DATE OF SERVICE: October 01, 2023 TIME: 10:55 AM PATIENT IDENTITY VERIFICATION COMPLETED USING TWO (2) IDENTIFIERS: Name and Date of confirmed by patient verbally and Name and Date of confirmed by identification band. FALL SCREENING: Has the patient had 2 falls in the last year or 1 fall with injury or currently using an Ambulatory Assistive Device (Walker, Cane, Wheelchair, Crutches, etc.)? No PATIENT GENDER DATA: Female. status: : No status: NO. PATIENT RELEVANT IMPLANT DATA REVIEWED: Yes PATIENT PRESENTS WITH AN IMPLANTABLE OR ATTACHED RD LAB TECHNICIAN: No RADIOLOGY DEPARTMENT: MR; Exam(s) Completed: Head: Routine Brain Neuroquant PERIPHERAL IV DATA: Not applicable SIGNED BY: RT Michelle(R) October 01, 2023 10:55 AM documented in this encounter [facility] 08-12-2023 History of Present illness Narrative This note was created using Zyrrariter. Subjective Bekah Sun is a 73 year old female. Patient presents with: 6 mo follow up SUBJECTIVE: Bekah Sun is a 73 year old year old lady here today for 6 month follow up appointment for review of medical conditions. BP at home pretty good--usually just higher here. Noted weaning off elavil. Doing well so far. Staying active. See assessment and plan for other issues addressed. PAST MEDICAL HISTORY Diagnosis Date COMMON MIGRAINE W/O MENTN INTRACT 05/10/2005 Diverticulosis of colon (without mention of hemorrhage) HYPERTENSION NOS 05/10/2005 Kidney stone Psoriasis Raynaud's syndrome 05/10/2005 Current Outpatient Medications Medication Sig fluticasone (FLONASE) 50 mcg/actuation nasal spray SPRAY 1 SPRAY INTO EACH NOSTRIL EVERY DAY amitriptyline (ELAVIL) 10 mg tablet Take 0.5 tablets by mouth daily at bedtime for 14 days, THEN 0.5 tablets every other day for 14 days. atorvastatin (LIPITOR) 10 mg tablet Take 1 tablet by mouth once daily. amLODIPine (NORVASC) 10 mg tablet Take 1 tablet by mouth once daily. metoprolol succinate ER (TOPROL XL) 25 mg 24 hr tablet Take 1 tablet by mouth once daily. cholecalciferol, vitamin D3, (VITAMIN D3 ORAL) Take 1,000 Int'l Units by mouth. Nature Made No current facility-administered medications for this visit. Review of Systems Objective BP 142/92 Pulse 84 Resp 16 Ht 162.6 cm (5' 4) Wt 49.4 kg (108 lb 12.8 oz) BMI 18.68 kg/m Last 5 Encounter Wt Readings: Date: Wt: 08/12/2023 49.4 kg (108 lb 12.8 oz) 07/26/2023 49 kg (108 lb) 06/04/2023 50.8 kg (112 lb) 05/13/2023 53.1 kg (117 lb) 03/01/2023 52.2 kg (115 lb) No waist measurement recorded Estimated body mass index is 18.68 kg/m as calculated from the following: Height as of this encounter: 162.6 cm (5' 4). Weight as of this encounter: 49.4 kg (108 lb 12.8 oz). Last 5 Encounter BP Readings: Date: BP: 08/12/2023 142/92 07/26/2023 144/78 06/04/2023 140/80 05/13/2023 169/76 03/01/2023 130/69[bp average[ 08/12/23 1028 08/12/23 1109 BP: 142/92 138/78 Pulse: 84 Resp: 16 Weight: 49.4 kg (108 lb 12.8 oz) Height: 162.6 cm (5' 4) Physical Exam Constitutional: Appearance: Normal appearance. HENT: Head: Normocephalic. Eyes: Conjunctiva/sclera: Conjunctivae normal. Cardiovascular: Rate and Rhythm: Normal rate and regular rhythm. Heart sounds: Normal heart sounds. Pulmonary: Effort: Pulmonary effort is normal. Breath sounds: Normal breath sounds. Musculoskeletal: Right lower leg: No edema. Left lower leg: No edema. Skin: General: Skin is warm and dry. Neurological: General: No focal deficit present. Mental Status: She is alert and oriented to person, place, and time. Psychiatric: Mood and Affect: Mood normal. Behavior: Behavior normal. Thought Content: Thought content normal. Judgment: Judgment normal. Labs reviewed. Assessment and Plan Encounter Diagnosis ICD-10-CM 1. Hyperlipidemia, unspecified hyperlipidemia type E78.5 LIPID PANEL BASIC Continue present management 2. HTN, goal below 140/90 I10 COMP METABOLIC PANEL CBC LIPID PANEL BASIC Continue present management 3. Encounter for long-term current use of medication Z79.899 COMP METABOLIC PANEL CBC LIPID PANEL BASIC Above issues addressed with patient. Patient involved in shared decision making for management of medical issues. History and medications reviewed. Epic updated as needed Refills and/or prescriptions taken care of and meds adjusted as indicated after reviewed history, exam and labs. Health Maintenance reviewed. Updated record and/or ordered tests as recorded. Encouraged on efforts at healthy diet and regular exercise and adequate sleep. Paulina Ardon MD documented in this encounter [facility] 07-29-2023 Miscellaneous Notes See pharmacy request in pended order. Nurys Babcock MA documented in this encounter [facility] 07-26-2023 Instructions Blade Lyman, DO - 07/26/2023 1:52 PM EST Images from the original note were not included. Amitriptyline is a medication has high anti-cholinogenic burden which will cause memory/cognitive impairment, we will slowly wean you off: take 5mg every night for 14 days, then 5mg every other night for 14 days, then off Tips to help with your memory and cognition 1. COGNITIVE STIMULATION Keep your brain active by doing mentally stimulating activities for 30 minutes twice a day. Here are few suggested activities: - crossword puzzles - jigsaw puzzles - Enig[employer]u games - word finding - problem solving activities - learn a new hobby or take a class 2. SOCIAL INTERACTION Talk to a friend, family member or neighbor at least once a day. Engage in community activities. Consider joining your local [facility]. 3. PHYSICAL ACTIVITY Make sure you move your body every day. You may vary your exercises to help keep your brain sharp. Always check with your health care provider before starting a new exercise program. Try to walk at least 30 minutes 5 times per week. You may also consider trying [employer] or Yoga to help with balance and strength training 4. DIET/NUTRITION Follow a Mediterranean diet, including fruits, vegetables, lean meats, fish. Drink atleast six (8 ounce) cups of water daily to avoid dehydration Reduce your intake of fat and cholesterol rich food. Avoid alcohol The MIND diet (Mediterranean-DASH Intervention for Neurodegenerative Delay) has been associated with a reduced incidence of cognitive impairment and Alzheimer disease When Memory is Normal and When it is [place] Memory and aging Memory is defined as the power or process of reproducing or recalling what has been learned and retained ([place] Dictionary). Our ability to remember and to recall our past is what links us to our families, our friends and our community. As we age, subtle changes in memory occur, sometimes unnoticed, but at other times disturbing to ourselves or others. Most normal changes in memory and cognition (defined as the act or process of knowing including both awareness and judgment) are of little importance, as they do not interfere with our daily activities or our quality of life. But when memory loss prevents us from performing daily tasks and our accustomed roles in life it becomes a health concern that needs further evaluation by healthcare professionals. What is normal aging and memory? As we age, slight changes occur in our cognition that affect memory. Simple forgetfulness (the missing keys) and delay or slowing in recalling names, dates, and events can be part of the normal process of aging. Memory has various forms, though, that might be affected differently by aging (see table). Preserved memory functions Declining memory functions Remote memory (ability to remember events from years ago) Procedural memory (performing tasks) Semantic recall (general knowledge) Learning new information Recalling new information (takes longer to learn something new and to recall it) What other changes occur with normal aging and cognition? Language (words, their pronunciation, and the ways we combine them to be used and understood) is modestly affected by aging. Language comprehension (understanding the rules of language) is preserved, as are vocabulary (semantic memory) and syntax (the way in which words are put together). Some modest decline is seen with spontaneous word finding (tip of the tongue) and verbal fluency (takes longer to get the words out). While verbal intelligence (vocabulary) remains unchanged with aging, the speed of information processing gradually slows (such as problem-solving skills). Executive functions (planning, abstracting) remain normal for everyday tasks, but are slowed when faced with novel tasks or divided attention (multi-tasking). A slowing of the speed of cognitive processing and reaction time (hitting the buzzer) occur with aging. When is memory not so normal? Amnesia (memory loss) is not a part of the normal aging process. While it may take longer to learn new information (for example, names of people) or to recall learned information (for example, names of friends in photos), with a little time and extra effort memory occurs. Some people are more forgetful, but this might be because of health conditions (for example, depression, heart disease, thyroid disease and vitamin deficiencies) or medication effects. Memory loss is abnormal in people with mild cognitive impairment or dementia (a loss of intellectual functions severe enough to interfere with everyday social or occupational functioning). Mild cognitive impairment Important memory impairments occur without loss of independent functioning. Forgetfulness and struggling to perform self-care tasks (for example, taking medications, paying bills) but still able to do so without the direct help of another person. Dementia: Memory, language, and cognition are so impaired that self-care tasks can no longer be performed without assistance from another person. Qiz-fk-qcybfj memory Condition Symptoms Mild cognitive impairment Aging Pre-Alzheimer s Silent strokes (infarcts) Head injury Forgetfulness or amnesia for recent events Need to write reminders to do things or else will forget Struggles but is able to perform daily chores and tasks Sometimes needs a reminder or prompt to remember Dementia Alzheimer s Vascular (stroke) Others: Pick s, hydrocephalus, drugs/alcohol, etc. Unable to perform complex daily tasks (for example, paying bills, taking medications, shopping, driving) Loss of insight or awareness of memory loss Poor judgment Behavioral symptoms (for example, irritability worrying, anger, agitation, suspiciousness) Can normal memory be preserved in aging? Research has shown the following: More education helps preserve cognitive reserve and delays the onset of dementia. A healthy diet--one high in antioxidants and olive oil--lowers the risk of dementia. Cognitive training (memory training, reasoning training, dybiz-mk-wgzvrpy training) improves cognition. Playing board games (chess, checkers, cards, learning a second language) and musical instrument delays the onset of dementia. Engaging in social activities slows cognitive decline. Reducing cardiovascular risks (for example, treating hypertension) delays the onset of dementia. References: [place] [employer]. Memory and Aging Accessed 10/11/2015. National [place] on Aging. Understanding Memory Loss Accessed 10/11/2015. National Institutes of Health. NIH: News In Health: Things Forgotten: Simple Lapse or Serious Problem? Accessed 10/11/2015. Copyright 8992-2947 The [facility]. All rights reserved This information is provided by the [facility] and is not intended to replace the medical advice of your doctor or health care provider. Please consult your health care provider for advice about a specific medical condition. For additional health information, please contact the Center for Consumer Health Information at the [facility] or toll-free extension [phone]. If you prefer, you may visit [email or web address] or [email or web address]. This document was last reviewed on: 2015 index#[id number] Types of Dementia What is dementia? When loss of mental functions--such as thinking, memory, and reasoning--are severe enough to interfere with a person's independent daily functioning, they are said to be at the stage of dementia. Dementia is not a disease itself, but rather the total impact of symptoms that might accompany certain diseases or conditions on daily function. Symptoms also might include changes in personality, mood, and behavior. Dementia develops when the parts of the brain that are involved with learning, memory, decision-making, and language are affected by any of various infections or diseases. The most common cause of dementia is Alzheimer's disease, but there are numerous other known causes. Most of these causes are very rare. Dementia is irreversible when caused by degenerative disease or trauma, but might be reversible in some cases when caused by drugs, alcohol, hormone or vitamin imbalances, or depression. Therefore, it is very important to evaluate dementia symptoms comprehensively, so as not to miss potentially treatable conditions. The frequency of treatable causes of dementia is believed to be about 20 percent. What are some of the other causes of dementia? There are many causes of dementia, including neurological disorders such as Alzheimer's disease, blood flow-related (vascular) disorders such as multi-infarct cognitive impairment, inherited disorders such as Stoddard's disease, and infections such as HIV. The most common causes of dementia include: Degenerative neurological diseases, such as Alzheimer's, frontotemporal lobar degeneration, dementia with Lewy bodies, Parkinson's, and Stoddard's diseases Vascular disorders, such as multi-infarct dementia, which is caused by multiple strokes in the brain Infections that affect the central nervous system, such as HIV dementia complex and Creutzfeldt-Soto disease Chronic drug use Depression Certain types of hydrocephalus, an accumulation of fluid within the brain that can result from developmental abnormalities, infections, injury, or brain tumors Alzheimer's disease accounts for 50 percent to 70 percent of all dementia. However, many patients with Alzheimer's disease also have evidence of co-existing cerebrovascular disease, usually consisting of multiple small areas of ischemic changes (often called mini-strokes) on MRI and on post-mortem examination of the brain. Thus, many of these patients can be considered to have a mixed dementia. Frontotemporal lobar degenerations, of which several types are known, account for a substantial number of dementias, especially among those in their 50s and 60s. Dementia with Lewy bodies has also been diagnosed with increasing frequency in recent years. These patients have clinical signs of parkinsonism as well as dementia; its relationship to the dementia of Parkinson's disease is still incompletely understood. How common is dementia? Although dementia has always been common, it has become even more common among the elderly in recent history. It is not clear if this increased frequency of dementia reflects a greater awareness of the symptoms or if people simply are living longer and thus are more likely to develop dementia in their older age. Dementia caused by neurological degenerative disease, especially Alzheimer's disease, is increasing in frequency more than most other types of dementia. Some researchers suspect that as many as half of all people over 85 years old develop Alzheimer's disease. Dementia associated with AIDS, which appeared to be increasing in frequency in the is now much less commonly seen, since the development of highly effect anti-retroviral therapy. Who gets dementia? Dementia is considered a late-life disease because it tends to develop mostly in elderly people. About 5 percent to 8 percent of all people over the age of 65 have some form of dementia, and this number doubles every five years above that age. It is estimated that as many as half of people 85 or older suffer from dementia. What are the types of dementia? It is convenient to classify most dementias as either of Alzheimer type or non-Alzheimer type. The former are characterized predominantly by memory loss, accompanied by impairment in other cognitive functions or domain, such as language function (aphasia), skilled motor functions (apraxia), or perception, visual or other (agnosias). Non-Alzheimer dementias include the frontotemporal lobar degenerations, which generally are of two main types. One primarily affects speech, as in the primary progressive aphasia syndromes. The other is characterized primarily by changes in behavior, including apathy, disinhibition, personality change and what is called executive function (e.g., planning ahead and organizational ability). In both of these types, memory loss is relatively mild, if present, until later in the course of the disease. Other forms of dementia, including vascular disorders (multiple strokes), dementia with Lewy bodies, Parkinson's dementia, and normal pressure hydrocephalus would be grouped among the non-Alzheimer disorders. Is dementia treatable? One should differentiate the terms treatable and reversible or curable. All or almost all forms of dementia are treatable, in that medication and supportive measures are available to help with management of the demented patient. However, most types of dementia remain incurable or irreversible and only modest benefits from treatment are realized. Some disorders which may be successfully treated with return to a normal or pre-morbid state might include: Impairment from toxic side effects of medications or drugs Tumors that can be removed Subdural hematoma, an accumulation of blood beneath the outer covering of the brain that results from a broken blood vessel, usually as a result of a head injury (which can be minor and even unrecognized) Normal pressure hydrocephalus Metabolic disorders, such as a vitamin B12 deficiency Hypothyroidism, a condition that results from low levels of thyroid secretion Hypoglycemia, a condition that results from low blood sugar, assuming absence of extensive cell injury Dementias that are largely irreversible, but may still be at least partially responsive to medications currently available for memory loss or modification of behavior include: Alzheimer's disease Multi-infarct (vascular) dementia Dementias associated with Parkinson's disease and similar disorders AIDS dementia complex Creutzfeldt-Soto disease (CJD), a quickly progressing and fatal disease that is characterized by dementia and myoclonus -- muscle twitching and spasm What medications are available? Memory-enhancing drugs, including the cholinesterase inhibitors (e.g., donepezil, rivastigmine, and galantamine) along with memantine, a medication that acts on another neurotransmitter system have all been shown to have some benefit in improving memory function in some patients. None of these drugs appear to stop the progression of the underlying disease however. References National [place] of Neurological Disorders & Stroke. NINDS Dementia Information Page Accessed 02/01/2014. [facility] [place]. National Center on Caregiving. Is this Dementia and What Does it Mean? Accessed 02/01/2014. National [place] on Aging. Forgetfulness: Knowing When to Ask for Help Accessed 02/01/2014. Copyright 0237-8740 The [facility]. All rights reserved This information is provided by the [facility] and is not intended to replace the medical advice of your doctor or health care provider. Please consult your health care provider for advice about a specific medical condition. For additional health information, please contact the Center for Consumer Health Information at the [facility] or toll-free extension [phone]. If you prefer, you may visit [email or web address] or [email or web address]. This document was last reviewed on: 2014 index#[id number] documented in this encounter [facility] 07-26-2023 History of Present illness Narrative Images from the original note were not included. Blade Lyman DO [facility] General Geriatrics [address] [place] [address] COMPREHENSIVE GERIATRICS ASSESSMENT Patient presents with: Geriatric Assessment History of Present Illness Ms. Bekah Sun is a 73 year old year old lady referred for Comprehensive Geriatrics Assessment, as referred by Sandra Sanchez APRN.WAFER CUTTER for evaluation of memory difficulties. She is here with her , Iain. Bekah Sun has PMHX of migraine, CHF, HLD, HTN. No recent hospitalization. Last PCP visit 06/04/2023 Memory: per patient, issues with memory for about 2 years, including forgetting where put things, has to write down things, occasionally with word finding, denies issues with names Per , issues with memory about 2 years, symptoms including short term memory, stated symptoms has been gradually getting worse, has been misplace daily items, rarely driving, denies getting lost, denies changes speech Home: with Social Engagement: belongs to group, once a month Hobbies: reading Mood: sometimes get anxious, but overall speaking good Sleep: sleeps on average 6-8hr, sleep through, feels refresh once woke up, per , occasionally snoring, no prior sleep study Appetite: stated stable, denies intentionally weight loss, stated has been more careful with eating Exercise: no routine exercise Family hx: mother may have memory issues, denies mood disorders Education: master degree 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 Yes Is a power of patent prosecution attorney in place for financial needs? Yes Is a power of patent prosecution attorney in place for health care decisions? Yes Is palliative or hospice care appropriate for the patient? No II) Mentation: [place] Cognitive Exam (MOCA): not on file Cognitive Test evaluation: Cognitive Testing Evaluation Introduction: Bekah Sun 1950 Female This 73 year old Female was administered a battery of neurocognitive testing on 07/26/2023. Tests Administered: Trails A, Trails B, Digit Symbol Substitution, Stroop, Immediate Recognition, Delayed Recognition The combined test administration time was 10 minutes Test Results: Cognitive testing was provided via a battery of cognitive assessments. The pattern of test scores indicate that results are valid. A Clinical Report with further description of scores and results is also available. Overall: Patient tested in the 1st* percentile (standard score of 65*). Trails A: Patient tested in the 13th percentile (scaled standard score of 83). Trails B: Patient tested in the --* percentile (scaled standard score of null). Digit Symbol Substitution: Patient tested in the 15th percentile (scaled standard score of 84). Stroop: Patient tested in the 37th percentile (scaled standard score of 95). Immediate Recognition: Patient tested in the 1st percentile (scaled standard score of 22). Delayed Recognition: Patient tested in the 1st percentile (scaled standard score of 49). * These assessments were not scored because they were potentially invalid, or the patient failed to complete in the allotted time. Interpretation of Test Scores: Examination of individual component tests shows: Attention - Trails A: possible impairment Mental Flexibility - Trails B: possible impairment Executive Function - Digit Symbol Substitution: possible impairment Executive Function - Stroop: unlikely impairment Memory - Immediate Recognition: likely impairment Memory - Delayed Recognition: likely impairment The patient s overall cognitive test performance was in the 1st percentile when compared to individuals of a similar age and gender, suggesting likely presence of cognitive impairment. FAST (Functional Assessment Staging Tool) 2. Complains of forgetting location of objects; subjective word finding difficulties only CDR Dementia Scale 1) Subjective Memory Loss: YES 2) Measurable Memory Loss: YES 3) IADLs: NO 4) BADLs: NO 6) Medications: No Mood Evaluation and Screening GDS: Geriatric Depression Scale 07/26/2023 Are you basically satisfied with your life? 0 Have you dropped many of your activities and interests? 1 Do you feel that your life is empty? 0 Do you often get bored? 0 Are you in good spirits most of the time? 0 Are you afraid that something bad is going to happen to you? 0 Do you feel happy most of the time? 0 Do you often feel helpless? 0 Do you prefer staying at home to going out and doing new things? 1 Do you feel you have more problems with memory than most people? 0 Do you think it is wonderful to be alive now? 0 Do you feel pretty worthless the way you are now? 0 Do you feel full of energy? 0 Do you feel that your situation is hopeless? 0 Do you think that most people are better off than you are? 0 GDS Total Score 2 GDS Score Assessment 0-5 points is normal Normal Mild Moderate Severe 0-4 5-8 9-11 12+ SUGEY-7: SUGEY - 7 SCORES 07/26/2023 SUGEY-7 Score 3 (0-4) minimal anxiety, (5-9) mild anxiety, (10-14) moderate anxiety, (15-21) severe anxiety III) Mobility: Functional Evaluation: B-ADLs: (I=independent,A=assistance,D=dependen t) ?Bathing: I, Dressing: I, Toileting: I, Transferring:I, Continence: I, Feeding: I, (Leal Index): 6 I-ADLs: Ability to use phone: I, Shopping: I, Cooking: I, Housekeeping: I, Laundry: I, Transportation:I, can arrange, Medications: I, Handle Finances: I. Stated is doing most of the finances, but patient stated she can still do it (Girma scale): 8 Mobility Aid: None Falls: .: Falls in the last 12 months: None. If + falls: Safety Assessment Checklist If the patient or caregiver answers yes to questions 1 and 3-7 or no to question 2, refer to the Safety Assessment Guide for further evaluation. When working with patients living with dementia, it is recommended that you also consult with a family member, friend or caregiver, as the patient s judgment, memory and decreased cognitive skills may impact insight into the illness and the ability to provide accurate reporting. Questions (Yes/ No) 1. Is the patient still driving? NO 2. Is the patient taking medications as prescribed? NO 3. Are there concerns about safety in the home? NO 4. Has the patient gotten lost in familiar places or wandered? NO 5. Are firearms present in the home? NO 6. Has the patient experienced unsteadiness or sustained falls? NO 7. Does the patient live alone? 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 2 = no decrease in food intake 2. Weight loss during the last 3 months 0 = weight loss greater than 3 kg (6.6 lbs) 3. Mobility 2 = goes out 4. Has suffered psychological stress or acute disease in the past 3 months? 2 = no 5.Neuropsychological problems 2 = no psychological problems 6. Body Mass Index (BMI) (weight in kg) / (height in m2) 1 = BMI 19 to less than 21 Screening score: 9 (max. 14 points) 12-14 points: Normal nutritional status 8-11 points: At risk of malnutrition 0-7 points: Malnourished Geriatrics Review of Systems Incontinence - During the last 3 months did you leak urine? NO Constipation: NO Orthostatic Hypotension: NO Nutrition - Loss of weight (> 5% in the past 6 months): YES Vision Positive for vision impairment and wears glasses Follows with precision dancer:YES Hearing - Hearing aid : Denies any problems Review of Systems Constitutional: Negative for activity change, appetite change, chills, fatigue, fever and unexpected weight change. HENT: Negative for facial swelling, hearing loss, sinus pressure, sinus pain, sore throat, tinnitus, trouble swallowing and voice change. Eyes: Negative for pain, discharge, itching and visual disturbance. Respiratory: Negative for cough, chest tightness, shortness of breath, wheezing and stridor. Cardiovascular: Negative for chest pain, palpitations and leg swelling. Gastrointestinal: Negative for abdominal pain, anal bleeding, blood in stool, constipation, diarrhea, nausea and vomiting. Endocrine: Negative for polyuria. Genitourinary: Negative for difficulty urinating, dysuria, flank pain, frequency, hematuria and urgency. Musculoskeletal: Negative for back pain, gait problem and joint swelling. Skin: Negative for color change and rash. Neurological: Negative for dizziness, tremors, syncope, speech difficulty, weakness, light-headedness, numbness and headaches. Psychiatric/Behavioral: Negative for agitation, behavioral problems, confusion, decreased concentration, hallucinations, self-injury, sleep disturbance and suicidal ideas. The patient is not nervous/anxious. ALLERGIES Allergen Reactions Penicillins Hives Bactrim Ds [Sulfame* Rash Losartan Intolerance headache, did not feel well PAST MEDICAL HISTORY Diagnosis Date COMMON MIGRAINE W/O MENTN INTRACT 05/10/2005 Diverticulosis of colon (without mention of hemorrhage) HYPERTENSION NOS 05/10/2005 Kidney stone Psoriasis Raynaud's syndrome 05/10/2005 PAST SURGICAL HISTORY Procedure Laterality Date COLONOSCOPY FLX DX W/COLLJ SPEC WHEN PFRMD 08/15/2009 Colonoscopy COLONOSCOPY FLX DX W/COLLJ SPEC WHEN PFRMD 10/28/2019 Colonoscopy ESOPHAGOGASTRODUODENOSCOPY TRANSORAL DIAGNOSTIC 01/08/2012 [facility] EGD PAST SURGICAL HISTORY OF 06/10/2009 Single Port resection of ovarian remanent-LSO TOTAL ABDOMINAL HYSTERECT W/WO RMVL TUBE OVARY HUANG-BSO Social History Tobacco Use Smoking status: Never Smokeless tobacco: Never Substance Use Topics Alcohol use: Yes Comment: rare Drug use: No FAMILY HISTORY Problem Relation Age of Onset Hypertension Father Stroke Father Arthritis Mother Cancer Paternal Aunt unknown site Current Outpatient Medications Medication Sig atorvastatin (LIPITOR) 10 mg tablet Take 1 tablet by mouth once daily. amLODIPine (NORVASC) 10 mg tablet Take 1 tablet by mouth once daily. metoprolol succinate ER (TOPROL XL) 25 mg 24 hr tablet Take 1 tablet by mouth once daily. fluticasone (FLONASE) 50 mcg/actuation nasal spray Use 1 Wisner in each nostril once daily. cholecalciferol, vitamin D3, (VITAMIN D3 ORAL) Take 1,000 Int'l Units by mouth. Nature Made amitriptyline (ELAVIL) 10 mg tablet Take 0.5 tablets by mouth daily at bedtime for 14 days, THEN 0.5 tablets every other day for 14 days. No current facility-administered medications for this visit. I have confirmed and edited as necessary, the chief complaint, medications, past medical, family and social histories. BP 144/78 (BP Site: Right Arm, BP Position: Sitting, BP Cuff Size: Regular Adult) Pulse 86 Ht 158.8 cm (5' 2.52) Wt 49 kg (108 lb) SpO2 100% BMI 19.43 kg/m Physical Exam Vitals and nursing note reviewed. Constitutional: General: She is not in acute distress. Appearance: Normal appearance. She is not ill-appearing, toxic-appearing or diaphoretic. HENT: Head: Normocephalic and atraumatic. Right Ear: External ear normal. Left Ear: External ear normal. Mouth/Throat: Mouth: Mucous membranes are moist. Eyes: General: Lids are normal. No scleral icterus. Conjunctiva/sclera: Conjunctivae normal. Pupils: Pupils are equal, round, and reactive to light. Cardiovascular: Rate and Rhythm: Normal rate and regular rhythm. Heart sounds: No murmur heard. No gallop. Pulmonary: Effort: Pulmonary effort is normal. No respiratory distress. Breath sounds: Wheezing (trace wheezing noted on exam) present. No rhonchi or rales. Abdominal: General: Abdomen is flat. Bowel sounds are normal. There is no distension. Palpations: Abdomen is soft. There is no mass. Tenderness: There is no abdominal tenderness. There is no right CVA tenderness, left CVA tenderness or guarding. Hernia: No hernia is present. Musculoskeletal: General: No swelling, tenderness or deformity. Cervical back: Neck supple. No rigidity or tenderness. Skin: General: Skin is warm and dry. Findings: No rash. Neurological: General: No focal deficit present. Mental Status: She is alert. Mental status is at baseline. Motor: No weakness. Gait: Gait normal. Comments: A&O to self, partial location, unable to recall year, unable to recall month, unable to recall day of the week Psychiatric: Attention and Perception: Attention normal. She does not perceive auditory or visual hallucinations. Mood and Affect: Mood normal. Speech: Speech normal. Behavior: Behavior is cooperative. Thought Content: Thought content is not paranoid. Thought content does not include suicidal ideation. ? Diagnostics: Glucose (mg/dL) Date Value 2023 95 03/16/2021 97 Potassium (mmol/L) Date Value 2023 4.5 03/16/2021 4.5 Sodium (mmol/L) Date Value 2023 137 03/16/2021 139 Chloride (mmol/L) Date Value 2023 97 03/16/2021 99 CO2 (mmol/L) Date Value 2023 25 03/16/2021 25 Creatinine (mg/dL) Date Value 2023 0.96 03/16/2021 1.17 BUN (mg/dL) Date Value 2023 12 03/16/2021 26 Anion Gap (mmol/L) Date Value 2023 15 03/16/2021 15 Calcium (mg/dL) Date Value 03/16/2021 10.6 Calcium, Total (mg/dL) Date Value 2023 9.5 Protein, Total (g/dL) Date Value 05/17/2023 7.2 03/16/2021 7.7 Albumin (g/dL) Date Value 05/17/2023 4.5 03/16/2021 4.8 Bilirubin, Total (mg/dL) Date Value 05/17/2023 0.4 03/16/2021 0.5 Alkaline Phosphatase (U/L) Date Value 05/17/2023 68 03/16/2021 88 AST (U/L) Date Value 05/17/2023 28 03/16/2021 27 ALT (U/L) Date Value 05/17/2023 14 03/16/2021 17 CBC: Hemoglobin (g/dL) Date Value 05/17/2023 13.5 03/16/2021 15.1 Hematocrit (%) Date Value 05/17/2023 40.3 03/16/2021 45.2 WBC (k/uL) Date Value 05/17/2023 6.44 03/16/2021 6.73 Platelet Count (k/uL) Date Value 05/17/2023 304 03/16/2021 363 TSH Date Value 2023 2.810 mIU/L 09/16/2012 2.300 uU/mL Vitamin B12 (pg/mL) Date Value 08/08/2022 455 Vitamin D 25 Hydroxy (ng/mL) Date Value 08/08/2022 60.3 01/14/[address]/MRI head - no brain imaging on file Assessment and Plan Ms. Bekah Sun is a 73 year old year old lady referred for Comprehensive Geriatrics Assessment, as referred by Sandra Sanchez APRN.WAFER CUTTER for evaluation of memory difficulties. ? Mood and Mentation: - Cognitive testing today overall cognitive test performance was in the 1st percentile when compared to individuals of a similar age and gender, suggesting likely presence of cognitive impairment. - GDS 07/11 suggesting no clinical depression - SUGEY-7 08/14 suggesting minimal anxiety - Given testing results, history, most suspicious for mild cognitive impairment, patient with preserved ADLs, currently dose not appear to have clinical dementia, however, cannot rule out poor performance due to medication side effects from Amitriptyline given its high anti-cholinergic burden - no clinical depression/anxiety - Advised serologies for potentially reversible etiologies for memory impairment: Vitamin B12, TFTs - MRI brain with volumetric scans - Discussed with patient and family, currently no preventive medications for dementia, no FDA approved medication for cognitive impairment, will wean amitriptyline and reassess in 6 months - Suggested [place] lifestyle principles: I) Routine exercise: 150 minuets per week II) Mediterranean/MIND diet III) Increased socialization IV) Sense of purpose/[place] V) Cognition stimulation: Reading, crossword puzzles, word jumbles, [place], Lumosity - Driving Evaluation: patient currently no driving - Finances Management: no active concerns - Risk for elder abuse/exploitation: low risk Mobility: - Patient is Independent, with Good functional baseline. No indications to intervene at present Medications: - High Risk Geriatric Medications identified - Beer's / STOPP Criteria: Amitriptyline ASSESSMENT/PLAN: 1. Cognitive impairment - ICD9: 294.9, ICD10: R41.89 (primary diagnosis) 2. Memory difficulties - ICD9: 780.93, ICD10: R41.3 - MRI BRAIN WO IVCON - MRI 3D POST PROCESSING - AMITRIPTYLINE 10 MG TABLET - VITAMIN B12 BLOOD - FOLATE SERUM 3. Adverse effect of anticholinergic - ICD9: E941.1, ICD10: T44.3X5A 4. Migraine without aura and without status migrainosus, not intractable - ICD9: 346.10, ICD10: G43.009 - patient self reports have not been having migraine headache for years - Cannot rule out effects from Amitriptyline's anti-cholinergic burden causing poor performance - Will start slow wean: 5mg QHS for 14 days -> 5mg every other night for 14 days -> off - AMITRIPTYLINE 10 MG TABLET Blade Lyman DO Return in about 6 months (around 01/26/2024) for Repeat cognitive testing, maricel. Thank you very much for the opportunity to participate in the care of your patient. Total time in direct patient contact = 76 min. Greater than 50% of the time was spent in counseling and/or coordination of care. Additional time outside encounter was spent totaling 15 min for chart, results review and interpretation, family/caregiver corroboration of history and screening tools as well as coordination of care and community resources. BLADE LYMAN DO GERIATRIC MEDICINE [facility] Discussed the above with the patient using shared decision making. The patient is in agreement with the diagnostic and treatment plans. This note was partially generated using Muzy voice recognition system, and there may be some incorrect words, spellings, and punctuation that were not noted in checking the note before saving. documented in this encounter [facility] 05-03-2023 Miscellaneous Notes There is a current active consult, just needs scheduled. Routing to schedulers. Spouse (Iain) calls with patient to request referral be placed again for geriatrics and memory difficulties. Previous appointment was cancelled and to reschedule a referral is needed. Pended as previously ordered. Please call patient at [phone] to schedule. assists with scheduling appointments. Natalie Contreras RN documented in this encounter [facility] 03-01-2023 History of Present illness Narrative SUBJECTIVE: BP Controlled (<130/80) due on 03/16/2022 HPI Bekah Sun is a 73 year old female. PMH is significant for ACTIVE PROBLEM LIST Htn, Goal Below 140/90 Migraine Without Aura Raynaud's Syndrome Hyperlipidemia Constipation Chronic Diastolic Chf (Congestive Heart Failure) (Hcc) HPI excerpted from previous visit: Today reports she did not sleep well last night. She reports that she had a chest heaviness last night.Notes lasted a couple of hours. Passed without intervention. Noted later in night. No other associated symptoms. States it did not seem that bad. No prior occurrence. No change in functional capcicity; not limited in walking flat surface, taking stairs. No exertional chest pain reported. She reports that she stopped taking amlodipine when she started taking metoprolol succinate following her last visit. Presents with her . She has noted decreased memory, increased since seen last year. 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 Now notes short-term memory difficulties. Able to complete ADLs and IADLs. Discussed at last visit, deferred further evaluation / appts. at this time. HTN: Thought may have missed a dose of medication at her last visit, returns today for recheck of blood pressure. Without report of headache, chest pain, palpitations, dyspnea, peripheral edema, orthopnea, fatigue, PND. Last 14 Encounter BP Readings: Date: BP: 03/01/2023 130/69[bp average[ 2023 155/70[average bp[ 09/07/2022 124/68 07/31/2022 124/72 12/14/2021 138/75[average[ 12/11/2021 140/78 08/21/2021 190/72[average[ 08/07/2021 163/68[average[ 05/18/2021 158/74 03/16/2021 135/70[trubp average[ 08/26/2020 148/72 02/03/2020 128/70 09/23/2019 141/65 08/07/2019 126/63 Hyperlipidemia. Ms. Sun reports doing well on current therapy. Her most recent lipid panels are: Cholesterol, Total (mg/dL) Date Value 08/08/2022 233 08/25/2020 226 07/21/2019 197 Total Cholesterol, Nonfasting (mg/dL) Date Value 03/16/2021 233 HDL Cholesterol (mg/dL) Date Value 08/08/2022 90 08/25/2020 111 07/21/2019 99 HDL Cholesterol, Nonfasting (mg/dL) Date Value 03/16/2021 118 LDL Cholesterol (mg/dL) Date Value 08/08/2022 127 08/25/2020 101 07/21/2019 86 LDL Cholesterol, Nonfasting (mg/dL) Date Value 03/16/2021 101 Triglyceride (mg/dL) Date Value 08/08/2022 82 08/25/2020 69 07/21/2019 61 Triglycerides, Nonfasting (mg/dL) Date Value 03/16/2021 70 Review of Systems Constitutional: Negative. Respiratory: Negative. Cardiovascular: Negative. Objective BP 130/69 Pulse 66 Resp 16 Wt 52.2 kg (115 lb) BMI 20.70 kg/m Physical Exam Vitals and nursing note reviewed. Constitutional: Appearance: Normal appearance. HENT: Head: Normocephalic and atraumatic. Eyes: Conjunctiva/sclera: Conjunctivae normal. Neck: Thyroid: No thyroid mass, thyromegaly or thyroid tenderness. Vascular: Normal carotid pulses. No carotid bruit or JVD. Cardiovascular: Rate and Rhythm: Normal rate and regular rhythm. Pulses: Normal pulses. Heart sounds: Normal heart sounds. Pulmonary: Effort: Pulmonary effort is normal. Breath sounds: Normal breath sounds. Abdominal: General: Bowel sounds are normal. Palpations: Abdomen is soft. Musculoskeletal: Right lower leg: No edema. Left lower leg: No edema. Skin: General: Skin is warm and dry. Neurological: General: No focal deficit present. Mental Status: She is alert and oriented to person, place, and time. ALLERGIES Allergen Reactions Penicillins Hives Bactrim Ds [Sulfame* Rash Losartan Intolerance headache, did not feel well MEDICATIONS atorvastatin (LIPITOR) 10 mg tablet Take 1 tablet by mouth once daily. amitriptyline (ELAVIL) 10 mg tablet Take 1 tablet by mouth daily at bedtime. amLODIPine (NORVASC) 10 mg tablet Take 1 tablet by mouth once daily. metoprolol succinate ER (TOPROL XL) 25 mg 24 hr tablet Take 1 tablet by mouth once daily. cholecalciferol, vitamin D3, (VITAMIN D3 ORAL) Take 1,000 Int'l Units by mouth. Nature Made PAST MEDICAL HISTORY Diagnosis Date COMMON MIGRAINE W/O MENTN INTRACT 05/10/2005 Diverticulosis of colon (without mention of hemorrhage) HYPERTENSION NOS 05/10/2005 Kidney stone Psoriasis Raynaud's syndrome 05/10/2005 Social History Tobacco Use Smoking status: Never Smokeless tobacco: Never Substance Use Topics Alcohol use: Yes Comment: rare Drug use: No Component Latest Ref Rng & Units 08/08/2022 09/07/2022 Protein, Total 6.3 - 8.0 g/dL 6.8 Albumin 3.9 - 4.9 g/dL 4.5 Calcium 8.5 - 10.2 mg/dL 9.8 Bilirubin, Total 0.2 - 1.3 mg/dL 0.6 Alkaline Phosphatase 34 - 123 U/L 81 AST 13 - 35 U/L 28 ALT 7 - 38 U/L 17 Glucose 74 - 99 mg/dL 95 BUN 7 - 21 mg/dL 15 Creatinine 0.58 - 0.96 mg/dL 1.11 (H) Sodium 136 - 144 mmol/L 138 Potassium 3.7 - 5.1 mmol/L 4.6 Chloride 97 - 105 mmol/L 99 CO2 22 - 30 mmol/L 29 Anion Gap 9 - 18 mmol/L 10 eGFR >=60 mL/min/1.73m 52 (L) WBC 3.70 - 11.00 k/uL 5.20 RBC 3.90 - 5.20 m/uL 4.34 Hemoglobin 11.5 - 15.5 g/dL 13.6 Hematocrit 36.0 - 46.0 % 41.1 MCV 80.0 - 100.0 fL 94.7 MCH 26.0 - 34.0 pg 31.3 MCHC 30.5 - 36.0 g/dL 33.1 RDW-CV 11.5 - 15.0 % 12.4 Platelet Count 150 - 400 k/uL 323 MPV 9.0 - 12.7 fL 10.4 Absolute nRBC <0.01 k/uL <0.01 Cholesterol, Total <200 mg/dL 233 (H) Triglyceride <150 mg/dL 82 HDL Cholesterol >39 mg/dL 90 Non HDL Cholesterol <130 mg/dL 143 (H) Fasting Time hrs 15 VLDL Cholesterol <30 mg/dL 16 TC:HDL Ratio <5.10 2.59 LDL Cholesterol <100 mg/dL 127 (H) LDL:HDL Ratio <2.54 1.41 TSH 0.270 - 4.200 mIU/L 2.990 Free T4 0.9 - 1.7 ng/dL 1.3 Free T3 2.3 - 4.1 pg/mL 3.0 Vitamin D 25 Hydroxy 31.0 - 80.0 ng/mL 60.3 Vitamin B12 232 - 1,245 pg/mL 455 Folate >4.7 ng/mL >20.0 Vitamin B6, Plasma 20.0 - 125.0 nmol/L 94.3 PTH, Intact 15 - 65 pg/mL 38 Phosphorus 2.7 - 4.8 mg/dL 4.0 Calcium, Urine Random 0.0 - 21.0 mg/dL 8.4 Creatinine Date Value Ref Range Status 2023 0.96 0.58 - 0.96 mg/dL Final 08/08/2022 1.11 (H) 0.58 - 0.96 mg/dL Final 08/07/2021 0.95 0.58 - 0.96 mg/dL Final 03/16/2021 1.17 (H) 0.58 - 0.96 mg/dL Final ASSESSMENT/PLAN: 1. Essential hypertension with goal blood pressure less than 140/90 - ICD9: 401.9, ICD10: I10 controlled notes home readings consistent with ours today since last seen - Continue current medications - Encouraged sodium restriction, DASH or Mediterranean diet - Recommend regular aerobic exercise 6 mo follow up visit MD Sandra Vargas APRN.WAFER CUTTER Medical Decision Making: Problems: Low: Stable chronic illness Risk: Moderate: Drug management Medical Decision Making Level: 3 - Low documented in this encounter [facility] 2023 History of Present illness Narrative SUBJECTIVE: BP CONTROLLED (<130/80) due on 03/16/2022 INFLUENZA(1) due on 01/25/2023 HPI Bekah Sun is a 73 year old female. PMH is significant for ACTIVE PROBLEM LIST Htn, Goal Below 140/90 Migraine Without Aura Raynaud's Syndrome Hyperlipidemia Constipation Chronic Diastolic Chf (Congestive Heart Failure) (Hcc) HPI excerpted from previous visit: Today reports she did not sleep well last night. She reports that she had a chest heaviness last night.Notes lasted a couple of hours. Passed without intervention. Noted later in night. No other associated symptoms. States it did not seem that bad. No prior occurrence. No change in functional capcicity; not limited in walking flat surface, taking stairs. No exertional chest pain reported. She reports that she stopped taking amlodipine when she started taking metoprolol succinate following her last visit. Presents with her . She has noted decreased memory, increased since seen last year. 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 Now notes short-term memory difficulties. Able to complete ADLs and IADLs. HTN: She notes palpitations have resolved. No further chest pain; single occurrence. No edema presyncope or syncope. No edema. Last 14 Encounter BP Readings: Date: BP: 2023 155/70[average bp[ 09/07/2022 124/68 07/31/2022 124/72 12/14/2021 138/75[average[ 12/11/2021 140/78 08/21/2021 190/72[average[ 08/07/2021 163/68[average[ 05/18/2021 158/74 03/16/2021 135/70[trubp average[ 08/26/2020 148/72 02/03/2020 128/70 09/23/2019 141/65 08/07/2019 126/63 07/23/2019 160/78 Hyperlipidemia. Ms. Sun reports doing well on current therapy. Her most recent lipid panels are: Cholesterol, Total (mg/dL) Date Value 08/08/2022 233 08/25/2020 226 07/21/2019 197 Total Cholesterol, Nonfasting (mg/dL) Date Value 03/16/2021 233 HDL Cholesterol (mg/dL) Date Value 08/08/2022 90 08/25/2020 111 07/21/2019 99 HDL Cholesterol, Nonfasting (mg/dL) Date Value 03/16/2021 118 LDL Cholesterol (mg/dL) Date Value 08/08/2022 127 08/25/2020 101 07/21/2019 86 LDL Cholesterol, Nonfasting (mg/dL) Date Value 03/16/2021 101 Triglyceride (mg/dL) Date Value 08/08/2022 82 08/25/2020 69 07/21/2019 61 Triglycerides, Nonfasting (mg/dL) Date Value 03/16/2021 70 Review of Systems Constitutional: Negative. Respiratory: Negative. Cardiovascular: Negative. Objective BP 155/70 Pulse 87 Resp 16 Wt 53.1 kg (117 lb) BMI 21.06 kg/m Physical Exam Vitals and nursing note reviewed. Constitutional: Appearance: Normal appearance. HENT: Head: Normocephalic and atraumatic. Eyes: Conjunctiva/sclera: Conjunctivae normal. Neck: Thyroid: No thyroid mass, thyromegaly or thyroid tenderness. Vascular: Normal carotid pulses. No carotid bruit or JVD. Cardiovascular: Rate and Rhythm: Normal rate and regular rhythm. Pulses: Normal pulses. Heart sounds: Normal heart sounds. Pulmonary: Effort: Pulmonary effort is normal. Breath sounds: Normal breath sounds. Abdominal: General: Bowel sounds are normal. Palpations: Abdomen is soft. Musculoskeletal: Right lower leg: No edema. Left lower leg: No edema. Skin: General: Skin is warm and dry. Neurological: General: No focal deficit present. Mental Status: She is alert and oriented to person, place, and time. ALLERGIES Allergen Reactions Penicillins Hives Bactrim Ds [Sulfame* Rash Losartan Intolerance headache, did not feel well MEDICATIONS cholecalciferol, vitamin D3, (VITAMIN D3 ORAL) Take 1,000 Int'l Units by mouth. Nature Made amitriptyline (ELAVIL) 10 mg tablet Take 1 tablet by mouth daily at bedtime. atorvastatin (LIPITOR) 20 mg tablet Take 1 tablet by mouth once daily. (Patient taking differently: Take 10 mg by mouth once daily.) amLODIPine (NORVASC) 10 mg tablet Take 1 tablet by mouth once daily. metoprolol succinate ER (TOPROL XL) 25 mg 24 hr tablet Take 1 tablet by mouth once daily. alendronate (FOSAMAX) 70 mg tablet Take 1 tablet by mouth one time a week. In AM with cup of water on empty stomach. Nothing else by mouth and stay upright for 30 min. (Patient not taking: Reported on 2023) PAST MEDICAL HISTORY Diagnosis Date COMMON MIGRAINE W/O MENTN INTRACT 05/10/2005 Diverticulosis of colon (without mention of hemorrhage) HYPERTENSION NOS 05/10/2005 Kidney stone Psoriasis Raynaud's syndrome 05/10/2005 Social History Tobacco Use Smoking status: Never Smokeless tobacco: Never Substance Use Topics Alcohol use: Yes Comment: rare Drug use: No Component Latest Ref Rng & Units 08/08/2022 09/07/2022 Protein, Total 6.3 - 8.0 g/dL 6.8 Albumin 3.9 - 4.9 g/dL 4.5 Calcium 8.5 - 10.2 mg/dL 9.8 Bilirubin, Total 0.2 - 1.3 mg/dL 0.6 Alkaline Phosphatase 34 - 123 U/L 81 AST 13 - 35 U/L 28 ALT 7 - 38 U/L 17 Glucose 74 - 99 mg/dL 95 BUN 7 - 21 mg/dL 15 Creatinine 0.58 - 0.96 mg/dL 1.11 (H) Sodium 136 - 144 mmol/L 138 Potassium 3.7 - 5.1 mmol/L 4.6 Chloride 97 - 105 mmol/L 99 CO2 22 - 30 mmol/L 29 Anion Gap 9 - 18 mmol/L 10 eGFR >=60 mL/min/1.73m 52 (L) WBC 3.70 - 11.00 k/uL 5.20 RBC 3.90 - 5.20 m/uL 4.34 Hemoglobin 11.5 - 15.5 g/dL 13.6 Hematocrit 36.0 - 46.0 % 41.1 MCV 80.0 - 100.0 fL 94.7 MCH 26.0 - 34.0 pg 31.3 MCHC 30.5 - 36.0 g/dL 33.1 RDW-CV 11.5 - 15.0 % 12.4 Platelet Count 150 - 400 k/uL 323 MPV 9.0 - 12.7 fL 10.4 Absolute nRBC <0.01 k/uL <0.01 Cholesterol, Total <200 mg/dL 233 (H) Triglyceride <150 mg/dL 82 HDL Cholesterol >39 mg/dL 90 Non HDL Cholesterol <130 mg/dL 143 (H) Fasting Time hrs 15 VLDL Cholesterol <30 mg/dL 16 TC:HDL Ratio <5.10 2.59 LDL Cholesterol <100 mg/dL 127 (H) LDL:HDL Ratio <2.54 1.41 TSH 0.270 - 4.200 mIU/L 2.990 Free T4 0.9 - 1.7 ng/dL 1.3 Free T3 2.3 - 4.1 pg/mL 3.0 Vitamin D 25 Hydroxy 31.0 - 80.0 ng/mL 60.3 Vitamin B12 232 - 1,245 pg/mL 455 Folate >4.7 ng/mL >20.0 Vitamin B6, Plasma 20.0 - 125.0 nmol/L 94.3 PTH, Intact 15 - 65 pg/mL 38 Phosphorus 2.7 - 4.8 mg/dL 4.0 Calcium, Urine Random 0.0 - 21.0 mg/dL 8.4 Creatinine Date Value Ref Range Status 08/08/2022 1.11 (H) 0.58 - 0.96 mg/dL Final 08/07/2021 0.95 0.58 - 0.96 mg/dL Final 03/16/2021 1.17 (H) 0.58 - 0.96 mg/dL Final 08/25/2020 1.01 (H) 0.58 - 0.96 mg/dL Final ASSESSMENT/PLAN: 1. Chronic diastolic CHF (congestive heart failure) (HCC) - ICD9: 428.32, 428.0, ICD10: I50.32 (primary diagnosis) Following with cardiology 2. Chronic kidney disease, stage 3a (HCC) - ICD9: 585.3, ICD10: N18.31 Stable, currently controlled, continue to monitor. 3. Need for influenza vaccination - ICD9: V04.81, ICD10: Z23 - INFLUENZA VACCINE, PRSV FREE, AGE 65+ YR, HIGH DOSE, QUADRIVALENT (FLUZONE HIGH-DOSE) - in office today 4. Hyperlipidemia, unspecified hyperlipidemia type - ICD9: 272.4, ICD10: E78.5 Recommend a plant based diet such as Mediterranean diet with plenty of vegetables, fruits,whole grains, fish, chicken, turkey or plant proteins and routine exercise such as walking Continue with statin dose unchanged, previously decreased to 10 mg to see if helped with memory - ATORVASTATIN 10 MG TABLET 5. Memory difficulties - ICD9: 780.93, ICD10: R41.3 Recommend neuropsychiatric testing or mine inspector federal visit for further evaluation and treatment. Prefer mine inspector federal at this time. Would like to be seen locally if they could - CONSULT TO GERIATRICS 6. Migraine without aura and without status migrainosus, not intractable - ICD9: 346.10, ICD10: G43.009 Stable, currently controlled, continue to monitor. - AMITRIPTYLINE 10 MG TABLET 7. Essential hypertension with goal blood pressure less than 140/90 - ICD9: 401.9, ICD10: I10 Suboptimal control May have missed a dose medication. Return to clinic in 1 month for recheck - AMLODIPINE 10 MG TABLET 8. Age-related osteoporosis without current pathological fracture - ICD9: 733.01, ICD10: M81.0 Continue with vitamin D, calcium and weightbearing exercise and Fosamax 9. Palpitations - ICD9: 785.1, ICD10: R00.2 Controlled with current treatment - METOPROLOL SUCCINATE ER 25 MG TABLET,EXTENDED RELEASE 24 HR 10. HTN, goal below 140/90 - ICD9: 401.9, ICD10: I10 - METOPROLOL SUCCINATE ER 25 MG TABLET,EXTENDED RELEASE 24 HR - COMP METABOLIC PANEL - CBC + DIFF - TSH BLD 6 mo follow up visit MD Sandra Vargas APRN.CNS Medical Decision Making: Problems: Moderate: 2+ stable chronic illnesses and 1+ chronic illnesses with change Data: Unique test(s) ordered: 3+ Risk: Moderate: Drug management Medical Decision Making Level: 4 - Moderate documented in this encounter [facility] 2023 Evaluation note Diagnosis Chronic diastolic CHF (congestive heart failure) (HCC)- Primary Chronic diastolic heart failure Chronic kidney disease, stage 3a (HCC) Need for influenza vaccination Need for prophylactic vaccination and inoculation against influenza Hyperlipidemia, unspecified hyperlipidemia type Memory difficulties Memory loss Migraine without aura and without status migrainosus, not intractable Migraine without aura, without mention of intractable migraine without mention of status migrainosus Essential hypertension with goal blood pressure less than 140/90 Age-related osteoporosis without current pathological fracture Senile osteoporosis Palpitations HTN, goal below 140/90 Unspecified essential hypertension documented in this encounter [facility]04-17-2023 Miscellaneous Notes* Telephone Encounter - Sandra Sanchez APRN.CNS - 09/10/2022 7:11 AM EDT noted * Telephone Encounter - Pavan Mccarty Ma - 09/08/2022 12:06 PM EDT Med list updated. * Telephone Encounter - Whitney Devon - 09/08/2022 10:19 AM EDT Pt calling in to let Dr. Ardon know the vitamin she is taking. Nature Made D3 1000IU This is th only one. documented in this encounterBarberton [facility]04-14-[facility]23 History of Present illness Narrative* Paulina Ardon MD - 09/07/2022 1:06 PM EDT This note was created using Zyrrar[employer]. Subjective Bekah Sun is a 72 year old female. Patient presents with: Established Patient: Follow up bonescan SUBJECTIVE: Bekah Sun is a 72 year old year old lady here today for follow up appointment for review of medical conditions: bone scan results but test was bone density. Is taking Vitamin D3 (?dose) Reviewed had appointment with Dr Bear since other appointments were canceled. PAST MEDICAL HISTORY Diagnosis Date COMMON MIGRAINE W/O MENTN INTRACT 05/10/2005 Diverticulosis of colon (without mention of hemorrhage) HYPERTENSION NOS 05/10/2005 Kidney stone Psoriasis Raynaud's syndrome 05/10/2005 Current Outpatient Medications Medication Sig amitriptyline (ELAVIL) 10 mg tablet Take 1 tablet by mouth daily at bedtime. atorvastatin (LIPITOR) 20 mg tablet Take 1 tablet by mouth once daily. amLODIPine (NORVASC) 10 mg tablet Take 1 tablet by mouth once daily. metoprolol succinate ER (TOPROL XL) 25 mg 24 hr tablet Take 1 tablet by mouth once daily. Current Facility-Administered Medications Medication Dose Route Frequency perflutren lipid microspheres 1.3 mL in NaCl (PF) 0.9% 10 mL injection (DEFINITY) INTRAVENOUS DIRECTED PRN sodium chloride 0.9 % (flush) 10 mL (BD POSIFLUSH) 10 mL INTRAVENOUS DIRECTED PRN Review of Systems Objective BP 124/68 Pulse 84 Temp 36.8 C (98.2 F) Resp 18 Wt 53.5 kg (118 lb) SpO2 98% BMI 21.24 kg/m Physical Exam IMPRESSION: THE LOWEST T-SCORE IS -3.3 IN THE RIGHT HIP 1) DIAGNOSIS (based on BMD alone): OSTEOPOROSIS . Overall, there has been significant interval worsening Follow-up scans should always be done on the same machine for accurate comparison. FOR MORE INFORMATION: [facility] for Osteoporosis and Metabolic Bone Disease: www.ccf.org/arthritis/osteo National Osteoporosis Foundation: www.nof.org International Society of Clinical Densitometry www.iscd.org [employer] CLASSIFICATION OF BONE MASS: CLASSIFICATION T-SCORE Normal Greater than -1 Low Bone Mass Between -1 and -2.5 (Osteopenia) Osteoporosis Less than or equal to -2.5 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 Gate: LILIANA Transcribe Date/Time: Aug 17 2022 11:27A Dictated by : SERENA LEÓN MD This examination was interpreted and the report reviewed and electronically signed by: SERENA LEÓN MD on Aug 17 2022 11:28AM EST Results-Findings * * *Final Report* * * DATE OF EXAM: Aug 13 2022 3:29PM [facility] 0804 - BD DXA - AXIAL SKELETON / PROCEDURE REASON: Asymptomatic postmenopausal status * * * * Physician Interpretation * * * * EXAMINATION: DXA BONE DENSITOMETRY TECHNIQUE: Low dose AP spine and hip images Date Scanned: 08/13/2022 3:29 PM COMPARISON: 05/11/2008 CLINICAL HISTORY: Asymptomatic postmenopausal status . TECHNICAL LIMITATIONS: None RESULTS: Lumbar spine (L1-L4): 0.869 g/cm2 , T-score -1.6 , Z-score 0.7 . 0.171 g/sq cm worse Left Femoral Neck: 0.535 g/cm2 , T-score-2.8 , Z-score-0.8 . 0.251 g/sq cm worse Left Total Hip: 0.741 g/cm2 , T-score-1.7 , Z-score 0.1 . Right Femoral Neck: 0.478 g/cm2 , T-score -3.3 , Z-score-1.3 . Right Total Hip: 0.692 g/cm2 , T-score-2.0 , Z-score -0.3 Assessment and Plan Encounter Diagnosis ICD-10-CM 1. Age-related osteoporosis without current pathological fracture M81.0 alendronate (FOSAMAX) 70 mgtablet Above issues addressed with patient. Patient involved in shared decision making for management of medical issues. History and medications reviewed. Epic updated as needed Refills and/or prescriptions taken care of and meds adjusted as indicated after reviewed history, exam and labs. Health Maintenance reviewed. Updated record and/or ordered tests as recorded. Encouraged on efforts at healthy diet and regular exercise and adequate sleep. Plans for BMD in 2 years. Paulina Ardon MD documented in this encounterBarber[facility]04-14-2023 Miscellaneous Notes* Telephone Encounter - Anai Altamirano LPN - 09/07/2022 10:42 AM EDT Spoke with patient regarding results. She is scheduled for an appointment today so stated Dr. Ardon would discuss results further at appointment. * Telephone Encounter - Linda Aguirre LPN - 09/06/2022 10:08 AM EDT Phoned patient and call disconnected, no voicemail to leave message, try again later. * Telephone Encounter - Linda Aguirre LPN - 09/06/2022 10:06 AM EDT ----- Message from Paulina Ardon MD sent at 09/05/2022 7:24 PM EDT ----- Bone density in osteoporosis range. Bone density very low with T-score under - 3.3. Recommendations would be to treat. Vitamin D level and calcium level fine on July labs. Would check parathyroid hormone, and spot urine calcium and SPEP and UPEP to make sure not missing other causes for osteoporosis aside from age related changes. Then decide about treatment options. Can refer to medical records secretary if patient wants their opinion regarding treatment. Orders filed documented in this encounterBarberton [facility]04-13-2023 Miscellaneous Notes* Telephone Encounter - Carlotta Ayala RN - 09/06/2022 11:31 AM EDT This nurse called the patient and rescheduled her appointment for 11/26/[address] Bear due to previous appointment cancellation. Carlotta Ayala RN * Telephone Encounter - Suzanne Aguero - 09/06/2022 10:38 AM EDT Patient was instructed to reschedule her appointment on 12/10/22 due to the provider being out that day. Upon review of Selam Abbasi's schedule, it becomes unavailable beginning 02/04/23. In the header of her scheduled, it advised to contact Cardiology office. They were unable to accept the patient into the [facility] office and were unsure why our schedule was closed in [place]. Please notify the patient if she can be seen sooner. documented in this encounterBarberton [facility]03-[facility] History of Present illness Narrative* Gabrielle Nugent RT(R) - 08/13/2022 3:00 PM EDT Radiology Service Progress Note PATIENT NAME: Bekah Sun DATE OF SERVICE: August 13, 2022 TIME: 3:12 PM PATIENT IDENTITY VERIFICATION COMPLETED USING TWO (2) IDENTIFIERS: Name and Date of confirmedby patient verbally. FALL SCREENING: Has the patient had 2 falls in the last year or 1 fall with injury or currently using an Ambulatory Assistive Device (Walker, Cane, Wheelchair, Crutches, etc.)? No PATIENT GENDER DATA: Female. status: : No status: NO. PATIENT RELEVANT IMPLANT DATA REVIEWED: Not Applicable RADIOLOGY DEPARTMENT: Bone Density PERIPHERAL IV DATA: Not applicable SIGNED BY: RT Shandra(R) August 13, 2022 3:12 PM documented in this encounterBarberton [facility] Hospital03-20-2023 Miscellaneous Notes* Result Encounter Note - Sandra Sanchez APRN.WAFER CUTTER - 08/13/2022 3:00 PM EDT Osteoporosis, worse than previous measure, low score in the right hip documented in this encounterBarberton Citizens Hospital03-07-2023 Instructions* Patient Instructions* Paulina Ardon MD - 07/31/2022 4:37 PM EST Okay to decrease Lipitor (atoravastin) to half pill or even stop if you want to see if memory improves. BONE MINERAL DENSITY PATIENT INSTRUCTIONS Bone mineral density testing measures the amount of calcium in certain parts of your bones. This information determines how strong your bones are. The test is used to detect osteoporosis, a disease in which the bone's mineral content and density are low, increasing a person's risk of fractures. Thelumbar spine (lower back) and the hip are the skeletal sites usually examined. For the test, remember that: 1. You cannot take this test if you are . 2. Eat a normal diet on the day of the test. 3. Take your medications as you normally would. 4. DO NOT take calcium supplements (such as Tums) for 24 hours before the test. 5. On the day of the test, leave valuables (jewelry or credit cards) at home. 6. The test should be performed prior to oral, rectal or IV contrast studies, or at least 7 days after any of these studies. For the test, you may be asked to wear a hospital gown. You will lie on your back, on a padded table, in a comfortable position. Generally, you can resume your usual activities immediately. documented in this encounterBarberton [facility] Hospital03-07-2023 History of Present illness Narrative* Paulina Ardon MD - 07/31/2022 4:10 PM EST This note was created using NoteWriter. Subjective Bekah Sun is a 72 year old female. Patient presents with: F/U 6 months SUBJECTIVE: Bekah Sun is a 72 year old year old lady here today for 6 month follow up appointment for reviewof medical conditions. BP fine at home when checked but not checked lately. No symptoms of BP too high or too low. Memory issues.Worsening the past 6 months. Does not think goes back a year Forgets what was going to get in another room. Asks same question 3 to 4 times. Belongs to a couple clubs and gets forgetting which one is which. Does get her sleep every night. Rested when gets up in AM Eating well. Staying hydrated. Depression Screening 04/10/2016 05/13/2017 06/05/2018 07/31/2022 PHQ-2 Score 0 0 0 0 Depression screening tool completed and reviewed. Based on score and interview, patient is not at risk for depression. Screening tool discussed with patient, and I recommended no further interventionat this time. PAST MEDICAL HISTORY Diagnosis Date COMMON MIGRAINE W/O MENTN INTRACT 05/10/2005 Diverticulosis of colon (without mention of hemorrhage) HYPERTENSION NOS 05/10/2005 Kidney stone Psoriasis Raynaud's syndrome 05/10/2005 Current Outpatient Medications Medication Sig amitriptyline (ELAVIL) 10 mg tablet Take 1 tablet by mouth daily at bedtime. atorvastatin (LIPITOR) 20 mg tablet Take 1 tablet by mouth once daily. amLODIPine (NORVASC) 10 mg tablet Take 1 tablet by mouth once daily. metoprolol succinate ER (TOPROL XL) 25 mg 24 hr tablet Take 1 tablet by mouth once daily. Current Facility-Administered Medications Medication Dose Route Frequency perflutren lipid microspheres 1.3 mL in NaCl (PF) 0.9% 10 mL injection (DEFINITY) INTRAVENOUS DIRECTED PRN sodium chloride 0.9 % (flush) 10 mL (BD POSIFLUSH) 10 mL INTRAVENOUS DIRECTED PRN Review of Systems Objective BP 160/82 Pulse 88 Temp 36.3 C (97.3 F) Resp 18 Wt 52.3 kg (115 lb 4.8 oz) SpO2 99% BMI20.75 kg/m Last 5 Encounter Wt Readings: Date: Wt: 07/31/2022 52.3 kg (115 lb 4.8 oz) 12/14/2021 51.3 kg (113 lb) 12/11/2021 52 kg (114 lb 9.6 oz) 08/21/2021 51.3 kg (113 lb) 08/07/2021 51.7 kg (114 lb) No waist measurement recorded Estimated body mass index is 20.75 kg/m as calculated from the following: Height as of 12/31/18: 158.8 cm (5' 2.5). Weight as of this encounter: 52.3 kg (115 lb 4.8 oz). Last 5 Encounter BP Readings: Date: BP: 07/31/2022 160/82 12/14/2021 138/75[average[ 12/11/2021 140/78 08/21/2021 190/72[average[ 08/07/2021 163/68[average[ 07/31/22 1550 07/31/22 1620 BP: 160/82 124/72 Pulse: 88 Resp: 18 Temp: 36.3 C (97.3 F) SpO2: 99% Weight: 52.3 kg (115 lb 4.8 oz) Physical Exam Constitutional: Appearance: Normal appearance. HENT: Head: Normocephalic. Eyes: Conjunctiva/sclera: Conjunctivae normal. Cardiovascular: Rate and Rhythm: Normal rate and regular rhythm. Heart sounds: Normal heart sounds. Pulmonary: Effort: Pulmonary effort is normal. Breath sounds: Normal breath sounds. Skin: General: Skin is warm and dry. Neurological: General: No focal deficit present. Mental Status: She is alert and oriented to person, place, and time. Psychiatric: Mood and Affect: Mood normal. Behavior: Behavior normal. Thought Content: Thought content normal. Judgment: Judgment normal. Prior labs noted Assessment and Plan Encounter Diagnosis ICD-10-CM 1. Essential hypertension with goal blood pressure less than 140/90 I10 COMP METABOLIC PANEL CBC TSH BLD T4 FREE/FREE THYROX T3 FREE BLD 2. Hyperlipidemia, unspecified hyperlipidemia type E78.5 LIPID PANEL BASIC TSH BLD 3. Asymptomatic postmenopausal status Z78.0 DXA-AXIAL SKELETON 4. Hypercalcemia E83.52 VITAMIN D 25 HYDROXY 5. Memory deficit R41.3 VITAMIN B12 BLOOD FOLATE SERUM VITAMIN B6/PYRIDOXIN 6. Encounter for long-term current use of medication Z79.899 COMP METABOLIC PANEL CBC LIPID PANEL BASIC TSH BLD Above issues addressed with patient. Patient involved in shared decision making for management of medical issues. History and medications reviewed. Epic updated as needed Refills and/or prescriptions taken care of and meds adjusted as indicated after reviewed history, exam and labs. Health Maintenance reviewed. Updated record and/or ordered tests as recorded. Encouraged on efforts at healthy diet and regular exercise and adequate sleep. Doing well overall. BP better on recheck. Continue present meds. Further evaluation and treatment as indicated. Paulina Ardon MD documented in this encounterBarberton [facility] Hospital02-20-2023 Miscellaneous Notes* Letter - Mammography Coordinator - 07/16/2022 3:04 PM EST July 18, 2022 PID: [id number] Bekah Sun [address] [facility] [place] [address] Dear Ms. Sun, We are pleased to inform you that the results of your recent breast imaging exam on 07/16/2022 are normal. Your mammogram demonstrates that you have dense breast tissue, which could hide abnormalities. Dense breast tissue, in and of itself, is a relatively common condition. Therefore, this information is not provided to cause undue concern; rather, it is to raise your awareness and promote discussion with your health care provider regarding the presence of dense breast tissue in addition to other riskfactors. Early detection of cancer is very important. We also understand recommendations regarding breast cancer screening are controversial. Please discuss with your primary care provider which strategy is best for you and whether a mammogram is right for you. Your imaging studies and report will be kept on file at [facility] as part of your permanent medical record and are available for your continuing care. Thank you for allowing us to help in meeting your health care needs. Sincerely, Dr. Begum Interpreting Radiologist [facility] (Normal over 40) documented in this encounterBarberton Citizens Hospital02-20-2023 History of Present illness Narrative* Yadira Sheffield Mammo Tech - 07/16/2022 2:30 PM EST Radiology Service Progress Note PATIENT NAME: Bekah Sun DATE OF SERVICE: July 16, 2022 TIME: 2:32 PM PATIENT IDENTITY VERIFICATION COMPLETED USING TWO (2) IDENTIFIERS: Name and Date of confirmedby patient verbally. FALL SCREENING: Has the patient had 2 falls in the last year or 1 fall with injury or currently using an Ambulatory Assistive Device (Walker, Cane, Wheelchair, Crutches, etc.)? No PATIENT GENDER DATA: Female. status: : No status: NO. PATIENT RELEVANT IMPLANT DATA REVIEWED: Not Applicable RADIOLOGY DEPARTMENT: Mammography PERIPHERAL IV DATA: Not applicable SIGNED BY: Fiona Lockwood July 16, 2022 2:32 PM documented in this encounterBarberton Citizens Hospital09-12-2022 Miscellaneous Notes* Telephone Encounter - Bee Stricklandlinger BLANYE - 02/05/2022 2:10 PM EDT Patient wanting to go to mail-order pharmacy. Patient has been identified by name and date of : Yes Patient phones for refill(s): Requested Prescriptions Pending Prescriptions Disp Refills amitriptyline (ELAVIL) 10 mg tablet 90 tablet 3 Sig: Take 1 tablet by mouth daily at bedtime. atorvastatin (LIPITOR) 20 mg tablet 90 tablet 3 Sig: Take 1 tablet by mouth once daily. amLODIPine (NORVASC) 10 mg tablet 90 tablet 3 Sig: Take 1 tablet by mouth once daily. Date of last office visit in primary care: 12/14/2021 6 month follow-up: Last 2 Encounter Wt Readings: Date: Wt: 12/14/2021 51.3 kg (113 lb) 12/11/2021 52 kg (114 lb 9.6 oz) Previous labs/tests for medication: Cholesterol: HDL Cholesterol (mg/dL) Date Value 08/25/2020 111 HDL Cholesterol, Nonfasting (mg/dL) Date Value 03/16/2021 118 LDL Cholesterol (mg/dL) Date Value 08/25/2020 101 LDL Cholesterol, Nonfasting (mg/dL) Date Value 03/16/2021 101 ALT (U/L) Date Value 08/07/2021 20 03/16/2021 17 Non HDL Cholesterol, Nonfasting (mg/dL) Date Value 03/16/2021 115 Blood Pressure: BUN (mg/dL) Date Value 08/07/2021 15 03/16/2021 26 Sodium (mmol/L) Date Value 08/07/2021 141 03/16/2021 139 Last 1 Encounter BP Readings: Date: BP: 12/14/2021 138/75[average[ Please advise. Thank you. Bee Baer LPN documented in this encounterBarberton Citizens Hospital08-05-2022 Miscellaneous Notes* Telephone Encounter - Eun Alcazar RN - 12/29/2021 9:14 AM EDT Pt. notified. Voices understanding. States she will stop by to fish bait picker a copy when she is back in town sometime. Eun Alcazar RN * Telephone Encounter - Eun Alcazar RN - 12/29/2021 9:13 AM EDT Images from the original note were not included. Selam Abbasi APRN.FIELD CROPS HARVEST MACHINE OPERATOR You; [facility] Cardiology Pool 1 hour ago (7:32 AM) Results for monitors are not able to be released into [employer] because they are from an outside vendor. She can fish bait picker a printed copy or you can mail her one if she would like. Thank you! Message text * Telephone Encounter - Eun Alcazar RN - 12/28/2021 4:28 PM EDT Pt. notified of results. Voices understanding. Requesting results be released to [employer]. AMINATA Monge * Telephone Encounter - Eun Alcazar RN - 12/28/2021 4:28 PM EDT ----- Message from Selam Abbasi APRN.FIELD CROPS HARVEST MACHINE OPERATOR sent at 12/28/2021 3:00 PM EDT ----- Please call patient and notify her of monitor results. A few short runs of SVT noted with a max rate of 150 bpm noted. I would continue metoprolol as is. No significant arrhythmias noted such as NO a-fib, no high burden ventricular ectopies, no heart block. Thank you! documented in this encounterBarberton Citizens Hospital07-21-2022 Instructions* Patient Instructions* Sandra Sanchez APRN.CNS - 12/14/2021 11:32 AM EDT Check to see if your insurance covers Tdap vaccine and what location to get the vaccine -usually best covered at your local pharmacy where you get prescriptions filled Consider mine inspector federal visit or neuropsychiatric testing regarding you rmemory documented in this encounterBarberton Citizens Hospital07-21-2022 History of Present illness Narrative* Sandra Sanchez APRN.CNS - 12/14/2021 11:00 AM EDT SUBJECTIVE: DTAP,TDAP,TD(2 - Td or Tdap) due on 09/19/2021 HPI Bekah Sun is a 71 year old female. PMH is significant for ACTIVE PROBLEM LIST Htn, Goal Below 140/90 Migraine Without Aura Raynaud's Syndrome Hyperlipidemia Constipation HPI excerpted from previous visit: Today reports she did not sleep well last night. She reports that she had a chest heaviness last night.Notes lasted a couple of hours. Passed without intervention. Noted later in night. No other associated symptoms. States it did not seem that bad.No prior occurrence. No change in functional capcicity; not limited in walking flat surface, takingstairs. No exertional chest pain reported. She reports that she stopped taking amlodipine when she started taking metoprolol succinate following her last visit. HTN: She notes palpitations have resolved. No further chest pain; single occurrence. No edema presyncope or syncope. No edema. Last 3 Encounter BP Readings: Date: BP: 08/21/2021 190/72[average[ 08/07/2021 163/68[average[ 05/18/2021 158/74 Returns for routine follow-up visit. She notes memory seems decreased somewhat, primarily short-term memory. Able to complete all ADLs and IADLs. She notes since last here was seen in cardiology. Note she is currently wearing Zio patch. Notes feeling well overall. HTN: Ms. Sun indicates that she is without headache, chest pain, dyspnea, peripheral edema, orthopnea, fatigue and PND. Last 14 Encounter BP Readings: Date: BP: 12/14/2021 138/75[average[ 12/11/2021 140/78 08/21/2021 190/72[average[ 08/07/2021 163/68[average[ 05/18/2021 158/74 03/16/2021 135/70[trubp average[ 08/26/2020 148/72 02/03/2020 128/70 09/23/2019 141/65 08/07/2019 126/63 07/23/2019 160/78 12/31/2018 128/66 06/05/2018 124/70 11/21/2017 124/82 Review of Systems Constitutional: Negative. Respiratory: Negative. Cardiovascular: Negative for chest pain, palpitations and leg swelling. Objective BP 138/75 Pulse 72 Wt 51.3 kg (113 lb) BMI 20.34 kg/m Physical Exam Vitals and nursing note reviewed. Constitutional: Appearance: Normal appearance. HENT: Head: Normocephalic and atraumatic. Eyes: Conjunctiva/sclera: Conjunctivae normal. Neck: Thyroid: No thyroid mass, thyromegaly or thyroid tenderness. Vascular: Normal carotid pulses. No carotid bruit or JVD. Cardiovascular: Rate and Rhythm: Normal rate and regular rhythm. Pulses: Normal pulses. Heart sounds: Normal heart sounds. Pulmonary: Effort: Pulmonary effort is normal. Breath sounds: Normal breath sounds. Abdominal: General: Bowel sounds are normal. Palpations: Abdomen is soft. Musculoskeletal: Right lower leg: No edema. Left lower leg: No edema. Skin: General: Skin is warm and dry. Neurological: General: No focal deficit present. Mental Status: She is alert and oriented to person, place, and time. ALLERGIES Allergen Reactions Penicillins Hives Bactrim Ds [Sulfame* Rash Losartan Intolerance headache, did not feel well MEDICATIONS metoprolol succinate ER (TOPROL XL) 25 mg 24 hr tablet Take 1 tablet by mouth once daily. amLODIPine (NORVASC) 10 mg tablet Take 1 tablet by mouth once daily. VALERIAN ORAL Take by mouth. apremilast (OTEZLA) 30 mg tablet Take 1 tablet by mouth twice daily. amitriptyline (ELAVIL) 10 mg tablet Take 1 tablet by mouth daily at bedtime. atorvastatin (LIPITOR) 20 mg tablet Take 1 tablet by mouth once daily. PAST MEDICAL HISTORY Diagnosis Date COMMON MIGRAINE W/O MENTN INTRACT 05/10/2005 Diverticulosis of colon (without mention of hemorrhage) HYPERTENSION NOS 05/10/2005 Kidney stone Psoriasis Raynaud's syndrome 05/10/2005 Social History Tobacco Use Smoking status: Never Smoker Smokeless tobacco: Never Used Substance Use Topics Alcohol use: Yes Comment: rare Drug use: No Component Latest Ref Rng & Units 08/25/2020 03/16/2021 08/07/2021 WBC 3.70 - 11.00 k/uL 5.90 6.73 8.50 RBC 3.90 - 5.20 m/uL 4.78 4.87 4.59 Hemoglobin 11.5 - 15.5 g/dL 14.7 15.1 14.0 Hematocrit 36.0 - 46.0 % 44.3 45.2 42.7 MCV 80.0 - 100.0 fL 92.7 92.8 93.0 MCH 26.0 - 34.0 pg 30.8 31.0 30.5 MCHC 30.5 - 36.0 g/dL 33.2 33.4 32.8 RDW-CV 11.5 - 15.0 % 12.4 12.5 12.6 Platelet Count 150 - 400 k/uL 350 363 353 MPV 9.0 - 12.7 fL 10.4 11.1 11.0 Neut% % 65.0 74.5 Abs Neut (ANC) 1.45 - 7.50 k/uL 4.35 6.33 Lymph% % 23.3 17.5 Abs Lymph 1.00 - 4.00 k/uL 1.57 1.49 [place]% % 7.6 5.5 Abs [place] <0.87 k/uL 0.51 0.47 Eosin% % 3.1 0.4 Abs Eosin <0.46 k/uL 0.21 0.03 Baso% % 1.0 0.5 Abs Baso <0.11 k/uL 0.07 0.04 Immature Gran % % 1.6 IMMATURE GRANS (ABS) <0.10 k/uL 0.14 (H) NRBC /100 WBC 0.0 Absolute nRBC <0.01 k/uL <0.01 <0.01 <0.01 DTYPE Auto Nucleated Reds 0 /100 WBC 0.0 Diff Type Auto Diff Protein, Total 6.3 - 8.0 g/dL 6.9 7.7 7.6 Albumin 3.9 - 4.9 g/dL 4.4 4.8 4.8 Calcium 8.5 - 10.2 mg/dL 9.4 10.6 (H) 9.7 Bilirubin, Total 0.2 - 1.3 mg/dL 0.4 0.5 0.2 Alkaline Phosphatase 34 - 123 U/L 87 88 80 AST 13 - 35 U/L 29 27 29 Glucose 74 - 99 mg/dL 100 (H) 97 100 (H) BUN 7 - 21 mg/dL 15 26 (H) 15 Creatinine 0.58 - 0.96 mg/dL 1.01 (H) 1.17 (H) 0.95 Sodium 136 - 144 mmol/L 142 139 141 Potassium 3.7 - 5.1 mmol/L 4.0 4.5 3.5 (L) Chloride 97 - 105 mmol/L 101 99 100 CO2 22 - 30 mmol/L 30 25 28 Anion Gap 9 - 18 mmol/L 11 15 13 ALT 7 - 38 U/L 23 17 20 eGFR- >60 55 eGFR-All Other Races . 54 45 eGFR >=60 mL/min/1.73m 63 Cholesterol, Total <200 mg/dL 226 (H) Triglyceride <150 mg/dL 69 HDL Cholesterol >39 mg/dL 111 LDL Cholesterol <100 mg/dL 101 (H) Non HDL Cholesterol <130 mg/dL 115 Fasting Time hrs 12 VLDL Cholesterol <30 mg/dL 14 TC:HDL Ratio <5.10 2.04 LDL:HDL Ratio <2.54 0.91 Total Cholesterol, Nonfasting <200 mg/dL 233 (H) Triglycerides, Nonfasting <150 mg/dL 70 HDL Cholesterol, Nonfasting >39 mg/dL 118 LDL Cholesterol, Nonfasting <100 mg/dL 101 (H) Non HDL Cholesterol, Nonfasting <130 mg/dL 115 VLDL Cholesterol, Nonfasting <30 mg/dL 14 Total Chol/HDL Ratio, Nonfasting <5.10 mg/dL 1.97 LDL/HDL Ratio, Nonfasting <2.54 mg/dL 0.86 TSH 0.270 - 4.200 mIU/L 1.470 ASSESSMENT/PLAN: 1. HTN, goal below 140/90 - ICD9: 401.9, ICD10: I10 (primary diagnosis) Blood pressure currently controlled, continue with current treatment unchanged, continue to monitor. Endorsed DASH diet. - METOPROLOL SUCCINATE ER 25 MG TABLET,EXTENDED RELEASE 24 HR 2. Encounter for immunization - ICD9: V03.89, ICD10: Z23 3. Palpitations - ICD9: 785.1, ICD10: R00.2 Since last here has seeing cardiology. Wearing Zio patch now (previously declined) and has upcoming follow-up visit with cardiology. Stable. - METOPROLOL SUCCINATE ER 25 MG TABLET,EXTENDED RELEASE 24 HR 4. Memory problem - ICD9: 780.93, ICD10: R41.3 She reports with some like minor memory problems, able to complete all ADLs and IADLs without difficulty. Endorse routine exercise and plant-based diet such as Mediterranean diet. She will consider seeing mine inspector federal or completing neuropsychiatric testing at a later date. - NEUROPSYCHOLOGICAL TESTING CONSULT - CONSULT TO GERIATRICS 6 mo follow up visit MD Sandra Vargas APRN.WAFER CUTTER Medical Decision Making: Problems: Moderate: New problem with uncertain prognosis Data: Unique test(s) ordered: 3+ Risk: Moderate: Drug management Medical Decision Making Level: 4 - Moderate documented in this encounterBarber[facility]07-18-[facility]22 History of Present illness Narrative* Eun Alcazar RN - 12/11/2021 10:18 AM EDT EVENT MONITOR DISPOSABLE PATCH INSTRUCTIONS Patient Name: Bekah Sun Clinic Number: [id number] Skin prepped and cleansed with alcohol Patch secured to prepped area Monitor Activated Serial #: [id number] Patient Instructed: 1.) Prescribed order timeframe 2.) Bathing guidelines 3.) Usage of event button and diary documentation 4.) Return of monitor at the end of prescribed order 5.) Call with problems [phone] or [phone] ext. [phone] Patient expresses a good understanding of instructions Eun Alcazar RN * Yenifer Buck LPN - 12/11/2021 9:50 AM EDT AMB ROOMING INTAKE FLOWSHEET DATA Risk Screening Do you have concerns about personal safety or safety in the home?: No Patient presents with: Hypertension Palpitations Yenifer Buck LPN * Selam Abbasi APRN.ESTELITA - 12/11/2021 9:30 AM EDT Images from the original note were not included. [facility]IOLOGY Cardiology ([facility]) [address] [facility] [id number] OUTPATIENT VISIT December 11, 2021 9:30 AM Chief Complaint Patient presents with: Hypertension Palpitations History of Present Illness: Bekah Sun is a 71 year old female who presents for cardiology evaluation. She has a PMhx of HTN,palpitations. She has completed a stress echocardiogram in the past which was negative for for ischemia at 98 % of MPHR (4.8 METS). Her accompanies her for office visit today. She explains about a month ago she was feeling palpitations brief in duration, daily. Symptoms of palpitations spontaneously resolved about a month ago. She reports no other associated cardiac symptoms. She is able to do routine housework and run errands. She will occasionally walk for exercise. She is not limitedin any activity by cardiac symptoms. She denies chest pain, chest pain with activity, SOB, dizziness, syncope, orthopnea, LE swelling. We reviewed cardiac risk factors and modifications. PAST MEDICAL HISTORY Diagnosis Date COMMON MIGRAINE W/O MENTN INTRACT 05/10/2005 Diverticulosis of colon (without mention of hemorrhage) HYPERTENSION NOS 05/10/2005 Kidney stone Psoriasis Raynaud's syndrome 05/10/2005 PAST SURGICAL HISTORY Procedure Laterality Date COLONOSCOPY FLX DX W/COLLJ SPEC WHEN PFRMD 08/15/2009 Colonoscopy COLONOSCOPY FLX DX W/COLLJ SPEC WHEN PFRMD 10/28/2019 Colonoscopy ESOPHAGOGASTRODUODENOSCOPY TRANSORAL DIAGNOSTIC 01/08/2012 inpt f f [facility] EGD PAST SURGICAL HISTORY OF 06/10/2009 Single Port resection of ovarian remanent-LSO TOTAL ABDOMINAL HYSTERECT W/WO RMVL TUBE OVARY HUANG-BSO FAMILY HISTORY Problem Relation Age of Onset Hypertension Father Stroke Father Arthritis Mother Cancer Paternal Aunt unknown site Social History Tobacco Use Smoking status: Never Smoker Smokeless tobacco: Never Used Substance Use Topics Alcohol use: Yes Comment: rare Drug use: No Cardiac Risk Factors: age (male over 45, female over 55), hypertension ALLERGIES Allergen Reactions Penicillins Hives Bactrim Ds [Sulfame* Rash Losartan Intolerance headache, did not feel well Medications: Current Outpatient Medications Medication Sig Dispense Refill amLODIPine (NORVASC) 10 mg tablet Take 1 tablet by mouth once daily. 90 tablet 3 metoprolol succinate ER (TOPROL XL) 25 mg 24 hr tablet Take 1 tablet by mouth once daily. 90 tablet3 VALERIAN ORAL Take by mouth. apremilast (OTEZLA) 30 mg tablet Take 1 tablet by mouth twice daily. 30 tablet 5 amitriptyline (ELAVIL) 10 mg tablet Take 1 tablet by mouth daily at bedtime. 90 tablet 3 atorvastatin (LIPITOR) 20 mg tablet Take 1 tablet by mouth once daily. 90 tablet 3 Current Facility-Administered Medications Medication Dose Route Frequency Provider Last Rate Last Admin perflutren lipid microspheres 1.3 mL in NaCl (PF) 0.9% 10 mL injection (DEFINITY) INTRAVENOUS DIRECTED PRN Sandra Sanchez APRN.WAFER CUTTER sodium chloride 0.9 % (flush) 10 mL (BD POSIFLUSH) 10 mL INTRAVENOUS DIRECTED PRN Sandra Sanchez, CHANNEL ACCOUNT MANAGER.WAFER CUTTER Review of Systems Constitutional: Negative for chills, diaphoresis, fever, malaise/fatigue and weight loss. HENT: Negative for congestion, ear pain, nosebleeds, sinus pain and sore throat. Eyes: Negative for pain. Respiratory: Negative for cough, shortness of breath and wheezing. Cardiovascular: Positive for palpitations (1 month ago, resolved). Negative for chest pain and leg swelling. Gastrointestinal: Negative for abdominal pain, blood in stool and melena. Genitourinary: Negative for hematuria. Musculoskeletal: Negative for falls. Neurological: Negative for dizziness, tingling, sensory change, speech change, focal weakness, lossof consciousness, weakness and headaches. Endo/Heme/Allergies: Does not bruise/bleed easily. Psychiatric/Behavioral: Negative for depression, memory loss and suicidal ideas. The patient is notnervous/anxious and does not have insomnia. Physical Examination: Vitals:BP 140/78 Pulse 75 Wt 114 lb 9.6 oz (52.0kg) SpO2 98% Last 2 Encounter Wt Readings: Date: Wt: 08/21/2021 113 lb (51.3 kg) 08/07/2021 114 lb (51.7 kg) Physical Exam HENT: Head: Normocephalic. Eyes: Pupils: Pupils are equal, round, and reactive to light. Cardiovascular: Rate and Rhythm: Normal rate and regular rhythm. Pulses: Radial pulses are 2+ on the right side and 2+ on the left side. Dorsalis pedis pulses are 2+ on the right side and 2+ on the left side. Heart sounds: Normal heart sounds, S1 normal and S2 normal. Pulmonary: Effort: Pulmonary effort is normal. No accessory muscle usage or respiratory distress. Breath sounds: Normal breath sounds. Abdominal: General: Bowel sounds are normal. Palpations: Abdomen is soft. Musculoskeletal: General: Normal range of motion. Cervical back: Normal range of motion. Right lower leg: No edema. Left lower leg: No edema. Skin: General: Skin is warm and dry. Neurological: Mental Status: She is alert and oriented to person, place, and time. Gait: Gait is intact. Psychiatric: Mood and Affect: Affect normal. Cognition and Memory: Memory normal. Judgment: Judgment normal. Most Recent Cardiac Testing 10/16/2021 CONCLUSIONS: - Exam indication: Chest Pain - The exercise stress echo was negative for ischemia at 98 % of MPHR (4.8 METS). No regional wall motion abnormality seen at heart rate achieved. - The left ventricle is normal in size. There is mild upper septal asymmetric left ventricular hypertrophy. Left ventricular systolic function is normal. EF = 66 5% (2D biplane) Grade I left ventricular diastolic dysfunction. - The right ventricle is normal in size. Right ventricular systolic function is normal. - The patient has not had a prior CC echocardiographic exam for comparison. Stress ECG Conclusion: Conclusion: Normal with exception due to low heart rate recovery and abnormal Diaz treadmill score Assessment and Plan: HTN -140/78 Home lo/65, 140/70 -Continue current medication(s) -Encouraged dietary sodium restriction/DASH diet -Recommended regular aerobic exercise. -Recommend home blood pressure monitoring, to bring results in on next visit -Goal of BP <130/80 Palpitations -symptoms were brief in duration happening daily 1 month ago and have resolved -stress echocardiogram completed with grossly normal structure and function -7 day monitor ordered today for further evaluation -continue metoprolol -recommended conservative measures: stay hydrated, limit stimulants/caffiene, limit stress Chronic diastolic HF -EF 66%, grade I left ventricular diastolic dysfunction -compensated on exam -recommended heart healthy, 2g low sodium diet, daily weights Abnormal stress ECG -abnormal heart rate recovery and abnormal diaz treadmill score on stress testing. no suggestion ofWMA or ischemia. No further cardiac testing recommended. Continue risk factor modification -without symptoms concerning for angina -EF 66% -continue statin -encouraged routine activity and heart healthy diet for risk factor modification Follow up in 1 year. Sooner for abnormal monitor or recurrence of symptoms. Patient to call with any issues or concerns prior to then. Electronically signed by Selam Abbasi APRN.CNP on December 11, 2021, 9:03 AM documented in this encounterBarberton [facility]07-18-2022 Instructions* Patient Instructions* Selam Abbasi APRN.CNP - 12/11/2021 10:07 AM EDT Heart Disease in Women Is heart disease a problem for women? Heart disease is the leading cause of of [place] women. More women from heart disease than from cancer. A heart attack can happen when there are problems with the blood vessels that bring blood to the heart (the coronary arteries). For example, fatty deposits called plaque may build up in the coronary arteries and make them narrower. The narrowing decreases blood flow to the heart. Plaque also increases the chance that blood clots may form and block a blood vessel, which can cause a heart attack orstroke. In the first year after a heart attack, women have an increased risk of . In the first 6 yearsafter a heart attack, they also have a higher risk of a second heart attack. Women are at high riskoften because they are older at the time of the heart attack and have other medical problems. Not everyone has the same symptoms. The most common symptoms of a heart attack include: Chest pain or pressure, squeezing, or fullness in the center of your chest that lasts more than a few minutes, or goes away and comes back (may feel like indigestion or heartburn) Pain or discomfort in one or both arms or shoulders, or in your back, neck, jaw, or stomach Trouble breathing Breaking out in a cold sweat for no known reason Along with these symptoms, you may also feel very tired, faint, or be sick to your stomach. Sometimes you can be having a heart attack and not know it. Many women have chest pain or pressure,but sometimes symptoms in women are different from men s symptoms. Or women may have additional symptoms, such as: Unexplained anxiety and nervousness Swelling of the ankles or lower legs Because they may not feel the typical pain in the left side of their chest, many women may ignore the symptoms of a heart attack. Call 911 for emergency help right away if you have these symptoms. Donot drive yourself to the hospital. Immediate emergency care improves your chances of survival and may help avoid damage to your heart. How can women lower their risk for heart disease? If you have high blood pressure, carefully follow your healthcare provider's instructions for keeping it under control. If you are a smoker, stop smoking. Try to keep a healthy weight. If you are overweight, talk to your provider about ways to lose weight. Eat a healthy diet that includes: ?Avoiding salty foods and not adding salt to food ?Increasing fiber, fruits, and vegetables ?Avoiding foods high in fat, cholesterol, and sugar Exercise according to your healthcare provider's instructions. Get enough rest and learn to use relaxation methods to help reduce stress. Treat and control medical conditions such as diabetes and high cholesterol. If you are taking hormone therapy, you and your healthcare provider should discuss the risks and benefits. Hormone therapy may increase the risk for heart disease or stroke. Talk with your provider about taking aspirin. Low-dose aspirin therapy reduces the risk of stroke for women. But it helps to lower a woman s risk of heart attack and other heart problems only if she is 65 or older. Make sure that your provider knows about any other medicines you are taking. If you decide you needto make changes in the way you live, you probably won't be able to turn your life around all at once. Try to develop healthy habits that incorporate your lifestyle goals. If you do, you will greatly decrease your chances for developing heart disease. You can get more information from: [place] [facility] Rvzjhifnrvs3-409-PSR-[place]-1 ( )www.heart.org Developed by [employer]. Published by [employer]. Copyright 2014 [employer] and/or one of its subsidiaries. All rights reserved. documented in this encounterBarberton [facility]05-27-2022 Miscellaneous Notes* Telephone Encounter - Anai Altamirano LPN - 10/20/2021 8:48 AM EDT Patient notified of providers message and verbalized understanding * Telephone Encounter - Sandra Sanchez APRN.CNS - 10/20/2021 7:16 AM EDT Please let her know that stress test was negative for ischemia. She should keep her cardiology appointment scheduled in November. documented in this encounterBarberton [facility]03-28-2022 Instructions* Patient Instructions* Sandra Sanchez APRN.CNS - 08/21/2021 3:42 PM EDT Continue to take amlodipine /Norvasc once daily Take a dose today Continue to take metoprolol succinate Both of these medications treat blood pressure documented in this encounterBarberton [facility]03-28-2022 History of Present illness Narrative* Sandra Sanchez APRN.WAFER CUTTER - 08/21/2021 2:40 PM EDT SUBJECTIVE: ADVANCE DIRECTIVE DISCUSSION Never done COVID-19 VACCINE(4 - Booster for Moderna series) due on 06/17/2021 DTAP,TDAP,TD(2 - Td or Tdap) due on 09/19/2021 HPI Bekah Sun is a 71 year old female. PMH is significant for ACTIVE PROBLEM LIST Htn, Goal Below 140/90 Migraine Without Aura Raynaud's Syndrome Hyperlipidemia Constipation HPI excerpted from last visit: Notes that she stopped taking losartan due to a reaction. Notes that she took a sleep aid yesterday. Notes took valerian supplement for 2 days. Palpitations for 2 days. Presents today with report of palpitations. Presented earlier to urgent care with this complaint. Intermittent Character: fluttering in chest Duration: Lasts seconds Frequency: Several times daily Aggravating: nothing noted Alleviating: nothing noted Associated symptoms:none Eating and drinking normally. Today at home BP 132/74, unknown HR Yesterday at home had higher blood pressure. Notes she had headache Notes she was seen at [place], noted that her potassium. [facility] report of headache, chest pain, dyspnea, peripheral edema, orthopnea, fatigue and PND. Last 14 Encounter BP Readings: Date: BP: 08/07/2021 163/68[average[ 05/18/2021 158/74 03/16/2021 135/70[trubp average[ 08/26/2020 148/72 02/03/2020 128/70 09/23/2019 141/65 08/07/2019 126/63 07/23/2019 160/78 12/31/2018 128/66 06/05/2018 124/70 11/21/2017 124/82 10/22/2017 136/70 05/13/2017 138/80 10/30/2016 132/70 Today reports she did not sleep well last night. She reports that she had a chest heaviness last night.Notes lasted a couple of hours. Passed without intervention. Noted later in night. No other associated symptoms. States it did not seem that bad.No prior occurrence. No change in functional capcicity; not limited in walking flat surface, takingstairs. No exertional chest pain reported. She reports that she stopped taking amlodipine when she started taking metoprolol succinate following her last visit. HTN: She notes palpitations have resolved. No further chest pain; single occurrence. No edema presyncope or syncope. No edema. Last 3 Encounter BP Readings: Date: BP: 08/21/2021 190/72[average[ 08/07/2021 163/68[average[ 05/18/2021 158/74 Review of Systems Constitutional: Negative. Respiratory: Negative. Cardiovascular: Positive for chest pain. Negative for palpitations and leg swelling. Objective BP 190/72 Pulse 60 Resp 16 Wt 51.3 kg (113 lb) BMI 20.34 kg/m Physical Exam Vitals and nursing note reviewed. Constitutional: Appearance: Normal appearance. HENT: Head: Normocephalic and atraumatic. Eyes: Conjunctiva/sclera: Conjunctivae normal. Neck: Thyroid: No thyroid mass, thyromegaly or thyroid tenderness. Vascular: Normal carotid pulses. No carotid bruit or JVD. Cardiovascular: Rate and Rhythm: Normal rate and regular rhythm. Pulses: Normal pulses. Heart sounds: Normal heart sounds. Pulmonary: Effort: Pulmonary effort is normal. Breath sounds: Normal breath sounds. Abdominal: General: Bowel sounds are normal. Palpations: Abdomen is soft. Musculoskeletal: Right lower leg: No edema. Left lower leg: No edema. Skin: General: Skin is warm and dry. Neurological: General: No focal deficit present. Mental Status: She is alert and oriented to person, place, and time. ALLERGIES Allergen Reactions Penicillins Hives Bactrim Ds [Sulfame* Rash Losartan Intolerance headache, did not feel well MEDICATIONS amLODIPine (NORVASC) 10 mg tablet Take 1 tablet by mouth once daily. metoprolol succinate ER (TOPROL XL) 25 mg 24 hr tablet Take 1 tablet by mouth once daily. apremilast (OTEZLA) 30 mg tablet Take 1 tablet by mouth twice daily. amitriptyline (ELAVIL) 10 mg tablet Take 1 tablet by mouth daily at bedtime. atorvastatin (LIPITOR) 20 mg tablet Take 1 tablet by mouth once daily. VALERIAN ORAL Take by mouth. PAST MEDICAL HISTORY Diagnosis Date COMMON MIGRAINE W/O MENTN INTRACT 05/10/2005 Diverticulosis of colon (without mention of hemorrhage) HYPERTENSION NOS 05/10/2005 Kidney stone Psoriasis Raynaud's syndrome 05/10/2005 Social History Tobacco Use Smoking status: Never Smoker Smokeless tobacco: Never Used Substance Use Topics Alcohol use: Yes Comment: rare Drug use: No Component Latest Ref Rng & Units 08/25/2020 03/16/2021 WBC 3.70 - 11.00 k/uL 5.90 6.73 RBC 3.90 - 5.20 m/uL 4.78 4.87 Hemoglobin 11.5 - 15.5 g/dL 14.7 15.1 Hematocrit 36.0 - 46.0 % 44.3 45.2 MCV 80.0 - 100.0 fL 92.7 92.8 MCH 26.0 - 34.0 pG 30.8 31.0 MCHC 30.5 - 36.0 g/dL 33.2 33.4 RDW-CV 11.5 - 15.0 % 12.4 12.5 Platelet Count 150 - 400 k/uL 350 363 MPV 9.0 - 12.7 fL 10.4 11.1 Neut% % 65.0 Abs Neut (ANC) 1.45 - 7.50 k/uL 4.35 Lymph% % 23.3 Abs Lymph 1.00 - 4.00 k/uL 1.57 [place]% % 7.6 Abs [place] <0.87 k/uL 0.51 Eosin% % 3.1 Abs Eosin <0.46 k/uL 0.21 Baso% % 1.0 Abs Baso <0.11 k/uL 0.07 Nucleated Reds 0 /100 WBC 0.0 Absolute nRBC <0.01 k/uL <0.01 <0.01 Diff Type Auto Diff Protein, Total 6.3 - 8.0 g/dL 6.9 7.7 Albumin 3.9 - 4.9 g/dL 4.4 4.8 Calcium 8.5 - 10.2 mg/dL 9.4 10.6 (H) Bilirubin, Total 0.2 - 1.3 mg/dL 0.4 0.5 Alkaline Phosphatase 34 - 123 U/L 87 88 AST 13 - 35 U/L 29 27 Glucose 74 - 99 mg/dL 100 (H) 97 BUN 7 - 21 mg/dL 15 26 (H) Creatinine 0.58 - 0.96 mg/dL 1.01 (H) 1.17 (H) Sodium 136 - 144 mmol/L 142 139 Potassium 3.7 - 5.1 mmol/L 4.0 4.5 Chloride 97 - 105 mmol/L 101 99 CO2 22 - 30 mmol/L 30 25 Anion Gap 9 - 18 mmol/L 11 15 ALT 7 - 38 U/L 23 17 eGFR- >60 55 eGFR-All Other Races . 54 45 Cholesterol, Total <200 mg/dL 226 (H) Triglyceride <150 mg/dL 69 HDL Cholesterol >39 mg/dL 111 LDL Cholesterol <100 mg/dL 101 (H) Non HDL Cholesterol <130 mg/dL 115 Fasting Time hrs 12 VLDL Cholesterol <30 mg/dL 14 TC:HDL Ratio <5.10 2.04 LDL:HDL Ratio <2.54 0.91 Total Cholesterol, Nonfasting <200 mg/dL 233 (H) Triglycerides, Nonfasting <150 mg/dL 70 HDL Cholesterol, Nonfasting >39 mg/dL 118 LDL Cholesterol, Nonfasting <100 mg/dL 101 (H) Non HDL Cholesterol, Nonfasting <130 mg/dL 115 VLDL Cholesterol, Nonfasting <30 mg/dL 14 Total Chol/HDL Ratio, Nonfasting <5.10 mg/dL 1.97 LDL/HDL Ratio, Nonfasting <2.54 mg/dL 0.86 ASSESSMENT/PLAN: 1. Palpitations - ICD9: 785.1, ICD10: R00.2 (primary diagnosis) 2. HTN, goal below 140/90 - ICD9: 401.9, ICD10: I10 She notes starting a supplement about 2 days ago now with palpitations x2 days. EKG completed in office, showed normal sinus rhythm with occasional PVC Back Panel Padder review c/w AWMI age undetermined- refer to cardiology She reports stopping amlodipine following her last visit. She notes having chest heaviness for 2 hours yesterday, no prior and no recurrence. Recommend she resume amlodipine, take a dose today when she gets home. Continue taking metoprolol succinate 25 mg daily for palpitations and blood pressure Recheck in 1 week Continue to avoid supplements. Drink sufficient fluid, aim for about 64 ounces per day. Avoid caffeine and EtOH Deferred Holter/Zio patch at her last visit. Palpitations now resolved. Continue to monitor. Recommend stress test and cardiology appointment ER for severe or concerning symptoms - ECG COMPLETE - TSH BLD - COMP METABOLIC PANEL - CBC + DIFF - METOPROLOL SUCCINATE ER 25 MG TABLET,EXTENDED RELEASE 24 HR 6 mo follow up visit MD Sandra Vargas APRN.WAFER CUTTER Medical Decision Making: Problems: Moderate: New problem with uncertain prognosis Data: Unique test(s) ordered: 3+ Risk: Moderate: Drug management Medical Decision Making Level: 4 - Moderate [facility] Narrative* Problem Noted Date Resolved Date CKD (chronic kidney disease) stage 3, GFR 30-59 ml/min 06/05/2018 02/03/2020 Hypokalemia 02/27/2010 04/01/2015 Pelvic mass 06/01/2009 04/01/2015 Overview: May 31 2009 f/u MRI for pelvic mass from u/s. 3.8 x 2.5 x 3.8 cm complex cystic mass. Hx hysterectomy with bilateral ovaries removed. Sent to [facility]. Ca 125 ordered. Cervicalgia 09/09/2008 04/01/2015 documented as of this encounter (statuses as of 08/21/2021) [facility] illness Narrative* Problem Noted Date Resolved Date CKD (chronic kidney disease) stage 3, GFR 30-59 ml/min 06/05/2018 02/03/2020 Hypokalemia 02/27/2010 04/01/2015 Pelvic mass 06/01/2009 04/01/2015 Overview: May 31 2009 f/u MRI for pelvic mass from u/s. 3.8 x 2.5 x 3.8 cm complex cystic mass. Hx hysterectomy with bilateral ovaries removed. Sent to [facility]. Ca 125 ordered. Cervicalgia 09/09/2008 04/01/2015 documented as of this encounter (statuses as of 10/20/2021) [facility] Narrative* Problem Noted Date Resolved Date CKD (chronic kidney disease) stage 3, GFR 30-59 ml/min 06/05/2018 02/03/2020 Hypokalemia 02/27/2010 04/01/2015 Pelvic mass 06/01/2009 04/01/2015 Overview: May 31 2009 f/u MRI for pelvic mass from u/s. 3.8 x 2.5 x 3.8 cm complex cystic mass. Hx hysterectomy with bilateral ovaries removed. Sent to [facility]. Ca 125 ordered. Cervicalgia 09/09/2008 04/01/2015 documented as of this encounter (statuses as of 12/11/2021) [facility] Narrative* Problem Noted Date Resolved Date CKD (chronic kidney disease) stage 3, GFR 30-59 ml/min 06/05/2018 02/03/2020 Hypokalemia 02/27/2010 04/01/2015 Pelvic mass 06/01/2009 04/01/2015 Overview: May 31 2009 f/u MRI for pelvic mass from u/s. 3.8 x 2.5 x 3.8 cm complex cystic mass. Hx hysterectomy with bilateral ovaries removed. Sent to [facility]. Ca 125 ordered. Cervicalgia 09/09/2008 04/01/2015 documented as of this encounter (statuses as of 12/14/2021) [facility] Narrative* Problem Noted Date Resolved Date CKD (chronic kidney disease) stage 3, GFR 30-59 ml/min 06/05/2018 02/03/2020 Hypokalemia 02/27/2010 04/01/2015 Pelvic mass 06/01/2009 04/01/2015 Overview: May 31 2009 f/u MRI for pelvic mass from u/s. 3.8 x 2.5 x 3.8 cm complex cystic mass. Hx hysterectomy with bilateral ovaries removed. Sent to [facility]. Ca 125 ordered. Cervicalgia 09/09/2008 04/01/2015 documented as of this encounter (statuses as of 12/29/2021) [facility] Narrative* Problem Noted Date Resolved Date CKD (chronic kidney disease) stage 3, GFR 30-59 ml/min 06/05/2018 02/03/2020 Hypokalemia 02/27/2010 04/01/2015 Pelvic mass 06/01/2009 04/01/2015 Overview: May 31 2009 f/u MRI for pelvic mass from u/s. 3.8 x 2.5 x 3.8 cm complex cystic mass. Hx hysterectomy with bilateral ovaries removed. Sent to [facility]. Ca 125 ordered. Cervicalgia 09/09/2008 04/01/2015 documented as of this encounter (statuses as of 02/06/2022) [facility] Narrative* Problem Noted Date Resolved Date CKD (chronic kidney disease) stage 3, GFR 30-59 ml/min 06/05/2018 02/03/2020 Hypokalemia 02/27/2010 04/01/2015 Pelvic mass 06/01/2009 04/01/2015 Overview: May 31 2009 f/u MRI for pelvic mass from u/s. 3.8 x 2.5 x 3.8 cm complex cystic mass. Hx hysterectomy with bilateral ovaries removed. Sent to [facility]. Ca 125 ordered. Cervicalgia 09/09/2008 04/01/2015 documented as of this encounter (statuses as of 07/16/2022) [facility] Narrative* Problem Noted Date Resolved Date CKD (chronic kidney disease) stage 3, GFR 30-59 ml/min 06/05/2018 02/03/2020 Hypokalemia 02/27/2010 04/01/2015 Pelvic mass 06/01/2009 04/01/2015 Overview: May 31 2009 f/u MRI for pelvic mass from u/s. 3.8 x 2.5 x 3.8 cm complex cystic mass. Hx hysterectomy with bilateral ovaries removed. Sent to [facility]. Ca 125 ordered. Cervicalgia 09/09/2008 04/01/2015 documented as of this encounter (statuses as of 07/19/2022) [facility] Narrative* Problem Noted Date Resolved Date CKD (chronic kidney disease) stage 3, GFR 30-59 ml/min 06/05/2018 02/03/2020 Hypokalemia 02/27/2010 04/01/2015 Pelvic mass 06/01/2009 04/01/2015 Overview: May 31 2009 f/u MRI for pelvic mass from u/s. 3.8 x 2.5 x 3.8 cm complex cystic mass. Hx hysterectomy with bilateral ovaries removed. Sent to [facility]. Ca 125 ordered. Cervicalgia 09/09/2008 04/01/2015 documented as of this encounter (statuses as of 09/03/2022) [facility] Narrative* Problem Noted Date Resolved Date CKD (chronic kidney disease) stage 3, GFR 30-59 ml/min 06/05/2018 02/03/2020 Hypokalemia 02/27/2010 04/01/2015 Pelvic mass 06/01/2009 04/01/2015 Overview: May 31 2009 f/u MRI for pelvic mass from u/s. 3.8 x 2.5 x 3.8 cm complex cystic mass. Hx hysterectomy with bilateral ovaries removed. Sent to [facility]. Ca 125 ordered. Cervicalgia 09/09/2008 04/01/2015 documented as of this encounter (statuses as of 09/07/2022) [facility]* Problem Noted Date Resolved Date CKD (chronic kidney disease) stage 3, GFR 30-59 ml/min 06/05/2018 02/03/2020 Hypokalemia 02/27/2010 04/01/2015 Pelvic mass 06/01/2009 04/01/2015 Overview: May 31 2009 f/u MRI for pelvic mass from u/s. 3.8 x 2.5 x 3.8 cm complex cystic mass. Hx hysterectomy with bilateral ovaries removed. Sent to [facility]. Ca 125 ordered. Cervicalgia 09/09/2008 04/01/2015 documented as of this encounter (statuses as of 09/10/2022) [facility]arrative* Problem Noted Date Resolved Date CKD (chronic kidney disease) stage 3, GFR 30-59 ml/min 06/05/2018 02/03/2020 Hypokalemia 02/27/2010 04/01/2015 Pelvic mass 06/01/2009 04/01/2015 Overview: May 31 2009 f/u MRI for pelvic mass from u/s. 3.8 x 2.5 x 3.8 cm complex cystic mass. Hx hysterectomy with bilateral ovaries removed. Sent to [facility]. Ca 125 ordered. Cervicalgia 09/09/2008 04/01/2015 documented as of this encounter (statuses as of 10/05/2022) [facility]arrative* Problem Noted Date Diagnosed Date Resolved Date CKD (chronic kidney disease) stage 3, GFR 30-59 ml/min 06/05/2018 02/03/2020 Hypokalemia 02/27/2010 04/01/2015 Pelvic mass 06/01/2009 04/01/2015 Overview: May 31 2009 f/u MRI for pelvic mass from u/s. 3.8 x 2.5 x 3.8 cm complex cystic mass. Hx hysterectomy with bilateral ovaries removed. Sent to [facility]. Ca 125 ordered. Cervicalgia 09/09/2008 04/01/2015 documented as of this encounter (statuses as of 02/01/2023) [facility]arrative* Problem Noted Date Diagnosed Date Resolved Date CKD (chronic kidney disease) stage 3, GFR 30-59 ml/min 06/05/2018 02/03/2020 Hypokalemia 02/27/2010 04/01/2015 Pelvic mass 06/01/2009 04/01/2015 Overview: May 31 2009 f/u MRI for pelvic mass from u/s. 3.8 x 2.5 x 3.8 cm complex cystic mass. Hx hysterectomy with bilateral ovaries removed. Sent to [facility]. Ca 125 ordered. Cervicalgia 09/09/2008 04/01/2015 documented as of this encounter (statuses as of 03/02/2023) [facility] Narrative* Problem Noted Date Diagnosed Date Resolved Date CKD (chronic kidney disease) stage 3, GFR 30-59 ml/min 06/05/2018 02/03/2020 Hypokalemia 02/27/2010 04/01/2015 Pelvic mass 06/01/2009 04/01/2015 Overview: May 31 2009 f/u MRI for pelvic mass from u/s. 3.8 x 2.5 x 3.8 cm complex cystic mass. Hx hysterectomy with bilateral ovaries removed. Sent to [facility]. Ca 125 ordered. Cervicalgia 09/09/2008 04/01/2015 documented as of this encounter (statuses as of 03/31/2023) [facility] Narrative* Problem Noted Date Diagnosed Date Resolved Date CKD (chronic kidney disease) stage 3, GFR 30-59 ml/min 06/05/2018 02/03/2020 Hypokalemia 02/27/2010 04/01/2015 Pelvic mass 06/01/2009 04/01/2015 Overview: May 31 2009 f/u MRI for pelvic mass from u/s. 3.8 x 2.5 x 3.8 cm complex cystic mass. Hx hysterectomy with bilateral ovaries removed. Sent to [facility]. Ca 125 ordered. Cervicalgia 09/09/2008 04/01/2015 documented as of this encounter (statuses as of 03/31/2023) [facility] Narrative* Problem Noted Date Diagnosed Date Resolved Date CKD (chronic kidney disease) stage 3, GFR 30-59 ml/min 06/05/2018 02/03/2020 Hypokalemia 02/27/2010 04/01/2015 Pelvic mass 06/01/2009 04/01/2015 Overview: May 31 2009 f/u MRI for pelvic mass from u/s. 3.8 x 2.5 x 3.8 cm complex cystic mass. Hx hysterectomy with bilateral ovaries removed. Sent to [facility]. Ca 125 ordered. Cervicalgia 09/09/2008 04/01/2015 documented as of this encounter (statuses as of 05/03/2023) [facility] Narrative* Problem Noted Date Diagnosed Date Resolved Date CKD (chronic kidney disease) stage 3, GFR 30-59 ml/min 06/05/2018 02/03/2020 Hypokalemia 02/27/2010 04/01/2015 Pelvic mass 06/01/2009 04/01/2015 Overview: May 31 2009 f/u MRI for pelvic mass from u/s. 3.8 x 2.5 x 3.8 cm complex cystic mass. Hx hysterectomy with bilateral ovaries removed. Sent to [facility]. Ca 125 ordered. Cervicalgia 09/09/2008 04/01/2015 documented as of this encounter (statuses as of 07/26/2023) [facility]arrative* Problem Noted Date Diagnosed Date Resolved Date CKD (chronic kidney disease) stage 3, GFR 30-59 ml/min 06/05/2018 02/03/2020 Hypokalemia 02/27/2010 04/01/2015 Pelvic mass 06/01/2009 04/01/2015 Overview: May 31 2009 f/u MRI for pelvic mass from u/s. 3.8 x 2.5 x 3.8 cm complex cystic mass. Hx hysterectomy with bilateral ovaries removed. Sent to [facility]. Ca 125 ordered. Cervicalgia 09/09/2008 04/01/2015 documented as of this encounter (statuses as of 07/29/2023) [facility]ments Appointment Date:09/12/2021 10:00:00 AM Scheduled Provider:ALYSSA LUGO DO Location:[facility] Appointment Type: Wellness Medicare [facility] Evaluation note* Diagnosis Palpitations- Primary HTN, goal below 140/90 Unspecified essential hypertension Chest pain, unspecified type Essential hypertension with goal blood pressure less than 140/90 [facility] Diagnosis Chronic diastolic CHF (congestive heart failure) (HCC)- Primary Chronic diastolic heart failure Palpitations HTN, goal below 140/90 Unspecified essential hypertension Chest pain, unspecified type Essential hypertension with goal blood pressure less than 140/90 Abnormal stress test Other nonspecific abnormal cardiovascular system function study [facility] Diagnosis HTN, goal below 140/90- Primary Unspecified essential hypertension Encounter for immunization Need for other specified prophylactic vaccination against single bacterial disease Palpitations Memory problem Memory loss [facility] Diagnosis Migraine without aura and without status migrainosus, not intractable Migraine without aura, without mention of intractable migraine without mention of status migrainosus Hyperlipidemia, unspecified hyperlipidemia type Essential hypertension with goal blood pressure less than 140/90 [facility] Diagnosis Encounter for screening mammogram for breast cancer [facility]* Diagnosis Essential hypertension with goal blood pressure less than 140/90- Primary Hyperlipidemia, unspecified hyperlipidemia type Asymptomatic postmenopausal status Hypercalcemia Memory deficit Memory loss Encounter for long-term current use of medication [facility]* Diagnosis Age-related osteoporosis without current pathological fracture- Primary Senile osteoporosis [facility]* Diagnosis Essential hypertension with goal blood pressure less than 140/90- Primary documented in this encounter [facility] note* Diagnosis Encounter for screening mammogram for breast cancer [facility]* Diagnosis Asymptomatic postmenopausal status [facility]* Diagnosis Memory difficulties- Primary Memory loss documented in this encounter [facility] note* Diagnosis Cognitive impairment- Primary Unspecified persistent mental disorders due to conditions classified elsewhere Memory difficulties Memory loss Adverse effect of anticholinergic Migraine without aura and without status migrainosus, not intractable Migraine without aura, without mention of intractable migraine without mention of status migrainosus [facility]* Diagnosis Acute non-recurrent maxillary sinusitis [facility]* Diagnosis Hyperlipidemia, unspecified hyperlipidemia type- Primary HTN, goal below 140/90 Unspecified essential hypertension Encounter for long-term current use of medication [facility]* Diagnosis Cognitive impairment Unspecified persistent mental disorders due to conditions classified elsewhere Memory difficulties Memory loss [facility]* Diagnosis Chronic diastolic CHF (congestive heart failure) (HCC)- Primary Chronic diastolic heart failure Mixed hyperlipidemia Primary hypertension Unspecified essential hypertension [facility]* Diagnosis Essential hypertension with goal blood pressure less than 140/90- Primary HTN, goal below 140/90 Unspecified essential hypertension Memory difficulties Memory loss Hyperlipidemia, unspecified hyperlipidemia type Chronic diastolic CHF (congestive heart failure) (HCC) Chronic diastolic heart failure Screening for depression Encounter for screening examination for other mental health and behavioral disorders Palpitations Ankle swelling, unspecified laterality [facility] Diagnosis Mild cognitive impairment with memory loss- Primary Mild cognitive impairment, so stated Neurodegenerative cognitive impairment (HCC) Cerebral degeneration, unspecified Primary hypertension Unspecified essential hypertension [facility] Diagnosis Acute left-sided low back pain without sciatica- Primary Essential (primary) hypertension Unspecified essential hypertension Muscle spasm of back Other symptoms referable to back [facility]* Diagnosis Acute left-sided low back pain without sciatica [facility]* Diagnosis Closed wedge compression fracture of T9 vertebra, initial encounter ([facility])- Primary Age-related osteoporosis without current pathological fracture Senile osteoporosis Asymptomatic postmenopausal state Memory difficulties Memory loss Essential hypertension with goal blood pressure less than 140/90 Hyperlipidemia, unspecified hyperlipidemia type Palpitations HTN, goal below 140/90 Unspecified essential hypertension [facility]* Diagnosis Asymptomatic postmenopausal state [facility]* Diagnosis Mild cognitive impairment with memory loss- Primary Mild cognitive impairment, so stated Neurodegenerative cognitive impairment Cerebral degeneration, unspecified Primary hypertension Unspecified essential hypertension Mixed hyperlipidemia Chronic diastolic CHF (congestive heart failure) ([facility]) Chronic diastolic heart failure Screening-pulmonary TB Screening examination for pulmonary tuberculosis documented in this encounter [facility] note* Diagnosis Neurodegenerative dementia without behavioral disturbance, psychotic disturbance, mood disturbance, or anxiety ([facility])- Primary Primary degenerative dementia of Alzheimer type (HCC) Alzheimer's disease Acute cognitive decline Cognitive communication deficit Underweight (BMI < 18.5) Adjustment disorder with anxious mood Adjustment disorder with anxiety Primary hypertension Unspecified essential hypertension documented in this encounter [facility] course Narrative No data available for this section [facility] Hospital Discharge instructions No data available for this section [facility] Reason for referral (narrative)* Diagnostic Procedure Only (Routine) - Authorized Specialty Diagnoses / Procedures Referred By Damirac t Referred To Contact [facility] Diagnoses Encounter for screening mammogram for breast cancer Procedures LORI SCREENING SCREENING MAMMOGRAPHY BI 2-VIEW BREAST INC CAD Paulina Ardon MD [address] [place] [address] [facility] [address] [place] [address] Referral ID Status Reason Start Date Expiration Date Visits Requested Visits Authorized [id number] Authorized Auto-Generat ed Referral 07/11/2022 08/10/2023 1 1 [facility] for referral (narrative)* Diagnostic Procedure Only (Routine) - Closed Specialty Diagnoses / Procedures Referred By Godfrey odonnell Referred To Contact [facility] Diagnoses Encounter for screening mammogram for breast cancer Procedures LORI SCREENING SCREENING MAMMOGRAPHY BI 2-VIEW BREAST INC Paulina Rocha MD [address] [place] [address] [facility] [address] [place] [address] Referral ID Status Reason Start Date Expiration Date V isits Requested Visits Authorized [id number] Closed Auto-Generate d Referral 07/11/2022 08/10/2023 1 1 [facility] for visit Narrative* Diagnostic Procedure Only (Routine) - Closed Specialty Diagnoses / Procedures Referred By Godfrey odonnell Referred To Contact [facility] Diagnoses Encounter for screening mammogram for breast cancer Procedures LORI SCREENING SCREENING MAMMOGRAPHY BI 2-VIEW BREAST INC Paulina Rocha MD [address] [place] [address] [facility] [address] [place] [id number] Referral ID Status Reason Start Date Expiration Date V isits Requested Visits Authorized [id number] Closed Auto-Generate d Referral 07/11/2022 08/10/2023 1 1 [facility] for visit Narrative* Diagnostic Procedure Only (Routine) - Closed Specialty Diagnoses / Procedures Referred By Godfrey odonnell Referred To Contact XR IMAGING Diagnoses Left-sided low back pain without sciatica, unspecified chronicity Procedures XR LUMBAR GENERAL 3V AP/LAT/L5-S1 RADEX SPINE LUMBOSACRAL 2/3 VIEWS Paulina Ardon MD [address] [place] [address] Phone: tel: fax: [place] [address] Referral ID Status Reason Start Date Expiration Date V isits Requested Visits Authorized [id number] Closed Auto-Generate d Referral 08/05/2024 09/04/2025 [facility] Diagnostic Procedure Only (Routine) - Closed Specialty Diagnoses / Procedures Referred By Contac t Referred To Contact XR IMAGING Diagnoses Asymptomatic postmenopausal state Procedures DXA-AXIAL SKELETON DXA BONE DENSITY STUDY SITES AXIAL Paulina Munoz MD [address] [place] [address] Phone: tel: fax: [place] [id number] Referral ID Status Reason Start Date Expiration Date V isits Requested Visits Authorized [id number] Closed Auto-Generate d Referral 08/17/2024 09/16/2025 1 1 [facility] Summary Purpose Family History No Family History Records FoundNo Family History Records FoundNo Family History Records FoundNo Family History Records Found Advance Directives No Advanced Directives Records FoundDocuments on File Type Date Recorded Patient Fuel Cell Binder Expl anation Advance Directive(s) 10/28/2019 8:42 AM Advance Directive(s) 10/28/2019 8:39 AM Advance Directive(s) 10/14/2019 12:28 PM Advance Directive(s) 07/30/2019 10:29 AM Documents on File Type Date Recorded Patient Fuel Cell Binder Expl anation Advance Directive(s) 10/28/2019 8:42 AM Advance Directive(s) 10/28/2019 8:39 AM Advance Directive(s) 10/14/2019 12:28 PM Advance Directive(s) 07/30/2019 10:29 AM Documents on File Type Date Recorded Patient Fuel Cell Binder Expl anation Advance Directive(s) 10/28/2019 8:39 AM Documents on File Type Date Recorded Patient Fuel Cell Binder Expl anation Advance Directive(s) 10/28/2019 8:39 AM Reason for Referral Specialty Diagnoses / Procedures Referred By Contac t Referred To Contact [facility] Diagnoses Mild cognitive impairment with memory loss Procedures CONSULT TO SPEECH THERAPY OFFICE/OUTPATIENT NEW HIGH MDM 60 MINUTES Blade Lyman DO [address] [facility] [address] [place] [address] [facility] [place] [address] [place] [address] Referral ID Status Reason Start Date Expiration Date Visits Requested Visits Authorized [id number] Pending Review Auto-Generat ed Referral 02/26/2024 02/25/2025 1 1 Specialty Diagnoses / Procedures Referred By Contac t Referred To Contact [facility] Diagnoses Cognitive impairment Memory difficulties Procedures MRI 3D POST PROCESSING 3D RENDERING W/INTERP&POSTPROC DIFF WORK STATION Blade Lyman DO [address] [facility] [address] [place] [address] [place] [address] Referral ID Status Reason Start Date Expiration Date Visits Requested Visits Authorized [id number] Pending Review Auto-Generat ed Referral 07/26/2023 08/24/2024 1 1 Specialty Diagnoses / Procedures Referred By Contac t Referred To Contact [facility] Diagnoses Cognitive impairment Memory difficulties Cognitive impairment, mild, so stated Procedures MRI BRAIN WO IVCON MRI BRAIN BRAIN STEM W/O CONTRAST MATERIAL Blade Lyman DO [address] [facility] [address] [place] [address] [place] [address] Referral ID Status Reason Start Date Expiration Date Visits Requested Visits Authorized [id number] Pending Review Auto-Generat ed Referral 07/26/2023 08/24/2024 1 1 Specialty Diagnoses / Procedures Referred By Contac t Referred To Contact Gerontology Diagnoses Memory difficulties Procedures CONSULT TO GERIATRICS OFFICE/OUTPATIENT [facility] 60-74 MINUTES Sandra Sanchez, CHANNEL ACCOUNT MANAGER.WAFER CUTTER [address] [place] [address] Referral ID Status Reason Start Date Expiration Date Visits Requested Visits Authorized [id number] Pending Review PCP Requested Referral 2023 2024 1 1 Specialty Diagnoses / Procedures Referred By Contac t Referred To Contact Gerontology Diagnoses Memory problem Procedures CONSULT TO GERIATRICS OFFICE/OUTPATIENT [facility] 60-74 MINUTES Sandra Sanchez, CHANNEL ACCOUNT MANAGER.WAFER CUTTER [address] [place] [address] Referral ID Status Reason Start Date Expiration Date Visits Requested Visits Authorized [id number] Pending Review PCP Requested Referral 12/14/2021 12/14/2022 1 1 Specialty Diagnoses / Procedures Referred By Contac t Referred To Contact Cardiology Diagnoses Palpitations HTN, goal below 140/90 Chest pain, unspecified type Essential hypertension with goal blood pressure less than 140/90 Procedures CONSULT TO CARDIOLOGY OFFICE/OUTPATIENT NEW HIGH MDM 60-74 MINUTES Juancho Sanchezi, CHANNEL ACCOUNT MANAGER.WAFER CUTTER [address] [place] [address] Referral ID Status Reason Start Date Expiration Date Visits Requested Visits Authorized [id number] Pending Review PCP Requested Referral 08/21/2021 08/21/2022 1 1 Specialty Diagnoses / Procedures Referred By Contac t Referred To Contact [facility] Diagnoses Palpitations HTN, goal below 140/90 Chest pain, unspecified type Essential hypertension with goal blood pressure less than 140/90 Procedures STRESS ECHO TREADMILL ECHO TTHRC R-T 2D W/WO M-MODE COMPLETE REST&ST Sandra Sanchez, CHANNEL ACCOUNT MANAGER.WAFER CUTTER [address] [place] [address] [facility] [address] [place] [address] Referral ID Status Reason Start Date Expiration Date Visits Requested Visits Authorized [id number] Pending Review Auto-Generat ed Referral 08/21/2021 08/21/2022 1 1 Additional Source Comments INFORMATION SOURCE (unrecogn ized section and content) DATE CREATED AUTHOR 07/27/2021 [facility] ([place]) DATE CREATED AUTHOR AUTHOR'S ORGANIZ ATION 08/17/2024 [facility] DATE CREATED AUTHOR AUTHOR'S ORGANIZ ATION 12/05/2024 [facility] DATE CREATED AUTHOR AUTHOR'S ORGANIZ ATION 12/09/2024 [facility] Source Comments (unrecognize d section and content) In the event this informatio n is protected by the Federal Confidentiality of Alcohol and Drug Abuse Patient Records regulations: The Federal rules restrict any use of the information to criminally investigate or prosecute any alcohol or drug abuse patient.[facility] the event this information is protected by the Federal Confidentiality of Alcohol and Drug Abuse Patient Records regulations: The Federal rules restrict any use of the information to criminally investigate or prosecute any alcohol or drug abuse patient.[facility]In the event this information is protected by the Federal Confidentiality of Alcohol and Drug Abuse Patient Records regulations: The Federal rules restrict any use of the information to criminally investigate or prosecute any alcohol or drug abuse patient.[facility]In the event this information is protected by the Federal Confidentiality of Alcohol and Drug Abuse Patient Records regulations: The Federal rules restrict any use of the information to criminally investigate or prosecute any alcohol or drug abuse patient.[facility]In the event this information is protected by the Federal Confidentiality of Alcohol and Drug Abuse Patient Records regulations: The Federal rules restrict any use of the information to criminally investigate or prosecute any alcohol or drug abuse patient.[facility]In the event this information is protected by the Federal Confidentiality of Alcohol and Drug Abuse Patient Records regulations: The Federal rules restrict any use of the information to criminally investigate or prosecute any alcohol or drug abuse patient.[facility]In the event this information is protected by the Federal Confidentiality of Alcohol and Drug Abuse Patient Records regulations: The Federal rules restrict any use of the information to criminally investigate or prosecute any alcohol or drug abuse patient.[facility] the event this information is protected by the Federal Confidentiality of Alcohol and Drug Abuse Patient Records regulations: The Federal rules restrict any use of the information to criminally investigate or prosecute any alcohol or drug abuse patient.[facility]In the event this information is protected by the Federal Confidentiality of Alcohol and Drug Abuse Patient Records regulations: The Federal rules restrict any use of the information to criminally investigate or prosecute any alcohol or drug abuse patient.[facility]In the event this information is protected by the Federal Confidentiality of Alcohol and Drug Abuse Patient Records regulations: The Federal rules restrict any use of the information to criminally investigate or prosecute any alcohol or drug abuse patient.[facility]In the event this information is protected by the Federal Confidentiality of Alcohol and Drug Abuse Patient Records regulations: The Federal rules restrict any use of the information to criminally investigate or prosecute any alcohol or drug abuse patient.[facility] HospitalIn the event this information is protected by the Federal Confidentiality of Alcohol and Drug Abuse Patient Records regulations: The Federal rules restrict any use of the information to criminally investigate or prosecute any alcohol or drug abuse patient.[facility]In the event this information is protected by the Federal Confidentiality of Alcohol and Drug Abuse Patient Records regulations: The Federal rules restrict any use of the information to criminally investigate or prosecute any alcohol or drug abuse patient.[facility]In the event this information is protected by the Federal Confidentiality of Alcohol and Drug Abuse Patient Records regulations: The Federal rules restrict any use of the information to criminally investigate or prosecute any alcohol or drug abuse patient.[facility] HospitalIn the event this information is protected by the Federal Confidentiality of Alcohol and Drug Abuse Patient Records regulations: The Federal rules restrict any use of the information to criminally investigate or prosecute any alcohol or drug abuse patient.[facility] HospitalIn the event this information is protected by the Federal Confidentiality of Alcohol and Drug Abuse Patient Records regulations: The Federal rules restrict any use of the information to criminally investigate or prosecute any alcohol or drug abuse patient.[facility]In the event this information is protected by the Federal Confidentiality of Alcohol and Drug Abuse Patient Records regulations: The Federal rules restrict any use of the information to criminally investigate or prosecute any alcohol or drug abuse patient.[facility] HospitalIn the event this information is protected by the Federal Confidentiality of Alcohol and Drug Abuse Patient Records regulations: The Federal rules restrict any use of the information to criminally investigate or prosecute any alcohol or drug abuse patient.[facility] HospitalIn the event this information is protected by the Federal Confidentiality of Alcohol and Drug Abuse Patient Records regulations: The Federal rules restrict any use of the information to criminally investigate or prosecute any alcohol or drug abuse patient.[facility] HospitalIn the event this information is protected by the Federal Confidentiality of Alcohol and Drug Abuse Patient Records regulations: The Federal rules restrict any use of the information to criminally investigate or prosecute any alcohol or drug abuse patient.[facility] HospitalIn the event this information is protected by the Federal Confidentiality of Alcohol and Drug Abuse Patient Records regulations: The Federal rules restrict any use of the information to criminally investigate or prosecute any alcohol or drug abuse patient.[facility] HospitalIn the event this information is protected by the Federal Confidentiality of Alcohol and Drug Abuse Patient Records regulations: The Federal rules restrict any use of the information to criminally investigate or prosecute any alcohol or drug abuse patient.[facility] HospitalIn the event this information is protected by the Federal Confidentiality of Alcohol and Drug Abuse Patient Records regulations: The Federal rules restrict any use of the information to criminally investigate or prosecute any alcohol or drug abuse patient.[facility]In the event this information is protected by the Federal Confidentiality of Alcohol and Drug Abuse Patient Records regulations: The Federal rules restrict any use of the information to criminally investigate or prosecute any alcohol or drug abuse patient.[facility] HospitalIn the event this information is protected by the Federal Confidentiality of Alcohol and Drug Abuse Patient Records regulations: The Federal rules restrict any use of the information to criminally investigate or prosecute any alcohol or drug abuse patient.[facility] HospitalIn the event this information is protected by the Federal Confidentiality of Alcohol and Drug Abuse Patient Records regulations: The Federal rules restrict any use of the information to criminally investigate or prosecute any alcohol or drug abuse patient.[facility]In the event this information is protected by the Federal Confidentiality of Alcohol and Drug Abuse Patient Records regulations: The Federal rules restrict any use of the information to criminally investigate or prosecute any alcohol or drug abuse patient.[facility]In the event this information is protected by the Federal Confidentiality of Alcohol and Drug Abuse Patient Records regulations: The Federal rules restrict any use of the information to criminally investigate or prosecute any alcohol or drug abuse patient.[facility] HospitalIn the event this information is protected by the Federal Confidentiality of Alcohol and Drug Abuse Patient Records regulations: The Federal rules restrict any use of the information to criminally investigate or prosecute any alcohol or drug abuse patient.[facility]In the event this information is protected by the Federal Confidentiality of Alcohol and Drug Abuse Patient Records regulations: The Federal rules restrict any use of the information to criminally investigate or prosecute any alcohol or drug abuse patient.[facility] HospitalIn the event this information is protected by the Federal Confidentiality of Alcohol and Drug Abuse Patient Records regulations: The Federal rules restrict any use of the information to criminally investigate or prosecute any alcohol or drug abuse patient.[facility] HospitalIn the event this information is protected by the Federal Confidentiality of Alcohol and Drug Abuse Patient Records regulations: The Federal rules restrict any use of the information to criminally investigate or prosecute any alcohol or drug abuse patient.[facility]In the event this information is protected by the Federal Confidentiality of Alcohol and Drug Abuse Patient Records regulations: The Federal rules restrict any use of the information to criminally investigate or prosecute any alcohol or drug abuse patient.[facility] HospitalIn the event this information is protected by the Federal Confidentiality of Alcohol and Drug Abuse Patient Records regulations: The Federal rules restrict any use of the information to criminally investigate or prosecute any alcohol or drug abuse patient.[facility] HospitalIn the event this information is protected by the Federal Confidentiality of Alcohol and Drug Abuse Patient Records regulations: The Federal rules restrict any use of the information to criminally investigate or prosecute any alcohol or drug abuse patient.[facility]In the event this information is protected by the Federal Confidentiality of Alcohol and Drug Abuse Patient Records regulations: The Federal rules restrict any use of the information to criminally investigate or prosecute any alcohol or drug abuse patient.[facility] HospitalIn the event this information is protected by the Federal Confidentiality of Alcohol and Drug Abuse Patient Records regulations: The Federal rules restrict any use of the information to criminally investigate or prosecute any alcohol or drug abuse patient.[facility] Reason for Visit (unrecogniz ed section and content) Reason Comments Follow Up Reason Comments Results stress test Reason Comments Hypertension Palpitations Specialty Diagnoses / Procedures Referred By Contac t Referred To Contact Cardiology Diagnoses Palpitations HTN, goal below 140/90 Chest pain, unspecified type Essential hypertension with goal blood pressure less than 140/90 Procedures CONSULT TO CARDIOLOGY OFFICE/OUTPATIENT [facility] 60-74 MINUTES Sandra Sanchez, CHANNEL ACCOUNT MANAGER.WAFER CUTTER [address] [place] [address] Referral ID Status Reason Start Date Expiration Date Visits Requested Visits Authorized [id number] Pending Review PCP Requested Referral 08/21/2021 08/21/2022 1 1 Reason Comments Hypertension Reason Comments Results Reason Onset Date Comments Refill Request 02/05/2022 Reason Comments F/U 6 months Reason Comments Appointment Reason Comments Patient Update Reason Comments Established Patient Follow up bonescan Reason Onset Date Comments F/U 6 Month Immunizations 2023 Flu vaccination Reason Comments Blood Pressure Reason Comments Consult Reason Comments Geriatric Assessment Specialty Diagnoses / Procedures Referred By Contac t Referred To Contact Gerontology / GERIATRICS Diagnoses Memory difficulties Procedures CONSULT TO GERIATRICS OFFICE/OUTPATIENT [facility] 60-74 MINUTES Sandra Sanchez, CHANNEL ACCOUNT MANAGER.WAFER CUTTER [address] [place] [address] [facility] [address] [place] [address] Referral ID Status Reason Start Date Expiration Date Visits Requested Visits Authorized [id number] Authorized PCP Requested Referral 2023 2024 2 2 Reason Comments Med Change Request Reason Comments 6 mo follow up Specialty Diagnoses / Procedures Referred By Godfrey t Referred To Contact MR IMAGING Diagnoses Cognitive impairment Memory difficulties Cognitive impairment, mild, so stated Procedures MRI BRAIN WO IVCON MRI BRAIN BRAIN STEM W/O CONTRAST MATERIAL Blade Lyman DO [address] [place] [address] [place] [address] Referral ID Status Reason Start Date Expiration Date V isits Requested Visits Authorized [id number] Closed Auto-Generate d Referral 07/26/2023 08/24/2024 1 1 Reason Comments Recheck 8 month Reason Comments F/U 6 Month Reason Comments Internal Referrals/resources Speech ther apy Reason Comments Follow Up Repeat testing Reason Comments Same Day Appointment lower back pain Reason Comments ER F/U 08/11/24 LEFT flank p ain Reason Comments Memory Problems Reason Comments Patient Question Reason Comments Follow Up Repeat Cog Assessmt Reason Comments Letter Care Teams (unrecognized sec tion and content) Brine Well Operator Relationship Specialty Start Date End Date Paulina Ardon MD [facility] [place] [address] PCP - General 03/17/02 Brine Well Operator Relationship Specialty Start Date End Date Paulina Ardon MD [address] [place] [address] PCP - General 03/17/02 Brine Well Operator Relationship Specialty Start Date End Date Paulina Ardon MD [facility] [place] [address] PCP - General 03/17/02 Brine Well Operator Relationship Specialty Start Date End Date Paulina Ardon MD [address] [place] [address] PCP - General 03/17/02 Brine Well Operator Relationship Specialty Start Date End Date Paulina Ardon MD [address] [facility] [place] [address] PCP - General 03/17/02 Brine Well Operator Relationship Specialty Start Date End Date Paulina Ardon MD [address] [facility] [place] [address] PCP - General 03/17/02 Brine Well Operator Relationship Specialty Start Date End Date Paulina Ardon MD [address] [facility] [place] [address] PCP - General 03/17/02 Brine Well Operator Relationship Specialty Start Date End Date Paulina Ardon MD [address] [place] [address], [place] [address] PCP - General 03/17/02 Brine Well Operator Relationship Specialty Start Date End Date Paulina Ardon MD [address] [place] [address], [place] [address] PCP - General 03/17/02 Brine Well Operator Relationship Specialty Start Date End Date Paulina Ardon MD [address] [place] [address], [place] [address] PCP - General 03/17/02 Brine Well Operator Relationship Specialty Start Date End Date Paulina Ardon MD [address] [place] [address] [place] [address] PCP - General 03/17/02 Brine Well Operator Relationship Specialty Start Date End Date Paulina Ardon MD [address] [place] [address] [place] [address] PCP - General 03/17/02 Brine Well Operator Relationship Specialty Start Date End Date Paulina Ardon MD [address] [place] [address] [place] [address] PCP - General 03/17/02 Brine Well Operator Relationship Specialty Start Date End Date Paulina Ardon MD [address] [place] [address] PCP - General 03/17/02 Brine Well Operator Relationship Specialty Start Date End Date Paulina Ardon MD [address] [place] [address] PCP - General 03/17/02 Brine Well Operator Relationship Specialty Start Date End Date Paulina Ardon MD [address] [place] [address] PCP - General 03/17/02 Brine Well Operator Relationship Specialty Start Date End Date Paulina Ardon MD [address] [place] [address] PCP - General 03/17/02 Brine Well Operator Relationship Specialty Start Date End Date Paulina Ardon MD [address] [place] [address] PCP - General 03/17/02 Brine Well Operator Relationship Specialty Start Date End Date Paulina Ardon MD [address] [place] [address] PCP - General 03/17/02 Brine Well Operator Relationship Specialty Start Date End Date Paulina Ardon MD [address] [place] [address] PCP - General 03/17/02 Brine Well Operator Relationship Specialty Start Date End Date Paulina Ardon MD [address] [place] [address] PCP - General 03/17/02 Brine Well Operator Relationship Specialty Start Date End Date Paulina Ardon MD [address] [place] [address] PCP - General 03/17/02 Brine Well Operator Relationship Specialty Start Date End Date Paulina Ardon MD [address] [place] [address] PCP - General 03/17/02 Brine Well Operator Relationship Specialty Start Date End Date Paulina Ardon MD [address] [place] [address] PCP - General 03/17/02 Brine Well Operator Relationship Specialty Start Date End Date Paulina Ardon MD [address] [place] [address] PCP - General 03/17/02 Brine Well Operator Relationship Specialty Start Date End Date Paulina Ardon MD [address] [place] [address] PCP - General 03/17/02 Sandra Sanchez, CHANNEL ACCOUNT MANAGER.WAFER CUTTER [address] [place] [address] Pony Cylinder Press Operator Internal Medicine 05/04/24 Christina Ellis CHANNEL ACCOUNT MANAGER.FIELD CROPS HARVEST MACHINE OPERATOR [address] [place] [address] Pony Cylinder Press Operator Internal Medicine 05/04/24 Brine Well Operator Relationship Specialty Start Date End Date Paulina Ardon MD [address] [place] [address] PCP - General 03/17/02 Sandra Sanchez, CHANNEL ACCOUNT MANAGER.WAFER CUTTER [address] [place] [address] Pony Cylinder Press Operator Internal Medicine 05/04/24 Christina Ellis CHANNEL ACCOUNT MANAGER.FIELD CROPS HARVEST MACHINE OPERATOR [address] [place] [address] Pony Cylinder Press Operator Internal Medicine 05/04/24 Brine Well Operator Relationship Specialty Start Date End Date Paulina Ardon MD [address] [place] [address] PCP - General 03/17/02 Sandra Sanchez, CHANNEL ACCOUNT MANAGER.WAFER CUTTER [address] [place] [address] [facility] Internal Medicine 05/04/24 Brine Well Operator Relationship Specialty Start Date End Date Paulina Ardon MD [address] [place] [address] PCP - General 03/17/02 Sandra Sanchez, CHANNEL ACCOUNT MANAGER.WAFER CUTTER [address] [place] [address] Pony Cylinder Press Operator Internal Medicine 05/04/24 Christina Ellis CHANNEL ACCOUNT MANAGER.FIELD CROPS HARVEST MACHINE OPERATOR [address] [place] [address] [facility] 08/18/24 Brine Well Operator Relationship Specialty Start Date End Date Paulina Ardon MD [address] [place] [address] PCP - General 03/17/02 Christina Ellis APRN.FIELD CROPS HARVEST MACHINE OPERATOR [address] [place] [address] Pony Cylinder Press Operator Internal Medicine 08/18/24 Sandra Sanchez, PIYUSH.WAFER CUTTER [address] [place] [address] Pony Cylinder Press Operator Internal Medicine 10/14/24 Brine Well Operator Relationship Specialty Start Date End Date Paulina Ardon MD [address] [place] [address] PCP - General 03/17/02 Christina Ellis APRN.FIELD CROPS HARVEST MACHINE OPERATOR [address] [place] [address] Pony Cylinder Press Operator Internal Medicine 08/18/24 Sandra Sanchez, CHANNEL ACCOUNT MANAGER.WAFER CUTTER [address] [place] [address] Pony Cylinder Press Operator Internal Medicine 10/14/24 Brine Well Operator Relationship Specialty Start Date End Date Paulina Ardon MD [address] [place] [address] PCP - General 03/17/02 Christina Ellis APRN.FIELD CROPS HARVEST MACHINE OPERATOR [address] [place] [address] Pony Cylinder Press Operator Internal Medicine 08/18/24 Sandra Sanchez, CHANNEL ACCOUNT MANAGER.WAFER CUTTER [address] [place] [address] Pony Cylinder Press Operator Internal Medicine 10/14/24 Brine Well Operator Relationship Specialty Start Date End Date Paulina Ardon MD [address] [place] [address] PCP - General 03/17/02 Christina Ellis APRN.FIELD CROPS HARVEST MACHINE OPERATOR [address] [place], [place] [address] [facility] Internal Medicine 08/18/24 Sandra Sanchez APRN.WAFER CUTTER [address] [place], [place] [address] [facility] Internal Medicine 10/14/24 FOR RECORDS PERTAINING TO PATIENTS WHO ARE OR HAVE BEEN ENROLLED IN A CHEMICAL DEPENDENCY/SUBSTANCEABUSE PROGRAM, SOME INFORMATION MAY BE OMITTED. This clinical summary was aggregated from multiple sources. Caution should be exercised in using it in the provision of clinical care. This summary normalizes information from multiple sources, and as a consequence, information in this document may materially change the coding, format and clinical context of patient data. In addition, data may be omitted in some cases. CLINICAL DECISIONS SHOULD BE BASED ON THE PRIMARY CLINICAL RECORDS. [facility] [employer] [facility]. provides no warranty or guarantee of the accuracy or completeness of information in this document.
--- OUTSIDE RECORDS SUMMARY | 2024-12-14 03:42 | XMS RPT_ITS | CCD ---
Author Organization [facility] Care Team Providers Care Biometrics Technician Name Role Phone DR ALYSSA LUGO DO Primary Care Physician [phone] Paulina Ardon MD Primary Care Provider Paulina Ardon MD Primary Care Provider Paulina Ardon MD Primary Care Provider Paulina Ardon MD Primary Care Provider Sanchez NYLON MACHINE OPERATOR.SEISMOGRAPH COMPUTER, Sandra Unavailable Caleb NYLON MACHINE OPERATOR.GENERAL SURGEON, Christina Unavailable CELIA CHANDRA, DR GAIL Francisco Attending Unavailabl e DR PAULINA ARDON MD Primary Care Unavailable Caleb NYLON MACHINE OPERATOR.GENERAL SURGEON, Christina Unavailable Sanchez NYLON MACHINE OPERATOR.SEISMOGRAPH COMPUTER, Sandra Unavailable BLADE LYMAN Attending Unavailable TALAMPAS, [...] [penicillins] Drug Allergy Eruption of skin (disorder) [facility] Work Phone: (20 sources) Losartan; Translations: [LOSARTAN] Drug Allergy 08-08-19 22 Intolerance [facility] Work Phone: (7 sources) Penicillins; Translations: [PENICILLINS] Drug Intolerance 03-26-20 05 [facility] Work Phone: (20 sources) Sulfamethoxazole / Trimethoprim; Translations: [SULFAMETHOXAZOLE-T RIMETHOPRIM] Drug Allergy 11-16-19 06 Rash [facility] (20 sources) Penicillins Drug Intolerance 03-26-20 05 [facility] Work Phone: (6 sources) Penicillins Drug Intolerance 03-26-20 05 [facility] Medications Current Medications Medication Drug Class(es) [...] compression fracture of T9 vertebra, initial encounter ([facility]) Take 1-2 tablets by mouth every 6 [...] compression fracture of T9 vertebra, initial encounter ([facility]) Use 1 [place] in the nose once daily. 3.7 mL [...] 11/30/2024 Discontinued Comment on above: Use 1 [place] in each nostril once daily. SPRAY 1 [...] 04-01-2015 Episodic Other aftercare (1 source) Other fdc (current) drug therapy; Translations: [Encounter for long-term current use of medication] Onset: 02-18-2024 Episodic Other fractures (1 source) Wedge compression fracture of T9-T10 vertebra, initial encounter for closed fracture; Translations: [Closed wedge compression fracture of T9 vertebra, initial encounter ([facility])] Onset: 08-22-2024 Episodic Other gastrointestinal disorders (20 [...] Test Name Value Interpretation Reference Range Facility [facility] 12-02-2024 [facility] Office Visit (NOE HWW) BEKAH SUN ([id number]) 1950 F Date Time Provider Department 12/02/24 12:40 PM BLADE LYMANERIHWCarrie During your visit today, we recorded the following information about you: Pulse Blood pressure Weight Height 79/minute 161/72 45.4 kg 1.626 m Blade Lyman DO 12/02/2024 1:48 PM Signed Blade Lyman DO [facility] [address] [place] [address] [address] [place] [address] Visit Date: December 01, 2024 Name: Ms.Kary Nikki Sun Date of : 1950 MRN/E #: [id number] Chief Complaint: Patient presents with: Follow Up: [...] TAB 08/17/2024 90 90 each Sandra Sanchez APRN.SEISMOGRAPH COMPUTER e- [id number] ... AMLODIPINE BESYLATE 10 MG TAB 02/29/2024 90 90 each Sandra Sanchez APRN.SEISMOGRAPH COMPUTER e- [id number] ... How do dispenses [...] accuracy of the (more content not included)... [facility] Emily 12-01-2024 ESTELITAN Telephone ([id number] ) BEKAH SUN ([id number]) 1950 F Date Time Provider Department 12/01/24 BLADE LYMAN [id number] During your visit today, we recorded the following information about you: Marie Prather LPN 12/01/2024 10:21 AM Signed Patient's stepdaughter, Mayra, is requesting a letter stating patient is unable to make financial decisions due to her cognitive impairment. [facility] just needs a letter on physician's letterhead. [...] regarding message below. Appointment made for 12/02. [facility] patient's spouse is currently in a facility with sudden onset of vascular dementia. Marie Prather LPN Allergies As of Date: 12/01/2024 Noted Allergy Reaction PENICILLINS 03/26/2005 4 - Hives BACTRIM DS (SULFAMETHOXAZOLE-TRIM*11/15 2 - Rash LOSARTAN 08/07/2021 5 - Intolerance Comments: headache, did not feel well Date Reviewed: 11/30/2024 Reviewed by: Sandra Sanchez APRN.SEISMOGRAPH COMPUTER - Fully Assessed Prescriptions as of 12/01/2024 [...] Encounter Status:Closed by BLADE LYMAN on 12/01/24 [facility] CNPN Telephone (INTMWS) BEKAH SUN ([id number]) 1950 F Date Time Provider Department 12/01/24 PAULINA ARDON INTMWS During your visit today, we recorded the following information about you: Ciara, Katrina Vigil 12/01/2024 10:25 AM Signed Patient's step daughter Marisa calling in stating they are currently in the process of placing patient in a memory care facility. She is having trouble getting access to patient's finances through [facility]. Marisa is asking if Dr. Ardon would be willing to write a letter stating patient is not able to make financial decisions due to cognitive decline. She states it needs to be on a letter head. Please review and advise Marisa at [phone]. Katrina Urbina December 01, 2024 10:25 AM [...] Marisa is requesting a call back at [phone] [facility] Please advise Iveth East, AMINATA 12/02/2024 4:44 [...] from PCP as well. Marisa states that [facility] [employer] legal department requires 2 doctors to document that pt has had a cognitive decline and is unable to make financial decisions at this time. Marisa states that her dad had a sudden onset of dementia 3 weeks ago and is in [facility] Transitional Care Unit. Both pt and her are set up to go to the Memory Care Unit at [facility] in [place] this Saturday so that is the urgency of needing to get to the pt's finances. Marisa also states she brought pt to her appt Saturday with Sandra Sanchez but did not know at that visit that she was going to need these letters. She brought pt in to complete the paperwork [facility] requires for placement at their facility. Discussed all of the above with Dr. Ardon who is going to type up letter. Marisa requests to pick it up tomorrow in medical records. Iveth East RN 12/02/2024 7:37 PM Signed Letter done, printed AND signed by Dr. Ardon and taken to medical records for product picker. Marisa aware. Allergies As of Date: 12/01/2024 Noted Allergy Reaction PENICILLINS 03/26/2005 4 - Hives BACTRIM DS (SULFAMETHOXAZOLE-TRIM*11/15 2 - Rash LOSARTAN 08/07/2021 5 - Intolerance Comments: headache, did not feel well Date Reviewed: 11/30/2024 Reviewed by: Sandra Sanchez, PIYUSH.SEISMOGRAPH COMPUTER - Fully Assessed Reason for Visit: Letter [...] CHF ( (more content not included)... Normal [facility] CNOVon 11-30-2024 CNOV Office Visit (INTMWS ) SAWBEKAH PYLE ([id number]) 1950 F Date Time Provider Department 11/30/24 11:40 AM SANDRA SANCHEZ INTMWS During your visit today, we recorded the following information about you: Pulse Respiration Blood pressure Weight 70/minute 16/minute 129/70 45 kg Sandra Sanchez APRN.SEISMOGRAPH COMPUTER 11/30/2024 12:43 PM Signed Subjective Patient presents [...] 10/28/2019 Colonoscopy ESOPHAGOGASTRODUODENOSCOPY TRANSORAL DIAGNOSTIC 01/08/2012 inpt [facility] EGD PAST SURGICAL HISTORY OF 06/10/2009 [...] Mood norm (more content not included)... Normal [facility]NP[facility]20[facility] BE[facility] SUN ([id number]) 1950 F Date Time Provider Department 11/26/24 [...] Patient seen by Sandra RAMOS today and [facility] assisted living forms were filled out and [...] Status:Closed by ANAI SALCEDO on 11/30/[address] [facility] BD DXA - AXIAL SKELETONon BD [...] years, Gender: Female SCANNER INFORMATION: DXA Model: Exavio - GenomOncology C 79199 Date Scanned: 09/25/2024 10:11 AM CLINICAL HISTORY: [...] FOR MORE INFORMATION ABOUT DIAGNOSIS AND TREATMENT: [facility] Center for Osteoporosis and Metabolic Bone Disease:? www.ccf.org/arthritis/osteo National Osteoporosis Foundation:? www.nof.org International Society of Clinical Densitometry www.iscd.org Floor Plan Adjuster: LILIANA Transcribe Date/Time: Sep 29 2024 9:24A Dictated by : ALEJANDRO SINGLETARY MD This examination was interpreted and the report reviewed and electronically signed by: ALEJANDRO SINGLETARY MD on Sep 29 2024 9:27AM EST [id number] -3.[address] [facility] BD DXA TRABECLR BONE SCORE ( TBS)on 09-25-2024 BD DXA TRABECLR BONE SCORE (TBS) * * *Final Report* * * DATE OF EXAM: Sep 25 2024 10:11AM [facility] 0801 - BD DXA TRABECLR BONE SCORE (TBS) / PROCEDURE REASON: Asymptomatic postmenopausal state * * * * Physician Interpretation * * * * EXAMINATION: DXA BONE DENSITOMETRY BD DXA - AXIAL SKELETON, BD DXA TRABECLR BONE SCORE (TBS) PATIENT DEMOGRAPHICS: Age: 74 years, Gender: Female SCANNER INFORMATION: DXA Model: Exavio - Calix Discovery C 94386 Date Scanned: 09/25/2024 10:11 AM CLINICAL HISTORY: [...] www.nof.org International Society of Clinical Densitometry www.iscd.org Floor Plan Adjuster: LILIANA Transcribe Date/Time: Sep 29 2024 9:24A Dictated by : ALEJANDRO SINGLETARY MD This examination was interpreted and the report reviewed and electronically signed by: ALEJANDRO SINGLETARY MD on Sep 29 2024 9:27AM EST [id number] -3.[address] [facility] CNOVon 09-19-2024 CNOV Office Visit (INTMWS ) BEKAH SUN ([id number]) 1950 F Date Time Provider Department 09/19/24 9:40 AM PAULINA ARDON INTMWS During your visit today, we recorded the following information about you: Pulse Respiration Blood pressure Weight 81/minute 16/minute 138/78 46.2 kg Paulina Ardon MD 10/12/2024 1:59 AM Addendum This note was created using Beauty Notedriter. Subjective Bekah Sun is a 74 year [...] 1 table (more content not included)... Normal [facility] 25(OH)D3 Marilu-Linette 2024 25-hydroxyvitamin D3 [Mass/Vol] 56.0 ng/mL Normal 31.0-80.[address] [facility] Comment on above: Order Comment: Speci men Type: BLOOD SPECIMENOrdering Facility: [facility] Address: [address] [id number] Result Comment: Clas sification of 25 [place] Vitamin D status: Deficiency/Insufficiency: < or = 30 ng/ml. Sufficiency/Optimal Levels: 31-80 ng/mL Toxicity: > 100 ng/mL. Test performed by chemiluminescent immunoassay. Performed By: #### 1 989-3 ####[facility] LABCLIA [id number] [address] [address] [place] Basic metabolic 2000 panelon 08-22-2024 Anion gap [Moles/Vol] 13 mmol/L Normal 8-[address] [facility] Comment on above: Order Comment: Speci men Type: BLOOD SPECIMENOrdering Facility: [facility] Address: [address] [place] [address] Performed By: #### 3 024-7, 88680-8, 2730-8, 6-3 ####[facility] LABCLIA [id number] [place] [id number] [place] Calcium [Mass/Vol] 9.5 mg/dL Normal 8.5-10.2 [facility] Comment on above: Order Comment: Speci men Type: BLOOD SPECIMENOrdering Facility: [facility] Address: [address] [place] [address] Performed By: #### 3 024-7, 82388-1, 2730-8, 6-3 ####[facility] LABCLIA [id number] [place] [id number] [place] Chloride [Moles/Vol] 94 mmol/L Low 98-[address] [facility] Comment on above: Order Comment: Speci men Type: BLOOD SPECIMENOrdering Facility: [facility] Address: [address] [place], [place] [address] Performed By: #### 3 024-7, 15978-6, 2730-8, 3016-3 ####[facility] LABCLIA [id number] [address] [place] [address] [place] CO2 [Moles/Vol] 29 mmol/L Normal 22-[address] [facility] Comment on above: Order Comment: Speci men Type: BLOOD SPECIMENOrdering Facility: [facility] Address: [address] [place] [address] Performed By: #### 3 024-7, 79230-2, 2730-8, 3015-3 ####[facility] LABCLIA [id number] [place] [id number] [place] Creatinine [Mass/Vol] 0.96 mg/dL Normal 0.58-0.[address] [facility] Comment on above: Order Comment: Speci men Type: BLOOD SPECIMENOrdering Facility: [facility] Address: [address] [place] [address] Performed By: #### 3 024-7, 59112-6, 8, 3 ####[facility] LABCLIA [id number] [place] [address] [place] Creatinine and Glomerular filtration rate.predicted panel (S/P/Bld) 61 mL/min/1.73m??? Normal >=[address] [facility] Comment on above: Order Comment: Rolando men Type: BLOOD SPECIMENOrdering Facility: [facility] Address: [address] [place] [address] Result Comment: Sabiha mated Glomerular Filtration Rate [...] actual GFR. Performed By: #### 3 024-7, 40038-0, 2730-8, 3 ####[facility] LABCLIA [id number] [address] [address] [place] Glucose [Mass/Vol] 146 mg/dL High 74-99 [facility] Comment on above: Order Comment: Speci men Type: BLOOD SPECIMENOrdering Facility: [facility] Address: [address] [id number] Result Comment: The [place] Diabetes Association (ADA) provides guidance for cutoff [...] Standards of Medical Care in Diabetes 2016, [place] Diabetes Association. Diabetes Care. 2016.39(Suppl 1). Performed By: #### 3 024-7, 19468-1, 2730-8, 6-3 ####[facility] LABCLIA [id number] [place] [address] [place] Potassium [Moles/Vol] 4.0 mmol/L Normal 3.7-5.[address] [facility] Comment on above: Order Comment: Speci men Type: BLOOD SPECIMENOrdering Facility: [facility] Address: [address] [place] [address] Performed By: #### 3 024-7, 10592-4, 2730-8, 6-3 ####[facility] LABCLIA [id number] [place] [place] [id number] [place] Sodium [Moles/Vol] 136 mmol/L Normal 136-144 [facility] Comment on above: Order Comment: Speci men Type: BLOOD SPECIMENOrdering Facility: [facility] Address: [address] [place], [place] [id number] Performed By: #### 3 024-7, 99708-6, 2730-8, 6-3 ####[facility] LABCLIA [id number] [address] [address] [place] Urea nitrogen [Mass/Vol] 9 mg/dL Normal 7-[address] [facility] Comment on above: Order Comment: Speci men Type: BLOOD SPECIMENOrdering Facility: [facility] Address: [address] [place] [address] Performed By: #### 3 024-7, 29612-1, 2730-12, 3 ####[facility] LABCLIA [id number] [place] [address] [place] PTH-Intact SerPl-ncon - Parathyrin.intact [Mass/Vol] 37 pg/mL Normal 15-[address] [facility] Comment on above: Order Comment: Speci men Type: BLOOD SPECIMENOrdering Facility: [facility] Address: [address] [place] [address] Performed By: #### 3 024-7, 44502-1, 2730-12, 3 ####[facility] LABCLIA [id number] [place] [address] [place] T4 Free SerPl-mCncon 025 Free T4 [Mass/Vol] 1.6 ng/dL Normal 0.9-1.7 [facility] Comment on above: Order Comment: Speci men Type: BLOOD SPECIMENOrdering Facility: [facility] Address: [address] [place] [address] Performed By: #### 3 024-7, 32466-8, 2730-12, 3 ####[facility] LABCLIA [id number] [place] [address] [place] TSH SerPl-aCncon 08-22-2024 TSH Qn 1.930 m[IU]/L Normal 0.270-4.[address] [facility] Comment on above: Order Comment: Speci men Type: BLOOD SPECIMENOrdering Facility: [facility] Address: [address] [place] [address] Performed By: #### 3 024-7, 87106-4, 2730-12, 3015-3 ####[facility] LABCLIA [id number] RONALDShawanda [facility] [id number] [place] [address] [place] CNOVon 08-17-2024 CNOV Office Visit (INTMWS ) BEKAH SUN ([id number]) 1950 F Date Time Provider Department 08/17/24 [...] compression fracture of T9 vertebra, initial encounter ([facility]) Orders: HYDROcodone-acetaminophen (NORCO) 5-325 mg per tablet; Take 1-2 tablets by mouth every 6 hours as needed for pain for up to 7 days. calcitonin,salmon, (MIACALCIN) 200 unit/actuation nasal spray; Use 1 [place] in the nose once daily. BASIC METABOLIC PANEL; Future VITAMIN D 25 HYDROXY; Future PTH INTACT; Future THYROID STIMULATING HORMONE; Future T4 FREE/FREE THYROXINE; Future # Closed wedge compression fracture of T9 vertebra, initial encounter ([facility]) (S22.827L) - Recent CT scan confirmed a T9 [...] upright fo (more content not included)... Normal [facility] .Auto Diffon 08-11-2024 Basophil, Absolute 0.1 10 3/mcL Normal 0.0-0.2 [facility] Comment on above: Performed By: #### M DW, GFR, ANEU, CBC, ADIFF, CMP #### [address] [address] Basophils/100 WBC (Bld) 0.8 % Normal 0.0-2.5 [facility] Comment on above: Performed By: #### M DW, GFR, ANEU, CBC, ADIFF, CMP #### [address] [address] Eosinophil, Absolute 0.1 10 3/mcL Normal 0.0-0.7 [facility] Comment on above: Performed By: #### M DW, GFR, ANEU, CBC, ADIFF, CMP #### [address] [address] Eosinophils/100 WBC (Bld) 0.8 % Normal 0.0-7.0 [facility] Comment on above: Performed By: #### M DW, GFR, ANEU, CBC, ADIFF, CMP #### [address] [address] Lymphocyte, Absolute 1.2 10 3/mcL Normal 0.9-4.3 [facility] Comment on above: Performed By: #### M DW, GFR, ANEU, CBC, ADIFF, CMP #### [address] [address] Lymphocytes/100 WBC (Bld) 15.5 % Low 20.0-40.0 [facility] Comment on above: Performed By: #### M DW, GFR, ANEU, CBC, ADIFF, CMP #### [address] [address] Monocyte, Absolute 0.6 10 3/mcL Normal 0.1-1.4 [facility] Comment on above: Performed By: #### M DW, GFR, ANEU, CBC, ADIFF, CMP #### [address] [address] Monocytes/100 WBC (Bld) 7.9 % Normal 2.0-13.0 [facility] Comment on above: Performed By: #### M DW, GFR, ANEU, CBC, ADIFF, CMP #### [address] [address] Neutrophils/100 WBC (Bld) 75.0 % Normal 50.0-75.0 [facility] Comment on above: Performed By: #### M DW, GFR, ANEU, CBC, ADIFF, CMP #### [address] [address] .GFRon 08-11-2024 Estimated Glomerular Filtration Rate 33 ml/min/1.73sqm Normal [facility] Comment on above: Result Comment: Stages of [...] DW, GFR, ANEU, CBC, ADIFF, CMP #### [address] [address] .MDWon 08-11-2024 Monocyte Distribution Width 16.94 Normal 0.00-20.00 [facility] Comment on above: Result Comment: For ED adult patients suspected of sepsis, MDW<=20.0 does not rule out sepsis or risk of sepsis Performed By: #### M DW, GFR, ANEU, CBC, ADIFF, CMP #### [address] [place] [address] .NEUABSon 08-11-2024 Neutrophil, Absolute 5.8 10 3/mcL Normal 2.3-8.1 [facility] Comment on above: Performed By: #### M DW, GFR, ANEU, CBC, ADIFF, CMP #### [address] [address] CBCon 08-11-2024 Erythrocyte distribution width (RBC) [Ratio] 13.2 % Normal 11.5-15.5 [facility] Comment on above: Performed By: #### M DW, GFR, ANEU, CBC, ADIFF, CMP #### [address] [place] [address] Hematocrit (Bld) [Volume fraction] 37.6 % Normal 34.0-46.0 [facility] Comment on above: Performed By: #### M DW, GFR, ANEU, CBC, ADIFF, CMP #### [address] [place] [address] Hgb 13.3 G/dL Normal 12.0-16.0 [facility] Comment on above: Performed By: #### M DW, GFR, ANEU, CBC, ADIFF, CMP #### [address] [place] [address] MCH (RBC) [Entitic mass] 31.1 pg Normal 27.0-33.0 [facility] Comment on above: Performed By: #### M DW, GFR, ANEU, CBC, ADIFF, CMP #### [address] [address] MCHC 35.5 G/dL Normal 32.0-36.0 [facility] Comment on above: Performed By: #### M DW, GFR, ANEU, CBC, ADIFF, CMP #### [address] [address] MCV (RBC) [Entitic vol] 87.7 fL Normal 80.0-99.0 [facility] Comment on above: Performed By: #### M DW, GFR, ANEU, CBC, ADIFF, CMP #### [address] [place] [address] Platelet 360 10 3/mcL Normal 150-450 [facility] Comment on above: Performed By: #### M DW, GFR, ANEU, CBC, ADIFF, CMP #### [address] [address] Platelet mean volume (Bld) [Entitic vol] 7.1 fL Normal 6.6-10.5 [facility] Comment on above: Performed By: #### M DW, GFR, ANEU, CBC, ADIFF, CMP #### [address] [address] RBC 4.28 10 6/mcL Normal 4.10-5.30 [facility] Comment on above: Performed By: #### M DW, GFR, ANEU, CBC, ADIFF, CMP #### [address] [address] WBC 7.7 10 3/mcL Normal 4.5-10.8 [facility] Comment on above: Performed By: #### M DW, GFR, ANEU, CBC, ADIFF, CMP #### [place] [id number] CMPon 08-11-2024 Albumin Level 3.5 G/dL Normal 3.4-4.8 [facility] Comment on above: Performed By: #### M DW, GFR, ANEU, CBC, ADIFF, CMP #### [place] [address] Albumin/Globulin [Mass ratio] 1.0 {ratio} Low 1.1-2.5 [facility] Comment on above: Performed By: #### M DW, GFR, ANEU, CBC, ADIFF, CMP #### [address] [place] [address] ALP [Catalytic activity/Vol] 88 U/L Normal 40-135 [facility] Comment on above: Performed By: #### M DW, GFR, ANEU, CBC, ADIFF, CMP #### [address] [place] [address] ALT [Catalytic activity/Vol] 26 U/L Normal 14-59 [facility] Comment on above: Performed By: #### M DW, GFR, ANEU, CBC, ADIFF, CMP #### [address] [place] [address] AST [Catalytic activity/Vol] 19 U/L Normal 10-40 [facility] Comment on above: Performed By: #### M DW, GFR, ANEU, CBC, ADIFF, CMP #### [address] [place] [address] Bili Total 0.5 mg/dL Normal 0.2-1.0 [facility] Comment on above: Result Comment: Use of this assay is not recommended for patients undergoing treatment with eltrombopag due to the potential for falsely elevated results. Performed By: #### M DW, GFR, ANEU, CBC, ADIFF, CMP #### [place] [address] BUN/Creatinine Ratio 14 ratio Normal 7-27 [facility] Comment on above: Performed By: #### M DW, GFR, ANEU, CBC, ADIFF, CMP #### [place] [address] Calcium [Mass/Vol] 9.0 mg/dL Normal 8.4-10.2 [facility] Comment on above: Performed By: #### M DW, GFR, ANEU, CBC, ADIFF, CMP #### [address] [address] Chloride [Moles/Vol] 93 mmol/L Low 98-107 [facility] Comment on above: Performed By: #### M DW, GFR, ANEU, CBC, ADIFF, CMP #### [address] [address] CO2 [Moles/Vol] 26 mmol/L Normal 23-31 [facility] Comment on above: Performed By: #### M DW, GFR, ANEU, CBC, ADIFF, CMP #### [place] [address] Creatinine [Mass/Vol] 1.60 mg/dL High 0.55-1.02 [facility] Comment on above: Result Comment: Test ing performed on Polyera Dimension EXL analyzer using a modified kinetic Neetu technique. Performed By: #### M DW, GFR, ANEU, CBC, ADIFF, CMP #### [place] [address] Electrolyte Balance 13.0 mEq/L Normal 4.0-15.0 [facility] Comment on above: Performed By: #### M DW, GFR, ANEU, CBC, ADIFF, CMP #### [place] [address] Globulin 3.5 G/dL Normal 1.5-3.8 [facility] Comment on above: Performed By: #### M DW, GFR, ANEU, CBC, ADIFF, CMP #### [place] [address] Glucose [Mass/Vol] 104 mg/dL Normal 83-110 [facility] Comment on above: Performed By: #### M DW, GFR, ANEU, CBC, ADIFF, CMP #### [place] [address] Potassium [Moles/Vol] 3.4 mmol/L Low 3.5-5.1 [facility] Comment on above: Performed By: #### M DW, GFR, ANEU, CBC, ADIFF, CMP #### [address] [place], [place] [address] Sodium [Moles/Vol] 132 mmol/L Low 136-145 [facility] Comment on above: Performed By: #### M DW, GFR, ANEU, CBC, ADIFF, CMP #### [address] [place], [place] [address] Total Protein 7.0 G/dL Normal 6.4-8.2 [facility] Comment on above: Performed By: #### M DW, GFR, ANEU, CBC, ADIFF, CMP #### [address] [place], [place] [address] Urea nitrogen [Mass/Vol] 22 mg/dL High 12-11 [facility] Comment on above: Performed By: #### M DW, GFR, ANEU, CBC, ADIFF, CMP #### [address] [place], [place] [address] CT ABDOMEN/PELVIS W/O CONTRA STon 08-11-2024 CT [...] 08/11/2024 4:35:56 PM Ordering Provider: DALE MINOR [facility] UAon 08-11-2024 Color (U) Yellow Normal [facility] Comment on above: Performed By: #### U A #### [place] [address] Glucose (U) [Mass/Vol] Negative Normal Negative [facility] Comment on above: Performed By: #### U A #### [place] [address] Ketones Ql (U) Negative Normal Negative [facility] Comment on above: Performed By: #### U A #### [address] [address] UA Appear Clear Normal Clear [facility] Comment on above: Performed By: #### U A #### [address] [address] UA Blood Trace Abnormal Negative [facility] Comment on above: Performed By: #### U A #### [address] [address] UA Leuk Est Negative Normal Negative [facility] Comment on above: Performed By: #### U A #### [address] [address] UA Nitrite Negative Normal Negative [facility] Comment on above: Performed By: #### U A #### [address] [address] UA pH 5.5 Normal 5.0 - 8.0 [facility] Comment on above: Performed By: #### U A #### [address] [address] UA Protein Negative Normal Negative [facility] Comment on above: Performed By: #### U A #### [place] [address] UA Spec Grav 1.010 Abnormal 1.015-1.025 [facility] Comment on above: Performed By: #### U A #### [place] [address] UA Specimen Type Clean Catch Normal [facility] Comment on above: Performed By: #### U A #### [place] [address] UA Urobilinogen 0.2 E.U./dL Normal 0.2-1.0 [facility] Comment on above: Performed By: #### U A #### [place] [address] Urobilinogen (U) [Mass/Vol] Negative Normal Negative [facility] Comment on above: Performed By: #### U A #### [address] [address] CNOVon 08-05-2024 CNOV Office Visit (INTMWS ) BEKAH SUN ([id number]) 1950 F Date Time Provider Department 08/05/24 2:40 PM PAULINA ARDON INTMWS During your visit today, we recorded the following information about you: Temperature Pulse Respiration Blood pressure 97.2 degrees 74/minute 12/minute 132/78 Weight Height 48.8 kg 1.626 m Paulina Ardon MD 08/05/2024 3:41 PM Signed This note was created using [employer] Noted[employer]. Subjective Bekah Sun is a 74 year [...] sleeping positio (more content not included)... Normal [facility] XR LUMBAR 3V AP/LAT/L5-S1on 08-05-2024 XR [...] compression fracture. Lumbar degenerative changes as described. Floor Plan Adjuster: PSCSuzie Transcribe Date/Time: Aug 09 2024 7:02P Dictated by : ANABEL SHANNON MD This examination was interpreted and the report reviewed and electronically signed by: ANABEL SHANNON MD on Aug 09 2024 7:03PM EST [id number] Normal [facility] CNOVon 02-26-2024 CNOV Office Visit (AGGERI HWW) BEKAH SUN ([id number]) 1950 F Date Time Provider Department 02/26/24 3:00 PM BLADE LYMAN AGGERIHWW During your visit today, we recorded the following information about you: Pulse Blood pressure Weight Height 80/minute 159/80 47.6 kg 1.626 m Blade Lyman DO 02/26/2024 3:56 PM Signed Blade Lyman DO [facility] [address] [place] [address]. [place] [address] Visit Date: February 27, 2024 Name: Ms.Kary Nikki Sun Date of : 1950 MRN/E #: [id number] Chief Complaint: Patient presents with: Follow Up: [...] were not (more content not included)... [facility]IM[facility]IAN[facility] Tele[facility] (AGGERIHWW ) BEKAH SUN ([id number]) 1950 F Date Time Provider Department 02/26/24 BLADE LYMAN AGGERIHWW During your visit today, we recorded the following information about you: NagyRadhaBenito 02/26/2024 3:51 PM Signed Confirmation number: [id number] Allergies As of Date: 02/26/2024 Noted Allergy [...] Status:Closed by BENITO NAGY on 02/26/24 Normal [facility] CBC panel Auto (Bld)on 02-17 Erythrocyte distribution width (RBC) [Ratio] 12.7 % Normal 11.5-15.[address] [facility] Comment on above: Order Comment: Speci men Type: BLOOD SPECIMENOrdering Facility: [facility] Address: [address] [place] [address] [place] [id number] Performed By: #### 5 8410-2 ####[facility] LABIA [id number] [place] [address] [place] Hematocrit (Bld) [Volume fraction] 41.8 % Normal 36.0-46.[address] [facility] Comment on above: Order Comment: Speci men Type: BLOOD SPECIMENOrdering Facility: [facility] Address: [address] [place] [address] Performed By: #### 5 8410-2 ####[facility] LABIA [id number] [place] [address] [place] Hemoglobin (Bld) [Mass/Vol] 13.8 g/dL Normal 11.5-15.[address] [facility] Comment on above: Order Comment: Speci men Type: BLOOD SPECIMENOrdering Facility: [facility] Address: [address] [place] [address] Performed By: #### 5 8410-2 ####[facility] LABIA [id number] [place] [address] [place] MCH (RBC) [Entitic mass] 30.9 pg Normal 26.0-34.[address] [facility] Comment on above: Order Comment: Speci men Type: BLOOD SPECIMENOrdering Facility: [facility] Address: [address] [place] [address] Performed By: #### 5 8410-2 ####[facility] LABIA [id number] [place] [address] [place] MCHC (RBC) [Mass/Vol] 33.0 g/dL Normal 30.5-36.[address] [facility] Comment on above: Order Comment: Speci men Type: BLOOD SPECIMENOrdering Facility: [facility] Address: [address] [place] [address] Performed By: #### 5 8410-2 ####[facility] [id number] [place] [address] [place] MCV (RBC) [Entitic vol] 93.7 fL Normal 80.0-100.[address] [facility] Comment on above: Order Comment: Speci men Type: BLOOD SPECIMENOrdering Facility: [facility] Address: [address] [place] [address] Performed By: #### 5 8410-2 ####[facility] LABCLIA [id number] [place] [address] [place] Nucleated RBC (Bld) [#/Vol] 10*3/uL Normal <0.[address] [facility] Comment on above: Order Comment: Speci men Type: BLOOD SPECIMENOrdering Facility: [facility] Address: [address] [place] [address] Performed By: #### 5 8410-2 ####[facility] LABCLIA [id number] [place] [address] [place] Platelet mean volume (Bld) [Entitic vol] 11.2 fL Normal 9.0-12.[address] [facility] Comment on above: Order Comment: Speci men Type: BLOOD SPECIMENOrdering Facility: [facility] Address: [address] [place] [address] Performed By: #### 5 8410-2 ####[facility] LABCLIA [id number] [place] [address] [place] Platelets (Bld) [#/Vol] 343 10*3/uL Normal 150-[address] [facility] Comment on above: Order Comment: Speci men Type: BLOOD SPECIMENOrdering Facility: [facility] Address: [address] [place] [address] Performed By: #### 5 8410-2 ####[facility] LABCLIA [id number] [place] [address] [place] RBC (Bld) [#/Vol] 4.46 10*6/uL Normal 3.90-5.20 [facility] Comment on above: Order Comment: Speci men Type: BLOOD SPECIMENOrdering Facility: [facility] Address: [address] [place] [address] Performed By: #### 5 8410-2 ####[facility] LABCLIA [id number] [place] [address] [place] WBC (Bld) [#/Vol] 6.86 10*3/uL Normal 3.70-11.00 [facility] Comment on above: Order Comment: Speci men Type: BLOOD SPECIMENOrdering Facility: [facility] Address: [address] [place] [address] Performed By: #### 5 8410-2 ####[facility] LABIA [id number] [place] [address] [place] Comprehensive metabolic 2000 panelon 02-18-2024 Albumin [Mass/Vol] 4.3 g/dL Normal 3.9-4.9 [facility] Comment on above: Order Comment: Speci men Type: BLOOD SPECIMENOrdering Facility: [facility] Address: [address] [place] [address] Performed By: #### 2 4323-8, 45432-0 ####[facility] LABIA [id number] [place] [address] [place] ALP [Catalytic activity/Vol] 74 U/L Normal 34-[address] [facility] Comment on above: Order Comment: Speci men Type: BLOOD SPECIMENOrdering Facility: [facility] Address: [address] [place] [address] Performed By: #### 2 4323-8, 08624-7 ####[facility] LABIA [id number] [place] [address] [place] ALT [Catalytic activity/Vol] 15 U/L Normal 7-[address] [facility] Comment on above: Order Comment: Speci men Type: BLOOD SPECIMENOrdering Facility: [facility] Address: [address] [place] [address] Performed By: #### 2 4323-8, 23119-4 ####[facility] LABCLIA [id number] [place] [address] [place] Anion gap [Moles/Vol] 12 mmol/L Normal 8-[address] [facility] Comment on above: Order Comment: Speci men Type: BLOOD SPECIMENOrdering Facility: [facility] Address: [address] [place] [address] Performed By: #### 2 4323-8, 86400-4 ####[facility] LABCLIA [id number] [place] [address] [place] AST [Catalytic activity/Vol] 29 U/L Normal 13-[address] [facility] Comment on above: Order Comment: Speci men Type: BLOOD SPECIMENOrdering Facility: [facility] Address: [address] [place] [address] Performed By: #### 2 4323-8, 37948-8 ####[facility] LABCLIA [id number] [place] [address] [place] Bilirubin [Mass/Vol] 0.6 mg/dL Normal 0.2-1.[address] [facility] Comment on above: Order Comment: Speci men Type: BLOOD SPECIMENOrdering Facility: [facility] Address: [address] [place] [address] Performed By: #### 2 4323-8, 02228-0 ####[facility] LABCLIA [id number] [place] [address] [place] Calcium [Mass/Vol] 9.1 mg/dL Normal 8.5-10.2 [facility] Comment on above: Order Comment: Speci men Type: BLOOD SPECIMENOrdering Facility: [facility] Address: [address] [place] [address] Performed By: #### 2 4323-8, 93577-3 ####[facility] LABCLIA [id number] [place] [address] [place] Chloride [Moles/Vol] 101 mmol/L Normal 98-[address] [facility] Comment on above: Order Comment: Speci men Type: BLOOD SPECIMENOrdering Facility: [facility] Address: [address] [place] [address] Performed By: #### 2 4323-8, 58833-0 ####[facility] LABCLIA [id number] [place] [address] [place] CO2 [Moles/Vol] 28 mmol/L Normal 22-[address] [facility] Comment on above: Order Comment: Speci men Type: BLOOD SPECIMENOrdering Facility: [facility] Address: [address] [place] [address] Performed By: #### 2 4323-8, 32060-6 ####[facility] LABIA [id number] [place] [address] [place] Creatinine [Mass/Vol] 1.03 mg/dL High 0.58-0.[address] [facility] Comment on above: Order Comment: Speci men Type: BLOOD SPECIMENOrdering Facility: [facility] Address: [address] [place] [address] Performed By: #### 2 4323-8, 09092-7 ####[facility] LABIA [id number] [place] [address] [place] Creatinine and Glomerular filtration rate.predicted panel (S/P/Bld) 56 mL/min/1.73m??? Low >=[address] [facility] Comment on above: Order Comment: Speci men Type: BLOOD SPECIMENOrdering Facility: [facility] Address: [address] [place] [address] Result Comment: Sabiha mated Glomerular Filtration Rate [...] actual GFR. Performed By: #### 2 4323-8, 82240-7 ####[facility] LABCLIA [id number] [place] [address] [place] Glucose [Mass/Vol] 118 mg/dL High 74-99 [facility] Comment on above: Order Comment: Speci men Type: BLOOD SPECIMENOrdering Facility: [facility] Address: [address] [place] [address] Result Comment: The [place] Diabetes Association (ADA) provides guidance for cutoff [...] Standards of Medical Care in Diabetes 2016, [place] [employer] Association. Diabetes Care. 2016.39(Suppl 1). Performed By: #### 2 4323-8, 69427-3 ####[facility] LABIA [id number] [place] [address] [place] Potassium [Moles/Vol] 3.7 mmol/L Normal 3.7-5.[address] [facility] Comment on above: Order Comment: Speci men Type: BLOOD SPECIMENOrdering Facility: [facility] Address: [address] [place] [address] Performed By: #### 2 4323-8, 25496-4 ####[facility] LABIA [id number] [place] [address] [place] Protein [Mass/Vol] 7.0 g/dL Normal 6.3-8.0 [facility] Comment on above: Order Comment: Speci men Type: BLOOD SPECIMENOrdering Facility: [facility] Address: [address] [place] [address] Performed By: #### 2 4323-8, 53138-1 ####[facility] LABCLIA [id number] [place] [address] [place] Sodium [Moles/Vol] 141 mmol/L Normal 136-144 [facility] Comment on above: Order Comment: Speci men Type: BLOOD SPECIMENOrdering Facility: [facility] Address: [address] [place] [address] Performed By: #### 2 4323-8, 50872-5 ####[facility] LABCLIA [id number] [place] [address] [place] Urea nitrogen [Mass/Vol] 12 mg/dL Normal 7-[address] [facility] Comment on above: Order Comment: Speci men Type: BLOOD SPECIMENOrdering Facility: [facility] Address: [address] [place] [address] Performed By: #### 2 4323-8, 17766-0 ####[facility] LABIA [id number] [place] [address] [place] Lipid 1996 panelon 4 Cholesterol [Mass/Vol] 219 mg/dL High <[address] [facility] Comment on above: Order Comment: Speci men Type: BLOOD SPECIMENOrdering Facility: [facility] Address: [address] [place] [address] Result Comment: <200 mg/dL, Desirable 200-239 mg/dL, Borderline high >239 mg/dL, High Performed By: #### 2 4323-8, 89971-0 ####[facility] LABIA [id number] [place] [address] [place] Cholesterol in HDL [Mass/Vol] 110 mg/dL Normal >[address] [facility] Comment on above: Order Comment: Speci men Type: BLOOD SPECIMENOrdering Facility: [facility] Address: [address] [place] [address] Result Comment: 40-5 9 mg/dL, Acceptable >59 mg/dL, High: Negative risk factor for coronary heart disease <40 mg/dL, Low: Positive risk factor for coronary heart disease Performed By: #### 2 4323-8, 62770-7 ####[facility] LABCLIA [id number] [address] [place] Cholesterol in LDL [Mass/Vol] 93 mg/dL Normal <[address] [facility] Comment on above: Order Comment: Speci men Type: BLOOD SPECIMENOrdering Facility: [facility] Address: [address] [place] [address] Result Comment: <100 mg/dL, Optimal 100-129 mg/dL, Near optimal/above optimal 130-159 mg/dL, Borderline high 160-189 mg/dL, High >189 mg/dL, Very high Secondary prevention optimal LDL Cholesterol levels are recommended to be < 70 mg/dL Performed By: #### 2 4323-8, 77877-1 ####[facility] LABCLIA [id number] [address] [place] [facility] Cholesterol in LDL/Cholesterol in HDL [Mass ratio] 0.85 {ratio} Normal <2.[address] [facility] Comment on above: Order Comment: Speci men Type: BLOOD SPECIMENOrdering Facility: [facility] Address: [address] [place] [address] Result Comment: Refe rence: 1. National Cholesterol Education Program ATP III Guideline At-A-Glance Quick Desk Reference: National Heart, Lung, and Blood [place]. National Institutes of Health. 2001: NIH Publication No. 01-3305. 2. An International Atherosclerosis Society position paper: global recommendations for the management of dyslipidemia: executive summary, Atherosclerosis. 2014: 232(2):410-413. Performed By: #### 2 4323-8, 07522-0 ####[facility] LABCLIA [id number] [address] [place] Cholesterol in VLDL [Mass/Vol] 16 mg/dL Normal <[address] [facility] Comment on above: Order Comment: Speci men Type: BLOOD SPECIMENOrdering Facility: [facility] Address: [address] [place] [address] Performed By: #### 2 4323-8, 72856-7 ####[facility] LABCLIA [id number] [place] [address] [place] Cholesterol non HDL [Mass/Vol] 109 mg/dL Normal <[address] [facility] Comment on above: Order Comment: Speci men Type: BLOOD SPECIMENOrdering Facility: [facility] Address: [address] [place] [address] Result Comment: <130 mg/dL, Optimal 130-159 mg/dL, Near optimal/above optimal 160-189 mg/dL, Borderline high 190-219 mg/dL, High >219 mg/dL, Very high Secondary prevention optimal non HDL Cholesterol levels are recommended to be <100 mg/dL Performed By: #### 2 4323-8, 24551-6 ####[facility] LABCLIA [id number] [place] [address] [place] Cholesterol.total/C holesterol in HDL [Mass ratio] 1.99 {ratio} Normal <5.[address] [facility] Comment on above: Order Comment: Speci men Type: BLOOD SPECIMENOrdering Facility: [facility] Address: [address] [place] [address] Performed By: #### 2 4323-8, 51693-8 ####[facility] LABCLIA [id number] [place] [address] [place] FASTING TIME 15 hrs Normal [facility] Comment on above: Order Comment: Speci men Type: BLOOD SPECIMENOrdering Facility: [facility] Address: [address] [place] [address] Performed By: #### 2 4323-8, 01401-2 ####[facility] LABCLIA [id number] [place] [address] [place] Triglyceride [Mass/Vol] 78 mg/dL Normal <[address] [facility] Comment on above: Order Comment: Speci men Type: BLOOD SPECIMENOrdering Facility: [facility] Address: [address] [place] [place] [id number] Result Comment: <150 mg/dL, Normal 150-199 mg/dL, Borderline high 200-499 mg/dL, High >499 mg/dL, Very high Performed By: #### 2 4323-8, 13059-2 ####[facility] LABCLIA [id number] [place] [id number] [id number] [facility] CNOVon 02-17-2024 CNOV Office Visit (INTMWS ) CHRISTOPHERBEKAH ([id number]) 1950 F Date Time Provider Department 02/17/24 11:00 AM SANDRA SANCHEZ INTMWS During your visit today, we recorded the following information about you: Pulse Respiration Blood pressure Weight 84/minute 16/minute 150/70 46.5 kg Sandra Sanchez APRN.SEISMOGRAPH COMPUTER 02/17/2024 11:30 AM Signed SUBJECTIVE: Depression Screening Never done Anxiety Screening Never done BP Controlled (<130/80) due on 03/16/2022 [facility] Bkeah Nikki Sun is a 74 year old [...] last year. 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 Now notes short-term memory difficulties. Able [...] Made amitriptyline (more content not included)... Normal [facility] CNOVon 01-20-2024 CNOV Office Visit (CAWSTR ) BEKAH SUN ([id number]) 1950 F Date Time Provider Department 01/20/24 11:40 AM YAHAIRA BEAR During your visit today, we recorded the following information about you: Pulse Blood pressure Weight 89/minute 138/60 46.5 kg Yahaira Bear MD 01/20/2024 12:10 PM Signed [facility] SECTION [facility]IONAL CARDIOLOGY Cardiology ([facility]) [address] [facility] [id number] OUTPATIENT VISIT DATE 01/20/2024 PRIMARY CARE PHYSICIAN: Paulina Ardon [address] [place] [address] HISTORY OF PRESENT ILLNESS: Ms. Sun is [...] was S (more content not included)... Normal [facility] CBC W Auto Differential pane l (Bld)on 2023 Basophils (Bld) [#/Vol] 0.07 10*3/uL <0.11 k/uL [facility] Basophils/100 WBC (Bld) 1.0 % [facility] Differential cell count method Nom (Bld) Auto [facility] Eosinophils (Bld) [#/Vol] 0.06 10*3/uL <0.46 k/uL [facility] Eosinophils/100 WBC (Bld) 0.9 % [facility] Erythrocyte distribution width (RBC) [Ratio] 12.5 % 11.5 - 15.0 % [facility] Hematocrit (Bld) [Volume fraction] 40.1 % 36.0 - 46.0 % [facility] Hemoglobin (Bld) [Mass/Vol] 13.3 g/dL 11.5 - 15.5 g/dL [facility] Immature granulocytes (Bld) [#/Vol] <0.10 k/uL [facility] Immature granulocytes/100 WBC (Bld) 0.3 % [facility] Lymphocytes (Bld) [#/Vol] 1.53 10*3/uL 1.00 - 4.00 k/uL [facility] Lymphocytes/100 WBC (Bld) 22.9 % [facility] MCH (RBC) [Entitic mass] 31.2 pg 26.0 - 34.0 pg [facility] MCHC (RBC) [Mass/Vol] 33.2 g/dL 30.5 - 36.0 g/dL [facility] MCV (RBC) [Entitic vol] 94.1 fL 80.0 - 100.0 fL [facility] Monocytes (Bld) [#/Vol] 0.54 10*3/uL <0.87 k/uL [facility] Monocytes/100 WBC (Bld) 8.1 % [facility] Neutrophils (Bld) [#/Vol] 4.47 10*3/uL 1.45 - 7.50 k/uL [facility] Neutrophils/100 WBC (Bld) 66.8 % [facility] Nucleated RBC (Bld) [#/Vol] <0.01 k/uL [facility] Nucleated RBC/100 WBC (Bld) [Ratio] 0.0 /100 WBC [facility] Platelet mean volume (Bld) [Entitic vol] 10.3 fL 9.0 - 12.7 fL [facility] Platelets (Bld) [#/Vol] 346 10*3/uL 150 - 400 k/uL [facility] RBC (Bld) [#/Vol] 4.26 10*6/uL 3.90 - 5.2 0 m/uL [facility] WBC (Bld) [#/Vol] 6.69 10*3/uL 3.70 - 11.00 k/uL [facility] No Panel Informationon 08-17 LOWEST T-SCORE -3.3 [facility] VITAMIN B6/PYRIDOXINon 08-11 Pyridoxine [Mass/Vol] 94.3 nmol/L 20.0 - 125.0 nmol/L [facility] Comprehensive metabolic 2000 panelon 08-09-2022 Albumin [Mass/Vol] 4.5 g/dL 3.9 - 4.9 g/dL [facility] ALP [Catalytic activity/Vol] 81 U/L 34 - 123 U/L [facility] ALT [Catalytic activity/Vol] 17 U/L 7 - 38 U/L [facility] Anion gap [Moles/Vol] 10 mmol/L 9 - 18 mmol/L [facility] AST [Catalytic activity/Vol] 28 U/L 13 - 35 U/L [facility] Bilirubin [Mass/Vol] 0.6 mg/dL 0.2 - 1.3 mg/dL [facility] Calcium [Mass/Vol] 9.8 mg/dL 8.5 - 10. 2 mg/dL [facility] Chloride [Moles/Vol] 99 mmol/L 97 - 105 mmol/L [facility] CO2 [Moles/Vol] 29 mmol/L 22 - 30 mmol/L [facility] Creatinine [Mass/Vol] 1.11 mg/dL High 0.58 - 0.96 mg/dL [facility] Estimated Glomerular Filtration Rate 52 mL/min/1.73m Low >=60 mL/min/1.73 m [facility] Glucose [Mass/Vol] 95 mg/dL 74 - 99 mg/dL [facility] Potassium [Moles/Vol] 4.6 mmol/L 3.7 - 5.1 mmol/L [facility] Protein [Mass/Vol] 6.8 g/dL 6.3 - 8.0 g/dL [facility] Sodium [Moles/Vol] 138 mmol/L 136 - 144 mmol/L [facility] Urea nitrogen [Mass/Vol] 15 mg/dL 7 - 21 mg/dL [facility] FOLATE SERUMon 08-09-2022 Folate [Mass/Vol] >4.7 ng/mL [facility] Lipid 1996 panelon 3 Cholesterol [Mass/Vol] 233 mg/dL High <200 mg/dL [facility] Cholesterol in HDL [Mass/Vol] 90 mg/dL >39 mg/dL [facility] Cholesterol in LDL [Mass/Vol] 127 mg/dL High <100 mg/dL [facility] Cholesterol in LDL/Cholesterol in HDL [Mass ratio] 1.41 {ratio} <2.54 [facility] Cholesterol in VLDL [Mass/Vol] 16 mg/dL <30 mg/dL [facility] Cholesterol non HDL [Mass/Vol] 143 mg/dL High <130 mg/dL [facility] Cholesterol.total/C holesterol in HDL [Mass ratio] 2.59 {ratio} <5.10 [facility] Fasting Time 15 hrs [facility] Triglyceride [Mass/Vol] 82 mg/dL <150 mg/dL [facility] T3 FREE Don 08-09-2022 Free T3 [Mass/Vol] 3.0 pg/mL 2.3 - 4.1 pg/mL [facility] T4 FREE/FREE THYROXon 2022 Free T4 [Mass/Vol] 1.3 ng/dL 0.9 - 1.7 ng/dL [facility] TSH Don 08-09-2022 TSH Qn 2.990 m[IU]/L 0.270 - 4.200 mIU/L [facility] VITAMIN B12 BLOODon 08-10-19 23 Cobalamin (Vitamin B12) [Mass/Vol] 455 pg/mL 232 - 1,245 pg/mL [facility] CBC panel Auto (Bld)on 08-08 Erythrocyte distribution width (RBC) [Ratio] 12.4 % 11.5 - 15.0 % [facility] Hematocrit (Bld) [Volume fraction] 41.1 % 36.0 - 46.0 % [facility] Hemoglobin (Bld) [Mass/Vol] 13.6 g/dL 11.5 - 15.5 g/dL [facility] MCH (RBC) [Entitic mass] 31.3 pg 26.0 - 34.0 pg [facility] MCHC (RBC) [Mass/Vol] 33.1 g/dL 30.5 - 36.0 g/dL [facility] MCV (RBC) [Entitic vol] 94.7 fL 80.0 - 100.0 fL [facility] Nucleated RBC (Bld) [#/Vol] <0.01 k/uL [facility] Platelet mean volume (Bld) [Entitic vol] 10.4 fL 9.0 - 12.7 fL [facility] Platelets (Bld) [#/Vol] 323 10*3/uL 150 - 400 k/uL [facility] RBC (Bld) [#/Vol] 4.34 10*6/uL 3.90 - 5.2 0 m/uL [facility] WBC (Bld) [#/Vol] 5.20 10*3/uL 3.70 - 11.00 k/uL [facility] VITAMIN D 25 HYDROXYon 08-08 25-hydroxyvitamin D3 [Mass/Vol] 60.3 ng/mL 31.0 - 80.0 ng/mL [facility] LORI SCREENINGon 07-16-2022 [facility] .Auto Diffon 07-20-2021 Basophil, Absolute 0.10 10 3/mcL Normal 0.00-0.19 [facility] ([place]) Comment on above: Performed By: #### C BC, ADIFF, ANEU, CMP, LIPID, GFR #### Sathya [address] [address] Basophils/100 WBC (Bld) 0.9 % Normal 0.0-2.5 [facility] ([place]) Comment on above: Performed By: #### C BC, ADIFF, ANEU, CMP, LIPID, GFR #### [address] [address] Eosinophil, Absolute 0.10 10 3/mcL Normal 0.00-0.40 [facility] ([place]) Comment on above: Performed By: #### C BC, ADIFF, ANEU, CMP, LIPID, GFR #### [address] [address] Eosinophils/100 WBC (Bld) 2.2 % Normal 0.0-7.0 [facility] ([place]) Comment on above: Performed By: #### C BC, ADIFF, ANEU, CMP, LIPID, GFR #### [address] [address] Lymphocyte, Absolute 1.80 10 3/mcL Normal 0.77-3.85 [facility] ([place]) Comment on above: Performed By: #### C BC, ADIFF, ANEU, CMP, LIPID, GFR #### [address] [address] Lymphocytes/100 WBC (Bld) 29.9 % Normal 10.0-50.0 [facility] ([place]) Comment on above: Performed By: #### C BC, ADIFF, ANEU, CMP, LIPID, GFR #### [address] [address] Monocyte, Absolute 0.50 10 3/mcL Normal 0.15-1.00 [facility] ([place]) Comment on above: Performed By: #### C BC, ADIFF, ANEU, CMP, LIPID, GFR #### [address] [address] Monocytes/100 WBC (Bld) 8.3 % Normal 1.7-13.0 [facility] ([place]) Comment on above: Performed By: #### C BC, ADIFF, ANEU, CMP, LIPID, GFR #### [address] [address] Neutrophils/100 WBC (Bld) 58.7 % Normal 37.0-80.0 [facility] ([place]) Comment on above: Performed By: #### C BC, ADIFF, ANEU, CMP, LIPID, GFR #### [address] [address] .GFRon 07-20-2021 GFR Non- 51 ml/min/1.73sqm Normal [facility] ([place]) Comment on above: Result Comment: GFR Population [...] BC, ADIFF, ANEU, CMP, LIPID, GFR #### [address] [address] GFR 62 ml/min/1.73sqm Normal [facility] ([place]) Comment on above: Result Comment: GFR Population [...] BC, ADIFF, ANEU, CMP, LIPID, GFR #### [place] [address] [place], [place] [address] .NEUABSon 07-20-2021 Neutrophil, Absolute 3.40 10 3/mcL Normal 2.85-6.16 [facility] ([place]) Comment on above: Performed By: #### C BC, ADIFF, ANEU, CMP, LIPID, GFR #### [place] [id number] CBCon 07-20-2021 Erythrocyte distribution width (RBC) [Ratio] 13.1 % Normal 11.5-14.5 [facility] ([place]) Comment on above: Performed By: #### C BC, ADIFF, ANEU, CMP, LIPID, GFR #### [place] [address] Hematocrit (Bld) [Volume fraction] 40.5 % Normal 37.0-47.0 [facility] ([place]) Comment on above: Performed By: #### C BC, ADIFF, ANEU, CMP, LIPID, GFR #### [place] [id number] Hgb 13.7 G/dL Normal 12.0-16.0 [facility] ([place]) Comment on above: Performed By: #### C BC, ADIFF, ANEU, CMP, LIPID, GFR #### [place] [id number] MCH (RBC) [Entitic mass] 31.1 pg Normal 27.0-31.2 [facility] ([place]) Comment on above: Performed By: #### C BC, ADIFF, ANEU, CMP, LIPID, GFR #### [place] [address] MCHC 33.9 G/dL Normal 33.0-37.0 [facility] ([place]) Comment on above: Performed By: #### C BC, ADIFF, ANEU, CMP, LIPID, GFR #### [place] [address] MCV (RBC) [Entitic vol] 91.6 fL Normal 80.0-94.0 [facility] ([place]) Comment on above: Performed By: #### C BC, ADIFF, ANEU, CMP, LIPID, GFR #### [place] [id number] Platelet 314 10 3/mcL Normal 130-400 [facility] ([place]) Comment on above: Performed By: #### C BC, ADIFF, ANEU, CMP, LIPID, GFR #### [address] [address] Platelet mean volume (Bld) [Entitic vol] 8.1 fL Normal 7.4-10.4 [facility] ([place]) Comment on above: Performed By: #### C BC, ADIFF, ANEU, CMP, LIPID, GFR #### [address] [address] RBC 4.42 10 6/mcL Normal 4.20-5.40 [facility] ([place]) Comment on above: Performed By: #### C BC, ADIFF, ANEU, CMP, LIPID, GFR #### [address] [address] WBC 5.90 10 3/mcL Normal 4.60-10.80 [facility] ([place]) Comment on above: Performed By: #### C BC, ADIFF, ANEU, CMP, LIPID, GFR #### [address] [address] CMPon 07-20-2021 Albumin Level 4.0 G/dL Normal 3.4-4.8 [facility] ([place]) Comment on above: Performed By: #### C BC, ADIFF, ANEU, CMP, LIPID, GFR #### [address] [address] Albumin/Globulin [Mass ratio] 1.2 {ratio} Normal 1.1-2.5 [facility] ([place]) Comment on above: Performed By: #### C BC, ADIFF, ANEU, CMP, LIPID, GFR #### [address] [address] ALP [Catalytic activity/Vol] 85 U/L Normal 40-135 [facility] ([place]) Comment on above: Performed By: #### C BC, ADIFF, ANEU, CMP, LIPID, GFR #### [address] [address] ALT [Catalytic activity/Vol] 25 U/L Normal 14-59 [facility] ([place]) Comment on above: Performed By: #### C BC, ADIFF, ANEU, CMP, LIPID, GFR #### [address] [address] AST [Catalytic activity/Vol] 22 U/L Normal 10-40 [facility] ([place]) Comment on above: Performed By: #### C BC, ADIFF, ANEU, CMP, LIPID, GFR #### [address] [address] Bili Total 0.6 mg/dL Normal 0.2-1.0 [facility] ([place]) Comment on above: Result Comment: Use of this assay is not recommended for patients undergoing treatment with eltrombopag due to the potential for falsely elevated results. Performed By: #### C BC, ADIFF, ANEU, CMP, LIPID, GFR #### [address] [address] BUN/Creatinine Ratio 14 ratio Normal 7-27 [facility]) Comment on above: Performed By: #### C BC, ADIFF, ANEU, CMP, LIPID, GFR #### [address] [address] Calcium [Mass/Vol] 8.8 mg/dL Normal 8.4-10.2 [facility]) Comment on above: Performed By: #### C BC, ADIFF, ANEU, CMP, LIPID, GFR #### [address] [address] Chloride [Moles/Vol] 102 mmol/L Normal 98-107 [facility] ([place]) Comment on above: Performed By: #### C BC, ADIFF, ANEU, CMP, LIPID, GFR #### [address] [address] CO2 [Moles/Vol] 31 mmol/L Normal 23-31 [facility] ([place]) Comment on above: Performed By: #### C BC, ADIFF, ANEU, CMP, LIPID, GFR #### [address] [address] Creatinine [Mass/Vol] 1.05 mg/dL High 0.55-1.02 [facility] ([place]) Comment on above: Performed By: #### C BC, ADIFF, ANEU, CMP, LIPID, GFR #### [address] [address] Electrolyte Balance 10.0 mEq/L Normal 4.0-15.0 [facility] ([place]) Comment on above: Performed By: #### C BC, ADIFF, ANEU, CMP, LIPID, GFR #### [address] [address] Globulin 3.2 G/dL Normal [facility] ([place]) Comment on above: Performed By: #### C BC, ADIFF, ANEU, CMP, LIPID, GFR #### [address] [address] Glucose [Mass/Vol] 102 mg/dL Normal 83-110 [facility] ([place]) Comment on above: Performed By: #### C BC, ADIFF, ANEU, CMP, LIPID, GFR #### [address] [address] Potassium [Moles/Vol] 3.9 mmol/L Normal 3.5-5.1 [facility] ([place]) Comment on above: Performed By: #### C BC, ADIFF, ANEU, CMP, LIPID, GFR #### [address] [address] Sodium [Moles/Vol] 143 mmol/L Normal 136-145 [facility] ([place]) Comment on above: Performed By: #### C BC, ADIFF, ANEU, CMP, LIPID, GFR #### [address] [address] Total Protein 7.2 G/dL Normal 6.4-8.2 [facility] ([place]) Comment on above: Performed By: #### C BC, ADIFF, ANEU, CMP, LIPID, GFR #### [address] [address] Urea nitrogen [Mass/Vol] 15 mg/dL Normal 7-18 [facility] ([place]) Comment on above: Performed By: #### C BC, ADIFF, ANEU, CMP, LIPID, GFR #### Sathya [place] [id number] [place] [address] LABORATORYOrdered By: Arthur Fulton on 07-20-2021 Albumin [...] 07-20-2021 Cholesterol [Mass/Vol] 218 mg/dL High 0-200 [facility] ([place]) Comment on above: Result Comment: Chol esterol Reference Interval: Less than 200 Desirable 200-239 Borderline high risk 240 and above High risk Performed By: #### C BC, ADIFF, ANEU, CMP, LIPID, GFR #### [place] [address] [place], [place] [address] Cholesterol in HDL [Mass/Vol] 119 mg/dL High 40-60 [facility] ([place]) Comment on above: Performed By: #### C BC, ADIFF, ANEU, CMP, LIPID, GFR #### [place] [address] [place], [place] [address] Cholesterol in LDL [Mass/Vol] 86 mg/dL Normal 0-130 [facility] ([place]) Comment on above: Performed By: #### C BC, ADIFF, ANEU, CMP, LIPID, GFR #### [place] [address] [place], [place] [address] Triglyceride [Mass/Vol] 65 mg/dL Normal 0-150 [facility] ([place]) Comment on above: Result Comment: Trig lyceride Reference Interval: Less than 150 Normal 150-199 Borderline high risk 200-499 High risk 500 or higher Very high risk Performed By: #### C BC, ADIFF, ANEU, CMP, LIPID, GFR #### [place] [address] [place], [place] [address] Vital Signs Date Time Vital Sign Value Performing Clinician Facility 12-02-2024 13:29-0400 Diastolic blood pressure 72 mm[Hg] FanStiki Digitalei Bianka DO Work Phone: [facility] 12-02-2024 13:29-0400 Systolic blood pressure 161 mm[Hg] Fangfei Bianka DO Work Phone: [facility] 12-02-2024 12:44-0400 Heart rate 79 /min [employer] DO Work Phone: [facility] 12-02-2024 12:43-0400 Body height 162.6 cm Fangfei Bianka DO Work Phone: [facility] 12-02-2024 12:43-0400 Body mass index (BMI) [Ratio] 17.16 kg/m2 Fangfei Bianka DO Work Phone: [facility] 12-02-2024 12:43-0400 Body weight 45.36 kg [employer]Stiki [employer]alei Bianka DO Work Phone: [facility] 12-02-2024 12:43-0400 SaO2% (BldA) [Mass fraction] 97 % [employer] DO Work Phone: [facility] Comment on above: room air 11-30-2024 11:45-0400 Diastolic blood pressure 70 mm[Hg] Sandra Sanchez NYLON MACHINE OPERATOR.SEISMOGRAPH COMPUTER Work Phone: [facility] 11-30-2024 11:45-0400 Heart rate 70 /min Sandra Sanchez NYLON MACHINE OPERATOR.SEISMOGRAPH COMPUTER Work Phone: [facility] 11-30-2024 11:45-0400 Systolic blood pressure 129 mm[Hg] Sandra Sanchez NYLON MACHINE OPERATOR.SEISMOGRAPH COMPUTER Work Phone: [facility] 11-30-2024 11:44-0400 Body mass index (BMI) [Ratio] 17.03 kg/m2 Sandra Nations NYLON MACHINE OPERATOR.SEISMOGRAPH COMPUTER Work Phone: [facility] 11-30-2024 11:44-0400 Body weight 45 kg Sandra Sanchez NYLON MACHINE OPERATOR.SEISMOGRAPH COMPUTER Work Phone: [facility] 11-30-2024 11:44-0400 Respiratory rate 16 /min Sandra Sanchez NYLON MACHINE OPERATOR.SEISMOGRAPH COMPUTER Work Phone: [facility] 08-17-2024 12:22-0400 Diastolic blood pressure 62 mm[Hg] Paulina Ardon MD Work Phone: [facility] 08-17-2024 12:22-0400 Systolic blood pressure 138 mm[Hg] Paulina Ardon MD Work Phone: [facility] 08-17-2024 10:55-0400 Body mass index (BMI) [Ratio] 17.75 kg/m2 Paulina Ardon MD Work Phone: [facility] 08-17-2024 10:55-0400 Body weight 46.9 kg Paulina Ardon MD Work Phone: [facility] 08-17-2024 10:55-0400 Heart rate 77 /min Paulina Ardon MD Work Phone: [facility] 08-17-2024 10:55-0400 Respiratory rate 16 /min Paulina Ardon MD Work Phone: [facility] 08-17-2024 10:55-0400 SaO2% (BldA) [Mass fraction] 100 % Paulina Ardon MD Work Phone: [facility] 08-05-2024 15:32-0400 Diastolic blood pressure 78 mm[Hg] Paulina Ardon MD Work Phone: [facility] 08-05-2024 15:32-0400 Systolic blood pressure 132 mm[Hg] Paulina Ardon MD Work Phone: [facility] 08-05-2024 14:36-0400 Body height 162.6 cm Paulina Ardon MD Work Phone: [facility] 08-05-2024 14:36-0400 Body mass index (BMI) [Ratio] 18.47 kg/m2 Paulina Ardon MD Work Phone: [facility] 08-05-2024 14:36-0400 Body temperature 97.2 [degF] Paulina Ardon MD Work Phone: [facility] 08-05-2024 14:36-0400 Body weight 48.8 kg Paulina Ardon MD Work Phone: [facility] 08-05-2024 14:36-0400 Heart rate 74 /min Paulina Ardon MD Work Phone: [facility] 08-05-2024 14:36-0400 Respiratory rate 12 /min Paulina Ardon MD Work Phone: [facility] 08-05-2024 14:36-0400 SaO2% (BldA) [Mass fraction] 98 % Paulina Ardon MD Work Phone: [facility] 02-26-2024 15:18-0400 Body height 162.6 cm Fangfei Bianka DO Work Phone: [facility] 02-26-2024 15:18-0400 Body mass index (BMI) [Ratio] 18.02 kg/m2 Fangfei Bianka DO Work Phone: [facility] 02-26-2024 15:18-0400 Body weight 47.63 kg Fangfei Bianka DO Work Phone: [facility] 02-26-2024 15:18-0400 Diastolic blood pressure 80 mm[Hg] Fangfei Bianka DO Work Phone: [facility] 02-26-2024 15:18-0400 Heart rate 80 /min Fangfei Bianka DO Work Phone: [facility] 02-26-2024 15:18-0400 SaO2% (BldA) [Mass fraction] 98 % Blade Lyman DO Work Phone: [facility] 02-26-2024 15:18-0400 Systolic blood pressure 159 mm[Hg] Blade Lyman DO Work Phone: [facility] 02-17-2024 10:35-0400 Diastolic blood pressure 70 mm[Hg] Sandra Sanchez NYLON MACHINE OPERATOR.SEISMOGRAPH COMPUTER Work Phone: [facility] 02-17-2024 10:35-0400 Heart rate 84 /min Sandra Sanchez NYLON MACHINE OPERATOR.SEISMOGRAPH COMPUTER Work Phone: [facility] 02-17-2024 10:35-0400 Systolic blood pressure 150 mm[Hg] Sandra Sanchez NYLON MACHINE OPERATOR.SEISMOGRAPH COMPUTER Work Phone: [facility] 02-17-2024 10:33-0400 Body mass index (BMI) [Ratio] 17.6 kg/m2 Sandra Sanchez NYLON MACHINE OPERATOR.SEISMOGRAPH COMPUTER Work Phone: [facility] 02-17-2024 10:33-0400 Body weight 46.5 kg Sandra Sanchez NYLON MACHINE OPERATOR.SEISMOGRAPH COMPUTER Work Phone: [facility] 02-17-2024 10:33-0400 Respiratory rate 16 /min Sandra Sanchez NYLON MACHINE OPERATOR.SEISMOGRAPH COMPUTER Work Phone: [facility] 01-20-2024 11:45-0400 Diastolic blood pressure 60 mm[Hg] Yahaira Bear MD Work Phone: [facility] 01-20-2024 11:45-0400 Systolic blood pressure 138 mm[Hg] Yahaira Bear MD Work Phone: [facility] 01-20-2024 11:33-0400 Body mass index (BMI) [Ratio] 17.61 kg/m2 Yahaira Bear MD Work Phone: [facility] 01-20-2024 11:33-0400 Body weight 46.54 kg Yahaira Bear MD Work Phone: [facility] 01-20-2024 11:33-0400 Heart rate 89 /min Yahaira Bear MD Work Phone: [facility] 01-20-2024 11:33-0400 SaO2% (BldA) [Mass fraction] 96 % Yahaira Bear MD Work Phone: [facility] 08-12-2023 11:09-0400 Diastolic blood pressure 78 mm[Hg] Paulina Ardon MD Work Phone: [facility] 08-12-2023 11:09-0400 Systolic blood pressure 138 mm[Hg] Paulina Ardon MD Work Phone: [facility] 08-12-2023 10:28-0400 Body height 162.6 cm Paulina Ardon MD Work Phone: [facility] 08-12-2023 10:28-0400 Body mass index (BMI) [Ratio] 18.68 kg/m2 Paulina Ardon MD Work Phone: [facility] 08-12-2023 10:28-0400 Body weight 49.35 kg Paulina Ardon MD Work Phone: [facility] 08-12-2023 10:28-0400 Heart rate 84 /min Paulina Ardon MD Work Phone: [facility] 08-12-2023 10:28-0400 Respiratory rate 16 /min Paulina Ardon MD Work Phone: [facility] 07-26-2023 12:53-0500 Body height 158.8 cm Fangfei Bianka DO Work Phone: [facility] 07-26-2023 12:53-0500 Body weight 48.99 kg Fangfei Bianka DO Work Phone: [facility] 07-26-2023 12:53-0500 Diastolic blood pressure 78 mm[Hg] Fangfei Bianka DO Work Phone: [facility] 07-26-2023 12:53-0500 Heart rate 86 /min Fangfei Bianka DO Work Phone: [facility] 07-26-2023 12:53-0500 SaO2% (BldA) [Mass fraction] 100 % Blade Lyman DO Work Phone: [facility] 07-26-2023 12:53-0500 Systolic blood pressure 144 mm[Hg] Blade Lyman DO Work Phone: [facility] 03-01-2023 11:07-0400 Diastolic blood pressure 69 mm[Hg] Sandra Sanchez NYLON MACHINE OPERATOR.SEISMOGRAPH COMPUTER Work Phone: [facility] 03-01-2023 11:07-0400 Heart rate 66 /min Sandra Sanchez NYLON MACHINE OPERATOR.SEISMOGRAPH COMPUTER Work Phone: [facility] 03-01-2023 11:07-0400 Systolic blood pressure 130 mm[Hg] Sandra Sanchez NYLON MACHINE OPERATOR.SEISMOGRAPH COMPUTER Work Phone: [facility] 03-01-2023 11:06-0400 Body weight 52.16 kg Sandra Sanchez NYLON MACHINE OPERATOR.SEISMOGRAPH COMPUTER Work Phone: [facility] 03-01-2023 11:06-0400 Respiratory rate 16 /min Sandra Sanchez NYLON MACHINE OPERATOR.SEISMOGRAPH COMPUTER Work Phone: [facility] 2023 14:06-0400 Diastolic blood pressure 70 mm[Hg] Sandra Sanchez NYLON MACHINE OPERATOR.SEISMOGRAPH COMPUTER Work Phone: [facility] 2023 14:06-0400 Heart rate 87 /min Sandra Sanchez NYLON MACHINE OPERATOR.SEISMOGRAPH COMPUTER Work Phone: [facility] 2023 14:06-0400 Systolic blood pressure 155 mm[Hg] Sandra Sanchez NYLON MACHINE OPERATOR.SEISMOGRAPH COMPUTER Work Phone: [facility] 2023 14:04-0400 Body weight 53.07 kg Sandra Sanchez NYLON MACHINE OPERATOR.SEISMOGRAPH COMPUTER Work Phone: [facility] 2023 14:04-0400 Respiratory rate 16 /min Sandra Sanchez NYLON MACHINE OPERATOR.SEISMOGRAPH COMPUTER Work Phone: [facility] 09-07-2022 13:36-0400 Body temperature 98.2 [degF] Paulina Talampas MD Work Phone: [facility] 09-07-2022 13:36-0400 Body weight 53.52 kg Paulina Ardon MD Work Phone: [facility] 09-07-2022 13:36-0400 Diastolic blood pressure 68 mm[Hg] Paulina Ardon MD Work Phone: [facility] 09-07-2022 13:36-0400 Heart rate 84 /min Paulina Ardon MD Work Phone: [facility] 09-07-2022 13:36-0400 Respiratory rate 18 /min Paulina Ardon MD Work Phone: [facility] 09-07-2022 13:36-0400 SaO2% (BldA) [Mass fraction] 98 % Paulina Ardon MD Work Phone: [facility] 09-07-2022 13:36-0400 Systolic blood pressure 124 mm[Hg] Paulina Ardon MD Work Phone: [facility] 07-31-2022 16:20-0500 Diastolic blood pressure 72 mm[Hg] Paulina Ardon MD Work Phone: [facility] 07-31-2022 16:20-0500 Systolic blood pressure 124 mm[Hg] Paulina Ardon MD Work Phone: [facility] 07-31-2022 15:50-0500 Body temperature 97.3 [degF] Paulina Ardon MD Work Phone: [facility] 07-31-2022 15:50-0500 Body weight 52.3 kg Paulina Ardon MD Work Phone: [facility] 07-31-2022 15:50-0500 Heart rate 88 /min Paulina Ardon MD Work Phone: [facility] 07-31-2022 15:50-0500 Respiratory rate 18 /min Paulina Ardon MD Work Phone: [facility] 07-31-2022 15:50-0500 SaO2% (BldA) [Mass fraction] 99 % Paulina Ardon MD Work Phone: [facility] 12-14-2021 10:59-0400 Diastolic blood pressure 75 mm[Hg] Sandra Sanchez NYLON MACHINE OPERATOR.SEISMOGRAPH COMPUTER Work Phone: [facility] 12-14-2021 10:59-0400 Heart rate 72 /min Sandra Sanchez NYLON MACHINE OPERATOR.SEISMOGRAPH COMPUTER Work Phone: [facility] 12-14-2021 10:59-0400 Systolic blood pressure 138 mm[Hg] Sandra Sanchez NYLON MACHINE OPERATOR.SEISMOGRAPH COMPUTER Work Phone: [facility] 12-14-2021 10:58-0400 Body weight 51.26 kg Sandra Sanchez NYLON MACHINE OPERATOR.SEISMOGRAPH COMPUTER Work Phone: [facility] 12-11-2021 09:48-0400 Body weight 51.98 kg Selam Ayleen NYLON MACHINE OPERATOR.GENERAL SURGEON Work Phone: [facility] 12-11-2021 09:48-0400 Diastolic blood pressure 78 mm[Hg] Selam Ayleen NYLON MACHINE OPERATOR.GENERAL SURGEON Work Phone: [facility] 12-11-2021 09:48-0400 Heart rate 75 /min Selam Ayleen NYLON MACHINE OPERATOR.GENERAL SURGEON Work Phone: [facility] 12-11-2021 09:48-0400 SaO2% (BldA) [Mass fraction] 98 % Selam Ayleen NYLON MACHINE OPERATOR.GENERAL SURGEON Work Phone: [facility] 12-11-2021 09:48-0400 Systolic blood pressure 140 mm[Hg] Selam Ayleen NYLON MACHINE OPERATOR.GENERAL SURGEON Work Phone: [facility] 08-21-2021 15:14-0400 Diastolic blood pressure 72 mm[Hg] Sandra Sanchez NYLON MACHINE OPERATOR.SEISMOGRAPH COMPUTER Work Phone: [facility] 08-21-2021 15:14-0400 Systolic blood pressure 190 mm[Hg] Sandra Sanchez NYLON MACHINE OPERATOR.SEISMOGRAPH COMPUTER Work Phone: [facility] 08-21-2021 15:02-0400 Body weight 51.26 kg Sandra Sanchez NYLON MACHINE OPERATOR.SEISMOGRAPH COMPUTER Work Phone: [facility] 08-21-2021 15:02-0400 Heart rate 60 /min Sandra Sanchez NYLON MACHINE OPERATOR.SEISMOGRAPH COMPUTER Work Phone: [facility] 08-21-2021 15:02-0400 Respiratory rate 16 /min Sandra Sanchez NYLON MACHINE OPERATOR.SEISMOGRAPH COMPUTER Work Phone: [facility] Encounters Encounter Date Encounter Type Care Provider Facility Start: 12-02-2024 End: 12-02-2024 Office outpatient visit 40 minutes Blade Lyman DO Work Phone: [facility] Comment on above: 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, psychotic disturbance, mood disturbance, or anxiety (HCC) (Primary Dx); Primary degenerative dementia of Alzheimer type (HCC); Acute cognitive decline; Underweight (BMI < 18.5); Adjustment disorder with anxious mood; Primary hypertension Start: 12-02-2024 End: 12-02-2024 ambulatory BLADE LYMAN Facility:[facility] Start: 12-01-2024 End: 12-02-2024 Telephone encounter Blade Lyman DO Work Phone: [facility] ([place]) Comment on above: Letter Start: 11-30-2024 End: 11-30-2024 Office outpatient visit 25 minutes Sandra Sanchez NYLON MACHINE OPERATOR.SEISMOGRAPH COMPUTER Work Phone: [facility] [place] Comment on above: Mild cognitive impai rment with memory loss (Primary Dx); Neurodegenerative cognitive impairment; Primary hypertension; Mixed hyperlipidemia; Chronic diastolic CHF (congestive heart failure) (HCC); Screening-pulmonary TB Start: 11-30-2024 End: 11-30-2024 ambulatory SANDRA SANCHEZ Facility:[facility] Start: 11-26-2024 End: 11-30-2024 Telephone encounter Paulina Ardon MD Work Phone: [facility] [place] Comment on above: Patient Question Start: 09-25-2024 ambulatory PAULINA ARDON Facilit y:[facility] Start: 09-25-2024 End: 09-25-2024 Subsequent hospital visit by physician Bone Density [facility] Work Phone: Radiology Comment on above: Asymptomatic postmen opausal state [Z78.0] Start: 09-19-2024 End: 09-19-2024 ambulatory PAULINA D TALAMPAS Facility:[facility] Start: 08-22-2024 End: 08-22-2024 ambulatory PAULINA D TALAMPAS Facility:[facility] Start: 08-17-2024 End: 08-17-2024 ambulatory PAULINA D TALAMPAS Facility:[facility] Start: 08-17-2024 End: 08-17-2024 Office outpatient visit 25 minutes Paulina Ardon MD Work Phone: [facility] [place] Comment on above: Closed wedge anu audelia fracture of T9 vertebra, initial encounter ([facility]) (Primary Dx); Age-related osteoporosis without current pathological fracture; Asymptomatic postmenopausal state; Memory difficulties; Essential hypertension with goal blood pressure less than 140/90; Hyperlipidemia, unspecified hyperlipidemia type; Palpitations; HTN, goal below 140/90 Start: 08-11-2024 End: 08-11-2024 Emergency department patient visit DR GAIL YANG MD Facility:[facility] Start: 08-05-2024 End: 08-05-2024 ambulatory PAULINA D TALAMPAS Facility:[facility] Start: 08-05-2024 End: 08-05-2024 Subsequent hospital visit by physician Xr [facility] [place] Work Phone: Radiology Comment on above: Acute left-sided low back pain without sciatica [M54.50] Start: 08-05-2024 End: 08-05-2024 Office outpatient visit 15 minutes Paulina Ardon MD Work Phone: [facility] [place] Comment on above: Acute left-sided low back pain without sciatica (Primary Dx); Essential (primary) hypertension; Muscle spasm of back Start: 08-05-2024 End: 08-05-2024 ambulatory PAULINA D TALAMPAS Facility:[facility] Start: 02-26-2024 End: 02-26-2024 ambulatory BLADE LYMAN Facility:[facility] Start: 02-26-2024 End: 02-26-2024 Office outpatient visit 25 minutes Blade Lyman DO Work Phone: [facility] Comment on above: Mild cognitive impai rment with memory loss (Primary Dx); Neurodegenerative cognitive impairment (HCC); Primary hypertension Start: 02-26-2024 End: 02-26-2024 Telephone encounter Blade Lyman DO Work Phone: [facility] Comment on above: Internal Referrals/r esources (Speech therapy ) Start: 02-18-2024 End: 02-18-2024 ambulatory PAULINA ARDON Facility:[facility] Start: 02-17-2024 End: 02-17-2024 ambulatory SANDRA SANCHEZ Facility:[facility] Start: 02-17-2024 End: 02-17-2024 Office outpatient visit 25 minutes Sandra Sanchez NYLON MACHINE OPERATOR.SEISMOGRAPH COMPUTER Work Phone: [facility] [place] Comment on above: Essential hypertensi on with goal blood pressure less than 140/90 (Primary Dx); HTN, goal below 140/90; Memory difficulties; Hyperlipidemia, unspecified hyperlipidemia type; Chronic diastolic CHF (congestive heart failure) (HCC); Screening for depression; Encounter for screening examination for other mental health and behavioral disorders; Palpitations; Ankle swelling, unspecified laterality Start: 01-20-2024 End: 01-20-2024 ambulatory YAHAIRA BEAR Facility:[facility] Start: 01-20-2024 End: 01-20-2024 Patient encounter procedure Yahaira Bear MD Work Phone: Cardiology Comment on above: Chronic diastolic CH F (congestive heart failure) (HCC) (Primary Dx); Mixed hyperlipidemia; Primary hypertension Start: 10-16-2023 Telephone encounter Paulina rocha MD Work Phone: [facility] ([place]) Comment on above: Results Start: 10-02-2023 Telephone encounter Paulina rocha MD Work Phone: [facility]) Comment on above: Results Start: 10-01-2023 End: 10-01-2023 Subsequent hospital visit by physician Mri 2 [facility] (I-Stat/Lg Bore/1.5t) RADIO MRI [facility] Comment on above: Cognitive impairment [R41.89] Start: 08-12-2023 End: 09-23-2023 Office outpatient visit 25 minutes Paulina Ardon MD Work Phone: [facility] [place] Comment on above: Hyperlipidemia, unsp ecified hyperlipidemia type (Primary Dx); HTN, goal below 140/90; Encounter for long-term current use of medication Start: 07-26-2023 Refill Christina EVANSGENERAL SURGEON Work Phone: [facility] [place] Comment on above: Med Change Request Start: 07-26-2023 End: 07-26-2023 Office outpatient new 60 minutes Kierstenyanique Bianka ALBERT Work Phone: [facility] Comment on above: Cognitive impairment (Primary Dx); Memory difficulties; Adverse effect of anticholinergic; Migraine without aura and without status migrainosus, not intractable Start: 05-03-2023 Telephone encounter Paulina rocha MD Work Phone: [facility] [place] Comment on above: Consult Start: 03-01-2023 End: 03-01-2023 Office outpatient visit 15 minutes Sandra Sanchez APRN.SEISMOGRAPH COMPUTER Work Phone: [facility] [place] Comment on above: Essential hypertensi on with goal blood pressure less than 140/90 (Primary Dx) Start: 2023 End: 2023 Office outpatient visit 25 minutes Sandra Sanchez APRN.SEISMOGRAPH COMPUTER Work Phone: [facility] [place] Comment on above: Chronic diastolic CH F [...] Paulina rocha MD Work Phone: [facility] [place] Comment on above: Patient Update Start: 09-07-2022 End: 09-07-2022 Office outpatient visit 15 minutes Paulina Ardon MD Work Phone: [facility] [place] Comment on above: Age-related osteopor osis without current pathological fracture (Primary Dx) Start: 09-06-2022 Telephone encounter Selam Abbasi APRN.GENERAL SURGEON Work Phone: Cardiology Comment on above: Appointment Results Start: 08-13-2022 End: 08-13-2022 Subsequent hospital visit by physician Bone Density [facility] Work Phone: Radiology Comment [...] Subsequent hospital visit by physician Screen Mammo [facility] Mammogram Comment on above: Encounter for screen ing mammogram for breast cancer [Z12.31] Start: 07-16-2022 Documentation procedure Mammog kavita Coordinator [facility] Start: 07-16-2022 Letter encounter Mammography Coordinator [facility] Department Start: 07-11-2022 ambulatory Paulina briceno MD Work Phone: [facility] [place] Start: 02-05-2022 Refill Sandra EVANSSEISMOGRAPH COMPUTER Work Phone: [facility] [place] Comment on above: Refill Request Start: 12-28-2021 Telephone encounter Selam Abbasi APRN.GENERAL SURGEON Work Phone: Cardiology Comment on above: Results Start: 12-14-2021 End: 12-14-2021 Patient encounter procedure Sandra Sanchez APRN.SEISMOGRAPH COMPUTER Work Phone: [facility] [place] Comment on above: HTN, goal below 140/ 90 (Primary Dx); Encounter for immunization; Palpitations; Memory problem Start: 12-11-2021 End: 12-11-2021 Patient encounter procedure Selam Abbasi GENERAL SURGEON Work Phone: Cardiology Comment on above: Chronic diastolic CH F (congestive heart failure) (HCC) (Primary Dx); Palpitations; HTN, goal below 140/90; Chest pain, unspecified type; Essential hypertension with goal blood pressure less than 140/90; Abnormal stress test Start: 10-20-2021 Telephone encounter Sandra melchor NYLON MACHINE OPERATOR.SEISMOGRAPH COMPUTER Work Phone: [facility] [place] Comment on above: Results (stress test ) Start: 08-21-2021 End: 08-21-2021 Patient encounter procedure Sandra Sanchez APRN.SEISMOGRAPH COMPUTER Work Phone: [facility] [place] Comment on above: Palpitations (Primar y Dx); HTN, goal below 140/90; Chest pain, unspecified type; Essential hypertension with goal blood pressure less than 140/90 Start: 07-20-2021 End: 07-20-[address] ALYSSA LUGO DO [facility] Procedures Date Procedure Procedure Detail Performing Clinician Start: 02-26-2024 Adult depression scr eening assessment Paulina Ardon MD Work Phone: Start: 02-17-2024 Adult depression scr eening assessment Sandra Sanchez APRN.SEISMOGRAPH COMPUTER Work Phone: Start: 2023 INFLUENZA VACCINE, P RSV FREE, AGE 65+ YR, HIGH DOSE, QUADRIVALENT (FLUZONE HIGH-DOSE) Sandra Sanchez APRN.SEISMOGRAPH COMPUTER Work Phone: Start: 08-13-2022 Dxa bone density javier dy 1/> sites axial skel Paulina Ardon MD Work Phone: Start: 08-08-2022 Lipid 1996 panel - S radha or Plasma Sandra Sanchez APRN.SEISMOGRAPH COMPUTER Work Phone: Start: 07-16-2022 End: 07-16-2022 Mammography Bulk Order Provider Start: 06-05-2021 Mammography Sandra melchor NYLON MACHINE OPERATOR.SEISMOGRAPH COMPUTER Work Phone: Start: 03-16-2021 Adult depression scr eening assessment Sandra Sanchez NYLON MACHINE OPERATOR.SEISMOGRAPH COMPUTER Work Phone: Start: 10-28-2019 Colonoscopy Sandra melchor NYLON MACHINE OPERATOR.SEISMOGRAPH COMPUTER Work Phone: Start: 05-27-1981 H/O: hysterectomy DR LUIS LUGO DO Plan of Treatment Date Care Activity Detail Author Start: 08-25-2031 Urine microalbumin profile [facility] Start: 10-27-2029 Colonoscopy COLONOSCOPY [facility] Start: 10-27-2029 COLORECTAL CANCER SCREENING COLORECTAL CANCER SCREENING [facility] Start: 10-27-2029 Screening for malign ant neoplasm of colon [facility] Start: 08-23-2027 [facility] Start: 08-09-2027 Lipid 1996 panel - S radha or Plasma Lipid Screening [facility] Start: 08-09-2027 Lipid panel Lipid Screening [facility] Start: 08-09-2027 LIPID SCREEN LIPID SCREEN [facility] Start: 02-17-2027 [facility] Start: 09-25-2026 Screening for osteoporosis Bone Density Screening [facility] Start: 03-16-2026 LIPID SCREEN LIPID SCREEN [facility] Start: 2026 [facility] Start: 12-02-2025 Annual PCP Team Night Worker kelvin Disease Visit Annual PCP Team Chronic Disease Visit [facility] Start: 09-19-2025 Annual PCP Team Night Worker kelvin Disease Visit Annual PCP Team Chronic Disease Visit [facility] Start: 08-27-2025 End: 08-27-2025 Patient encounter procedure 08/27/2025 10:40 AM EDT Office Visit [facility] [place] [address] [place] [id number] Paulina Ardon MD [address] [place] [id number] 6 Month F/U [facility] [place] Comment on above: 6 Month F/U Start: 08-17-2025 Annual PCP Team Night Worker kelvin Disease Visit Annual PCP Team Chronic Disease Visit [facility] Start: 08-08-2025 DIABETES SCREEN DIABETES SCREEN [facility] Start: 08-05-2025 Annual PCP Team Night Worker kelvin Disease Visit Annual PCP Team Chronic Disease Visit [facility] Start: 02-26-2025 End: 02-26-2025 Patient encounter procedure 02/26/2025 10:40 AM EDT Office Visit [facility] [place] [address] [place] [address] Paulina Ardon MD [address] [place] [address] 6 Month F/U [facility] [place] Comment on above: 6 Month F/U Start: 02-25-2025 Annual PCP Team Night Worker kelvin Disease Visit Annual PCP Team Chronic Disease Visit [facility] Start: 02-25-2025 Anxiety Screening Anxiety Screening [facility] Start: 02-25-2025 Depression Screening Depression Scre ening [facility] Start: 02-16-2025 Anxiety Screening Anxiety Screening [facility] Start: 02-16-2025 Depression Screening Depression Scre ing [facility] Start: 02-01-2025 End: 02-01-2025 Patient encounter procedure Cardiology Comment on above: 1 year follow up Start: 01-25-2025 Influenza vaccination Influenza Vacc ine (#1) [facility] Start: 12-02-2024 End: 12-02-2024 Patient encounter procedure 12/02/2024 12:40 PM EDT Office Visit [facility] [address] [place], [place] [id number] Blade Lyman DO [address] [place] [address] Repeat cog assessment [facility] Comment on above: Repeat cog assessmen t Start: 11-30-2024 End: 03-01-2025 BLOOD TB SCREEN BLOOD TB SCREEN Lab Routine Screening-pulmonary TB Expected: 11/30/2024, Expires: 03/01/2025 [facility] Work Phone: Comment on above: Expected: 11/30/2024 , Expires: 03/01/2025 Start: 09-25-2024 End: 09-25-2024 Patient encounter procedure 09/25/2024 10:05 AM EDT Appointment Radiology [address] [place] [id number] Asymptomatic postmenopausal state [Z78.0] Radiology Comment on above: Asymptomatic postmen opausal state [Z78.0] Start: 08-17-2024 End: 11-16-2024 25-hydroxyvitamin D3 [Mass/volume] in Serum or Plasma VITAMIN D 25 HYDROXY Lab Routine Closed wedge compression fracture of T9 vertebra, initial encounter (HCC) Age-related osteoporosis without current pathological fracture Expected: 08/17/2024, Expires: 11/16/2024 [facility] Comment on above: Expected: 08/17/2024 , Expires: 11/16/2024 Start: 08-17-2024 End: 11-16-2024 Basic metabolic 2000 panel - Serum or Plasma BASIC METABOLIC PANEL Lab Routine Closed wedge compression fracture of T9 vertebra, initial encounter (HCC) Age-related osteoporosis without current pathological fracture Expected: 08/17/2024, Expires: 11/16/2024 [facility] Comment on above: Expected: 08/17/2024 , Expires: 11/16/2024 Start: 08-17-2024 End: 11-16-2024 Parathyrin.intact [Mass/volume] in Serum or Plasma PTH INTACT Lab Routine Closed wedge compression fracture of T9 vertebra, initial encounter (HCC) Age-related osteoporosis without current pathological fracture Expected: 08/17/2024, Expires: 11/16/2024 [facility] Comment on above: Expected: 08/17/2024 , Expires: 11/16/2024 Start: 08-17-2024 End: 11-16-2024 Thyrotropin [Units/volume] in Serum or Plasma THYROID STIMULATING HORMONE Lab Routine Closed wedge compression fracture of T9 vertebra, initial encounter (HCC) Age-related osteoporosis without current pathological fracture Expected: 08/17/2024, Expires: 11/16/2024 [facility] Comment on above: Expected: 08/17/2024 , Expires: 11/16/2024 Start: 08-17-2024 End: 11-16-2024 Thyroxine (T4) free [Mass/volume] in Serum or Plasma T4 FREE/FREE THYROXINE Lab Routine Closed wedge compression fracture of T9 vertebra, initial encounter ([facility]) Age-related osteoporosis without current pathological fracture Expected: 08/17/2024, Expires: 11/16/2024 [facility] Comment on above: Expected: 08/17/2024 , Expires: 11/16/2024 Start: 08-17-2024 End: 08-17-2024 Patient encounter procedure 08/17/2024 11:00 AM EDT Office Visit [facility] [place] [address] [place] [address] Paulina Ardon MD [address] [place], [place] [phone] 6 mo follow up [facility] [place] Comment on above: 6 mo follow up Start: 08-13-2024 Screening for osteoporosis Bone Density Screening [facility] Start: 08-11-2024 Annual PCP Team Night Worker kelvin Disease Visit Annual PCP Team Chronic Disease Visit [facility] Start: 08-07-2024 DIABETES SCREEN DIABETES SCREEN [facility] Start: 07-29-2024 Covid-19 Vaccine () Covid-19 Vaccine () [facility] Start: 07-25-2024 Annual PCP Team Night Worker kelvin Disease Visit Annual PCP Team Chronic Disease Visit [facility] Start: 05-27-2024 Advance Directive Discussion Advance Directive Discussion [facility] Start: 05-27-2024 Medicare Advantage Annual Wellness Visit Medicare Advantage Annual Wellness Visit [facility] Start: 05-26-2024 Behavioral Health Screening Behavioral Health Screening [facility] Comment on above: Postponed from 05/27 (Declined at this time) Start: 02-26-2024 End: 02-26-2024 Patient encounter procedure 02/26/2024 3:00 PM EDT Office Visit [facility] [address] [facility] [address] [place], [place] [id number] Blade Lyman DO [address] [facility] [address] [place], [place] [id number] $25 / Return in about 6 months (around 01/26/2024) for Repeat cognitive testing, maricel pt running late and ETA 2:35 [facility] Comment on above: $25 / Return in abou t 6 months (around 01/26/2024) for Repeat cognitive testing, maricel pt running late and ETA 2:35 Start: 02-17-2024 End: 02-17-2024 Patient encounter procedure 02/17/2024 11:00 AM EDT Office Visit [facility] [place] [address] [place] [address] Sandra Sanchez, NYLON MACHINE OPERATOR.SEISMOGRAPH COMPUTER [address] [place] [address] 6 mo follow up [facility] [place] Comment on above: 6 mo follow up Start: 02-12-2024 End: 05-13-2024 CBC panel - Blood by Automated count CBC Lab Routine HTN, goal below 140/90 Encounter for long-term current use of medication Expected: 02/12/2024 (Approximate), Expires: 05/13/2024 [facility] Comment on above: Expected: 02/12/2024 (Approximate), Expires: 05/13/2024 Start: 02-12-2024 End: 05-13-2024 Comprehensive metabolic 2000 panel - Serum or Plasma COMP METABOLIC PANEL Lab Routine HTN, goal below 140/90 Encounter for long-term current use of medication Expected: 02/12/2024 (Approximate), Expires: 05/13/2024 [facility] Work Phone: Comment on above: Expected: 02/12/2024 (Approximate), Expires: 05/13/2024 Start: 02-12-2024 End: 05-13-2024 Lipid 1996 panel - Serum or Plasma LIPID PANEL BASIC Lab Routine Hyperlipidemia, unspecified hyperlipidemia type HTN, goal below 140/90 Encounter for long-term current use of medication Expected: 02/12/2024 (Approximate), Expires: 05/13/2024 [facility] Comment on above: Expected: 02/12/2024 (Approximate), Expires: 05/13/2024 Start: 01-29-2024 End: 01-29-2024 Patient encounter procedure 01/29/2024 2:20 PM EDT Office Visit [facility] [address] [place], [place] [phone] Blade Lyman DO [address] [place] [address] Return in about 6 months (around 01/26/2024) for Repeat cognitive testing, maricel. [facility] Comment on above: Return in about 6 mo nths (around 01/26/2024) for Repeat cognitive testing, maricel. Start: 01-26-2024 Influenza vaccination Influenza Vacc ine (#1) [facility] Start: 01-20-2024 End: 01-20-2024 Patient encounter procedure 01/20/2024 11:40 AM EDT Office Visit Cardiology [address] [place] [id number] Yahaira Bear MD [address] [place] [address] 8 month follow up Cardiology Comment on above: 8 month follow up Start: 10-01-2023 End: 10-01-2023 Patient encounter procedure 10/01/2023 10:20 AM EDT Appointment [facility] [address] [place] [address] Cognitive impairment [R41.89] [facility] Comment on above: Cognitive impairment [R41.89] Start: 09-08-2023 ANNUAL PCP TEAM LUMBER YARD WORKER KELVIN DISEASE VISIT ANNUAL PCP TEAM CHRONIC DISEASE VISIT [facility] Start: 09-08-2023 BP CONTROLLED (<130/80) BP CONTROLLE D (<130/80) [facility] Start: 08-01-2023 ANNUAL PCP TEAM LUMBER YARD WORKER KELVIN DISEASE VISIT ANNUAL PCP TEAM CHRONIC DISEASE VISIT [facility] Start: 08-01-2023 BP CONTROLLED (<130/80) BP CONTROLLE D (<130/80) [facility] Start: 07-26-2023 End: 10-25-2023 Cobalamin (Vitamin B12) [Mass/volume] in Serum or Plasma VITAMIN B12 BLOOD Lab Routine Cognitive impairment Memory difficulties Expected: 07/26/2023, Expires: 10/25/2023 [facility] Work Phone: Comment on above: Expected: 07/26/2023 , Expires: 10/25/2023 Start: 07-26-2023 End: 10-25-2023 Folate [Mass/volume] in Serum or Plasma FOLATE SERUM Lab Routine Cognitive impairment Memory difficulties Expected: 07/26/2023, Expires: 10/25/2023 [facility] Work Phone: Comment on above: Expected: 07/26/2023 , Expires: 10/25/2023 Start: 07-16-2023 Mammography MAMMOGRAM [facility] Start: 06-23-2023 Covid-19 Vaccine () Covid-19 Vaccine () [facility] Start: 05-27-2023 Advance Directive Discussion Advance Directive Discussion [facility] Start: 05-27-2023 Depression Assessment Depression Ass essment [facility] Start: 2023 End: 04-02-2023 Comprehensive metabolic 2000 panel - Serum or Plasma [facility] Work Phone: Comment on above: Expected: 2023 , Expires: 04/02/2023 Start: 2023 End: 04-02-2023 Thyrotropin [Units/volume] in Serum or Plasma [facility] Work Phone: Comment on above: Expected: 2023 , Expires: 04/02/2023 Start: 08-21-2022 ANNUAL PCP TEAM LUMBER YARD WORKER KELVIN DISEASE VISIT ANNUAL PCP TEAM CHRONIC DISEASE VISIT [facility] Start: 06-07-2022 COVID-19 VACCINE (5 - Booster for Moderna series) COVID-19 VACCINE (5 - Booster for Moderna series) [facility] Start: 06-05-2022 Mammography MAMMOGRAM [facility] Start: 05-28-2022 Urine microalbumin profile DTAP,TDAP,TD (2 - Td or Tdap) [facility] Comment on above: Postponed from 09/19 (Insurance Coverage) Start: 05-27-2022 ADVANCE DIRECTIVE DISCUSSION ADVANCE DIRECTIVE DISCUSSION [facility] Start: 05-27-2022 DEPRESSION ASSESSMENT DEPRESSION ASS ESSMENT [facility] Start: 05-18-2022 ANNUAL PCP TEAM LUMBER YARD WORKER KELVIN DISEASE VISIT ANNUAL PCP TEAM CHRONIC DISEASE VISIT [facility] Start: 03-16-2022 Adult depression screening assessment DEPRESSION SCREENING [facility] Start: 03-16-2022 BP CONTROLLED (<130/80) BP CONTROLLE D (<130/80) [facility] Start: 01-25-2022 Influenza vaccination INFLUENZA (#1) [facility] Start: 12-24-2021 COVID-19 VACCINE (5 - Booster for Moderna series) COVID-19 VACCINE (5 - Booster for Moderna series) [facility] Start: 09-19-2021 Urine microalbumin profile DTAP,TDAP,TD (2 - Td or Tdap) [facility] Start: 06-17-2021 COVID-19 VACCINE (4 - Booster for Moderna series) COVID-19 VACCINE (4 - Booster for Moderna series) [facility] Start: 05-27-2021 ADVANCE DIRECTIVE DISCUSSION ADVANCE DIRECTIVE DISCUSSION [facility] Start: 02-16-2019 PNEUMOCOCCAL: 65+ (3 - PPSV23 or PCV20) PNEUMOCOCCAL: 65+ (3 - PPSV23 or PCV20) [facility] Start: 01-30-1993 COLOGUARD (FIT-DNA) COLOGUARD (FIT-D NA) [facility] Start: 01-30-[address] COLONOGRAPHY [facility] Start: 01-30-1993 FECAL OCCULT BLOOD FECAL OCCULT BLOO D [facility] Start: 01-30-1993 Screening for malign ant neoplasm of colon [facility] Start: 01-30-1993 SIGMOIDOSCOPY SIGMOIDOSCOPY [facility] Start: 01-30-1966 Anxiety Screening Anxiety Screening [facility] Start: 01-30-1966 Depression Screening Depression Scre ening [facility] End: 09-16-2025 BD DXA TRABECULAR BONE SCORE (TBS) BD DXA TRABECULAR BONE SCORE (TBS) Radiology Routine Asymptomatic postmenopausal state 1 Occurrences starting 08/17/2024 until 09/16/2025 [facility] Comment on above: 1 Occurrences starti ng 08/17/2024 until 09/16/2025 BD DXA TRABECULAR ELLA NE SCORE (TBS) BD DXA TRABECULAR BONE SCORE (TBS) Radiology Routine Asymptomatic postmenopausal state 09/25/2024 10:11 AM EDT [facility] End: 09-16-2025 DXA Skeletal system.axial Views for bone density DXA-AXIAL SKELETON Radiology Routine Asymptomatic postmenopausal state 1 Occurrences starting 08/17/2024 until 09/16/2025 [facility] Work Phone: Comment on above: 1 Occurrences starti ng 08/17/2024 until 09/16/2025 DXA Skeletal system.axial Views for bone density DXA-AXIAL SKELETON Radiology Routine Asymptomatic postmenopausal state 09/25/2024 10:11 AM EDT [facility] Work Phone: End: 08-10-2023 LORI SCREENING LORI SCREENING Radiology Routine Encounter for screening mammogram for breast cancer 1 Occurrences starting 07/11/2022 until 08/10/2023 [facility] Work Phone: Comment on above: 1 Occurrences starti ng 07/11/2022 until 08/10/2023 End: 08-24-2024 MR Brain WO contrast MRI BRAIN WO IVCON Radiology Routine Cognitive impairment Memory difficulties 1 Occurrences starting 07/26/2023 until 08/24/2024 [facility] Work Phone: Comment on above: 1 Occurrences starti ng 07/26/2023 until 08/24/2024 MR Brain WO contrast MRI BRAIN W O IVCON Radiology Routine Cognitive impairment Memory difficulties 10/01/2023 11:33 AM EDT [facility] Work Phone: End: 08-24-2024 MR Unspecified body region 3D post processing MRI 3D POST PROCESSING Radiology Routine Cognitive impairment Memory difficulties 1 Occurrences starting 07/26/2023 until 08/24/2024 [facility] Work Phone: Comment on above: 1 Occurrences starti ng 07/26/2023 until 08/24/2024 MR Unspecified body region 3D post processing MRI 3D POST PROCESSING Radiology Routine Cognitive impairment Memory difficulties 10/01/2023 11:33 AM [facility] OUTSIDE VENDOR CARDI AC OUTPATIENT EXTENDED RHYTHM RECORDING (WITHOUT TELEMETRY) OUTSIDE VENDOR CARDIAC OUTPATIENT EXTENDED RHYTHM RECORDING (WITHOUT TELEMETRY) Holter Routine Palpitations Ordered: 12/11/2021 [facility] Work Phone: Comment on above: Ordered: 12/11/2021 SARS-CoV-2 (COVID-19 ) RNA [Presence] in Respiratory specimen by ANTHONY with probe detection SELF CHECK COVID Microbiology Routine Palpitations HTN, goal below 140/90 Chest pain, unspecified type Essential hypertension with goal blood pressure less than 140/90 Ordered: 08/21/2021 [facility] Work Phone: Comment on above: Ordered: 08/21/2021 End: 08-21-2022 STRESS ECHO TREADMILL STRESS ECHO TREADMILL Cardiology Routine Palpitations HTN, goal below 140/90 Chest pain, unspecified type Essential hypertension with goal blood pressure less than 140/90 1 Occurrences starting 08/21/2021 until 08/21/2022 [facility] Work Phone: Comment on above: 1 Occurrences starti ng 08/21/2021 until 08/21/2022 End: 09-04-2025 XR Lumbar spine 3 Views XR LUMBAR GENERAL 3V AP/LAT/L5-S1 Radiology Routine Acute left-sided low back pain without sciatica 1 Occurrences starting 08/05/2024 until 09/04/2025 [facility] Work Phone: Comment on above: 1 Occurrences starti ng 08/05/2024 until 09/04/2025 XR Lumbar spine 3 Views XR LUMBA R GENERAL 3V AP/LAT/L5-S1 Radiology Routine Acute left-sided low back pain without sciatica 08/05/2024 4:05 PM EDT [facility] Immunizations Immunization Date Immunization Notes Care Provider Fa erich 01-30-2024 influenza, high dose seasonal, preservative-free Sandra Sanchez APRN.SEISMOGRAPH COMPUTER Work Phone: [facility] 01-30-2024 influenza virus vacc ine, unspecified formulation Sandra Sanchez APRN.SEISMOGRAPH COMPUTER Work Phone: [facility] 03-22-2023 pneumococcal conjuga te (PCV20) vaccine, 20 valent (PREVNAR 20) Sandra Sanchez NYLON MACHINE OPERATOR.SEISMOGRAPH COMPUTER Work Phone: [facility] 02-21-2023 COVID-19 vaccine, ag e 12+ yr, season (MODERNA) Sandra Sanchez NYLON MACHINE OPERATOR.SEISMOGRAPH COMPUTER Work Phone: [facility] 02-21-2023 influenza (aIIV4) vaccine, age 65+ yr, quadrivalent, PF (FLUAD QUAD) Sandra Sanchez NYLON MACHINE OPERATOR.SEISMOGRAPH COMPUTER Work Phone: [facility] 02-21-2023 influenza virus vacc ine, unspecified formulation Yahaira Bear MD Work Phone: [facility] 02-20-2023 respiratory syncytia l virus (RSV) vaccine, bivalent (ABRYSVO) Sandramadi Sanchez NYLON MACHINE OPERATOR.SEISMOGRAPH COMPUTER Work Phone: [facility] 2023 influenza (HD-IIV4) vaccine, age 65+ yr, high dose, quadrivalent, PF (FLUZONE HIGH-DOSE) Sandra Sanchez NYLON MACHINE OPERATOR.SEISMOGRAPH COMPUTER Work Phone: [facility] Work Phone: 02-05-2022 COVID-19 vaccine, ag e 12+ yr, bivalent booster ([employer]) Sandra Sanchez NYLON MACHINE OPERATOR.SEISMOGRAPH COMPUTER Work Phone: [facility] Work Phone: 01-24-2022 influenza (HD-IIV4) vaccine, age 65+ yr, high dose, quadrivalent, PF (FLUZONE HIGH-DOSE) Paulina Ardon MD Work Phone: [facility] 01-24-2022 influenza, high dose seasonal, preservative-free Sandramadi Sanchez NYLON MACHINE OPERATOR.SEISMOGRAPH COMPUTER Work Phone: [facility] Work Phone: 08-24-2021 COVID-19 vaccine, booster dose (MODERNA) Sandra Sanchez NYLON MACHINE OPERATOR.SEISMOGRAPH COMPUTER Work Phone: [facility] Work Phone: 08-24-2021 tetanus toxoid, redu ellen diphtheria toxoid, and acellular pertussis vaccine, adsorbed Paulina Ardon MD Work Phone: [facility] 03-17-2021 SARS-CoV-2 (COVID-19 ) mRNA-[address] ALYSSA LUGO DO [facility] 03-01-2021 influenza (aIIV4) vaccine, age 65+ yr, quadrivalent, PF (FLUAD QUAD) Paulina Ardon MD Work Phone: [facility] 03-01-2021 influenza nasal, unspecified formulation Sandramadi Sanchez NYLON MACHINE OPERATOR.SEISMOGRAPH COMPUTER Work Phone: [facility] 03-01-2021 influenza virus vacc ine, unspecified formulation DR ALYSSA LUGO DO [facility] 03-01-2021 influenza, high dose seasonal, preservative-free Sandramadi Sanchez NYLON MACHINE OPERATOR.SEISMOGRAPH COMPUTER Work Phone: [facility] Work Phone: 08-10-2020 SARS-CoV-2 (COVID-19 ) mRNA-[address] ALYSSA LUGO DO [facility] 07-13-2020 SARS-CoV-2 (COVID-19 ) mRNA-[address] ALYSSA LUGO DO [facility] Comment on above: Result Comment: 2021: [id number] 05-16-[address] ALYSSA LUGO DO [facility] 03-17-[address] ALYSSA LUGO DO [facility] 02-03-2020 influenza virus vacc ine, unspecified formulation DR ALYSSA LUGO DO [facility] 02-03-2020 influenza, high-dose , quadrivalent vaccine (FLUZONE HIGH DOSE QUADRIVALENT) Sandra Sanchez NYLON MACHINE OPERATOR.SEISMOGRAPH COMPUTER Work Phone: [facility] 03-04-2019 influenza nasal, unspecified formulation Paulina Ardon MD Work Phone: [facility] 03-04-2019 influenza virus vacc ine, unspecified formulation DR ALYSSA LUGO DO [facility] 03-04-2019 influenza, high dose seasonal, preservative-free Sandra Sanchez NYLON MACHINE OPERATOR.SEISMOGRAPH COMPUTER Work Phone: [facility] Work Phone: 02-04-2018 influenza nasal, unspecified formulation Paulina Ardon MD Work Phone: [facility] 02-04-2018 influenza virus vacc ine, unspecified formulation DR ALYSSA LUGO DO [facility] 02-04-2018 influenza, high dose seasonal, preservative-free Sandra Sanchez NYLON MACHINE OPERATOR.SEISMOGRAPH COMPUTER Work Phone: [facility] Work Phone: 03-13-2017 influenza nasal, unspecified formulation Paulina Ardon MD Work Phone: [facility] 03-13-2017 influenza virus vacc ine, unspecified formulation DR ALYSSA LUGO DO [facility] 03-13-2017 influenza, high dose seasonal, preservative-free Sandra Sanchez NYLON MACHINE OPERATOR.SEISMOGRAPH COMPUTER Work Phone: [facility] 02-14-2016 influenza nasal, unspecified formulation Paulina Ardon MD Work Phone: [facility] 02-14-2016 influenza virus vacc ine, unspecified formulation DR ALYSSA LUGO DO [facility] 02-14-2016 influenza, high dose seasonal, preservative-free Sandra Sanchez NYLON MACHINE OPERATOR.SEISMOGRAPH COMPUTER Work Phone: [facility] 10-05-2015 pneumococcal conjuga te vaccine, [address] ALYSSA LUGO DO [facility] 02-28-2015 influenza nasal, unspecified formulation Paulina Ardon MD Work Phone: [facility] 02-28-2015 influenza virus vacc ine, unspecified formulation DR ALYSSA LUGO DO [facility] 02-28-2015 influenza, high dose seasonal, preservative-free Sandra Sanchez NYLON MACHINE OPERATOR.SEISMOGRAPH COMPUTER Work Phone: [facility] 02-16-2014 influenza nasal, unspecified formulation Paulina Ardon MD Work Phone: [facility] 02-16-2014 influenza virus vacc ine, unspecified formulation DR ALYSSA LUGO DO [facility] 02-16-2014 influenza, injectabl e, quadrivalent, preservative free Sandra Sanchez NYLON MACHINE OPERATOR.SEISMOGRAPH COMPUTER Work Phone: [facility] 02-16-2014 pneumococcal polysaccharide vaccine, [address] ALYSSA LUGO DO [facility] 09-20-2011 tetanus toxoid, redu ellen diphtheria toxoid, and acellular pertussis vaccine, adsorbed Sandra Sanchez NYLON MACHINE OPERATOR.SEISMOGRAPH COMPUTER Work Phone: [facility] 03-23-2011 influenza virus vacc ine, unspecified formulation Sandra Sanchez NYLON MACHINE OPERATOR.SEISMOGRAPH COMPUTER Work Phone: [facility] Payers Date Payer Category Payer Medicare AETNA MEDICARE A ETNA MEDICARE PPO [id number] 2021-Present [phone] [address] [place] [address] O [id number] 2021 Medicare AETNA MEDICARE A ETNA MEDICARE PPO [id number] 2021-Present [phone] [address] [place] [address] PPO [id number] 2021 Medicare (Managed Care) [employer]NA [place] [id number] 2021 Private Health Insurance 101 [id number] 1950 Unknown [id number] Social History Date Type Detail Facility Start: 07-18-2021 Ex-smoker (finding) [facility]igned At [facility] Start: 05-13-2017 End: 07-31-2022 Tobacco smoking status NHIS Never smoked tobacco [facility] Work Phone: Start: 08-07-2021 End: 11-30-2024 Alcohol intake Current drinker of alcohol (finding) [facility] Start: 08-24-2020 History SDOH Alcohol Frequency 4 [facility] Start: 08-24-2020 End: 05-18-2021 History SDOH Alcohol Std Drinks 1 [facility] Start: 08-24-2020 History SDOH Social Connections Phone 3 [facility] Start: 08-24-2020 History SDOH Physical Activity MPS 5 [facility] Start: 08-24-2020 End: 05-18-2021 History SDOH Transport Med 2 [facility] Start: 1950 Sex Assigned At Female [facility] Start: 08-11-2021 End: 12-14-2021 Exposure to SARS-CoV-2 (event) Not sure [facility] Work Phone: Start: 05-13-2017 End: 07-31-2022 Tobacco use and exposure Smokeless tobacco non-user [facility] Start: 08-24-2020 End: 02-17-2024 History of Social function [facility] Start: 08-24-2020 End: 02-17-2024 Social connection and isolation panel [facility] Do you belong to any clubs or organizations such as confucianist groups, unions, fraternal or athletic groups, or school groups? Yes [facility] Are you now , , , , never or living with a partner? [facility] How often to you hav e a drink containing alcohol? 2-3 time sa week [facility] How many standard dr inks containing alcohol do you have on a typical day? 1 or 2 [facility] How often do you hav e 6 or more drinks on 1 occasion? Never [facility] How hard is it for y ou to pay for the very basics like food, housing, medical care, and heating Not hard at all [facility] Do you feel stress - tense, restless, nervous, or anxious, or unable to sleep at night because your mind is troubled all the time - these days [OSQ] To some extent [facility] (I/We) worried whemirella er (my/our) food would run out before (I/we) got money to buy more. Never true [facility] In the past 12 month s, was there a time when you were not able to pay the mortgage or rent on time? No [facility] Start: 05-15-2019 Gender identity Identifies as female gender (finding) [facility] Start: 02-04-2020 Sexual orientation Heterosexual (finding) [facility] Functional Status Date Assessment Result Facility 09-29-2014 Are you deaf, or do you have serious difficulty hearing No 09/29/2014 10:02 AM EDT Margie Lambert LPN No [facility] 09-29-2014 Are you blind, or do you have serious difficulty seeing, even when wearing glasses No 09/29/2014 10:02 AM EDT Margie Lambert LPN No [facility] 09-29-2014 Do you have serious difficulty walking or climbing stairs No 09/29/2014 10:02 AM Margie Reece LPN No [facility] 09-29-2014 Do you have difficul ty dressing or bathing No 09/29/2014 10:02 AM Margie Reece LPN No [facility] 09-29-2014 Because of a physica l, mental, or emotional condition, do you have difficulty doing errands alone such as visiting a physician's office or shopping No 09/29/2014 10:02 AM Margie Reece LPN No [facility] Mental Status Date Assessment Result Facility 09-29-2014 Because of a physica l, mental, or emotional condition, do you have serious difficulty concentrating, remembering, or making decisions No 09/29/2014 10:02 AM Margie Reece LPN No [facility] Clinical Notes 06-05-2018 to 12-02-2024 Telephone Encounter - Iveth East RN - 12/02/2024 7:36 PM EDTTelephone Encounter - Iveth East RN - 12/02/2024 7:36 PM EDTTelephone Encounter - Iveth East RN - 12/02/2024 7:15 PM EDT Note Date & Type Note Facility 12-02-2024 Telephone encounter Note Letter done, printed & signed by Dr. Ardon and taken to medical records for product picker. Marisa aware. [facility] 12-02-2024 Miscellaneous Notes Letter done, printed & signed by Dr. Ardon and taken to medical records for product picker. Marisa aware. Referenced Dr. Lyman's office visit note and saw she wrote a letter today. Called to confirm with step daughter Marisa on why she needs a letter from PCP as well. Marisa states that [facility] [employer] legal department requires 2 doctors to document that pt has had a cognitive decline and is unable to make financial decisions at this time. Marisa states that her dad had a sudden onset of dementia 3 weeks ago and is in [facility] Transitional Care Unit. Both pt and her are set up to go to the Memory Care Unit at [facility] in [place] this Saturday so that is the urgency of needing to get to the pt's finances. Marisa also states she brought pt to her appt Saturday with Sandra Sanchez but did not know at that visit that she was going to need these letters. She brought pt in to complete the paperwork [facility] requires for placement at their facility. Discussed [...] Marisa is requesting a call back at [phone] carlos a Please advise Please see message below requesting letter had appointment 11/30 in office Cuca Perla MA Daughter called back, stating its urgent. Said father is having decline as well. Patient's step daughter Marisa calling in stating they are currently in the process of placing patient in a memory care facility. She is having trouble getting access to patient's finances through [facility]. Marisa is asking if Dr. Ardon would be willing to write a letter stating patient is not able to make financial decisions due to cognitive decline. She states it needs to be on a letter head. Please review and advise Marisa at [phone]. Katrina Urbina December 01, 2024 10:25 AM documented in this encounter [facility] 12-02-2024 Telephone encounter Note Referenced Dr. Lyman's office visit note and saw she wrote a letter today. Called to confirm with step anna Parikhha on why she needs a letter from PCP as well. Marisa states that [facility] bank's legal department requires 2 doctors to document that pt has had a cognitive decline and is unable to make financial decisions at this time. Marisa states that her dad had a sudden onset of dementia 3 weeks ago and is in [facility] [facility] Transitional Care Unit. Both pt and her are set up to go to the Memory Care Unit at [facility] in [place] this Saturday so that is the urgency of needing to get to the pt's finances. Marsia also states she brought pt to her appt Saturday with Sandra Sanchez but did not know at that visit that she was going to need these letters. She brought pt in to complete the paperwork [facility] requires for placement at their facility. Discussed all of the above with Dr. Ardon who is going to type up letter. Marisa requests to pick it up tomorrow in medical records. [facility] 12-02-2024 Telephone encounter Note Noted that [...] can go through on Saturday as planned. [facility] 12-02-2024 Telephone encounter Note Please see [...] and will discuss with Sandra Sanchez. T [facility] 12-02-2024 Telephone encounter Note Step daughter called to check the status of this situation as it is urgent Marisa is requesting a call back at [phone] carlos a Please advise [facility] Work Phone: 12-02-2024 Instructions Blade Lyman DO - 12/02/2024 1:22 PM EDT Images from the original note were not included. Tips to help with your memory and cognition 1. COGNITIVE STIMULATION Keep your brain active by doing mentally stimulating activities for 30 minutes twice a day. Here are few suggested activities: - crossword puzzles - jigsaw puzzles - Wavii games - word finding - problem solving [...] of the underlying disease however. References National [place] of Neurological Disorders & Stroke. NINDS Dementia Information Page Accessed 02/01/2014. Family Caregiver [place]. National Center on Caregiving. Is this Dementia and What Does it Mean? Accessed 02/01/2014. National [place] on Aging. Forgetfulness: Knowing When to Ask for Help Accessed 02/01/2014. Copyright 5910-8154 The [facility] All rights reserved This information is provided by the [facility] and is not intended to replace the medical advice of your doctor or health care provider. Please consult your health care provider for advice about a specific medical condition. For additional health information, please contact the Center for Consumer Health Information at the [facility] or toll-free extension [phone]. If you prefer, you may visit [email or web address] or [email or web address]. This document was last reviewed on: 2014 index#1447 Hypertension (High Blood Pressure) What is high [...] own. References National Heart, Lung, and Blood [place]. Description of High Blood Pressure Accessed 10/29/2016. Food and Drug Administration. High Blood Pressure (Hypertension) Accessed 10/29/2016. Centers for Disease Control and Prevention. High blood pressure Accessed 10/29/2016. JNC 8 Guidelines for the Management of Hypertension in Adults. Am Fam Physician. 2013Feb 24;90(7):503-504. aafp.org Accessed 10/29/2016. Copyright 9988-6465 The [facility] All rights reserved This information is provided by the [facility] and is not intended to replace the medical advice of your doctor or health care provider. Please consult your health care provider for advice about a specific medical condition. For additional health information, please contact the Center for Consumer Health Information at the [facility] or toll-free extension [phone]. If you prefer, you may visit [email or web address] or [email or web address]. This document was last reviewed on: 2016 index#4314 documented in this encounter [facility] 12-02-2024 History of Present illness Narrative Images from the original note were not included. Blade Lyman DO [facility] [address] [place] [address] [address] [place] [id number] Visit Date: December 01, 2024 Name: Ms.Kary Nikki Sun Date of : 1950 MRN/E #: [id number] Chief Complaint: Patient presents with: Follow Up: [...] TAB 08/17/2024 90 90 each Sandra Sanchez APRN.SEISMOGRAPH COMPUTER e- [facility] ... AMLODIPINE BESYLATE 10 MG TAB 02/29/2024 90 90 each Sandra Sanchez APRN.SEISMOGRAPH COMPUTER e- [facility] ... How do dispenses [...] TABLET 08/17/2024 90 90 each Sandra Sanchez APRN.SEISMOGRAPH COMPUTER e- [facility]/pharmacy #4605 ... ATORVASTATIN 10 MG TABLET 02/29/2024 90 90 each Sandra Sanchez APRN.[facility] e- [facility]/pharmacy #4605 ... How do dispenses affect the score? Outpatient Orders The patient is taking this medication long-term. Start Date End Date Dispense Refills Pharmacy atorvastatin (LIPITOR) 10 mg tablet 08/17/2024 -- 90 tablet 3/3 e- [facility] - O... Take 1 tablet by mouth once daily. atorvastatin (LIPITOR) 10 mg tablet 02/17/2024 08/17/2024 90 tablet 3/3 e- [facility]/pharmacy #4605 - O... Take 1 tablet by [...] TAB 08/17/2024 90 90 each Sandra Sanchez, NYLON MACHINE OPERATOR.SEISMOGRAPH COMPUTER e- [facility]/pharmacy #4605 ... METOPROLOL SUCC ER 25 MG TAB 02/29/2024 90 90 each Sandra Sanchez, NYLON MACHINE OPERATOR.SEISMOGRAPH COMPUTER e- [facility]/pharmacy #4605 ... How do dispenses affect the score? Outpatient Orders The patient is taking this medication long-term. Start Date End Date Dispense Refills Pharmacy metoprolol succinate ER (TOPROL XL) 25 mg 24 hr tablet 08/17/2024 -- 90 tablet 07/27 e- [facility]/pharmacy #4605 - O... Take 1 tablet by mouth once daily. metoprolol succinate ER (TOPROL XL) 25 mg 24 hr tablet 02/17/2024 08/17/2024 90 tablet 07/27 e- [facility] - O... Take 1 tablet by mouth once daily. metoprolol succinate ER (TOPROL XL) 25 mg 24 hr tablet 06/10/2023 02/17/2024 90 tablet 07/27 [facility] - O... Take 1 tablet by [...] I, Transportation:D, Medications: A, Handle Finances: A. (Spencer scale): 2 02/26/2024 Functional Evaluation: B-ADLs: (I=independent,A=assistance,D=dependen [...] 10/28/2019 Colonoscopy ESOPHAGOGASTRODUODENOSCOPY TRANSORAL DIAGNOSTIC 01/08/2012 inpt [facility] EGD PAST SURGICAL HISTORY OF 06/10/2009 [...] and can only be rendered by a bindery machine operator via formal legal proceedings. That is, competence [...] plans. This note was partially generated using [employer] voice recognition system, and there may be some incorrect words, spellings, and punctuation that were not noted in checking the note before saving. documented in this encounter [facility] 12-02-2024 Note HNO ID: [id number] Author: BLADE LYMAN DO Service: ? Author Type: Physician Type: Progress Notes Filed: 12/02/2024 13:48 Note Text: Blade Lyman DO [facility] [address] [place] [address] Visit Date: December 01, 2024 Name: Ms.Kary Nikki Sun Date of : 1950 MRN/E #: [id number] Chief Complaint: Patient presents with: Follow Up: [...] MG TAB 08/17/2024 90 90 each Sandra Snachez APRN.SEISMOGRAPH COMPUTER e- [facility] ... AMLODIPINE BESYLATE 10 MG TAB 02/29/2024 90 90 each Sandra Sanchez APRN.SEISMOGRAPH COMPUTER e- [facility] ... How do dispenses [...] TABLET 08/17/2024 90 90 each Sandra Sanchez APRN.SEISMOGRAPH COMPUTER e- [facility] ... ATORVASTATIN 10 MG TABLET 02/29/2024 90 90 each Sanrda Sanchez APRN.CN (more content not included)... [facility] 12-02-2024 Telephone encounter Note Please see message below requesting letter had appointment 11/30 in office Cuca Perla MA [facility] 12-01-2024 Telephone encounter Note Daughter called back, stating its urgent. Said father is having decline as well. [facility] 12-01-2024 Telephone encounter Note Patient's daughter notified regarding message below. [facility] in [facility] facility with sudden onset of vascular dementia. Marie Prather LPN [facility] 12-01-2024 Miscellaneous Notes Patient's daughter notified regarding message below. Appointment [facility] patient's spouse is currently in a facility [...] decisions due to her cognitive impairment. States [facility] just needs a letter on physician's letterhead. Marie Prather LPN documented in this encounter [facility] 12-01-2024 Telephone encounter Note Please help [...] be re-evaluated, thank you Blade Lyman DO [facility] 12-01-2024 Telephone encounter Note Patient's step daughter Marisa calling in stating they are currently in the process of placing patient in a memory care facility. She is having trouble getting access to patient's finances through [facility]. Marisa is asking if Dr. Ardon would be willing to write a letter stating patient is not able to make financial decisions due to cognitive decline. She states it needs to be on a letter head. Please review and advise Marisa at [phone]. Katrina Urbina December 01, 2024 10:25 AM [facility] 12-01-2024 Telephone encounter Note Patient's stepdaughter, Mayra, is requesting a letter stating patient is unable to make financial decisions due to her cognitive impairment. States [facility] just needs a letter on physician's letterhead. Marie Prather LPN [facility] 11-30-2024 Telephone encounter Note Patient seen by Sandra RAMOS today and [facility] assisted living forms were filled out and signed and given to patient in the office today. [facility] 11-30-2024 Miscellaneous Notes Patient seen by Sandra RAMOS today and [facility] assisted living forms were filled out and [...] De La Torre documented in this encounter [facility] 11-30-2024 Note HNO ID: [id number] Author: SANDRA SANCHEZ APRN.SEISMOGRAPH COMPUTER Service: ? Author Type: Nurse Specialist Type: [...] 10/28/2019 Colonoscopy ESOPHAGOGASTRODUODENOSCOPY TRANSORAL DIAGNOSTIC 01/08/2012 inpt [facility] EGD PAST SURGICAL HISTORY OF 06/10/2009 [...] Neurodegenerative cognitive i (more content not included)... [facility] 11-30-2024 History of Present illness Narrative [...] 10/28/2019 Colonoscopy ESOPHAGOGASTRODUODENOSCOPY TRANSORAL DIAGNOSTIC 01/08/2012 inpt [facility] EGD PAST SURGICAL HISTORY OF 06/10/2009 [...] 4 - Moderate documented in this encounter [facility] 11-26-2024 Telephone encounter Note Patient's daughter, [...] placement. Please advise. Batsheva De La Torre [facility] 09-25-2024 History of Present illness Narrative [...] PATIENT PRESENTS WITH AN IMPLANTABLE OR ATTACHED LAND CLASSIFIER: No RADIOLOGY DEPARTMENT: Bone Density PERIPHERAL IV DATA: Not applicable SIGNED BY: RT Shandra(R) September 25, 2024 9:47 AM documented in this encounter [facility] 09-25-2024 Note HNO ID: [id number] Author: GABRIELLE NUGENT RT(R) Service: ? Author [...] PATIENT PRESENTS WITH AN IMPLANTABLE OR ATTACHED LAND CLASSIFIER: No RADIOLOGY DEPARTMENT: Bone Density PERIPHERAL IV DATA: Not applicable SIGNED BY: RT Shandra(Nolan) September 25, 2024 9:[address] [facility] 09-19-2024 Note HNO ID: [id number] Author: PAULINA ARDON MD Service: ? Author Type: Physician Type: Progress Notes Filed: 10/12/2024 01:59 Note Text: This note was created using [employer]. Subjective Bekah Sun is a 74 year [...] supply. - Advised continuation of calcium supplementation, 5360-6643 mg daily. - Educated on (more content not included)... [facility] 08-17-2024 Note Addended by: PAULINA RUBIO on: 08/17/2024 01:03 PM Modules accepted: Orders [facility] 08-17-2024 Miscellaneous Notes Addended by: PAULINA ARDON on: 08/17/2024 01:03 PM Modules accepted: Orders Addended by: TIGRE GAONA on: 08/17/2024 12:30 PM Modules accepted: Orders documented in this encounter [facility] 08-17-2024 Note Addended by: TIGRE SAENZ on: 08/17/2024 12:30 PM Modules accepted: Orders [facility] 08-17-2024 Instructions Paulina Ardon MD - 08/17/2024 12:14 PM EDT - Take Vicodin (hydrocodone/acetaminophen) as prescribed: 1-2 tablets every 6 hours as needed for pain. Prescription sent to [facility] in [place]. - Use Miacalcin nasal spray as prescribed: alternate nostrils every other day. Prescription sent to [facility] in [place]. - Restart Fosamax (alendronate) as prescribed: take on an empty stomach once a week, with no food or drink for 30 minutes afterward. Prescription sent to [facility] in [place]. - Ensure adequate calcium and vitamin D intake through diet or supplements. - Avoid heavy lifting, bending, or any activities that may put pressure on your spine to prevent further compression fractures. - Consider seeing microbiology technician for osteoporosis management and further evaluation. Will [...] usual activities immediately. documented in this encounter [facility] 08-17-2024 Note HNO ID: [id number] Author: PAULINA ARDON MD Service: ? Author [...] compression fracture of T9 vertebra, initial encounter ([facility]) Orders: HYDROcodone-acetaminophen (NORCO) 5-325 mg per tablet; Take 1-2 tablets by mouth every 6 hours as needed for pain for up to 7 days. calcitonin,salmon, (MIACALCIN) 200 unit/actuation nasal spray; Use 1 [place] in the nose once daily. BASIC METABOLIC PANEL; Future VITAMIN D 25 HYDROXY; Future PTH INTACT; Future THYROID STIMULATING HORMONE; Future T4 FREE/FREE THYROXINE; Future # Closed wedge compression fracture of T9 vertebra, initial encounter ([facility]) (S22.230A) - Recent CT scan confirmed a T9 [...] to endocrinology for (more content not included)... [facility] 08-17-2024 History of Present illness Narrative [...] compression fracture of T9 vertebra, initial encounter ([facility]) Orders: HYDROcodone-acetaminophen (NORCO) 5-325 mg per tablet; Take 1-2 tablets by mouth every 6 hours as needed for pain for up to 7 days. calcitonin,salmon, (MIACALCIN) 200 unit/actuation nasal spray; Use 1 [place] in the nose once daily. BASIC METABOLIC PANEL; Future VITAMIN D 25 HYDROXY; Future PTH INTACT; Future THYROID STIMULATING HORMONE; Future T4 FREE/FREE THYROXINE; Future # Closed wedge compression fracture of T9 vertebra, initial encounter ([facility]) (S22.090A) - Recent CT scan confirmed a T9 [...] which included preparing to see the patient, bren-[id number]-[id number] patient care, completing clinical documentation, obtaining and/or reviewing separately obtained history, performing a medically appropriate examination, counseling and educating the patient/family/caregiver, ordering medications, tests, or procedures, independently interpreting results (not separately reported), and communicating results to the patient/family/caregiver. Paulina Ardon MD documented in this encounter [facility] 08-05-2024 History of Present illness Narrative [...] PATIENT PRESENTS WITH AN IMPLANTABLE OR ATTACHED LAND CLASSIFIER: No RADIOLOGY DEPARTMENT: General X-ray: Exam(s) Completed: Spine X-Ray(s): Lumbar AP / LAT / L5-S1 PERIPHERAL IV DATA: Not applicable SIGNED BY: RT Fang(R) August 05, 2024 3:48 PM documented in this encounter [facility] 08-05-2024 Note HNO ID: [id number] Author: BRIA DOUGLAS RT(R) Service: Radiology Author Type: Technologist [...] PATIENT PRESENTS WITH AN IMPLANTABLE OR ATTACHED LAND CLASSIFIER: No RADIOLOGY DEPARTMENT: General X-ray: Exam(s) Completed: Spine X-Ray(s): Lumbar AP / LAT / L5-S1 PERIPHERAL IV DATA: Not applicable SIGNED BY: RT Fang(R) August 05, 2024 3:[address] [facility] 08-05-2024 Instructions Paulina Ardon MD - [...] medical attention immediately. documented in this encounter [facility] 08-05-2024 Note HNO ID: [id number] Author: PAULINA ARDON MD Service: ? Author Type: Physician Type: Progress Notes Filed: 08/05/2024 15:41 Note Text: This note was created using Med[employer]. Subjective Bekah Sun is a 74 year [...] - Continue curre (more content not included)... [facility] 08-05-2024 History of Present illness Narrative This note was created using [employer] Not[employer]. Subjective Bekah Sun is a 74 year [...] Paulina Ardon MD documented in this encounter [facility] 02-26-2024 Telephone encounter Note Confirmation number: [id number] [facility] 02-26-2024 Miscellaneous Notes Confirmation number: [id number] documented in this encounter [facility] 02-26-2024 Instructions Blade Lyman DO - 02/26/2024 3:24 PM EDT Images from the original note were not included. Tips to help with your memory and cognition 1. COGNITIVE STIMULATION Keep your brain active by doing mentally stimulating activities for 30 minutes twice a day. Here are few suggested activities: - crossword puzzles - jigsaw puzzles - QUALIA (formerly known as [employer])u games - word finding - problem solving [...] Memory is Normal and When it is Tud-Qg-[place] Memory and aging Memory is defined as [...] be performed without assistance from another person. Ytb-ch-alpkjx memory Condition Symptoms Mild cognitive impairment Aging [...] dementia. Cognitive training (memory training, reasoning training, ztxsl-pd-erbaufc training) improves cognition. Playing board games (chess, checkers, cards, learning a second language) and musical instrument delays the onset of dementia. Engaging in social activities slows cognitive decline. Reducing cardiovascular risks (for example, treating hypertension) delays the onset of dementia. References: [place] [employer] Association. Memory and Aging Accessed 10/11/2015. National [place] on Aging. Understanding Memory Loss Accessed 10/11/2015. National Institutes of Health. NIH: News In Health: Things Forgotten: Simple Lapse or Serious Problem? Accessed 10/11/2015. Copyright 4222-6962 The [facility] All rights reserved This information is provided by the [facility] and is not intended to replace the medical advice of your doctor or health care provider. Please consult your health care provider for advice about a specific medical condition. For additional health information, please contact the Center for Consumer Health Information at the [facility] or toll-free extension [phone]. If you prefer, you may visit [email or web address] or [email or web address]. This document was last reviewed on: 2015 index#59227 Hypertension (High Blood Pressure) What is high [...] own. References National Heart, Lung, and Blood [place]. Description of High Blood Pressure Accessed 10/29/2016. Food and Drug Administration. High Blood Pressure (Hypertension) Accessed 10/29/2016. Centers for Disease Control and Prevention. High blood pressure Accessed 10/29/2016. JNC 8 Guidelines for the Management of Hypertension in Adults. Am Fam Physician. 2013Feb 24;90(7):503-504. aafp.org Accessed 10/29/2016. Copyright 2055-7780 The [facility] All rights reserved This information is provided by the [facility] and is not intended to replace the medical advice of your doctor or health care provider. Please consult your health care provider for advice about a specific medical condition. For additional health information, please contact the Center for Consumer Health Information at the [facility] or toll-free extension [phone]. If you prefer, you may visit [email or web address] or [email or web address]. This document was last reviewed on: 2016 index#4312 documented in this encounter [facility] 02-26-2024 History of Present illness Narrative Images from the original note were not included. Blade Lyman DO [facility] [address] [place] [address] [address] [place] [address] Visit Date: February 27, 2024 Name: Ms.Kary Nikki Sun Date of : 1950 MRN/E #: [id number] Chief Complaint: Patient presents with: Follow Up: [...] 10/28/2019 Colonoscopy ESOPHAGOGASTRODUODENOSCOPY TRANSORAL DIAGNOSTIC 01/08/2012 inpt [facility] EGD PAST SURGICAL HISTORY OF 06/10/2009 [...] plans. This note was partially generated using [employer] voice recognition system, and there may be some incorrect words, spellings, and punctuation that were not noted in checking the note before saving. documented in this encounter [facility] 02-26-2024 Note HNO ID: [id number] Author: BLADE LYMAN DO Service: ? Author Type: Physician Type: Progress Notes Filed: 02/26/2024 15:56 Note Text: Blade Lyman DO [facility] [address] [place] [address] Visit Date: February 27, 2024 Name: Ms.Kary Nikki Sun Date of : 1950 MRN/E #: [id number] Chief Complaint: Patient presents with: Follow Up: [...] Handle Finances: I, stated mostly doing it. (Spencer scale): 8 07/26/2023 Functional Evaluation: B-ADLs: (I=independent,A=assistance,D=dependen [...] - Trails B: (more content not included)... [facility] 02-17-2024 Instructions Sandra Sanchez APRN.CNS - 02/17/2024 11:18 AM EDT For leg swelling: Wear mild compression socks or stockings when sitting or standing for prolonged periods of time. These are available over the counter at most pharmacies, [employer], online. Elevate your feet when seated Avoid excess of salty foods documented in this encounter [facility] 02-17-2024 Note HNO ID: [id number] Author: SANDRA SANCHEZ APRN.CNS Service: ? Author [...] last year. 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 Now notes short-term memory difficulties. Able [...] mention of hem (more content not included)... [facility] 02-17-2024 History of Present illness Narrative [...] last year. 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 Now notes short-term memory difficulties. Able [...] Abs Lymph 1.00 - 4.00 k/uL 1.12 [place]% % 5.7 Abs [place] <0.87 k/uL 0.37 Eosin% % 0.5 Abs [...] mo follow up visit MD Sandra Vargas APRN.SEISMOGRAPH COMPUTER Medical Decision Making: Problems: Moderate: 2+ stable chronic illnesses Data: Unique test result(s) reviewed: 3+ Risk: Moderate: Drug management Medical Decision Making Level: 4 - Moderate documented in this encounter [facility] 01-20-2024 History of Present illness Narrative Images from the original note were not included. [facility] SECTION OF REGIONAL CARDIOLOGY Cardiology ([facility]) [address] [facility] [address] OUTPATIENT VISIT DATE 01/20/2024 PRIMARY CARE PHYSICIAN: Paulina Ardon [address] [place] [address] HISTORY OF PRESENT ILLNESS: Ms. Sun is [...] Yahaira Bear MD documented in this encounter [facility] 01-20-2024 Note HNO ID: [id number] Author: YAHAIRA BEAR MD Service: ? Author Type: Physician Type: Progress Notes Filed: 01/20/2024 12:10 Note Text: [facility] SE[facility] REGIONAL CARDIOLOGY Cardiology ([facility]) [address] [facility] [address] OUTPATIENT VISIT DATE 01/20/2024 PRIMARY CARE PHYSICIAN: Paulina Ardon [address] [place] [address] HISTORY OF PRESENT ILLNESS: Ms. Sun is [...] Couplets were ra (more content not included)... [facility] 10-16-2023 Telephone encounter Note Patient/spouse updated of test results: Please help to inform patient and family her MRI did not show any stroke, there is mild generalized volume loss, however, there is significant volume loss at the [facility] (hippocampus), her hippocampal [...] Sears LPN October 16, 2023 9:35 AM [facility] 10-16-2023 Miscellaneous Notes Patient/spouse updated of [...] 2023 9:35 AM documented in this encounter [facility] 10-02-2023 Telephone encounter Note LM for patient to call office regarding message below. Marie Prather LPN [facility] 10-02-2023 Miscellaneous Notes LM for patient [...] Blade Lyman DO documented in this encounter [facility] 10-02-2023 Telephone encounter Note ----- Message [...] functional decline, thank you Blade Lyman DO [facility] 10-01-2023 History of Present illness Narrative [...] PATIENT PRESENTS WITH AN IMPLANTABLE OR ATTACHED LAND CLASSIFIER: No RADIOLOGY DEPARTMENT: MR; Exam(s) Completed: Head: Routine Brain Neuroquant PERIPHERAL IV DATA: Not applicable SIGNED BY: RT Michelle(R) October 01, 2023 10:55 AM documented in this encounter [facility] 08-12-2023 History of Present illness Narrative This note was created using [employer]. Subjective Bekah Sun is a 73 year [...] Paulina Ardon MD documented in this encounter [facility] 07-29-2023 Miscellaneous Notes See pharmacy request in pended order. Nurys Babcock MA documented in this encounter [facility] 07-26-2023 Instructions Blade Lyman, DO - [...] - crossword puzzles - jigsaw puzzles - QUALIA (formerly known as Local[employer])u games - word finding - problem solving activities - learn a new hobby or take a class 2. SOCIAL INTERACTION Talk to a friend, family member or neighbor at least once a day. Engage in community activities. Consider joining your local [facility] center. 3. PHYSICAL ACTIVITY Make sure you [...] Memory is Normal and When it is Jvs-Ep-Izonkh Memory and aging Memory is defined as the power or process of reproducing or recalling what has been learned and retained ([place]-[employer] Dictionary). Our ability to remember and to [...] be performed without assistance from another person. Kym-fg-bfhzsk memory Condition Symptoms Mild cognitive impairment Aging [...] dementia. Cognitive training (memory training, reasoning training, llvuh-mz-ptflebc training) improves cognition. Playing board games (chess, checkers, cards, learning a second language) and musical instrument delays the onset of dementia. Engaging in social activities slows cognitive decline. Reducing cardiovascular risks (for example, treating hypertension) delays the onset of dementia. References: [place] [employer] Association. Memory and Aging Accessed 10/11/2015. National [place] on Aging. Understanding Memory Loss Accessed 10/11/2015. National Institutes of Health. NIH: News In Health: Things Forgotten: Simple Lapse or Serious Problem? Accessed 10/11/2015. Copyright 1881-5508 The [facility] All rights reserved This information is provided by the [facility] and is not intended to replace the medical advice of your doctor or health care provider. Please consult your health care provider for advice about a specific medical condition. For additional health information, please contact the Center for Consumer Health Information at the [facility] or toll-free extension [phone]. If you prefer, you may visit [email or web address] or [email or web address]. This document was last reviewed on: 2015 index#47865 Types of Dementia What is dementia? When [...] multi-infarct cognitive impairment, inherited disorders such as [place]'s disease, and infections such as HIV. The most common causes of dementia include: Degenerative neurological diseases, such as Alzheimer's, frontotemporal lobar degeneration, dementia with Lewy bodies, Parkinson's, and [place]'s diseases Vascular disorders, such as multi-infarct dementia, [...] of the underlying disease however. References National [place] of Neurological Disorders & Stroke. NINDS Dementia Information Page Accessed 02/01/2014. Family Caregiver [place]. National Center on Caregiving. Is this Dementia and What Does it Mean? Accessed 02/01/2014. National [place] on Aging. Forgetfulness: Knowing When to Ask for Help Accessed 02/01/2014. Copyright 7265-1841 The [facility]. All rights reserved This information is provided by the [facility] and is not intended to replace the medical advice of your doctor or health care provider. Please consult your health care provider for advice about a specific medical condition. For additional health information, please contact the Center for Consumer Health Information at the [facility] or toll-free extension [phone]. If you prefer, you may visit [email or web address] or [email or web address]. This document was last reviewed on: 2014 index#3824 documented in this encounter [facility] 07-26-2023 History of Present illness Narrative Images from the original note were not included. Blade Lyman DO [facility] [address] [place] [address] COMPREHENSIVE GERIATRICS ASSESSMENT Patient presents with: Geriatric Assessment History of Present Illness Ms. Bekah Sun is a 73 year old year old lady referred for Comprehensive Geriatrics Assessment, as referred by Sandra Sanchez APRN.SEISMOGRAPH COMPUTER for evaluation of memory difficulties. She is [...] been discussed? Yes Is a power of research attorney in place for financial needs? Yes Is a power of research attorney in place for health care decisions? Yes Is palliative or hospice care appropriate for the patient? No II) Mentation: [place] Cognitive Exam (MOCA): not on file Cognitive [...] on Amitriptyline, TCA has high anti-cholinergic burden, technician terminal and repeater use associated with memory/cognitive impairment, patient stated [...] vision impairment and wears glasses Follows with poultry offal icer:YES Hearing - Hearing aid : Denies any [...] PFRMD 10/28/2019 Colonoscopy ESOPHAGOGASTRODUODENOSCOPY [facility]ST [facility]GICAL HISTORY OF 06/10/2009 [...] (FLONASE) 50 mcg/actuation nasal spray Use 1 [place] in each nostril once daily. cholecalciferol, vitamin [...] Geriatrics Assessment, as referred by Sandra Sanchez APRN.SEISMOGRAPH COMPUTER for evaluation of memory difficulties. ? Mood [...] community resources. BLADE LYMAN DO GERIATRIC MEDICINE [facility] Discussed the above with the patient using shared decision making. The patient is in agreement with the diagnostic and treatment plans. This note was partially generated using [employer] voice recognition system, and there may be some incorrect words, spellings, and punctuation that were not noted in checking the note before saving. documented in this encounter [facility] 05-03-2023 Miscellaneous Notes There is a current active consult, just needs scheduled. Routing to schedulers. Spouse (Iain) calls with patient to request referral be placed again for geriatrics and memory difficulties. Previous appointment was cancelled and to reschedule a referral is needed. Pended as previously ordered. Please call patient at [phone] to schedule. assists with scheduling appointments. Natalie Contreras RN documented in this encounter [facility] 03-01-2023 History of Present illness Narrative [...] last year. 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 Now notes short-term memory difficulties. Able [...] mo follow up visit MD Sandra Vargas APRN.SEISMOGRAPH COMPUTER Medical Decision Making: Problems: Low: Stable chronic illness Risk: Moderate: Drug management Medical Decision Making Level: 3 - Low documented in this encounter [facility] 2023 History of Present illness Narrative [...] last year. 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 Now notes short-term memory difficulties. Able [...] 780.93, ICD10: R41.3 Recommend neuropsychiatric testing or cutter and paster press clippings visit for further evaluation and treatment. Prefer cutter and paster press clippings at this time. Would like to be [...] 4 - Moderate documented in this encounter [facility] 2023 Evaluation note Diagnosis Chronic diastolic [...] Unspecified essential hypertension documented in this encounter [facility]04-17-2023 Miscellaneous Notes* Telephone Encounter - Sandra [...] is th only one. [facility] History of Present illness Narrative* Paulina Ardon MD - 09/07/2022 1:06 PM EDT This note was created using [employer] Not[employer]. Subjective Bekah Sun is a 72 year [...] machine for accurate comparison. FOR MORE INFORMATION: [facility] Center for Osteoporosis and Metabolic Bone Disease: [email or web address].org/arthritis/osteo National Osteoporosis Foundation: www.nof.org International Society of Clinical Densitometry www.iscd.org WORLD HEALTH ORGANIZATION CLASSIFICATION OF BONE MASS: CLASSIFICATION T-SCORE Normal Greater than -1 Low Bone Mass Between -1 and -2.5 (Osteopenia) Osteoporosis Less than or equal to -2.5 Floor Plan Adjuster: LILIANA Transcribe Date/Time: Aug 17 2022 11:27A Dictated by : SERENA LEÓN MD This examination was interpreted and the report reviewed and electronically signed by: SERENA LEÓN MD on Aug 17 2022 11:28AM EST Results-Findings * * *Final Report* * * DATE OF EXAM: Aug 13 2022 3:29PM [facility] 0804 - BD DXA - AXIAL SKELETON [...] years. Paulina Ardon MD [facility] Miscellaneous Notes* Telephone Encounter - Anai [...] decide about treatment options. Can refer to microbiology technician if patient wants their opinion regarding treatment. Orders filed documented [facility]23 Miscellaneous Notes* Telephone Encounter - Carlotta [...] unsure why our schedule was closed in [place]. Please notify the patient if she can be seen sooner. documented in [facility] History of Present illness Narrative* Gabrielle [...] 13, 2022 3:12 PM documented in this [facility]23 Miscellaneous Notes* Result Encounter Note - Sandra Sanchez APRN.SEISMOGRAPH COMPUTER - 08/13/2022 3:00 PM EDT Osteoporosis, worse than previous measure, low score in the right hip documented in [facility]23 Instructions* Patient Instructions* Paulina Ardon MD [...] your usual activities immediately. documented in [facility]23 History of Present illness Narrative* Paulina [...] indicated. Paulina Ardon MD documented in this [facility] Miscellaneous Notes* Letter - Mammography Coordinator - 07/16/2022 3:04 PM EST July 18, 2022 PID: [id number] Bekah Sun [address] [place] [address] Dear Ms. Sun, We are pleased to [...] report will be kept on file at [facility] as part of your permanent medical record and are available for your continuing care. Thank you for allowing us to help in meeting your health care needs. Sincerely, Dr. Begum Interpreting Radiologist [facility] (Normal over 40) documented in this encounter[facility]-2023 History of Present illness Narrative* Yadira [...] 16, 2022 2:32 PM documented in this encounter[facility]22 Miscellaneous Notes* Telephone Encounter - Bee Stricklandlinger BLAYNE - 02/05/2022 2:10 PM EDT Patient wanting [...] you. Bee Baer LPN documented in [facility]-2022 Miscellaneous Notes* Telephone Encounter - Eun Alcazar RN - 12/29/2021 9:14 AM EDT Pt. notified. Voices understanding. States she will stop by to product picker a copy when she is back in town sometime. Eun Alcazar RN * Telephone Encounter - Eun Alcazar RN - 12/29/2021 9:13 AM EDT Images from the original note were not included. Selam Abbasi APRN.GENERAL SURGEON You; [facility] [[email or web address]] Cardiology Pool 1 hour ago (7:32 AM) Results for monitors are not able to be released into [employer] because they are from an outside vendor. She can product picker a printed copy or you can mail her one if she would like. Thank you! Message text * Telephone Encounter - Eun Alcazar RN - 12/28/2021 4:28 PM EDT Pt. notified of results. Voices understanding. Requesting results be released to [email or web address]. AMINATA Monge * Telephone Encounter - Eun Alaczar RN - 12/28/2021 4:28 PM EDT ----- Message from Selam Abbasi APRN.GENERAL SURGEON sent at 12/28/2021 3:00 PM EDT ----- Please call patient and notify her of monitor results. A few short runs of SVT noted with a max rate of 150 bpm noted. I would continue metoprolol as is. No significant arrhythmias noted such as NO a-fib, no high burden ventricular ectopies, no heart block. Thank you! documented in this encounter[facility]22 Instructions* Patient Instructions* Sandra Sanchez APRN.CNS - 12/14/2021 11:32 AM EDT Check to see if your insurance covers Tdap vaccine and what location to get the vaccine -usually best covered at your local pharmacy where you get prescriptions filled Consider cutter and paster press clippings visit or neuropsychiatric testing regarding you rmemory documented in this encounter[facility]22 History of Present illness Narrative* Sandra [...] Lymph 1.00 - 4.00 k/uL 1.57 1.49 [place]% % 7.6 5.5 Abs [place] <0.87 k/uL 0.51 0.47 Eosin% % 3.1 [...] as Mediterranean diet. She will consider seeing cutter and paster press clippings or completing neuropsychiatric testing at a later date. - NEUROPSYCHOLOGICAL TESTING CONSULT - CONSULT TO GERIATRICS 6 mo follow up visit MD Sandra Vargas APRN.SEISMOGRAPH COMPUTER Medical Decision Making: Problems: Moderate: New problem with uncertain prognosis Data: Unique test(s) ordered: 3+ Risk: Moderate: Drug management Medical Decision Making Level: 4 - Moderate documented in this encounter[facility]22 History of Present illness Narrative* Eun Alcazar RN - 12/11/2021 10:18 AM EDT EVENT MONITOR DISPOSABLE PATCH INSTRUCTIONS Patient Name: Bekah Sun Clinic Number: [id number] Skin prepped and cleansed with alcohol Patch secured to prepped area Monitor Activated Serial #: [id number] Patient Instructed: 1.) Prescribed order timeframe 2.) Bathing guidelines 3.) Usage of event button and diary documentation 4.) Return of monitor at the end of prescribed order 5.) Call with problems [phone] or [phone]. [phone] Patient expresses a good understanding of instructions [...] VASCULAR INSTITUTE SECTION OF REGIONAL CARDIOLOGY Cardiology ([facility]) [address] [facility] [address] OUTPATIENT VISIT December 11, 2021 9:30 AM [...] 10/28/2019 Colonoscopy ESOPHAGOGASTRODUODENOSCOPY TRANSORAL DIAGNOSTIC 01/08/2012 [facility] EGD PAST SURGICAL HISTORY OF 06/10/2009 [...] injection (DEFINITY) INTRAVENOUS DIRECTED PRN Sandra Sanchez APRN.SEISMOGRAPH COMPUTER sodium chloride 0.9 % (flush) 10 mL (BD POSIFLUSH) 10 mL INTRAVENOUS DIRECTED PRN Sandra Sanchez, NYLON MACHINE OPERATOR.SEISMOGRAPH COMPUTER Review of Systems Constitutional: Negative for chills, [...] 11, 2021, 9:03 AM documented in this encounter[facility] Instructions* Patient Instructions* Selam Abbasi APRN.CNP - 12/11/2021 10:07 AM EDT Heart Disease in Women Is heart disease a problem for women? Heart disease is the leading cause of of [place] women. More women from heart disease than [...] disease. You can get more information from: [place] Heart Apjezpdygog1-855-PVC-USA-1 ( )www.heart.org Developed by [employer]. Published by [employer]. Copyright 2014 [employer] and/or one of its subsidiaries. All rights reserved. documented in this encounterSelect [facility]05-27-2022 Miscellaneous Notes* Telephone Encounter - Anai Altamirano LPN - 10/20/2021 8:48 AM EDT Patient notified of providers message and verbalized understanding * Telephone Encounter - Sandra Sanchez APRN.CNS - 10/20/2021 7:16 AM EDT Please let her know that stress test was negative for ischemia. She should keep her cardiology appointment scheduled in November. documented in this encounterSelect [facility]03-28-2022 Instructions* Patient Instructions* Sandra Sanchez APRN.CNS - 08/21/2021 3:42 PM EDT Continue to take amlodipine /Norvasc once daily Take a dose today Continue to take metoprolol succinate Both of these medications treat blood pressure documented in this encounterSelect [facility]03-28-2022 History of Present illness Narrative* Sandra Sanchez APRN.SEISMOGRAPH COMPUTER - 08/21/2021 2:40 PM EDT SUBJECTIVE: ADVANCE [...] had headache Notes she was seen at [facility], noted that her potassium. [facility] report of headache, chest pain, dyspnea, peripheral [...] Abs Lymph 1.00 - 4.00 k/uL 1.57 [place]% % 7.6 Abs [place] <0.87 k/uL 0.51 Eosin% % 3.1 Abs [...] showed normal sinus rhythm with occasional PVC Routing Equipment Tender review c/w AWMI age undetermined- refer to [...] mo follow up visit MD Sandra Vargas APRN.SEISMOGRAPH COMPUTER Medical Decision Making: Problems: Moderate: New problem with uncertain prognosis Data: Unique test(s) ordered: 3+ Risk: Moderate: Drug management Medical Decision Making Level: 4 - Moderate documented in this encounter[facility] History of Past illness Narrative* Problem Noted Date Resolved Date CKD (chronic kidney disease) stage 3, GFR 30-59 ml/min 06/05/2018 02/03/2020 Hypokalemia 02/27/2010 04/01/2015 Pelvic mass 06/01/2009 04/01/2015 Overview: May 31 2009 f/u MRI for pelvic mass from u/s. 3.8 x 2.5 x 3.8 cm complex cystic mass. Hx hysterectomy with bilateral ovaries removed. Sent to [facility]. Ca 125 ordered. Cervicalgia 09/09/2008 04/01/2015 documented as of this encounter (statuses as of 08/21/2021) [facility] Past illness Narrative* Problem Noted Date Resolved Date CKD (chronic kidney disease) stage 3, GFR 30-59 ml/min 06/05/2018 02/03/2020 Hypokalemia 02/27/2010 04/01/2015 Pelvic mass 06/01/2009 04/01/2015 Overview: May 31 2009 f/u MRI for pelvic mass from u/s. 3.8 x 2.5 x 3.8 cm complex cystic mass. Hx hysterectomy with bilateral ovaries removed. Sent to [facility]. Ca 125 ordered. Cervicalgia 09/09/2008 04/01/2015 documented as of this encounter (statuses as of 10/20/2021) [facility] of Past illness Narrative* Problem Noted Date Resolved Date CKD (chronic kidney disease) stage 3, GFR 30-59 ml/min 06/05/2018 02/03/2020 Hypokalemia 02/27/2010 04/01/2015 Pelvic mass 06/01/2009 04/01/2015 Overview: May 31 2009 f/u MRI for pelvic mass from u/s. 3.8 x 2.5 x 3.8 cm complex cystic mass. Hx hysterectomy with bilateral ovaries removed. Sent to [facility]. Ca 125 ordered. Cervicalgia 09/09/2008 04/01/2015 documented as of this encounter (statuses as of 12/11/2021) [facility] of Past illness Narrative* Problem Noted Date Resolved Date CKD (chronic kidney disease) stage 3, GFR 30-59 ml/min 06/05/2018 02/03/2020 Hypokalemia 02/27/2010 04/01/2015 Pelvic mass 06/01/2009 04/01/2015 Overview: May 31 2009 f/u MRI for pelvic mass from u/s. 3.8 x 2.5 x 3.8 cm complex cystic mass. Hx hysterectomy with bilateral ovaries removed. Sent to [facility]. Ca 125 ordered. Cervicalgia 09/09/2008 04/01/2015 documented as of this encounter (statuses as of 12/14/2021) [facility] of [facility] illness Narrative* Problem Noted Date Resolved Date CKD (chronic kidney disease) stage 3, GFR 30-59 ml/min 06/05/2018 02/03/2020 Hypokalemia 02/27/2010 04/01/2015 Pelvic mass 06/01/2009 04/01/2015 Overview: May 31 2009 f/u MRI for pelvic mass from u/s. 3.8 x 2.5 x 3.8 cm complex cystic mass. Hx hysterectomy with bilateral ovaries removed. Sent to [facility]. Ca 125 ordered. Cervicalgia 09/09/2008 04/01/2015 documented as of this encounter (statuses as of 12/29/2021) [facility] of [facility] Narrative* Problem Noted Date Resolved Date CKD (chronic kidney disease) stage 3, GFR 30-59 ml/min 06/05/2018 02/03/2020 Hypokalemia 02/27/2010 04/01/2015 Pelvic mass 06/01/2009 04/01/2015 Overview: May 31 2009 f/u MRI for pelvic mass from u/s. 3.8 x 2.5 x 3.8 cm complex cystic mass. Hx hysterectomy with bilateral ovaries removed. Sent to [facility]. Ca 125 ordered. Cervicalgia 09/09/2008 04/01/2015 documented as of this encounter (statuses as of 02/06/2022) [facility] Narrative* Problem Noted Date Resolved Date CKD (chronic kidney disease) stage 3, GFR 30-59 ml/min 06/05/2018 02/03/2020 Hypokalemia 02/27/2010 04/01/2015 Pelvic mass 06/01/2009 04/01/2015 Overview: May 31 2009 f/u MRI for pelvic mass from u/s. 3.8 x 2.5 x 3.8 cm complex cystic mass. Hx hysterectomy with bilateral ovaries removed. Sent to [facility]. Ca 125 ordered. Cervicalgia 09/09/2008 04/01/2015 documented as of this encounter (statuses as of 07/16/2022) [facility] illness Narrative* Problem Noted Date Resolved Date CKD (chronic kidney disease) stage 3, GFR 30-59 ml/min 06/05/2018 02/03/2020 Hypokalemia 02/27/2010 04/01/2015 Pelvic mass 06/01/2009 04/01/2015 Overview: May 31 2009 f/u MRI for pelvic mass from u/s. 3.8 x 2.5 x 3.8 cm complex cystic mass. Hx hysterectomy with bilateral ovaries removed. Sent to [facility]. Ca 125 ordered. Cervicalgia 09/09/2008 04/01/2015 documented as of this encounter (statuses as of 07/19/2022) [facility] [facility] History of Past illness Narrative* Problem Noted Date Resolved Date CKD (chronic kidney disease) stage 3, GFR 30-59 ml/min 06/05/2018 02/03/2020 Hypokalemia 02/27/2010 04/01/2015 Pelvic mass 06/01/2009 04/01/2015 Overview: May 31 2009 f/u MRI for pelvic mass from u/s. 3.8 x 2.5 x 3.8 cm complex cystic mass. Hx hysterectomy with bilateral ovaries removed. Sent to [facility]. Ca 125 ordered. Cervicalgia 09/09/2008 04/01/2015 documented as of this encounter (statuses as of 09/03/2022) [facility]01-[facility] History of Past illness Narrative* Problem Noted Date Resolved Date CKD (chronic kidney disease) stage 3, GFR 30-59 ml/min 06/05/2018 02/03/2020 Hypokalemia 02/27/2010 04/01/2015 Pelvic mass 06/01/2009 04/01/2015 Overview: May 31 2009 f/u MRI for pelvic mass from u/s. 3.8 x 2.5 x 3.8 cm complex cystic mass. Hx hysterectomy with bilateral ovaries removed. Sent to [facility]. Ca 125 ordered. Cervicalgia 09/09/2008 04/01/2015 documented as of this encounter (statuses as of 09/07/2022) [facility]01-[facility] History of Past illness Narrative* Problem Noted Date Resolved Date CKD (chronic kidney disease) stage 3, GFR 30-59 ml/min 06/05/2018 02/03/2020 Hypokalemia 02/27/2010 04/01/2015 Pelvic mass 06/01/2009 04/01/2015 Overview: May 31 2009 f/u MRI for pelvic mass from u/s. 3.8 x 2.5 x 3.8 cm complex cystic mass. Hx hysterectomy with bilateral ovaries removed. Sent to [facility]. Ca 125 ordered. Cervicalgia 09/09/2008 04/01/2015 documented as of this encounter (statuses as of 09/10/2022) [facility]01-[facility] History of Past illness Narrative* Problem Noted Date Resolved Date CKD (chronic kidney disease) stage 3, GFR 30-59 ml/min 06/05/2018 02/03/2020 Hypokalemia 02/27/2010 04/01/2015 Pelvic mass 06/01/2009 04/01/2015 Overview: May 31 2009 f/u MRI for pelvic mass from u/s. 3.8 x 2.5 x 3.8 cm complex cystic mass. Hx hysterectomy with bilateral ovaries removed. Sent to [facility]. Ca 125 ordered. Cervicalgia 09/09/2008 04/01/2015 documented as of this encounter (statuses as of 10/05/2022) [facility]01[facility] History of Past illness Narrative* Problem Noted Date Diagnosed Date Resolved Date CKD (chronic kidney disease) stage 3, GFR 30-59 ml/min 06/05/2018 02/03/2020 Hypokalemia 02/27/2010 04/01/2015 Pelvic mass 06/01/2009 04/01/2015 Overview: May 31 2009 f/u MRI for pelvic mass from u/s. 3.8 x 2.5 x 3.8 cm complex cystic mass. Hx hysterectomy with bilateral ovaries removed. Sent to [facility]. Ca 125 ordered. Cervicalgia 09/09/2008 04/01/2015 documented as of this encounter (statuses as of 02/01/2023) [facility]01[facility] History of Past illness Narrative* Problem Noted Date Diagnosed Date Resolved Date CKD (chronic kidney disease) stage 3, GFR 30-59 ml/min 06/05/2018 02/03/2020 Hypokalemia 02/27/2010 04/01/2015 Pelvic mass 06/01/2009 04/01/2015 Overview: May 31 2009 f/u MRI for pelvic mass from u/s. 3.8 x 2.5 x 3.8 cm complex cystic mass. Hx hysterectomy with bilateral ovaries removed. Sent to [facility]. Ca 125 ordered. Cervicalgia 09/09/2008 04/01/2015 documented as of this encounter (statuses as of 03/02/2023) [facility]01[facility] History of Past illness Narrative* Problem Noted Date Diagnosed Date Resolved Date CKD (chronic kidney disease) stage 3, GFR 30-59 ml/min 06/05/2018 02/03/2020 Hypokalemia 02/27/2010 04/01/2015 Pelvic mass 06/01/2009 04/01/2015 Overview: May 31 2009 f/u MRI for pelvic mass from u/s. 3.8 x 2.5 x 3.8 cm complex cystic mass. Hx hysterectomy with bilateral ovaries removed. Sent to [facility]. Ca 125 ordered. Cervicalgia 09/09/2008 04/01/2015 documented as of this encounter (statuses as of 03/31/2023) [facility]01[facility] History of Past illness Narrative* Problem Noted Date Diagnosed Date Resolved Date CKD (chronic kidney disease) stage 3, GFR 30-59 ml/min 06/05/2018 02/03/2020 Hypokalemia 02/27/2010 04/01/2015 Pelvic mass 06/01/2009 04/01/2015 Overview: May 31 2009 f/u MRI for pelvic mass from u/s. 3.8 x 2.5 x 3.8 cm complex cystic mass. Hx hysterectomy with bilateral ovaries removed. Sent to [facility]. Ca 125 ordered. Cervicalgia 09/09/2008 04/01/2015 documented as of this encounter (statuses as of 03/31/2023) [facility]01-[facility] History of Past illness Narrative* Problem Noted Date Diagnosed Date Resolved Date CKD (chronic kidney disease) stage 3, GFR 30-59 ml/min 06/05/2018 02/03/2020 Hypokalemia 02/27/2010 04/01/2015 Pelvic mass 06/01/2009 04/01/2015 Overview: May 31 2009 f/u MRI for pelvic mass from u/s. 3.8 x 2.5 x 3.8 cm complex cystic mass. Hx hysterectomy with bilateral ovaries removed. Sent to [facility]. Ca 125 ordered. Cervicalgia 09/09/2008 04/01/2015 documented as of this encounter (statuses as of 05/03/2023) [facility]01-10[facility] History of Past illness Narrative* Problem Noted Date Diagnosed Date Resolved Date CKD (chronic kidney disease) stage 3, GFR 30-59 ml/min 06/05/2018 02/03/2020 Hypokalemia 02/27/2010 04/01/2015 Pelvic mass 06/01/2009 04/01/2015 Overview: May 31 2009 f/u MRI for pelvic mass from u/s. 3.8 x 2.5 x 3.8 cm complex cystic mass. Hx hysterectomy with bilateral ovaries removed. Sent to [facility]. Ca 125 ordered. Cervicalgia 09/09/2008 04/01/2015 documented as of this encounter (statuses as of 07/26/2023) [facility]01-[facility] History of Past illness Narrative* Problem Noted Date Diagnosed Date Resolved Date CKD (chronic kidney disease) stage 3, GFR 30-59 ml/min 06/05/2018 02/03/2020 Hypokalemia 02/27/2010 04/01/2015 Pelvic mass 06/01/2009 04/01/2015 Overview: May 31 2009 f/u MRI for pelvic mass from u/s. 3.8 x 2.5 x 3.8 cm complex cystic mass. Hx hysterectomy with bilateral ovaries removed. Sent to [facility]. Ca 125 ordered. Cervicalgia 09/09/2008 04/01/2015 documented as of this encounter (statuses as of 07/29/2023) [facility] Future [facility]ments Appointment Date:09/12/2021 10:00:00 AM Scheduled Provider:ALYSSA LUGO DO Location:[facility] Appointment Type: Wellness Medicare [facility] Evaluation note* Diagnosis Palpitations- Primary HTN, goal below 140/90 Unspecified essential hypertension Chest pain, unspecified type Essential hypertension with goal blood pressure less than 140/90 [facility]* Diagnosis Chronic diastolic CHF (congestive heart failure) (HCC)- Primary Chronic diastolic heart failure Palpitations HTN, goal below 140/90 Unspecified essential hypertension Chest pain, unspecified type Essential hypertension with goal blood pressure less than 140/90 Abnormal stress test Other nonspecific abnormal cardiovascular system function study [facility] Diagnosis HTN, goal below 140/90- Primary Unspecified essential hypertension Encounter for immunization Need for other specified prophylactic vaccination against single bacterial disease Palpitations Memory problem Memory loss [facility] Diagnosis Migraine without aura and without status migrainosus, not intractable Migraine without aura, without mention of intractable migraine without mention of status migrainosus Hyperlipidemia, unspecified hyperlipidemia type Essential hypertension with goal blood pressure less than 140/90 [facility] Diagnosis Encounter for screening mammogram for breast cancer [facility] Diagnosis Essential hypertension with goal blood pressure less than 140/90- Primary Hyperlipidemia, unspecified hyperlipidemia type Asymptomatic postmenopausal status Hypercalcemia Memory deficit Memory loss Encounter for long-term current use of medication [facility]* Diagnosis Age-related osteoporosis without current pathological fracture- Primary Senile osteoporosis [facility] Diagnosis Essential hypertension with goal blood pressure less than 140/90- Primary documented in this encounter [facility] note* Diagnosis Encounter for screening mammogram for breast cancer [facility] Diagnosis Asymptomatic postmenopausal status [facility] Diagnosis Memory difficulties- Primary Memory loss documented in this encounter [facility] note* Diagnosis Cognitive impairment- Primary Unspecified persistent mental disorders due to conditions classified elsewhere Memory difficulties Memory loss Adverse effect of anticholinergic Migraine without aura and without status migrainosus, not intractable Migraine without aura, without mention of intractable migraine without mention of status migrainosus [facility]* Diagnosis Acute non-recurrent maxillary sinusitis [facility] Diagnosis Hyperlipidemia, unspecified hyperlipidemia type- Primary HTN, goal below 140/90 Unspecified essential hypertension Encounter for long-term current use of medication [facility] this [facility]* Diagnosis Cognitive impairment Unspecified persistent mental disorders due to conditions classified elsewhere Memory difficulties Memory loss [facility]* Diagnosis Chronic diastolic CHF (congestive heart failure) (HCC)- Primary Chronic diastolic heart failure Mixed hyperlipidemia Primary hypertension Unspecified essential hypertension [facility] Diagnosis Essential hypertension with goal blood pressure less than 140/90- Primary HTN, goal below 140/90 Unspecified essential hypertension Memory difficulties Memory loss Hyperlipidemia, unspecified hyperlipidemia type Chronic diastolic CHF (congestive heart failure) (HCC) Chronic diastolic heart failure Screening for depression Encounter for screening examination for other mental health and behavioral disorders Palpitations Ankle swelling, unspecified laterality [facility]* Diagnosis Mild cognitive impairment with memory loss- Primary Mild cognitive impairment, so stated Neurodegenerative cognitive impairment (HCC) Cerebral degeneration, unspecified Primary hypertension Unspecified essential hypertension [facility] Diagnosis Acute left-sided low back pain without sciatica- Primary Essential (primary) hypertension Unspecified essential hypertension Muscle spasm of back Other symptoms referable to back documented [facility] this [facility]* Diagnosis Acute left-sided low back pain without sciatica documented [facility]* Diagnosis Closed wedge compression fracture of T9 vertebra, initial encounter ([facility])- Primary Age-related osteoporosis without current pathological fracture Senile osteoporosis Asymptomatic postmenopausal state Memory difficulties Memory loss Essential hypertension with goal blood pressure less than 140/90 Hyperlipidemia, unspecified hyperlipidemia type Palpitations HTN, goal below 140/90 Unspecified essential hypertension [facility]* Diagnosis Asymptomatic postmenopausal state [facility]* Diagnosis Mild cognitive impairment with memory loss- Primary Mild cognitive impairment, so stated Neurodegenerative cognitive impairment Cerebral degeneration, unspecified Primary hypertension Unspecified essential hypertension Mixed hyperlipidemia Chronic diastolic CHF (congestive heart failure) ([facility]) Chronic diastolic heart failure Screening-pulmonary TB Screening examination for pulmonary tuberculosis documented in this encounter [facility] note* Diagnosis Neurodegenerative dementia without behavioral disturbance, psychotic disturbance, mood disturbance, or anxiety ([facility])- Primary Primary degenerative dementia of Alzheimer type (HCC) Alzheimer's disease Acute cognitive decline Cognitive communication deficit Underweight (BMI < 18.5) Adjustment disorder with anxious mood Adjustment disorder with anxiety Primary hypertension Unspecified essential hypertension documented in this encounter [facility] course Narrative No data available for this section [facility] Discharge instructions No data available for this section [facility] Reason for referral (narrative)* Diagnostic Procedure Only (Routine) - Authorized Specialty Diagnoses / Procedures Referred By Damirac t Referred To Contact [facility] Diagnoses Encounter for screening mammogram for breast cancer Procedures LORI SCREENING SCREENING MAMMOGRAPHY BI 2-VIEW BREAST INC CAD Paulina Ardon MD [address] [place] [address] [facility] [address] [place] [address] Referral ID Status Reason Start Date Expiration Date Visits Requested Visits Authorized [id number] Authorized Auto-Generat ed Referral 07/11/2022 08/10/2023 1 1 [facility] for referral (narrative)* Diagnostic Procedure Only (Routine) - Closed Specialty Diagnoses / Procedures Referred By Godfrey odonnell Referred To Contact [facility] Diagnoses Encounter for screening mammogram for breast cancer Procedures LORI SCREENING SCREENING MAMMOGRAPHY BI 2-VIEW BREAST INC Paulina Rocha MD [address] [place] [address] [facility] [address] [place] [address] Referral ID Status Reason Start Date Expiration Date V isits Requested Visits Authorized [id number] Closed Auto-Generate d Referral 07/11/2022 08/10/2023 1 1 [facility] for visit Narrative* Diagnostic Procedure Only (Routine) - Closed Specialty Diagnoses / Procedures Referred By Godfrey odonnell Referred To Contact [facility] Diagnoses Encounter for screening mammogram for breast cancer Procedures LORI SCREENING SCREENING MAMMOGRAPHY BI 2-VIEW BREAST INC Paulina Rocha MD [address] [place] [address] [facility] [address] [place] [phone] Referral ID Status Reason Start Date Expiration Date V isits Requested Visits Authorized [id number] Closed Auto-Generate d Referral 07/11/2022 08/10/2023 1 1 [facility] for visit Narrative* Diagnostic Procedure Only (Routine) - Closed Specialty Diagnoses / Procedures Referred By Godfrey odonnell Referred To Contact XR IMAGING Diagnoses Left-sided low back pain without sciatica, unspecified chronicity Procedures XR LUMBAR GENERAL 3V AP/LAT/L5-S1 RADEX SPINE LUMBOSACRAL 2/3 VIEWS Paulina Ardon MD [address] [place] [id number] Phone: tel: fax: [place] [address] Referral ID Status Reason Start Date Expiration Date V isits Requested Visits Authorized [id number] Closed Auto-Generate d Referral 08/05/2024 09/04/2025 [facility] Diagnostic Procedure Only (Routine) - Closed Specialty Diagnoses / Procedures Referred By Contac t Referred To Contact XR IMAGING Diagnoses Asymptomatic postmenopausal state Procedures DXA-AXIAL SKELETON DXA BONE DENSITY STUDY SITES AXIAL Paulina Munoz MD [address] [place] [address] Phone: tel: fax: [place] [id number] Referral ID Status Reason Start Date Expiration Date V isits Requested Visits Authorized [id number] Closed Auto-Generate d Referral 08/17/2024 09/16/2025 1 1 [facility] Summary Purpose Family History No Family History Records FoundNo Family History Records FoundNo Family History Records FoundNo Family History Records Found Advance Directives No Advanced Directives Records FoundDocuments on File Type Date Recorded Patient [employer]form[employer] Mdm Developer Expl anation Advance Directive(s) 10/28/2019 8:42 AM Advance Directive(s) 10/28/2019 8:39 AM Advance Directive(s) 10/14/2019 12:28 PM Advance Directive(s) 07/30/2019 10:29 AM Documents on File Type Date Recorded Patient [employer]form[employer] 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 Expl anation Advance Directive(s) 10/28/2019 8:42 AM Advance Directive(s) 10/28/2019 8:39 AM Advance Directive(s) 10/14/2019 12:28 PM Advance Directive(s) 07/30/2019 10:29 AM Documents on File Type Date Recorded Patient [employer] 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 Developer Expl anation Advance Directive(s) 10/28/2019 8:39 AM Documents on File Type Date Recorded Patient [employer]form[employer] Mdm Developer Expl anation Advance Directive(s) 10/28/2019 8:39 AM Reason for Referral Specialty Diagnoses / Procedures Referred By Contac t Referred To Contact [facility] Diagnoses Mild cognitive impairment with memory loss Procedures CONSULT TO SPEECH THERAPY OFFICE/OUTPATIENT NEW HIGH MDM 60 MINUTES Blade Lyman DO [address] [facility] [address] [place] [address] [facility] [place] [address] [place] [address] Referral ID Status Reason Start Date Expiration Date Visits Requested Visits Authorized [id number] Pending Review Auto-Generat ed Referral 02/26/2024 02/25/2025 1 1 Specialty Diagnoses / Procedures Referred By Contac t Referred To Contact [facility] Diagnoses Cognitive impairment Memory difficulties Procedures MRI 3D POST PROCESSING 3D RENDERING W/INTERP&POSTPROC DIFF WORK STATION Blade Lyman DO [address] [facility] [address] [place] [address] [place] [address] Referral ID Status Reason Start Date Expiration Date Visits Requested Visits Authorized [id number] Pending Review Auto-Generat ed Referral 07/26/2023 08/24/2024 1 1 Specialty Diagnoses / Procedures Referred By Contac t Referred To Contact [facility] Diagnoses Cognitive impairment Memory difficulties Cognitive impairment, mild, so stated Procedures MRI BRAIN WO IVCON MRI BRAIN BRAIN STEM W/O CONTRAST MATERIAL Blade Lyman DO [address] [facility] [address] [place] [address] [place] [address] Referral ID Status Reason Start Date Expiration Date Visits Requested Visits Authorized [id number] Pending Review Auto-Generat ed Referral 07/26/2023 08/24/2024 1 1 Specialty Diagnoses / Procedures Referred By Contac t Referred To Contact Gerontology Diagnoses Memory difficulties Procedures CONSULT TO GERIATRICS OFFICE/OUTPATIENT [facility] 60-74 MINUTES Sandra Sanchez, NYLON MACHINE OPERATOR.SEISMOGRAPH COMPUTER [address] [place] [address] Referral ID Status Reason Start Date Expiration Date Visits Requested Visits Authorized [id number] Pending Review PCP Requested Referral 2023 2024 1 1 Specialty Diagnoses / Procedures Referred By Contac t Referred To Contact Gerontology Diagnoses Memory problem Procedures CONSULT TO GERIATRICS OFFICE/OUTPATIENT [facility] 60-74 MINUTES Sandra Sanchez, NYLON MACHINE OPERATOR.SEISMOGRAPH COMPUTER [address] [place] [address] Referral ID Status Reason Start Date Expiration Date Visits Requested Visits Authorized [id number] Pending Review PCP Requested Referral 12/14/2021 12/14/2022 1 1 Specialty Diagnoses / Procedures Referred By Contac t Referred To Contact Cardiology Diagnoses Palpitations HTN, goal below 140/90 Chest pain, unspecified type Essential hypertension with goal blood pressure less than 140/90 Procedures CONSULT TO CARDIOLOGY OFFICE/OUTPATIENT NEW HIGH MDM 60-74 MINUTES Juancho Sanchezi, NYLON MACHINE OPERATOR.SEISMOGRAPH COMPUTER [address] [place] [address] Referral ID Status Reason Start Date Expiration Date Visits Requested Visits Authorized [id number] Pending Review PCP Requested Referral 08/21/2021 08/21/2022 1 1 Specialty Diagnoses / Procedures Referred By Contac t Referred To Contact [facility] Diagnoses Palpitations HTN, goal below 140/90 Chest pain, unspecified type Essential hypertension with goal blood pressure less than 140/90 Procedures STRESS ECHO TREADMILL ECHO TTHRC R-T 2D W/WO M-MODE COMPLETE REST&ST Sandra Sanchez, NYLON MACHINE OPERATOR.SEISMOGRAPH COMPUTER [address] [place] [address] [facility] [place] [address] [place] [address] Referral ID Status Reason Start Date Expiration Date Visits Requested Visits Authorized [id number] Pending Review Auto-Generat ed Referral 08/21/2021 08/21/2022 1 1 Additional Source Comments INFORMATION SOURCE (unrecogn ized section and content) DATE CREATED AUTHOR 07/27/2021 [facility] ([place]) DATE CREATED AUTHOR AUTHOR'S ORGANIZ ATION 08/17/2024 [facility] DATE CREATED AUTHOR AUTHOR'S ORGANIZ ATION 12/05/2024 [facility] DATE CREATED AUTHOR AUTHOR'S ORGANIZ ATION 12/09/[address] [facility] Source Comments (unrecognize d section and content) In the event this informatio n is protected by the Federal Confidentiality of Alcohol and Drug Abuse Patient Records regulations: The Federal rules restrict any use of the information to criminally investigate or prosecute any alcohol or drug abuse patient.[facility] the event this information is protected by the Federal Confidentiality of Alcohol and Drug Abuse Patient Records regulations: The Federal rules restrict any use of the information to criminally investigate or prosecute any alcohol or drug abuse patient.[facility] the event this information is protected by the Federal Confidentiality of Alcohol and Drug Abuse Patient Records regulations: The Federal rules restrict any use of the information to criminally investigate or prosecute any alcohol or drug abuse patient.[facility] the event this information is protected by the Federal Confidentiality of Alcohol and Drug Abuse Patient Records regulations: The Federal rules restrict any use of the information to criminally investigate or prosecute any alcohol or drug abuse patient.[facility] the event this information is protected by the Federal Confidentiality of Alcohol and Drug Abuse Patient Records regulations: The Federal rules restrict any use of the information to criminally investigate or prosecute any alcohol or drug abuse patient.[facility] the event this information is protected by the Federal Confidentiality of Alcohol and Drug Abuse Patient Records regulations: The Federal rules restrict any use of the information to criminally investigate or prosecute any alcohol or drug abuse patient.[facility] the event this information is protected by the Federal Confidentiality of Alcohol and Drug Abuse Patient Records regulations: The Federal rules restrict any use of the information to criminally investigate or prosecute any alcohol or drug abuse patient.[facility] the event this information is protected by the Federal Confidentiality of Alcohol and Drug Abuse Patient Records regulations: The Federal rules restrict any use of the information to criminally investigate or prosecute any alcohol or drug abuse patient.[facility] HospitalIn the event this information is protected by the Federal Confidentiality of Alcohol and Drug Abuse Patient Records regulations: The Federal rules restrict any use of the information to criminally investigate or prosecute any alcohol or drug abuse patient.[facility] HospitalIn the event this information is protected by the Federal Confidentiality of Alcohol and Drug Abuse Patient Records regulations: The Federal rules restrict any use of the information to criminally investigate or prosecute any alcohol or drug abuse patient.[facility] HospitalIn the event this information is protected by the Federal Confidentiality of Alcohol and Drug Abuse Patient Records regulations: The Federal rules restrict any use of the information to criminally investigate or prosecute any alcohol or drug abuse patient.[facility] HospitalIn the event this information is protected by the Federal Confidentiality of Alcohol and Drug Abuse Patient Records regulations: The Federal rules restrict any use of the information to criminally investigate or prosecute any alcohol or drug abuse patient.[facility] HospitalIn the event this information is protected by the Federal Confidentiality of Alcohol and Drug Abuse Patient Records regulations: The Federal rules restrict any use of the information to criminally investigate or prosecute any alcohol or drug abuse patient.[facility] HospitalIn the event this information is protected by the Federal Confidentiality of Alcohol and Drug Abuse Patient Records regulations: The Federal rules restrict any use of the information to criminally investigate or prosecute any alcohol or drug abuse patient.[facility] HospitalIn the event this information is protected by the Federal Confidentiality of Alcohol and Drug Abuse Patient Records regulations: The Federal rules restrict any use of the information to criminally investigate or prosecute any alcohol or drug abuse patient.[facility] HospitalIn the event this information is protected by the Federal Confidentiality of Alcohol and Drug Abuse Patient Records regulations: The Federal rules restrict any use of the information to criminally investigate or prosecute any alcohol or drug abuse patient.[facility] HospitalIn the event this information is protected by the Federal Confidentiality of Alcohol and Drug Abuse Patient Records regulations: The Federal rules restrict any use of the information to criminally investigate or prosecute any alcohol or drug abuse patient.[facility] HospitalIn the event this information is protected by the Federal Confidentiality of Alcohol and Drug Abuse Patient Records regulations: The Federal rules restrict any use of the information to criminally investigate or prosecute any alcohol or drug abuse patient.[facility] HospitalIn the event this information is protected by the Federal Confidentiality of Alcohol and Drug Abuse Patient Records regulations: The Federal rules restrict any use of the information to criminally investigate or prosecute any alcohol or drug abuse patient.[facility] HospitalIn the event this information is protected by the Federal Confidentiality of Alcohol and Drug Abuse Patient Records regulations: The Federal rules restrict any use of the information to criminally investigate or prosecute any alcohol or drug abuse patient.[facility] HospitalIn the event this information is protected by the Federal Confidentiality of Alcohol and Drug Abuse Patient Records regulations: The Federal rules restrict any use of the information to criminally investigate or prosecute any alcohol or drug abuse patient.[facility] HospitalIn the event this information is protected by the Federal Confidentiality of Alcohol and Drug Abuse Patient Records regulations: The Federal rules restrict any use of the information to criminally investigate or prosecute any alcohol or drug abuse patient.[facility] HospitalIn the event this information is protected by the Federal Confidentiality of Alcohol and Drug Abuse Patient Records regulations: The Federal rules restrict any use of the information to criminally investigate or prosecute any alcohol or drug abuse patient.[facility] HospitalIn the event this information is protected by the Federal Confidentiality of Alcohol and Drug Abuse Patient Records regulations: The Federal rules restrict any use of the information to criminally investigate or prosecute any alcohol or drug abuse patient.[facility] HospitalIn the event this information is protected by the Federal Confidentiality of Alcohol and Drug Abuse Patient Records regulations: The Federal rules restrict any use of the information to criminally investigate or prosecute any alcohol or drug abuse patient.[facility] HospitalIn the event this information is protected by the Federal Confidentiality of Alcohol and Drug Abuse Patient Records regulations: The Federal rules restrict any use of the information to criminally investigate or prosecute any alcohol or drug abuse patient.[facility] HospitalIn the event this information is protected by the Federal Confidentiality of Alcohol and Drug Abuse Patient Records regulations: The Federal rules restrict any use of the information to criminally investigate or prosecute any alcohol or drug abuse patient.[facility] HospitalIn the event this information is protected by the Federal Confidentiality of Alcohol and Drug Abuse Patient Records regulations: The Federal rules restrict any use of the information to criminally investigate or prosecute any alcohol or drug abuse patient.[facility] HospitalIn the event this information is protected by the Federal Confidentiality of Alcohol and Drug Abuse Patient Records regulations: The Federal rules restrict any use of the information to criminally investigate or prosecute any alcohol or drug abuse patient.[facility] HospitalIn the event this information is protected by the Federal Confidentiality of Alcohol and Drug Abuse Patient Records regulations: The Federal rules restrict any use of the information to criminally investigate or prosecute any alcohol or drug abuse patient.[facility] HospitalIn the event this information is protected by the Federal Confidentiality of Alcohol and Drug Abuse Patient Records regulations: The Federal rules restrict any use of the information to criminally investigate or prosecute any alcohol or drug abuse patient.[facility] HospitalIn the event this information is protected by the Federal Confidentiality of Alcohol and Drug Abuse Patient Records regulations: The Federal rules restrict any use of the information to criminally investigate or prosecute any alcohol or drug abuse patient.[facility] HospitalIn the event this information is protected by the Federal Confidentiality of Alcohol and Drug Abuse Patient Records regulations: The Federal rules restrict any use of the information to criminally investigate or prosecute any alcohol or drug abuse patient.[facility] HospitalIn the event this information is protected by the Federal Confidentiality of Alcohol and Drug Abuse Patient Records regulations: The Federal rules restrict any use of the information to criminally investigate or prosecute any alcohol or drug abuse patient.[facility] HospitalIn the event this information is protected by the Federal Confidentiality of Alcohol and Drug Abuse Patient Records regulations: The Federal rules restrict any use of the information to criminally investigate or prosecute any alcohol or drug abuse patient.[facility] HospitalIn the event this information is protected by the Federal Confidentiality of Alcohol and Drug Abuse Patient Records regulations: The Federal rules restrict any use of the information to criminally investigate or prosecute any alcohol or drug abuse patient.[facility] HospitalIn the event this information is protected by the Federal Confidentiality of Alcohol and Drug Abuse Patient Records regulations: The Federal rules restrict any use of the information to criminally investigate or prosecute any alcohol or drug abuse patient.[facility] Reason for Visit (unrecogniz ed section and content) Reason Comments Follow Up Reason Comments Results stress test Reason Comments Hypertension Palpitations Specialty Diagnoses / Procedures Referred By Contac t Referred To Contact Cardiology Diagnoses Palpitations HTN, goal below 140/90 Chest pain, unspecified type Essential hypertension with goal blood pressure less than 140/90 Procedures CONSULT TO CARDIOLOGY OFFICE/OUTPATIENT [facility] 60-74 MINUTES Sandra Sanchez, NYLON MACHINE OPERATOR.SEISMOGRAPH COMPUTER [address] [place] [address] Referral ID Status Reason Start Date Expiration Date Visits Requested Visits Authorized [id number] Pending Review PCP Requested Referral 08/21/2021 08/21/2022 [...] Memory difficulties Procedures CONSULT TO GERIATRICS OFFICE/OUTPATIENT [facility] 60-74 MINUTES Sandra Sanchez, NYLON MACHINE OPERATOR.SEISMOGRAPH COMPUTER [address] [place] [address] Maricel [facility] [address] [facility] [address] [place] [address] Referral ID Status Reason Start Date Expiration Date Visits Requested Visits Authorized [id number] Authorized PCP Requested Referral 2023 2024 2 2 Reason Comments Med Change Request Reason Comments 6 mo follow up Specialty Diagnoses / Procedures Referred By Godfrey t Referred To Contact MR IMAGING Diagnoses Cognitive impairment Memory difficulties Cognitive impairment, mild, so stated Procedures MRI BRAIN WO IVCON MRI BRAIN BRAIN STEM W/O CONTRAST MATERIAL Blade Lyman DO [address] [place] [address] [place] [address] Referral ID Status Reason Start Date Expiration Date V isits Requested Visits Authorized [id number] Closed Auto-Generate d Referral 07/26/2023 08/24/2024 1 [...] Care Teams (unrecognized sec tion and content) Biometrics Technician Relationship Specialty Start Date End Date Paulina Ardon MD [facility] [place] [address] PCP - General 03/17/02 Biometrics Technician Relationship Specialty Start Date End Date Paulina Ardon MD [address] [place] [address] PCP - General 03/17/02 Biometrics Technician Relationship Specialty Start Date End Date Paulina Ardon MD [facility] [place] [address] PCP - General 03/17/02 Biometrics Technician Relationship Specialty Start Date End Date Paulina Ardon MD [address] [place] [address] PCP - General 03/17/02 Biometrics Technician Relationship Specialty Start Date End Date Paulina Ardon MD [address] [facility] [place] [address] PCP - General 03/17/02 Biometrics Technician Relationship Specialty Start Date End Date Paulina Ardon MD [address] [facility] [place] [address] PCP - General 03/17/02 Biometrics Technician Relationship Specialty Start Date End Date Paulina Ardon MD [address] [facility] [place] [address] PCP - General 03/17/02 Biometrics Technician Relationship Specialty Start Date End Date Paulina Ardon MD [address] [place] [address], [place] [address] PCP - General 03/17/02 Biometrics Technician Relationship Specialty Start Date End Date Paulina Ardon MD [address] [place] [address], [place] [address] PCP - General 03/17/02 Biometrics Technician Relationship Specialty Start Date End Date Paulina Ardon MD [address] [place] [address], [place] [address] PCP - General 03/17/02 Biometrics Technician Relationship Specialty Start Date End Date Paulina Ardon MD [address] [place] [address] [place] [address] PCP - General 03/17/02 Biometrics Technician Relationship Specialty Start Date End Date Paulina Ardon MD [address] [place] [address] [place] [address] PCP - General 03/17/02 Biometrics Technician Relationship Specialty Start Date End Date Paulina Ardon MD [address] [place] [address] [place] [address] PCP - General 03/17/02 Biometrics Technician Relationship Specialty Start Date End Date Paulina Ardon MD [address] [place] [address] PCP - General 03/17/02 Biometrics Technician Relationship Specialty Start Date End Date Paulina Ardon MD [address] [place] [address] PCP - General 03/17/02 Biometrics Technician Relationship Specialty Start Date End Date Paluina Ardon MD [address] [place] [address] PCP - General 03/17/02 Biometrics Technician Relationship Specialty Start Date End Date Paulina Ardon MD [address] [place] [address] PCP - General 03/17/02 Biometrics Technician Relationship Specialty Start Date End Date Paulina Ardon MD [address] [place] [address] PCP - General 03/17/02 Biometrics Technician Relationship Specialty Start Date End Date Paulina Ardon MD [address] [place] [address] PCP - General 03/17/02 Biometrics Technician Relationship Specialty Start Date End Date Paulina Ardon MD [address] [place] [address] PCP - General 03/17/02 Biometrics Technician Relationship Specialty Start Date End Date Paulina Ardon MD [address] [place] [address] PCP - General 03/17/02 Biometrics Technician Relationship Specialty Start Date End Date Paulina Ardon MD [address] [place] [address] PCP - General 03/17/02 Biometrics Technician Relationship Specialty Start Date End Date Paulina Ardon MD [address] [place] [address] PCP - General 03/17/02 Biometrics Technician Relationship Specialty Start Date End Date Paulina Ardon MD [address] [place] [address] PCP - General 03/17/02 Biometrics Technician Relationship Specialty Start Date End Date Paulina Ardon MD [address] [place] [address] PCP - General 03/17/02 Biometrics Technician Relationship Specialty Start Date End Date Paulina Ardon MD [address] [place] [address] PCP - General 03/17/02 Sandra Sanchez, NYLON MACHINE OPERATOR.SEISMOGRAPH COMPUTER [address] [place] [address] Induction Coordination Engineer Internal Medicine 05/04/24 Christina Ellis NYLON MACHINE OPERATOR.GENERAL SURGEON [address] [place] [address] Induction Coordination Engineer Internal Medicine 05/04/24 Biometrics Technician Relationship Specialty Start Date End Date Paulina Ardon MD [address] [place] [address] PCP - General 03/17/02 Sandra Sanchez, NYLON MACHINE OPERATOR.SEISMOGRAPH COMPUTER [address] [place] [address] Induction Coordination Engineer Internal Medicine 05/04/24 Christina Ellis NYLON MACHINE OPERATOR.GENERAL SURGEON [address] [place] [address] Induction Coordination Engineer Internal Medicine 05/04/24 Biometrics Technician Relationship Specialty Start Date End Date Paulina Ardon MD [address] [place] [address] PCP - General 03/17/02 Sandra Sanchez, NYLON MACHINE OPERATOR.SEISMOGRAPH COMPUTER [address] [place] [address] [facility] Internal Medicine 05/04/24 Biometrics Technician Relationship Specialty Start Date End Date Paulina Ardon MD [address] [place] [address] PCP - General 03/17/02 Sandra Sanchez, NYLON MACHINE OPERATOR.SEISMOGRAPH COMPUTER [address] [place] [address] Induction Coordination Engineer Internal Medicine 05/04/24 Christina Ellis NYLON MACHINE OPERATOR.GENERAL SURGEON [address] [place] [address] [facility] Internal Medicine 08/18/24 Biometrics Technician Relationship Specialty Start Date End Date Paulina Ardon MD [address] [place] [address] PCP - General 03/17/02 Christina Ellis APRN.GENERAL SURGEON [address] [place] [address] Induction Coordination Engineer Internal Medicine 08/18/24 Sandra Sanchez, [place]YUSH.SEISMOGRAPH COMPUTER [address] [place] [address] Induction Coordination Engineer Internal Medicine 10/14/24 Biometrics Technician Relationship Specialty Start Date End Date Paulina Ardon MD [address] [place] [address] PCP - General 03/17/02 Christina Ellis APRN.GENERAL SURGEON [address] [place] [address] Induction Coordination Engineer Internal Medicine 08/18/24 Sandra Sanchez, NYLON MACHINE OPERATOR.SEISMOGRAPH COMPUTER [address] [place] [address] Induction Coordination Engineer Internal Medicine 10/14/24 Biometrics Technician Relationship Specialty Start Date End Date Paulina Ardon MD [address] [place] [address] PCP - General 03/17/02 Christina Ellis APRN.GENERAL SURGEON [address] [place] [address] Induction Coordination Engineer Internal Medicine 08/18/24 Sandra Sanchez, NYLON MACHINE OPERATOR.SEISMOGRAPH COMPUTER [address] [place] [address] Induction Coordination Engineer Internal Medicine 10/14/24 Biometrics Technician Relationship Specialty Start Date End Date Paulina Ardon MD [address] [place] [address] PCP - General 03/17/02 Christina Ellis APRN.GENERAL SURGEON [address] [place], [place] [address] [facility] Internal Medicine 08/18/24 Sandra Sanchez APRN.SEISMOGRAPH COMPUTER [address] [place], [place] [address] [facility] Internal Medicine 10/14/24 FOR RECORDS PERTAINING TO [...] BE BASED ON THE PRIMARY CLINICAL RECORDS. [facility]. provides no warranty or guarantee of the accuracy or completeness of information in this document.
[2024-12-14 08:54] LABS: Hematocrit 39.5 % (37-47); Hemoglobin 13.4 g/dL (12.0-15.0); Mean Corp Hgb Conc 33.9 g/dL (32-36); Mean Corpuscular Volume 89.6 fL (81-99); Mean Platelet Vol. 10.0 fl (6.2-12.0); Platelet Count 338 K/mm3 (150-450); RBC Distribution Width CV 11.9 % (11.6-14.6); RBC Distribution Width SD 38.5 fl (35.1-43.9); Red Blood Count 4.41 M/mm3 (4.2-5.4); White Blood Count 4.8 K/mm3 (4.4-11.0)
[2024-12-14 09:28] LABS: AST(SGOT) 22 U/L (<=31); Alanine Aminotransfer ALT/SGPT 17 U/L (<=34); Albumin, Serum 4.1 g/dL (3.4-4.8); Alkaline Phosphatase 63 U/L (35-104); Anion Gap 10 (5-15); BUN 14 mg/dL (4-19); BUN/Creat Ratio 14.8 RATIO (10-20); Calcium,Total 9.1 mg/dL (7.6-11.0); Carbon Dioxide 26.2 mmol/L (21.0-32.0); Chloride 102 mmol/L (98-108); Cholesterol 219 mg/dL (<=200); Globulin 2.7 g/dL (2.2-4.2); Glucose 102 mg/dL (70-99); Low Density Lipoprotein Calc. 96 mg/dL; Potassium 4.6 mmol/L (3.3-5.1); Triglycerides 64 mg/dL; Very Low Density Lipoprotein 13 mg/dL (5-40); cholesterol:hdl ratio screen 1.99
[2024-12-14 09:33] LABS: T4 Total, Thyroxin 6.8 ug/dL (4.8-13.9); Vitamin D,25 Hydroxy 42.5 ng/mL (30-100)
== END ==
LOC: OLS.BROOKB 04:00
PROVIDERS: PCP Internal Medicine; Referring Provider Family Medicine; Visit Provider Family Medicine
DX: Z79.899 Other long term (current) drug therapy (principal)
CPT/HCPCS: 36415; 80053; 80061; 82306; 83036; 84436; 84443; 85027